=== PATIENT | female | born 1980 | race Caucasian/White ===

== ENCOUNTER 2020-08-24 07:48 | Outpatient (REF) | payer BC, SELFPAY | END 2020-08-24 07:49 | disposition home or self-care (01) | LOC: HO.MDS 07:48 | PROVIDERS: PCP Nurse Practitioner Family; Visit Provider Hospitalist | DX: J45.909 Unspecified asthma, uncomplicated (principal) | CPT/HCPCS: 96372; J2357 ==

== ENCOUNTER 2020-08-26 08:15 | Outpatient (REF) | payer BC, SELFPAY ==
--- NOTE | 2020-08-26 08:35 | XR_ITS ---
EXAMINATION: XR ANKLE, LEFT CLINICAL INFORMATION: Pain left ankle and joints. COMPARISON: None TECHNIQUE: AP, lateral, and mortise views of the left ankle. FINDINGS: The bones and soft tissues are normal. No fracture. Alignment is anatomic. Joint spaces are maintained. No joint effusion. XR/XR ankle LT min 3V IMPRESSION: Unremarkable left ankle exam.
[2020-08-26 11:49] LABS: Anion Gap 15 (12-20); Blood Urea Nitrogen 18 mg/dL (9-16); Calcium 8.7 mg/dL (8.4-10.2); Carbon Dioxide 23 mmol/L (22-29); Chloride 106 mmol/L (96-108); Cholesterol 211 mg/dL; Estimated Glomerular Filt Rate > 60; Glucose Fasting 81 mg/dL (60-99); HDL Cholesterol 53 mg/dL; LDL Cholesterol Calculated 140 mg/dl; Potassium 4.5 mmol/l (3.3-5.1); Sodium 139 mmol/L (135-145); Triglycerides 93 mg/dL
[2020-08-26 11:59] LABS: TSH reflex Free T4 1.58 mIU/mL (0.32-4.0); Vitamin D 25-OH Total 32.7 ng/mL (>30)
== END 2020-08-26 08:16 | disposition home or self-care (01) ==
LOC: HO.HMGCLDS 08:15
PROVIDERS: PCP Nurse Practitioner Family; Visit Provider Nurse Practitioner Family
DX: Z00.00 Encounter for general adult medical examination without abnormal findings (principal); M25.572 Pain in left ankle and joints of left foot; E55.9 Vitamin D deficiency, unspecified; Z80.3 Family history of malignant neoplasm of breast
CPT/HCPCS: 73610; 80048; 80061; 82306; 84443

== ENCOUNTER 2020-09-21 08:10 | Outpatient (REF) | payer BC, SELFPAY | END 2020-09-21 08:11 | disposition home or self-care (01) | LOC: HO.MDS 08:10 | PROVIDERS: PCP Nurse Practitioner Family; Visit Provider Hospitalist | DX: J45.50 Severe persistent asthma, uncomplicated (principal) | CPT/HCPCS: 90732; 96372; J2357 ==

== ENCOUNTER 2020-10-19 09:23 | Outpatient (REF) | payer BC, SELFPAY | END 2020-10-19 09:24 | disposition home or self-care (01) | LOC: HO.MDS 09:23 | PROVIDERS: PCP Nurse Practitioner Family; Visit Provider Hospitalist | DX: J45.50 Severe persistent asthma, uncomplicated (principal) | CPT/HCPCS: 96372; J2357 ==

== ENCOUNTER 2020-11-16 07:59 | Outpatient (REF) | payer BC, SELFPAY | END 2020-11-16 08:00 | disposition home or self-care (01) | LOC: HO.MDS 07:59 | PROVIDERS: PCP Nurse Practitioner Family; Visit Provider Hospitalist | DX: J45.50 Severe persistent asthma, uncomplicated (principal) | CPT/HCPCS: 96372; J2357 ==

== ENCOUNTER 2020-12-07 10:21 | Outpatient (REF) | payer BC, SELFPAY ==
--- NOTE | ~2020-12-07 | XR_ITS ---
EXAMINATION: XR LUMBOSACRAL SPINE CLINICAL INFORMATION: Chronic low back pain COMPARISON: Previous lumbar spine x-ray and MRI most recent June 2018 TECHNIQUE: Three views of the lumbosacral spine. FINDINGS: There may be a transitional vertebral body segment or 6 lumbar-type vertebral bodies. Bone alignment is normal. No fracture or dislocation is seen. Disc spaces are normal. Paraspinal soft tissues are normal. XR/XR lumbar spine 2-3V IMPRESSION: Probable transitional vertebral body segment or 6 lumbar-type vertebral bodies. Otherwise unremarkable exam.
[2020-12-07 12:07] LABS: Anion Gap 11 (12-20); Blood Urea Nitrogen 16 mg/dL (9-16); Calcium 8.5 mg/dL (8.4-10.2); Carbon Dioxide 26 mmol/L (22-29); Chloride 107 mmol/L (96-108); Estimated Glomerular Filt Rate > 60; Glucose Random 84 mg/dL (60-115); Potassium 4.2 mmol/L (3.3-5.1); Sodium 140 mmol/L (135-145)
[2020-12-07 12:18] LABS: Erythrocyte Sedimentation Rate 3 MM/HR (0-20)
[2020-12-11 11:32] LABS: HLA B27 Negative (Negative)
== END 2020-12-07 10:22 | disposition home or self-care (01) ==
LOC: HO.HMGCX 10:21
PROVIDERS: PCP Nurse Practitioner Family; Visit Provider Physical Medicine & Rehabilitation
DX: M46.1 Sacroiliitis, not elsewhere classified (principal); M54.5 Low back pain; G89.29 Other chronic pain
CPT/HCPCS: 36415; 72100; 80048; 85652; 86812

== ENCOUNTER 2020-12-14 07:52 | Outpatient (REF) | payer BC, SELFPAY | END 2020-12-14 07:53 | disposition home or self-care (01) | LOC: HO.MDS 07:52 | PROVIDERS: PCP Nurse Practitioner Family; Visit Provider Hospitalist | DX: J45.50 Severe persistent asthma, uncomplicated (principal) | CPT/HCPCS: 96372; J2357 ==

== ENCOUNTER 2021-01-11 08:03 | Outpatient (REF) | payer BC, SELFPAY | END 2021-01-11 08:04 | disposition home or self-care (01) | LOC: HO.MDS 08:03 | PROVIDERS: PCP Nurse Practitioner Family; Visit Provider Hospitalist | DX: J45.50 Severe persistent asthma, uncomplicated (principal) | CPT/HCPCS: 96372; J2357 ==

== ENCOUNTER 2021-02-11 07:51 | Outpatient (REF) | payer BC, SELFPAY | END 2021-02-11 07:52 | disposition home or self-care (01) | LOC: HO.MDS 07:51 | PROVIDERS: PCP Nurse Practitioner Family; Visit Provider Hospitalist | DX: J45.50 Severe persistent asthma, uncomplicated (principal) | CPT/HCPCS: 96372; J2357 ==

== ENCOUNTER 2021-03-15 07:50 | Outpatient (REF) | payer BC, SELFPAY | END 2021-03-15 07:51 | disposition home or self-care (01) | LOC: HO.MDS 07:50 | PROVIDERS: PCP Nurse Practitioner Family; Visit Provider Hospitalist | DX: J45.50 Severe persistent asthma, uncomplicated (principal) | CPT/HCPCS: 96372; J2357 ==

== ENCOUNTER 2021-04-12 07:42 | Outpatient (REF) | payer BC, SELFPAY | END 2021-04-12 07:43 | disposition home or self-care (01) | LOC: HO.MDS 07:42 | PROVIDERS: PCP Nurse Practitioner Family; Visit Provider Hospitalist | DX: J45.50 Severe persistent asthma, uncomplicated (principal) | CPT/HCPCS: 96372; J2357 ==

== ENCOUNTER 2021-05-11 08:02 | Outpatient (REF) | payer BC, SELFPAY | END 2021-05-11 08:03 | disposition home or self-care (01) | LOC: HO.MDS 08:02 | PROVIDERS: PCP Nurse Practitioner Family; Visit Provider Hospitalist | DX: J45.50 Severe persistent asthma, uncomplicated (principal) | CPT/HCPCS: 96372; J2357 ==

== ENCOUNTER → 2021-06-14 13:12 | Outpatient (BNVA) | payer BC, SELFPAY | PROVIDERS: PCP Nurse Practitioner Family; Visit Provider Hospitalist ==

== ENCOUNTER 2021-06-15 07:59 | Outpatient (REF) | payer BC, SELFPAY | END 2021-06-15 08:00 | disposition home or self-care (01) | LOC: HO.MDS 07:59 | PROVIDERS: PCP Nurse Practitioner Family; Visit Provider Hospitalist | DX: J45.50 Severe persistent asthma, uncomplicated (principal) | CPT/HCPCS: 96372; J2357 ==

== ENCOUNTER 2021-10-17 09:42 | Emergency (ER) | payer BC, SELFPAY ==
--- NOTE | ~2021-10-17 | XR_ITS ---
EXAMINATION: XR CHEST CLINICAL INFORMATION: SOB x2 days COMPARISON: Chest 01/01/2020 TECHNIQUE: 2 views of the chest were obtained. FINDINGS: No significant abnormality is noted involving the heart, lungs, mediastinum, bony thorax or soft tissues. XR/XR chest 2V IMPRESSION: Unremarkable chest exam.
[2021-10-17 10:14] VITALS: BP 157/81; PULSE 91; RESP 20; TEMP 36.8; O2SAT 95; BMI 29.9
--- NOTE | 2021-10-17 10:18 | ED_ITS ---
HPI - Asthma General Chief Complaint: Upper Respiratory Symptoms Stated Complaint: SOB Time Seen by Provider: 10/17/21 10:16 Related Data Home Medications Medication Instructions Recorded Confirmed budesonide 0.5 mg/2 mL suspension mg INHALATION DAILY 08/26/20 01/11/21 for nebulization albuterol sulfate 90 mcg/actuation 2 puff INHALATION Q6H PRN 09/21/20 01/11/21 aerosol inhaler (ProAir HFA) tiotropium bromide 2.5 2 puff PO DAILY 09/21/20 01/11/21 mcg/actuation mist for inhalation tiotropium bromide 1.25 2 puff INHALATION BEDTIME 09/20/21 mcg/actuation mist for inhalation (Spiriva Respimat) Previous Rx's Medication Instructions Recorded valacyclovir 500 mg tablet 500 mg PO DAILY 90 Days #90 tab 11/15/20 ropinirole 0.25 mg tablet 0.25 mg PO BEDTIME #90 tab 02/17/21 epinephrine 0.3 mg/0.3 mL 0.3 ml IM DIRECTED PRN #2 ea 05/04/21 injection, auto-injector epinephrine 0.3 mg/0.3 mL 0.3 mg (0.3 mL) IM Q10M PRN 30 06/14/21 injection, auto-injector (EpiPen Days #2 ea 2-Rojelio) omalizumab 150 mg/mL subcutaneous 300 mg (2 mL) SUBCUT Q4W #2 syringe 06/20/21 syringe (Xolair) famotidine 40 mg tablet 40 mg PO BEDTIME #90 tab 07/05/21 Symbicort 160 mcg-4.5 2 puff PO BID 90 Days #3 ea NS 07/07/21 mcg/actuation HFA aerosol inhaler (budesonide-formoterol) Symbicort 160 mcg-4.5 2 puff INHALATION BID 90 Days #3 07/22/21 mcg/actuation HFA aerosol inhaler ea NS (budesonide-formoterol) cephalexin 250 mg capsule 250 mg PO BID #14 cap 09/26/21 omeprazole 40 mg capsule,delayed 40 mg PO DAILY #90 cap 09/29/21 release estazolam 2 mg tablet 2 mg PO BEDTIME 30 Days #30 tab 10/05/21 Magic Mouthwash 10 ml PO TID PRN 10 Days #240 ml 10/12/21 Diphen/Lido/Antacid 1:1:1 240 mL suspension penicillin V potassium 500 mg 500 mg PO TID 10 Days #30 tab 10/12/21 tablet budesonide 1 mg/2 mL suspension 1 mg (2 mL) INHALATION DAILY #60 ml 10/17/21 for nebulization prednisone 20 mg tablet 40 mg PO DAILY #10 tab 10/17/21 Allergies Allergy/AdvReac Type Severity Reaction Status Date / Time Environmental Allergy Intermediate Hives and Uncoded 06/14/21 13:21 Rash PMFSH Past Medical History Medical History Asthma Chronic allergic rhinitis Dyslipidemia Family hx-breast malignancy GERD (gastroesophageal reflux disease) Hiatal hernia Lumbar disc herniation RLS (restless legs syndrome) Ureterolithiasis Vitamin D deficiency Surgical History H/O prior ablation treatment History of colposcopy History of release of tendon Hx of cholecystectomy Family History Family History Father No problems noted. Mother No problems noted. Maternal Grandfather No problems noted. Maternal Grandmother No problems noted. Paternal Grandfather No problems noted. Paternal Grandmother No problems noted. Maternal Uncle Bladder cancer Paternal Grandmother Colon cancer Stroke Sister No problems noted. Social History Social History Patient Tobacco Use Status: Never used Tobacco Advance Directives: No Advance Directives Information Provided: Yes Patient : No Physical Exam Vital Signs: Vital Signs: Last Vital Signs Temp 98.3 F 10/17/21 10:14 Pulse 91 10/17/21 10:14 Resp 20 10/17/21 10:14 BP 157/81 H 10/17/21 10:14 Pulse Ox 95 10/17/21 10:14 BMI result Body Mass Index 29.9 Course Course Course Narrative: 10:20am - Quick assessment. Patient alert oriented x3. Not in any acute distress. Vital signs are stable within normal limits. 41-year-old female with a past medical history of asthma presenting to the ED with complaints of 2 days of worsening cough with yellow-colored sputum production with shortness of breath and wheezing. Also reports hoarseness and a sore throat. Reports that she was prescribed penicillins on Sunday for pharyngitis and is taking as prescribed. She reports she is vaccinated to COVID. Although was not tested for COVID. Reports she is taking her nebulizers and Budesonide as prescribed and she does not feel any symptomatic relief. 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 Denies recent travel. Denies any fevers. At this time labs, chest x-ray, COVID/RSV/flu and EKG ordered. Patient will be sent back to the waiting room for further evaluation treatment so she can be called back into the ER. Patient and mother at bedside understand agree this plan. MDM - Asthma Lab Data Result diagrams: 10/17/21 10:40 10/17/21 10:40 Labs: Lab Results 10/17/21 10/17/21 10/17/21 Range/Units 10:22 10:40 10:40 WBC 10.3 (4.8-10.8) X10*3/uL RBC 4.50 (4.20-5.50) X10*6/uL Hgb 14.8 (12.0-16.0) g/dl Hct 42.7 (37.0-47.0) % MCV 94.9 (80.0-98.0) fL MCH 32.9 (27.0-33.0) pg MCHC 34.7 (31.0-35.0) g/dl RDW 12.0 (11.0-16.0) % Plt Count 296 (160-400) X10*3/uL MPV 10.4 (9.4-12.3) fL Immature Gran % (Auto) 0.3 (0.0-0.4) % Neut % (Auto) 77.3 H (45-73) % Lymph % (Auto) 14.0 L (20-40) % [place] % (Auto) 6.7 (2-11) % Eos % (Auto) 1.3 (0-4) % Baso % (Auto) 0.4 (0-2) % Lymph # (Auto) 1.4 (1.2-4.9) X10*3/uL [place] # (Auto) 0.7 (0.1-1.2) X10*3/uL Eos # (Auto) 0.1 (0.0-0.4) X10*3/uL Baso # (Auto) 0.0 (0.0-0.2) X10*3/uL Abs Immat Gran (auto) 0.03 (0.00-0.03) X10*3/uL Absolute Neuts (auto) 8.0 (2.0-8.3) x10*3/uL Absolute Nucleated RBC 0.000 (0.0-0.012) X10*3/uL Nucleated RBC % (auto) 0.0 (0.0-0.2) /100WBC Hold Purple Top SEE NOTE Sodium (135-145) mmol/L Potassium (3.3-5.1) mmol/L Chloride (96-108) mmol/L Carbon Dioxide (22-29) mmol/L Anion Gap (12-20) BUN (9-16) mg/dL Creatinine (0.5-1.4) mg/dL Estim Creat Clear Calc Estimated GFR Random Glucose (60-115) mg/dL Calcium (8.4-10.2) mg/dL Magnesium (1.6-2.6) mg/dL Total Bilirubin (0.0-1.0) mg/dL AST (5-31) U/L ALT (0-31) U/L Alkaline Phosphatase (39-117) U/L Total Protein (6.5-8.0) g/dL Albumin (3.5-5.0) g/dL Influenza Type A (PCR) NEGATIVE (Negative) Influenza Type B (PCR) NEGATIVE (Negative) RSV RNA Qual (PCR) NEGATIVE (Negative) SARS-CoV-2 RNA (RT-PCR) NEGATIVE (Negative) 10/17/21 Range/Units 10:40 WBC (4.8-10.8) X10*3/uL RBC (4.20-5.50) X10*6/uL Hgb (12.0-16.0) g/dl Hct (37.0-47.0) % MCV (80.0-98.0) fL MCH (27.0-33.0) pg MCHC (31.0-35.0) g/dl RDW (11.0-16.0) % Plt Count (160-400) X10*3/uL MPV (9.4-12.3) fL Immature Gran % (Auto) (0.0-0.4) % Neut % (Auto) (45-73) % Lymph % (Auto) (20-40) % [place] % (Auto) (2-11) % Eos % (Auto) (0-4) % Baso % (Auto) (0-2) % Lymph # (Auto) (1.2-4.9) X10*3/uL [place] # (Auto) (0.1-1.2) X10*3/uL Eos # (Auto) (0.0-0.4) X10*3/uL Baso # (Auto) (0.0-0.2) X10*3/uL Abs Immat Gran (auto) (0.00-0.03) X10*3/uL Absolute Neuts (auto) (2.0-8.3) x10*3/uL Absolute Nucleated RBC (0.0-0.012) X10*3/uL Nucleated RBC % (auto) (0.0-0.2) /100WBC Hold Purple Top Sodium 141 (135-145) mmol/L Potassium 4.3 (3.3-5.1) mmol/L Chloride 108 (96-108) mmol/L Carbon Dioxide 28 (22-29) mmol/L Anion Gap 9 L (12-20) BUN 12 (9-16) mg/dL Creatinine 0.83 (0.5-1.4) mg/dL Estim Creat Clear Calc 96.0 Estimated GFR > 60 Random Glucose 100 (60-115) mg/dL Calcium 9.4 D (8.4-10.2) mg/dL Magnesium 2.0 (1.6-2.6) mg/dL Total Bilirubin 0.4 (0.0-1.0) mg/dL AST 21 (5-31) U/L ALT 29 (0-31) U/L Alkaline Phosphatase 92 (39-117) U/L Total Protein 7.2 (6.5-8.0) g/dL Albumin 4.1 (3.5-5.0) g/dL Influenza Type A (PCR) (Negative) Influenza Type B (PCR) (Negative) RSV RNA Qual (PCR) (Negative) SARS-CoV-2 RNA (RT-PCR) (Negative) Discharge Plan Discharge Clinical Impression: Upper respiratory infection, Viral infection Patient Disposition: Home, Self-Care Instructions: Upper Respiratory Infection (ED), Viral Syndrome (ED) Prescriptions: New budesonide 1 mg/2 mL suspension for nebulization 1 mg inhalation DAILY Qty: 60 RF: 0 prednisone 20 mg tablet 40 mg PO DAILY Qty: 10 RF: 0 No Action valacyclovir 500 mg tablet 500 mg PO DAILY 90 Days Qty: 90 RF: 3 ropinirole 0.25 mg tablet 0.25 mg PO BEDTIME Qty: 90 RF: 3 epinephrine 0.3 mg/0.3 mL auto-injector 0.3 ml IM DIRECTED PRN (Reason: anaphylaxis) Qty: 2 RF: 0 Xolair 150 mg/mL syringe 300 mg subcut Q4W Qty: 2 RF: 12 famotidine 40 mg tablet 40 mg PO BEDTIME Qty: 90 RF: 3 budesonide-formoterol [Symbicort] 160-4.5 mcg/actuation HFA aerosol inhaler 2 puff PO BID 90 Days Qty: 3 RF: 1 budesonide-formoterol [Symbicort] 160-4.5 mcg/actuation HFA aerosol inhaler 2 puff inhalation BID 90 Days Qty: 3 RF: 0 cephalexin 250 mg capsule 250 mg PO BID Qty: 14 RF: 0 omeprazole 40 mg capsule,delayed release(DR/EC) 40 mg PO DAILY Qty: 90 RF: 0 estazolam 2 mg tablet 2 mg PO BEDTIME 30 Days Qty: 30 RF: 0 budesonide 0.5 mg/2 mL suspension for nebulization inhalation DAILY RF: 0 tiotropium bromide 2.5 mcg/actuation mist 2 puff PO DAILY RF: 0 Spiriva Respimat 1.25 mcg/actuation mist 2 puff inhalation BEDTIME RF: 0 penicillin V potassium 500 mg tablet 500 mg PO TID 10 Days Qty: 30 RF: 0 Magic Mouthwash Diphen/Lido/Antacid 1:1:1 240 mL suspension 10 ml PO TID PRN (Reason: throat pain) 10 Days Qty: 240 RF: 0 epinephrine [EpiPen 2-Rojelio] 0.3 mg/0.3 mL auto-injector 0.3 mg IM Q10M PRN (Reason: anaphylaxis) 30 Days Qty: 2 RF: 6 albuterol sulfate [ProAir HFA] 90 mcg/actuation HFA aerosol inhaler 2 puff inhalation Q6H PRNRF: 0 Interventions: ED Discharge Assessment Last Done: 10/17/21 11:50 Discharge Date/Time: 10/17/21 11:52
--- NOTE | 2021-10-17 10:19 | ECG_ITS ---
Test Reason : upper respiratory Blood Pressure : / mmHG Vent. Rate : 085 BPM Atrial Rate : 085 BPM P-R Int : 118 ms QRS Dur : 080 ms QT Int : 374 ms P-R-T Axes : 011 044 023 degrees QTc Int : 445 ms Normal sinus rhythm Normal EKG No previous ECGs available Referred By: Riddhi Whiteside Electronically Signed By:DUANE CARRANZA
[2021-10-17 10:46] LABS: MANUAL DIFF FLAG NO
[2021-10-17 10:47] LABS: Basophils Percent Auto 0.4 % (0-2); Eosinophils Absolute Auto 0.1 X10*3/uL (0.0-0.4); Eosinophils Percent Auto 1.3 % (0-4); Hematocrit 42.7 % (37.0-47.0); Hemoglobin 14.8 g/dl (12.0-16.0); Imm Gran Abs Auto 0.03 X10*3/uL (0.00-0.03); Imm Gran Pct Auto 0.3 % (0.0-0.4); Lymphocytes Absolute Auto 1.4 X10*3/uL (1.2-4.9); Mean Corpuscular HGB Conc 34.7 g/dl (31.0-35.0); Mean Corpuscular Hemoglobin 32.9 pg (27.0-33.0); Mean Corpuscular Volume 94.9 fL (80.0-98.0); Mean Platelet Volume 10.4 fL (9.4-12.3); Monocytes Absolute Auto 0.7 X10*3/uL (0.1-1.2); Monocytes Percent Auto 6.7 % (2-11); Neutrophils Percent Auto 77.3 % (45-73); Platelet Count 296 X10*3/uL (160-400); White Blood Count 10.3 X10*3/uL (4.8-10.8)
[2021-10-17 11:06] LABS: Alanine Aminotransferase 29 U/L (0-31); Albumin Level 4.1 g/dL (3.5-5.0); Alkaline Phosphatase 92 U/L (39-117); Anion Gap 9 (12-20); Aspartate Amino Transferase 21 U/L (5-31); Bilirubin Total 0.4 mg/dL (0.0-1.0); Blood Urea Nitrogen 12 mg/dL (9-16); Calcium 9.4 mg/dL (8.4-10.2); Carbon Dioxide 28 mmol/L (22-29); Chloride 108 mmol/L (96-108); Estimated Glomerular Filt Rate > 60; Glucose Random 100 mg/dL (60-115); Potassium 4.3 mmol/L (3.3-5.1); Sodium 141 mmol/L (135-145); Total Protein 7.2 g/dL (6.5-8.0)
[2021-10-17 11:16] LABS: Influenza A PCR NEGATIVE (Negative); Influenza B PCR NEGATIVE (Negative); Resp Syncy Virus RNA Qual PCR NEGATIVE (Negative); SARS COV2 PCR INHOUSE NEGATIVE (Negative)
--- NOTE | 2021-10-17 11:42 | ED.URI ---
HPI - URI/Sore Throat General Chief Complaint: Upper Respiratory Symptoms Stated Complaint: SOB Time Seen by Provider: 10/17/21 10:16 Source: patient History of Present Illness HPI Narrative: Patient states for the past 5 days she has had a sore throat as well as cough and wheezing. No fevers or chills. She has a history of asthma and has been using her nebulizer more than normal. She saw her physician last Sunday when it started and was prescribed penicillin which she has been taking. Her sore throat is about the same. Not significantly worse. Not unilateral. Similar history in the past with upper respiratory infections as well as pneumonia in the past. She is a nonsmoker. 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 as well as other upper respiratory viral illnesses Related Data Home Medications Medication Instructions Recorded Confirmed budesonide 0.5 mg/2 mL suspension mg INHALATION DAILY 08/26/20 01/11/21 for nebulization albuterol sulfate 90 mcg/actuation 2 puff INHALATION Q6H PRN 09/21/20 01/11/21 aerosol inhaler (ProAir HFA) tiotropium bromide 2.5 2 puff PO DAILY 09/21/20 01/11/21 mcg/actuation mist for inhalation tiotropium bromide 1.25 2 puff INHALATION BEDTIME 09/20/21 mcg/actuation mist for inhalation (Spiriva Respimat) Previous Rx's Medication Instructions Recorded valacyclovir 500 mg tablet 500 mg PO DAILY 90 Days #90 tab 11/15/20 ropinirole 0.25 mg tablet 0.25 mg PO BEDTIME #90 tab 02/17/21 epinephrine 0.3 mg/0.3 mL 0.3 ml IM DIRECTED PRN #2 ea 05/04/21 injection, auto-injector epinephrine 0.3 mg/0.3 mL 0.3 mg (0.3 mL) IM Q10M PRN 30 06/14/21 injection, auto-injector (EpiPen Days #2 ea 2-Rojelio) omalizumab 150 mg/mL subcutaneous 300 mg (2 mL) SUBCUT Q4W #2 syringe 06/20/21 syringe (Xolair) famotidine 40 mg tablet 40 mg PO BEDTIME #90 tab 07/05/21 Symbicort 160 mcg-4.5 2 puff PO BID 90 Days #3 ea NS 07/07/21 mcg/actuation HFA aerosol inhaler (budesonide-formoterol) Symbicort 160 mcg-4.5 2 puff INHALATION BID 90 Days #3 07/22/21 mcg/actuation HFA aerosol inhaler ea NS (budesonide-formoterol) cephalexin 250 mg capsule 250 mg PO BID #14 cap 09/26/21 omeprazole 40 mg capsule,delayed 40 mg PO DAILY #90 cap 09/29/21 release estazolam 2 mg tablet 2 mg PO BEDTIME 30 Days #30 tab 10/05/21 Magic Mouthwash 10 ml PO TID PRN 10 Days #240 ml 10/12/21 Diphen/Lido/Antacid 1:1:1 240 mL suspension penicillin V potassium 500 mg 500 mg PO TID 10 Days #30 tab 10/12/21 tablet budesonide 1 mg/2 mL suspension 1 mg (2 mL) INHALATION DAILY #60 ml 10/17/21 for nebulization prednisone 20 mg tablet 40 mg PO DAILY #10 tab 10/17/21 Allergies Allergy/AdvReac Type Severity Reaction Status Date / Time Environmental Allergy Intermediate Hives and Uncoded 06/14/21 13:21 Rash Review of Systems Constitutional: Constitutional: Denies fever(s) ENT: Comments: Sore throat Cardiovascular: Comments: No chest pain Respiratory: Comments: Cough with sputum. Positive wheezing. Gastrointestinal: Comments: No nausea vomiting diarrhea Integumentary/Breasts: Comments: No rash PMFSH Past Medical History Medical History Asthma Chronic allergic rhinitis Dyslipidemia Family hx-breast malignancy GERD (gastroesophageal reflux disease) Hiatal hernia Lumbar disc herniation RLS (restless legs syndrome) Ureterolithiasis Vitamin D deficiency Surgical History H/O prior ablation treatment History of colposcopy History of release of tendon Hx of cholecystectomy Family History Family History Father No problems noted. Mother No problems noted. Maternal Grandfather No problems noted. Maternal Grandmother No problems noted. Paternal Grandfather No problems noted. Paternal Grandmother No problems noted. Maternal Uncle Bladder cancer Paternal Grandmother Colon cancer Stroke Sister No problems noted. Social History Social History Patient Tobacco Use Status: Never used Tobacco Advance Directives: No Advance Directives Information Provided: Yes Patient : No Physical Exam Vital Signs: Vital Signs: Last Vital Signs Temp 98.3 F 10/17/21 10:14 Pulse 91 10/17/21 10:14 Resp 20 10/17/21 10:14 BP 157/81 H 10/17/21 10:14 Pulse Ox 95 10/17/21 10:14 BMI result Body Mass Index 29.9 Const: Other: Awake alert no acute distress HENMT: Other: Throat with mild erythema, no swelling, no exudate. Positive mild bilateral equal submandibular lymphadenopathy Neck: Other: No meningismus Resp: Other: Clear bilaterally but mildly diminished. No wheezes rales or rhonchi Cardio: Other: Regular rate and rhythm without murmurs rubs or gallops Skin: Other: No visible rash Neuro: Other: Alert and oriented x4 Course Course Course Narrative: URI Pneumonia COVID-19 infection Workup in emergency department shows normal labs including CBC and chemistries. Viral workup shows no evidence of influenza, COVID-19, or RSV. Chest x-ray is clear without infiltrate Will start on prednisone and refilled her prescription for budesonide. MDM - URI/Sore Throat Lab Data Result diagrams: 10/17/21 10:40 10/17/21 10:40 Labs: Lab Results 10/17/21 10/17/21 10/17/21 Range/Units 10:22 10:40 10:40 WBC 10.3 (4.8-10.8) X10*3/uL RBC 4.50 (4.20-5.50) X10*6/uL Hgb 14.8 (12.0-16.0) g/dl Hct 42.7 (37.0-47.0) % MCV 94.9 (80.0-98.0) fL MCH 32.9 (27.0-33.0) pg MCHC 34.7 (31.0-35.0) g/dl RDW 12.0 (11.0-16.0) % Plt Count 296 (160-400) X10*3/uL MPV 10.4 (9.4-12.3) fL Immature Gran % (Auto) 0.3 (0.0-0.4) % Neut % (Auto) 77.3 H (45-73) % Lymph % (Auto) 14.0 L (20-40) % [place] % (Auto) 6.7 (2-11) % Eos % (Auto) 1.3 (0-4) % Baso % (Auto) 0.4 (0-2) % Lymph # (Auto) 1.4 (1.2-4.9) X10*3/uL [place] # (Auto) 0.7 (0.1-1.2) X10*3/uL Eos # (Auto) 0.1 (0.0-0.4) X10*3/uL Baso # (Auto) 0.0 (0.0-0.2) X10*3/uL Abs Immat Gran (auto) 0.03 (0.00-0.03) X10*3/uL Absolute Neuts (auto) 8.0 (2.0-8.3) x10*3/uL Absolute Nucleated RBC 0.000 (0.0-0.012) X10*3/uL Nucleated RBC % (auto) 0.0 (0.0-0.2) /100WBC Hold Purple Top SEE NOTE Sodium (135-145) mmol/L Potassium (3.3-5.1) mmol/L Chloride (96-108) mmol/L Carbon Dioxide (22-29) mmol/L Anion Gap (12-20) BUN (9-16) mg/dL Creatinine (0.5-1.4) mg/dL Estim Creat Clear Calc Estimated GFR Random Glucose (60-115) mg/dL Calcium (8.4-10.2) mg/dL Magnesium (1.6-2.6) mg/dL Total Bilirubin (0.0-1.0) mg/dL AST (5-31) U/L ALT (0-31) U/L Alkaline Phosphatase (39-117) U/L Total Protein (6.5-8.0) g/dL Albumin (3.5-5.0) g/dL Influenza Type A (PCR) NEGATIVE (Negative) Influenza Type B (PCR) NEGATIVE (Negative) RSV RNA Qual (PCR) NEGATIVE (Negative) SARS-CoV-2 RNA (RT-PCR) NEGATIVE (Negative) 10/17/21 Range/Units 10:40 WBC (4.8-10.8) X10*3/uL RBC (4.20-5.50) X10*6/uL Hgb (12.0-16.0) g/dl Hct (37.0-47.0) % MCV (80.0-98.0) fL MCH (27.0-33.0) pg MCHC (31.0-35.0) g/dl RDW (11.0-16.0) % Plt Count (160-400) X10*3/uL MPV (9.4-12.3) fL Immature Gran % (Auto) (0.0-0.4) % Neut % (Auto) (45-73) % Lymph % (Auto) (20-40) % [place] % (Auto) (2-11) % Eos % (Auto) (0-4) % Baso % (Auto) (0-2) % Lymph # (Auto) (1.2-4.9) X10*3/uL [place] # (Auto) (0.1-1.2) X10*3/uL Eos # (Auto) (0.0-0.4) X10*3/uL Baso # (Auto) (0.0-0.2) X10*3/uL Abs Immat Gran (auto) (0.00-0.03) X10*3/uL Absolute Neuts (auto) (2.0-8.3) x10*3/uL Absolute Nucleated RBC (0.0-0.012) X10*3/uL Nucleated RBC % (auto) (0.0-0.2) /100WBC Hold Purple Top Sodium 141 (135-145) mmol/L Potassium 4.3 (3.3-5.1) mmol/L Chloride 108 (96-108) mmol/L Carbon Dioxide 28 (22-29) mmol/L Anion Gap 9 L (12-20) BUN 12 (9-16) mg/dL Creatinine 0.83 (0.5-1.4) mg/dL Estim Creat Clear Calc 96.0 Estimated GFR > 60 Random Glucose 100 (60-115) mg/dL Calcium 9.4 D (8.4-10.2) mg/dL Magnesium 2.0 (1.6-2.6) mg/dL Total Bilirubin 0.4 (0.0-1.0) mg/dL AST 21 (5-31) U/L ALT 29 (0-31) U/L Alkaline Phosphatase 92 (39-117) U/L Total Protein 7.2 (6.5-8.0) g/dL Albumin 4.1 (3.5-5.0) g/dL Influenza Type A (PCR) (Negative) Influenza Type B (PCR) (Negative) RSV RNA Qual (PCR) (Negative) SARS-CoV-2 RNA (RT-PCR) (Negative) Discharge Plan Discharge Clinical Impression: Upper respiratory infection, Viral infection Patient Disposition: Home, Self-Care Instructions: Upper Respiratory Infection (ED), Viral Syndrome (ED) Prescriptions: New budesonide 1 mg/2 mL suspension for nebulization 1 mg inhalation DAILY Qty: 60 RF: 0 prednisone 20 mg tablet 40 mg PO DAILY Qty: 10 RF: 0 No Action valacyclovir 500 mg tablet 500 mg PO DAILY 90 Days Qty: 90 RF: 3 ropinirole 0.25 mg tablet 0.25 mg PO BEDTIME Qty: 90 RF: 3 epinephrine 0.3 mg/0.3 mL auto-injector 0.3 ml IM DIRECTED PRN (Reason: anaphylaxis) Qty: 2 RF: 0 Xolair 150 mg/mL syringe 300 mg subcut Q4W Qty: 2 RF: 12 famotidine 40 mg tablet 40 mg PO BEDTIME Qty: 90 RF: 3 budesonide-formoterol [Symbicort] 160-4.5 mcg/actuation HFA aerosol inhaler 2 puff PO BID 90 Days Qty: 3 RF: 1 budesonide-formoterol [Symbicort] 160-4.5 mcg/actuation HFA aerosol inhaler 2 puff inhalation BID 90 Days Qty: 3 RF: 0 cephalexin 250 mg capsule 250 mg PO BID Qty: 14 RF: 0 omeprazole 40 mg capsule,delayed release(DR/EC) 40 mg PO DAILY Qty: 90 RF: 0 estazolam 2 mg tablet 2 mg PO BEDTIME 30 Days Qty: 30 RF: 0 budesonide 0.5 mg/2 mL suspension for nebulization inhalation DAILY RF: 0 tiotropium bromide 2.5 mcg/actuation mist 2 puff PO DAILY RF: 0 Spiriva Respimat 1.25 mcg/actuation mist 2 puff inhalation BEDTIME RF: 0 penicillin V potassium 500 mg tablet 500 mg PO TID 10 Days Qty: 30 RF: 0 Magic Mouthwash Diphen/Lido/Antacid 1:1:1 240 mL suspension 10 ml PO TID PRN (Reason: throat pain) 10 Days Qty: 240 RF: 0 epinephrine [EpiPen 2-Rojelio] 0.3 mg/0.3 mL auto-injector 0.3 mg IM Q10M PRN (Reason: anaphylaxis) 30 Days Qty: 2 RF: 6 albuterol sulfate [ProAir HFA] 90 mcg/actuation HFA aerosol inhaler 2 puff inhalation Q6H PRNRF: 0
== END 2021-10-17 11:52 | disposition home or self-care (01) ==
PROVIDERS: Physician Assistant Medical; Emergency Provider Emergency Medicine; PCP Nurse Practitioner Family
DX: J06.9 Acute upper respiratory infection, unspecified (principal); B34.9 Viral infection, unspecified; Z20.822 Contact with and (suspected) exposure to COVID-19; R06.02 Shortness of breath
CPT/HCPCS: 0241U; 36415; 71046; 80053; 83735; 85025; 93005; 99283; 99284

== ENCOUNTER → 2021-11-01 09:39 | Outpatient (BNVA) | payer OTHER, SELFPAY | PROVIDERS: PCP Nurse Practitioner Family; Visit Provider Hospitalist ==

== ENCOUNTER 2021-11-05 17:37 | Emergency (ER) | payer OTHER, SELFPAY ==
--- NOTE | ~2021-11-05 | XR_ITS ---
EXAMINATION: XR CHEST CLINICAL INFORMATION: Cough and positive Covid COMPARISON: Chest x-ray 10/17/2021. TECHNIQUE: Frontal view of the chest was obtained. FINDINGS: The lungs are expanded with platelike atelectasis right middle and right lower lobe. Rest of lungs are clear. The heart size and vascularity is normal. No gross bony abnormality seen. XR/XR chest 1V IMPRESSION: Right middle and lower lobe platelike atelectasis, new since 10/17/2021
[2021-11-05 17:40] VITALS: BP 140/88; PULSE 116; RESP 18; TEMP 36.8; O2SAT 92; BMI 29.1
--- NOTE | 2021-11-05 17:59 | ED_ITS ---
HPI - General Adult General Chief complaint: General Medical Stated complaint: +covid increasing sob Time Seen by Provider: 11/05/21 19:08 Source: patient Mode of arrival: ambulatory Limitations: no limitations History of Present Illness HPI narrative: 41-year-old female past medical history of asthma presents to the ED for shortness of breath. Patient tested positive for COVID on the 03 of November. Patient states today at home her O2 sat dropped to 88% on portable finger oxygen saturation monitor. Patient states coughing. Patient denies any coughing up blood, leg swelling, or calf pain. Patient received COVID-19 Moderna vaccine 2 doses but has not yet received the booster. Related Data Home Medications Medication Instructions Recorded Confirmed albuterol sulfate 90 mcg/actuation 2 puff INHALATION Q6H PRN 09/21/20 01/11/21 aerosol inhaler (ProAir HFA) tiotropium bromide 1.25 2 puff INHALATION BEDTIME 09/20/21 mcg/actuation mist for inhalation (Spiriva Respimat) Previous Rx's Medication Instructions Recorded valacyclovir 500 mg tablet 500 mg PO DAILY 90 Days #90 tab 11/15/20 ropinirole 0.25 mg tablet 0.25 mg PO BEDTIME #90 tab 02/17/21 epinephrine 0.3 mg/0.3 mL 0.3 mg (0.3 mL) IM Q10M PRN 30 06/14/21 injection, auto-injector (EpiPen Days #2 ea 2-Rojelio) omalizumab 150 mg/mL subcutaneous 300 mg (2 mL) SUBCUT Q4W #2 syringe 06/20/21 syringe (Xolair) famotidine 40 mg tablet 40 mg PO BEDTIME #90 tab 07/05/21 Symbicort 160 mcg-4.5 2 puff INHALATION BID 90 Days #3 07/22/21 mcg/actuation HFA aerosol inhaler ea NS (budesonide-formoterol) omeprazole 40 mg capsule,delayed 40 mg PO DAILY #90 cap 09/29/21 release Magic Mouthwash 10 ml PO TID PRN 10 Days #240 ml 10/12/21 Diphen/Lido/Antacid 1:1:1 240 mL suspension budesonide 1 mg/2 mL suspension 1 mg (2 mL) INHALATION DAILY #60 ml 10/17/21 for nebulization doxycycline hyclate 100 mg capsule 100 mg PO BID 10 Days #20 cap 10/31/21 prednisone 10 mg tablet See Rx Instructions PO DAILY 18 10/31/21 Days #63 tab budesonide 0.5 mg/2 mL suspension 0.5 mg (2 mL) INHALATION BID 30 11/01/21 for nebulization Days #120 ml ipratropium 0.5 mg-albuterol 3 mg 3 ml INHALATION QID PRN 30 Days 11/01/21 (2.5 mg base)/3 mL nebulization #360 ml soln hydrocodone-homatropine 5 mg-1.5 5 ml PO Q6H PRN 10 Days #473 ml 11/04/21 mg/5 mL oral syrup (Hydromet) azithromycin 250 mg tablet See Rx Instructions .ROUTE 11/05/21 .COMPLEX #6 tab dexamethasone 6 mg tablet 6 mg PO DAILY 10 Days #10 tab 11/05/21 (Decadron) estazolam 2 mg tablet 2 mg PO BEDTIME 30 Days #30 tab 11/05/21 Allergies Allergy/AdvReac Type Severity Reaction Status Date / Time Environmental Allergy Intermediate Hives and Uncoded 11/01/21 09:48 Rash Review of Systems Review of Systems: Yes all other systems are reviewed and are negative Constitutional: Constitutional: Reports as per HPI and Reports no additional constitutional complaints Eyes: Eyes: Reports as per HPI and Reports no additional eye complaints ENT: Reports system reviewed and no additional complaints, except as documented and Reports as per HPI Cardiovascular: Cardiovascular: Reports as per HPI, Reports no additional cardiovascular complaints and Reports dyspnea Respiratory: Respiratory: Reports as per HPI, Reports no additional respiratory complaints, Reports cough and Reports dyspnea Gastrointestinal: Gastrointestinal: Reports as per HPI and Reports no additional gastrointestinal complaints Genitourinary: Genitourinary: Reports no additional female genitourinary complaints and Reports as per HPI Musculoskeletal: Musculoskeletal: Reports no additional musculoskeletal complaints and Reports as per HPI Neurologic: Reports system reviewed and no additional complaints, except as documented and Reports as per HPI Psychiatric: Psychiatric: Reports no additional psychiatric complaints and Reports as per HPI PMFSH Past Medical History Medical History Asthma Chronic allergic rhinitis Dyslipidemia Family hx-breast malignancy GERD (gastroesophageal reflux disease) Hiatal hernia Lumbar disc herniation RLS (restless legs syndrome) Ureterolithiasis Vitamin D deficiency Surgical History H/O prior ablation treatment History of colposcopy History of release of tendon Hx of cholecystectomy Family History Family History Father No problems noted. Mother No problems noted. Maternal Grandfather No problems noted. Maternal Grandmother No problems noted. Paternal Grandfather No problems noted. Paternal Grandmother No problems noted. Maternal Uncle Bladder cancer Paternal Grandmother Colon cancer Stroke Sister No problems noted. Social History Social History Patient Tobacco Use Status: Never used Tobacco Advance Directives: No Advance Directives Information Provided: Yes Patient : No Physical Exam Vital Signs: Vital Signs: Last Vital Signs Temp 97.5 F 11/06/21 00:00 Pulse 89 11/06/21 00:33 Resp 18 11/06/21 00:33 BP 112/66 11/06/21 00:00 Pulse Ox 94 11/06/21 00:00 BMI result Body Mass Index 29.1 Const: General: cooperative, healthy appearing, comfortable, no acute distress, well developed, alert, awake and Physically active Orientation/consciousness: patient oriented x3 HENMT: Head: Yes normal to inspection, Yes No palpable skull fracture present, Yes normocephalic, Yes atraumatic and No abrasion Eyes: General: appearance normal, both eyes and all related structures Neck: Neck: Yes normal visual inspection, Yes full ROM, Yes no lymphadenopathy, Yes no meningeal signs, Yes trachea midline, Yes supple, No anterior neck swelling and No tender Chest: Chest palpation & inspection: normal inspection of the chest and normal palpation of entire chest wall Resp: Effort & Inspection: normal respiratory effort and able to speak in complete sentences Auscultation: wheezes (Lung tight) expiratory wheezes Cardio: Jugular venous distension: no JVD Heart sounds: S1 normal heart sound present and S2 normal heart sound present GI: Inspection: Yes normal to inspection and No abdominal wall ecchymosis Palpation (GI): Soft to palpation, not firm, nontender, no guarding and not rigid : General: No CVA tenderness and Yes no CVA tenderness Back/Spine/Pelvis: Back: no CVA tenderness, No CVA tenderness and No back tenderness Skin: General skin exam: no rashes or lesions noted and elasticity normal Neuro: General: patient oriented x3, gait normal, no meningeal signs and CN's II-XI intact bilaterally Cranial nerves: Yes CN's II-XII intact bilaterally Extrem: General: Yes normal to inspection and Yes full ROM Psych: Appearance: grossly normal, well kempt and not disheveled Course Course Course Narrative: Patient tachycardic but seems comfortable. O2 sat remained 92%. Due to patient stating 88% saturation on room air at home will do labs including D-dimer. Albuterol, Decadron and magnesium motor Reevaluation(s) Reevaluation #1: EKG negative STEMI. Troponin and BNP negative. D-dimer negative. Chest x-ray shows right lower lobe atelectasis. Time: 19:30 Reevaluation #2: On ambulation O2 saturation 95% on room air and feels better Time: 20:15 Reevaluation #3: Case was discussed with hospitalist Dr. Webster. He was informed of patient's history, physical exam, and diagnostics. He states patient presently does not meet admission criteria. Patient is not hypoxic after ambulation. He recommends azithromycin and Decadron. Patient was educated on signs of respiratory distress and told to return to the ED immediately she has them. Patient informed to observe her ambulatory O2 saturation. presently patient could be discharged and does not need inpatient admission. Presently not suspecting TX, CHF, or COVID induced PE. D-dimer negative with COVID. On the monitor, 02 saturation on room air is 95% before discharge Time: 20:32 Additional Reevaluation(s): Discharge presently cancelled. Repeat lactic was drawn due to initial lactic 2.1. Repeat lactic 2.7. Case was discussed with Dr. Webster who states most likely this is due to a alubterol and patient is not hypoxic with normal labs and D-dimer negative. He recommends repeating lactic acid and if it increases then there is indication for admission. He states presently do not give any more albuterol inhaler which could lead to more increase in lactic acid. Patient will give another L of fluid and then have repeat lactic acid. 23:46 11/05/2021. Repeat lactic acid normal 1.9 and patient O2 saturation 95%. Patient to be discharged. Hospitalist Darin agree with plan. Patient already on doxycycline. Dr. Moralez recommends discharge with azithromycin 11/06/2021 00:26 Medical Decision Making MDM Narrative Medical decision making narrative: COVID Lab Data Result diagrams: 11/05/21 18:24 11/05/21 18:24 Labs: Lab Results 11/05/21 11/05/21 11/05/21 Range/Units 18:24 18:24 18:24 WBC 5.9 (4.8-10.8) X10*3/uL RBC 4.45 (4.20-5.50) X10*6/uL Hgb 14.5 (12.0-16.0) g/dl Hct 42.2 (37.0-47.0) % MCV 94.8 (80.0-98.0) fL MCH 32.6 (27.0-33.0) pg MCHC 34.4 (31.0-35.0) g/dl RDW 12.5 (11.0-16.0) % Plt Count 243 (160-400) X10*3/uL MPV 9.9 (9.4-12.3) fL Immature Gran % (Auto) 0.3 (0.0-0.4) % Neut % (Auto) 87.6 H (45-73) % Lymph % (Auto) 5.3 L (20-40) % [place] % (Auto) 6.6 (2-11) % Eos % (Auto) 0.0 (0-4) % Baso % (Auto) 0.2 (0-2) % Lymph # (Auto) 0.3 L (1.2-4.9) X10*3/uL [place] # (Auto) 0.4 (0.1-1.2) X10*3/uL Eos # (Auto) 0.0 (0.0-0.4) X10*3/uL Baso # (Auto) 0.0 (0.0-0.2) X10*3/uL Abs Immat Gran (auto) 0.02 (0.00-0.03) X10*3/uL Absolute Neuts (auto) 5.2 (2.0-8.3) x10*3/uL Absolute Nucleated RBC 0.000 (0.0-0.012) X10*3/uL Nucleated RBC % (auto) 0.0 (0.0-0.2) /100WBC PT 12.2 (9.9-13.0) SEC INR 1.1 (0.9-1.1) APTT 31.3 (24.1-38.0) SEC D-Dimer High Sensitivty < 150 NG/ML Sodium 139 (135-145) mmol/L Potassium 4.0 (3.3-5.1) mmol/L Chloride 106 (96-108) mmol/L Carbon Dioxide 24 (22-29) mmol/L Anion Gap 13 (12-20) BUN 12 (9-16) mg/dL Creatinine 1.04 (0.5-1.4) mg/dL Estim Creat Clear Calc 75.6 Estimated GFR 59 Random Glucose 162 H (60-115) mg/dL Lactic Acid (0.5-2.0) mmol/L Lactic Acid F/U @ 2Hr (0.5-2.0) mmol/L Lactic Acid F/U @ 4Hr (0.5-2.0) mmol/L Calcium 9.2 (8.4-10.2) mg/dL Ferritin 89 (10-122) ng/mL Total Bilirubin 0.2 (0.0-1.0) mg/dL AST 20 (5-31) U/L ALT 41 H (0-31) U/L Alkaline Phosphatase 74 (39-117) U/L Lactate Dehydrogenase 204 (122-220) U/L Troponin I High Sens (<3.5-17.0) ng/L B-Natriuretic Peptide (<100) pg/mL Total Protein 7.0 (6.5-8.0) g/dL Albumin 4.2 (3.5-5.0) g/dL Procalcitonin ng/mL Beta HCG, Quant mIU/mL COVID-19 (ANGELINA) (Negative) COVID-19 Clin Com 11/05/21 11/05/21 11/05/21 Range/Units 18:24 18:24 18:24 WBC (4.8-10.8) X10*3/uL RBC (4.20-5.50) X10*6/uL Hgb (12.0-16.0) g/dl Hct (37.0-47.0) % MCV (80.0-98.0) fL MCH (27.0-33.0) pg MCHC (31.0-35.0) g/dl RDW (11.0-16.0) % Plt Count (160-400) X10*3/uL MPV (9.4-12.3) fL Immature Gran % (Auto) (0.0-0.4) % Neut % (Auto) (45-73) % Lymph % (Auto) (20-40) % [place] % (Auto) (2-11) % Eos % (Auto) (0-4) % Baso % (Auto) (0-2) % Lymph # (Auto) (1.2-4.9) X10*3/uL [place] # (Auto) (0.1-1.2) X10*3/uL Eos # (Auto) (0.0-0.4) X10*3/uL Baso # (Auto) (0.0-0.2) X10*3/uL Abs Immat Gran (auto) (0.00-0.03) X10*3/uL Absolute Neuts (auto) (2.0-8.3) x10*3/uL Absolute Nucleated RBC (0.0-0.012) X10*3/uL Nucleated RBC % (auto) (0.0-0.2) /100WBC PT (9.9-13.0) SEC INR (0.9-1.1) APTT (24.1-38.0) SEC D-Dimer High Sensitivty NG/ML Sodium (135-145) mmol/L Potassium (3.3-5.1) mmol/L Chloride (96-108) mmol/L Carbon Dioxide (22-29) mmol/L Anion Gap (12-20) BUN (9-16) mg/dL Creatinine (0.5-1.4) mg/dL Estim Creat Clear Calc Estimated GFR Random Glucose (60-115) mg/dL Lactic Acid (0.5-2.0) mmol/L Lactic Acid F/U @ 2Hr (0.5-2.0) mmol/L Lactic Acid F/U @ 4Hr (0.5-2.0) mmol/L Calcium (8.4-10.2) mg/dL Ferritin (10-122) ng/mL Total Bilirubin (0.0-1.0) mg/dL AST (5-31) U/L ALT (0-31) U/L Alkaline Phosphatase (39-117) U/L Lactate Dehydrogenase (122-220) U/L Troponin I High Sens < 3.5 (<3.5-17.0) ng/L B-Natriuretic Peptide < 10 (<100) pg/mL Total Protein (6.5-8.0) g/dL Albumin (3.5-5.0) g/dL Procalcitonin 0.15 ng/mL Beta HCG, Quant < 2 mIU/mL COVID-19 (ANGELINA) (Negative) COVID-19 Clin Com 11/05/21 11/05/21 11/05/21 Range/Units 19:14 21:39 23:50 WBC (4.8-10.8) X10*3/uL RBC (4.20-5.50) X10*6/uL Hgb (12.0-16.0) g/dl Hct (37.0-47.0) % MCV (80.0-98.0) fL MCH (27.0-33.0) pg MCHC (31.0-35.0) g/dl RDW (11.0-16.0) % Plt Count (160-400) X10*3/uL MPV (9.4-12.3) fL Immature Gran % (Auto) (0.0-0.4) % Neut % (Auto) (45-73) % Lymph % (Auto) (20-40) % [place] % (Auto) (2-11) % Eos % (Auto) (0-4) % Baso % (Auto) (0-2) % Lymph # (Auto) (1.2-4.9) X10*3/uL [place] # (Auto) (0.1-1.2) X10*3/uL Eos # (Auto) (0.0-0.4) X10*3/uL Baso # (Auto) (0.0-0.2) X10*3/uL Abs Immat Gran (auto) (0.00-0.03) X10*3/uL Absolute Neuts (auto) (2.0-8.3) x10*3/uL Absolute Nucleated RBC (0.0-0.012) X10*3/uL Nucleated RBC % (auto) (0.0-0.2) /100WBC PT (9.9-13.0) SEC INR (0.9-1.1) APTT (24.1-38.0) SEC D-Dimer High Sensitivty NG/ML Sodium (135-145) mmol/L Potassium (3.3-5.1) mmol/L Chloride (96-108) mmol/L Carbon Dioxide (22-29) mmol/L Anion Gap (12-20) BUN (9-16) mg/dL Creatinine (0.5-1.4) mg/dL Estim Creat Clear Calc Estimated GFR Random Glucose (60-115) mg/dL Lactic Acid 2.1 H* (0.5-2.0) mmol/L Lactic Acid F/U @ 2Hr 2.7 H* (0.5-2.0) mmol/L Lactic Acid F/U @ 4Hr (0.5-2.0) mmol/L Calcium (8.4-10.2) mg/dL Ferritin (10-122) ng/mL Total Bilirubin (0.0-1.0) mg/dL AST (5-31) U/L ALT (0-31) U/L Alkaline Phosphatase (39-117) U/L Lactate Dehydrogenase (122-220) U/L Troponin I High Sens (<3.5-17.0) ng/L B-Natriuretic Peptide (<100) pg/mL Total Protein (6.5-8.0) g/dL Albumin (3.5-5.0) g/dL Procalcitonin ng/mL Beta HCG, Quant mIU/mL COVID-19 (ANGELINA) Positive A (Negative) COVID-19 Clin Com See Note 11/05/21 Range/Units 23:50 WBC (4.8-10.8) X10*3/uL RBC (4.20-5.50) X10*6/uL Hgb (12.0-16.0) g/dl Hct (37.0-47.0) % MCV (80.0-98.0) fL MCH (27.0-33.0) pg MCHC (31.0-35.0) g/dl RDW (11.0-16.0) % Plt Count (160-400) X10*3/uL MPV (9.4-12.3) fL Immature Gran % (Auto) (0.0-0.4) % Neut % (Auto) (45-73) % Lymph % (Auto) (20-40) % [place] % (Auto) (2-11) % Eos % (Auto) (0-4) % Baso % (Auto) (0-2) % Lymph # (Auto) (1.2-4.9) X10*3/uL [place] # (Auto) (0.1-1.2) X10*3/uL Eos # (Auto) (0.0-0.4) X10*3/uL Baso # (Auto) (0.0-0.2) X10*3/uL Abs Immat Gran (auto) (0.00-0.03) X10*3/uL Absolute Neuts (auto) (2.0-8.3) x10*3/uL Absolute Nucleated RBC (0.0-0.012) X10*3/uL Nucleated RBC % (auto) (0.0-0.2) /100WBC PT (9.9-13.0) SEC INR (0.9-1.1) APTT (24.1-38.0) SEC D-Dimer High Sensitivty NG/ML Sodium (135-145) mmol/L Potassium (3.3-5.1) mmol/L Chloride (96-108) mmol/L Carbon Dioxide (22-29) mmol/L Anion Gap (12-20) BUN (9-16) mg/dL Creatinine (0.5-1.4) mg/dL Estim Creat Clear Calc Estimated GFR Random Glucose (60-115) mg/dL Lactic Acid (0.5-2.0) mmol/L Lactic Acid F/U @ 2Hr (0.5-2.0) mmol/L Lactic Acid F/U @ 4Hr 1.9 (0.5-2.0) mmol/L Calcium (8.4-10.2) mg/dL Ferritin (10-122) ng/mL Total Bilirubin (0.0-1.0) mg/dL AST (5-31) U/L ALT (0-31) U/L Alkaline Phosphatase (39-117) U/L Lactate Dehydrogenase (122-220) U/L Troponin I High Sens (<3.5-17.0) ng/L B-Natriuretic Peptide (<100) pg/mL Total Protein (6.5-8.0) g/dL Albumin (3.5-5.0) g/dL Procalcitonin ng/mL Beta HCG, Quant mIU/mL COVID-19 (ANGELINA) (Negative) COVID-19 Clin Com ECG Data Interpretation: Sinus tachycardia. Ventricular rate 107. Parents of 118. QRS 80. QTC 445. Negative Stemi Discharge Plan Discharge Clinical Impression: COVID-19 Patient Disposition: Home, Self-Care Instructions: COVID-19 (Coronavirus Disease 2019) (ED) Additional Instructions: Your O2 saturation improved to 95% after being given magnesium, Decadron, and albuterol nebulizer treatment. Will be discharged with Decadron and azithromycin. Continue using albuterol inhaler as needed. Return to the ED for any worsening shortness of breath, O2 saturation below 93%, weakness, dizziness, chest pain, or any other concerning symptoms. Prescriptions: New dexamethasone [Decadron] 6 mg tablet 6 mg PO DAILY 10 Days Qty: 10 RF: 0 azithromycin 250 mg tablet See Rx Instructions .ROUTE .COMPLEX Qty: 6 RF: 0 No Action valacyclovir 500 mg tablet 500 mg PO DAILY 90 Days Qty: 90 RF: 3 ropinirole 0.25 mg tablet 0.25 mg PO BEDTIME Qty: 90 RF: 3 Xolair 150 mg/mL syringe 300 mg subcut Q4W Qty: 2 RF: 12 famotidine 40 mg tablet 40 mg PO BEDTIME Qty: 90 RF: 3 budesonide-formoterol [Symbicort] 160-4.5 mcg/actuation HFA aerosol inhaler 2 puff inhalation BID 90 Days Qty: 3 RF: 0 omeprazole 40 mg capsule,delayed release(DR/EC) 40 mg PO DAILY Qty: 90 RF: 0 prednisone 10 mg tablet See Rx Instructions PO DAILY 18 Days Qty: 63 RF: 0 doxycycline hyclate 100 mg capsule 100 mg PO BID 10 Days Qty: 20 RF: 0 hydrocodone-homatropine [Hydromet] 5-1.5 mg/5 mL syrup 5 ml PO Q6H PRN (Reason: cough) 10 Days Qty: 473 RF: 0 estazolam 2 mg tablet 2 mg PO BEDTIME 30 Days Qty: 30 RF: 0 budesonide 1 mg/2 mL suspension for nebulization 1 mg inhalation DAILY Qty: 60 RF: 0 Spiriva Respimat 1.25 mcg/actuation mist 2 puff inhalation BEDTIME RF: 0 Magic Mouthwash Diphen/Lido/Antacid 1:1:1 240 mL suspension 10 ml PO TID PRN (Reason: throat pain) 10 Days Qty: 240 RF: 0 epinephrine [EpiPen 2-Rojelio] 0.3 mg/0.3 mL auto-injector 0.3 mg IM Q10M PRN (Reason: anaphylaxis) 30 Days Qty: 2 RF: 6 albuterol sulfate [ProAir HFA] 90 mcg/actuation HFA aerosol inhaler 2 puff inhalation Q6H PRNRF: 0 ipratropium-albuterol 0.5 mg-3 mg(2.5 mg base)/3 mL solution for nebulization 3 ml inhalation ONCE Qty: 2 RF: 0 ipratropium-albuterol 0.5 mg-3 mg(2.5 mg base)/3 mL solution for nebulization 3 ml inhalation QID PRN (Reason: shortness of breath or wheezing) 30 Days Qty: 360 RF: 0 budesonide 0.5 mg/2 mL suspension for nebulization 0.5 mg inhalation BID 30 Days Qty: 120 RF: 11 Stand Alone Forms: Work/School Release Interventions: ED Discharge Assessment Last Done: 11/06/21 01:06 Discharge Date/Time: 11/06/21 01:09 Print Language: Thai
--- NOTE | 2021-11-05 18:07 | ECG_ITS ---
Test Reason : dyspnea Blood Pressure : / mmHG Vent. Rate : 107 BPM Atrial Rate : 107 BPM P-R Int : 118 ms QRS Dur : 080 ms QT Int : 334 ms P-R-T Axes : 036 028 015 degrees QTc Int : 445 ms Sinus tachycardia Cannot rule out Anterior infarct (cited on or before 05-NOV-2021) Abnormal ECG When compared with ECG of 17-OCT-2021 10:31, No significant change was found Referred By: Presley Panda Electronically Signed By:CORTEZ AGUILAR MD
[2021-11-05 18:25] VITALS: PULSE 100; RESP 16; O2SAT 96
[2021-11-05] MEDS: Albuterol/Iprat 2.5/0.5MG 3 ML AMPUL.NEB INHALE (18:25)
[2021-11-05 18:30] LABS: Basophils Percent Auto 0.2 % (0-2); Hematocrit 42.2 % (37.0-47.0); Hemoglobin 14.5 g/dl (12.0-16.0); Imm Gran Abs Auto 0.02 X10*3/uL (0.00-0.03); Imm Gran Pct Auto 0.3 % (0.0-0.4); Lymphocytes Absolute Auto 0.3 X10*3/uL (1.2-4.9); Lymphocytes Percent Auto 5.3 % (20-40); MANUAL DIFF FLAG NO; Mean Corpuscular HGB Conc 34.4 g/dl (31.0-35.0); Mean Corpuscular Hemoglobin 32.6 pg (27.0-33.0); Mean Corpuscular Volume 94.8 fL (80.0-98.0); Mean Platelet Volume 9.9 fL (9.4-12.3); Monocytes Absolute Auto 0.4 X10*3/uL (0.1-1.2); Monocytes Percent Auto 6.6 % (2-11); Neutrophils Absolute Auto 5.2 x10*3/uL (2.0-8.3); Neutrophils Percent Auto 87.6 % (45-73); Platelet Count 243 X10*3/uL (160-400); Red Blood Count 4.45 X10*6/uL (4.20-5.50); Red Cell Distribution Width 12.5 % (11.0-16.0); White Blood Count 5.9 X10*3/uL (4.8-10.8)
[2021-11-05] MEDS: dexAMETHasone sod phosphate 10 MG/ML VIAL IVPUSH (18:30)
[2021-11-05] MEDS: Magnesium Sulfate/H2O 2 GM/50 ML PIGGYBACK IV (18:30)
[2021-11-05 18:39] LABS: INTERNATIONAL NORM RATIO 1.1 (0.9-1.1); Prothrombin Time 12.2 SEC (9.9-13.0)
[2021-11-05 18:42] LABS: Partial Thromboplastin Time 31.3 SEC (24.1-38.0)
[2021-11-05 18:50] LABS: D Dimer High Sensitivity < 150 NG/ML
[2021-11-05 18:52] LABS: B Type Natriuretic Peptide < 10 pg/mL (<100); Troponin-I High Sensitivity < 3.5 ng/L (<3.5-17.0)
[2021-11-05 18:53] LABS: Alanine Aminotransferase 41 U/L (0-31); Albumin Level 4.2 g/dL (3.5-5.0); Alkaline Phosphatase 74 U/L (39-117); Anion Gap 13 (12-20); Aspartate Amino Transferase 20 U/L (5-31); Bilirubin Total 0.2 mg/dL (0.0-1.0); Blood Urea Nitrogen 12 mg/dL (9-16); Calcium 9.2 mg/dL (8.4-10.2); Carbon Dioxide 24 mmol/L (22-29); Chloride 106 mmol/L (96-108); Creatinine Clr Calc Pharmacy 75.6; Estimated Glomerular Filt Rate 59; Glucose Random 162 mg/dL (60-115); HCG Quantitative < 2 mIU/mL; Sodium 139 mmol/L (135-145)
[2021-11-05 19:03] LABS: Lactate Dehydrogenase 204 U/L (122-220)
[2021-11-05 19:06] LABS: Procalcitonin 0.15 ng/mL
[2021-11-05 19:07] LABS: Ferritin 89 ng/mL (10-122)
[2021-11-05 19:35] LABS: Lactic Acid 2.1 mmol/L (0.5-2.0)
[2021-11-05 20:53] VITALS: BP 121/79; PULSE 92; RESP 14; O2SAT 95
[2021-11-05] MEDS: 0.9 % Sodium Chloride 1,000 ML 999 ML IV ×2 (20:55→23:48)
[2021-11-05 21:19] LABS: Reflex Lactate? Lactic Acid Added
[2021-11-05 22:05] LABS: ~Lactic Acid-LAB USE ONLY 2.7 mmol/L (0.5-2.0)
[2021-11-05] MEDS: guaiFEN/Codeine SF 200/20/10ML 10 ML LIQUID PO (22:45)
[2021-11-05 22:47] VITALS: BP 129/70; PULSE 92; RESP 12; O2SAT 95
[2021-11-05 23:43] LABS: Reflex Lactate? 2 Y
[2021-11-06] VITALS: BP 112/66; PULSE 87; RESP 16; TEMP 36.4; O2SAT 94
[2021-11-06 00:08] LABS: COVID-19 Test Positive (Negative)
[2021-11-06 00:11] LABS: ~Lactic Acid-LAB USE ONLY 1.9 mmol/L (0.5-2.0)
[2021-11-06] MEDS: Albuterol/Iprat 2.5/0.5MG 3 ML AMPUL.NEB INHALE (00:30)
[2021-11-06 00:33] VITALS: PULSE 89; RESP 18; O2SAT 95
== END 2021-11-06 01:09 | disposition home or self-care (01) ==
PROVIDERS: Physician Assistant; Emergency Provider Emergency Medicine; PCP Nurse Practitioner Family
DX: U07.1 COVID-19 (principal); R06.02 Shortness of breath; R00.0 Tachycardia, unspecified
CPT/HCPCS: 36415; 71045; 80053; 82728; 83605; 83615; 83880; 84145; 84484; 84702; 85025; 85379; 85610; 85730; 87040; 87635; 93005; 94640; 96361; 96365; 96366; 96375; 99284; J1100; J3475

== ENCOUNTER 2021-11-07 09:01 | Inpatient (IN) | payer OTHER, SELFPAY ==
--- NOTE | ~2021-11-07 | XR_ITS ---
EXAMINATION: XR CHEST CLINICAL INFORMATION: Hypoxia COMPARISON: CTA chest 11/07/2021 TECHNIQUE: Frontal view of the chest was obtained. FINDINGS: Low lung volumes. Suspect bilateral layering effusions with adjacent airspace opacities. There is no pneumothorax. Cardiomediastinal silhouette is stable. XR/XR chest 1V IMPRESSION: Low lung volumes with suspected layering effusions and bibasilar airspace consolidation.
--- NOTE | ~2021-11-07 | CT_ITS ---
EXAMINATION: CT ANGIOGRAM OF THE CHEST WITH AND WITHOUT CONTRAST (CT PULMONARY ANGIOGRAM FOR PE) CLINICAL INFORMATION: Reason for Exam pt c +Covid c worsening sob ? pe COMPARISON: Chest x-ray 11/07/2021 TECHNIQUE: Prior to contrast administration, noncontrast localization images were obtained. Subsequently, multidetector volumetric imaging was performed from the thoracic inlet to below the diaphragms following the administration of 65 mL Omnipaque 350 intravenous contrast. No contrast reaction reported Sagittal, coronal, and MIP oblique sagittal reformatted images were obtained on the CT workstation, uploaded to PACS, and reviewed. This CT examination was performed using dose optimization techniques as appropriate, variously including the following: *Automated exposure control *Adjustment of mA and/or kV according to patient size (this includes techniques or standardized protocols for targeted exams where dose is matched to indication/reason for exam; i.e. extremities or head) *Use of iterative reconstruction technique Total exam dose-length product 281 mGy-cm FINDINGS: QUALITY OF STUDY/CONTRAST BOLUS: Satisfactory. PULMONARY ARTERIES: No central or segmental pulmonary emboli. THORACIC AORTA: No aneurysm or dissection. LUNG: Bibasilar consolidation with air bronchograms. There are smaller patchy airspace opacities scattered in the mid and upper lungs bilaterally. Imaging features can be seen with COVID-19 pneumonia. Although these features are nonspecific and can be occur with a variety of infectious and noninfectious processes. Overall lung volume is low. PLEURA: No pleural effusion or pneumothorax. MEDIASTINUM: Normal heart size. No pericardial effusion. No hilar or mediastinal lymphadenopathy. No evidence of septal bowing or right heart strain. CHEST WALL/AXILLA: No axillary or internal mammary lymphadenopathy. OSSEOUS STRUCTURES: No acute or suspicious osseous abnormality. UPPER ABDOMEN: Diffuse low attenuation of liver parenchyma due to fatty change. No liver lesion in the visualized portions of liver. No abnormality visualized portions of the spleen, pancreas, kidneys or the adrenal gland. No reflux of contrast into the hepatic veins to suggest elevated right heart pressures. Status post cholecystectomy CT/CT angio chest PE protocol IMPRESSION: 1. No evidence of pulmonary embolism. 2. Bibasilar consolidation with air bronchograms. Scattered patchy bilateral airspace opacities. Imaging features can be seen with COVID-19 pneumonia. Although these features are nonspecific and can be occur with a variety of infectious and noninfectious processes. VTE: negative
--- NOTE | ~2021-11-07 | CT_ITS ---
EXAMINATION: CT ANGIOGRAM OF THE CHEST WITH AND WITHOUT CONTRAST (CT PULMONARY ANGIOGRAM FOR PE) CLINICAL INFORMATION: Hypoxia. COMPARISON: CT angiogram chest 11/07/2021. Chest x-ray 11/11/2019 TECHNIQUE: Prior to contrast administration, noncontrast localization images were obtained. Subsequently, multidetector volumetric imaging was performed from the thoracic inlet to below the diaphragms following the administration of 65 mL Omnipaque 350 intravenous contrast. No contrast reaction reported Sagittal, coronal, and MIP oblique sagittal reformatted images were obtained on the CT workstation, uploaded to PACS, and reviewed. This CT examination was performed using dose optimization techniques as appropriate, variously including the following: *Automated exposure control *Adjustment of mA and/or kV according to patient size (this includes techniques or standardized protocols for targeted exams where dose is matched to indication/reason for exam; i.e. extremities or head) *Use of iterative reconstruction technique Total exam dose-length product 280 mGy-cm FINDINGS: QUALITY OF STUDY/CONTRAST BOLUS: Satisfactory. PULMONARY ARTERIES: No central or segmental pulmonary emboli. THORACIC AORTA: No aneurysm or dissection. LUNG: Low lung volume. Bibasilar consolidation with air bronchograms scattered multifocal hazy airspace opacities in the middle lobe, lingula and upper lobes bilaterally. Airspace disease slightly worse than prior study 11/07/2021. Imaging features can be seen with COVID-19 pneumonia. Although these features are nonspecific and can be occur with a variety of infectious and noninfectious processes. PLEURA: Trace dependent left pleural effusion. MEDIASTINUM: Normal heart size. No pericardial effusion. No hilar or mediastinal lymphadenopathy. No evidence of septal bowing or right heart strain. CHEST WALL/AXILLA: No axillary or internal mammary lymphadenopathy. OSSEOUS STRUCTURES: No acute or suspicious osseous abnormality. UPPER ABDOMEN: Status post prostatectomy. No abnormality visualized solid organs in the upper abdomen. No reflux of contrast into the hepatic veins to suggest elevated right heart pressures. CT/CT angio chest PE protocol IMPRESSION: 1. No evidence of pulmonary embolism. 2. Multifocal bilateral airspace disease with bibasilar consolidation. Airspace opacities slightly worse than prior study 11/07/2021. Imaging features can be seen with COVID-19 pneumonia. Although these features are nonspecific and can be occur with a variety of infectious and noninfectious processes. VTE: negative
--- NOTE | ~2021-11-07 | XR_ITS ---
EXAMINATION: XR CHEST CLINICAL INFORMATION: Cough COMPARISON: Previous chest x-rays most recent from yesterday and chest CTA 11/07/2021 TECHNIQUE: Frontal view of the chest was obtained. FINDINGS: The cardiac and mediastinal contours are stable. The lung volumes are low. There is bibasilar atelectasis or infiltrates. This is not appear appreciably changed from previous exams. There is no pleural effusion or pneumothorax. Bony structures are unremarkable. XR/XR chest 1V IMPRESSION: Low lung volumes. Bibasilar atelectasis or infiltrates not appreciably changed from recent exams.
--- NOTE | ~2021-11-07 | XR_ITS ---
EXAMINATION: XR CHEST CLINICAL INFORMATION: Shortness of breath, hypoxia, Covid. COMPARISON: Chest radiograph dated from 11/05/2021. TECHNIQUE: PA view of the chest was obtained. FINDINGS: Increased bibasilar airspace opacities with also suspected small bilateral pleural effusions. No pneumothorax. Normal appearance of the cardiomediastinal silhouette. No acute osseous abnormalities. The visualized upper abdomen is within normal limits. XR/XR chest 1V IMPRESSION: Low lung volumes with increased bibasilar airspace opacities and small bilateral pleural effusions. These findings are indeterminate and could be related with an infectious process, aspiration or worsening atelectasis.
[2021-11-07 09:04] VITALS: BP 142/83; PULSE 126; RESP 22; TEMP 36.6; O2SAT 92; BMI 29.1
--- NOTE | 2021-11-07 11:21 | ECG_ITS ---
Test Reason : TACHYCARDIA Blood Pressure : / mmHG Vent. Rate : 122 BPM Atrial Rate : 122 BPM P-R Int : 118 ms QRS Dur : 078 ms QT Int : 330 ms P-R-T Axes : 020 033 010 degrees QTc Int : 470 ms Artifact in tracing Sinus tachycardia Otherwise normal ECG When compared with ECG of 05-NOV-2021 18:35, No significant change was found Referred By: Riddhi Whiteside Electronically Signed By:DUANE CARRANZA
--- NOTE | 2021-11-07 11:53 | ED.SOB ---
HPI - SOB/Dyspnea General Chief Complaint: Upper Respiratory Symptoms Stated Complaint: +covid SOB low 02 stats Time Seen by Provider: 11/07/21 09:42 Source: patient Mode of arrival: ambulatory Limitations: no limitations History of Present Illness HPI Narrative: 41-year-old female with a past medical history of asthma currently using albuterol inhalers and nebulizers last use prior to arrival at 07:00, chronic allergic rhinitis, GERD, hiatal hernia, dyslipidemia, restless leg syndrome, chronic back pain due to disc herniation who recently tested positive for COVID-19 on 11/03/2021 who reports that she is vaccinated with 2 of the Moderna vaccine presenting to the ED with complaints of worsening general weakness, fevers up to 103.0, chills, cough with shortness of breath/wheezing with associated dyspnea on exertion, orthopnea. Reports that she has been taking her O2 sats at home and they have been dropping anywhere from 89-91% on room air despite using her albuterol inhaler and nebulizers. She was seen here on 11/05/2021 and discharged with a course of dexamethasone for 10 days 6 mg daily and a Z-Rojelio. She reports that she was taking as prescribed. She denies any dizziness, headaches, neck pain/stiffness, trouble swallowing, nausea/vomiting/diarrhea, abdominal pain, lower extremity edema or calf tenderness or any focal weakness or any other symptoms complaints or concerns at this time. MD elicited complaint: shortness of breath, cough, pain with inspiration and asthma attack Pertinent past history: asthma and other (Positive for on 11/03/2021) Onset (ago): day(s) (4) Context: recent illness (See above) Timing: constant and progressively worsening Severity: severe Exacerbating factors: lying flat, exertion, movement, coughing, inspiration, talking and deep breaths Relieving factors: nothing Known history of: asthma and other (Positive for COVID since 11/03/2021) Associated symptoms: pain with inspiration, fever, cough, wheezing and orthopnea Treatment prior to arrival: other (Albuterol inhaler and nebulizers at home prior to arrival at 07:00 and no symptomatic relief) Related Data Home oxygen amount: none Home Medications Medication Instructions Recorded Confirmed albuterol sulfate 90 mcg/actuation 2 puff INHALATION Q6H PRN 09/21/20 11/07/21 aerosol inhaler (ProAir HFA) tiotropium bromide 1.25 2 puff INHALATION BEDTIME 09/20/21 11/07/21 mcg/actuation mist for inhalation (Spiriva Respimat) aspirin 81 mg tablet,delayed 81 mg PO DAILY 11/07/21 11/07/21 release azithromycin 250 mg tablet 1 tab PO DAILY 11/07/21 11/07/21 budesonide 0.5 mg/2 mL suspension 0.5 mg INHALATION Q4H PRN 11/07/21 11/07/21 for nebulization escitalopram oxalate 5 mg tablet 1 tab PO DAILY 11/07/21 11/07/21 omalizumab 150 mg/mL subcutaneous 150 mg SUBCUT Q2W 11/07/21 11/07/21 syringe (Xolair) Previous Rx's Medication Instructions Recorded valacyclovir 500 mg tablet 500 mg PO DAILY 90 Days #90 tab 11/15/20 ropinirole 0.25 mg tablet 0.25 mg PO BEDTIME #90 tab 02/17/21 epinephrine 0.3 mg/0.3 mL 0.3 mg (0.3 mL) IM Q10M PRN 30 06/14/21 injection, auto-injector (EpiPen Days #2 ea 2-Rojelio) famotidine 40 mg tablet 40 mg PO BEDTIME #90 tab 07/05/21 Symbicort 160 mcg-4.5 2 puff INHALATION BID 90 Days #3 07/22/21 mcg/actuation HFA aerosol inhaler ea NS (budesonide-formoterol) omeprazole 40 mg capsule,delayed 40 mg PO DAILY #90 cap 09/29/21 release doxycycline hyclate 100 mg capsule 100 mg PO BID 10 Days #20 cap 10/31/21 prednisone 10 mg tablet See Rx Instructions PO DAILY 18 10/31/21 Days #63 tab dexamethasone 6 mg tablet 6 mg PO DAILY 10 Days #10 tab 11/05/21 (Decadron) estazolam 2 mg tablet 2 mg PO BEDTIME 30 Days #30 tab 11/05/21 Allergies Allergy/AdvReac Type Severity Reaction Status Date / Time Environmental Allergy Intermediate Hives and Uncoded 11/01/21 09:48 Rash Review of Systems Review of Systems: Constitutional : Positive fever/chills/fatigue/malaise, No Weight loss, No Night Sweats ENT/Mouth : No Hearing loss, No Ear Pain, No Nasal Congestion, No Sinus Pain, No Hoarseness, No sore throat, No Rhinorrhea, No Swallowing Difficulty Eyes: No Eye Pain, No Swelling, No Redness, No Foreign Body, No Discharge, No Vision Changes Cardiovascular : Positive shortness of breath/dyspnea as our torres/orthopnea/chest tightness, No Chest Pain, No Edema, No Palpitations Respiratory : Positive cough with dyspnea and wheezing, No Sputum, No Smoke Exposure Gastrointestinal : No Nausea, No Vomiting, No Diarrhea, No Constipation, No abdominal Pain, No Hematochezia, No Melena Genitourinary : no irregular bleeding, No Dysuria, No Urinary Frequency, No Hematuria, No Urinary Incontinence, No Urgency, No Flank Pain, No Urinary Flow Changes, No Hesitancy Musculoskeletal : Positive myalgias, No joint pain, No Joint Swelling Skin : No Skin Lesions, No rash Neuro : Positive general Weakness, No Numbness, No Paresthesias, No Loss of Consciousness, No Dizziness, No Headache, no focal weakness Psych : No Anxiety/Panic, No Depression, No SI/HI/AH/VH, No Social Issues, Heme/Lymph: No Bruising, No Bleeding,No Lymphadenopathy Endocrine : No Polyuria, No Polydipsia, No Temperature Intolerance Yes all other systems are reviewed and are negative [facility] Past Medical History Attestation statement: The following information was validated with the patient. Medical History Asthma Chronic allergic rhinitis Dyslipidemia Family hx-breast malignancy GERD (gastroesophageal reflux disease) Hiatal hernia Lumbar disc herniation RLS (restless legs syndrome) Ureterolithiasis Vitamin D deficiency Surgical History H/O prior ablation treatment History of colposcopy History of release of tendon Hx of cholecystectomy Family History Family History Father No problems noted. Mother No problems noted. Maternal Grandfather No problems noted. Maternal Grandmother No problems noted. Paternal Grandfather No problems noted. Paternal Grandmother No problems noted. Maternal Uncle Bladder cancer Paternal Grandmother Colon cancer Stroke Sister No problems noted. Social History Social History Patient Tobacco Use Status: Never used Tobacco Advance Directives: No Advance Directives Information Provided: No Patient : No Physical Exam Vital Signs: Vital Signs: Last Vital Signs Temp 98 F 11/07/21 09:04 Pulse 112 H 11/07/21 16:00 Resp 18 11/07/21 16:00 BP 110/63 11/07/21 16:00 Pulse Ox 89 L 11/07/21 16:00 BMI result Body Mass Index 29.1 vital signs have been reviewed as normal and appeared to be correct. Blood pressure hypertensive at 142/83. Heart rate tachycardic at 126. Respirations tachypneic at 22. Oxygen saturation low at 92% on room air. Patient afebrile at 98.0 Appearance: Alert. Oriented X3. In acute respiratory distress. Head: Normal external exam. Normocephalic. Atraumatic. Eyes: PERRLA. EOMI. Conjunctiva and sclera normal. Eyelids normal. ENT: EAC normal. TM's Normal. Pharynx normal. Uvula midline. Moist mucous membranes. No trismus noted. No drooling noted. No muffled voice noted. Patient tolerating secretions well. Neck: Normal inspection. Neck supple. FROM. No adenopathy. Thyroid Normal. No meningeal signs. No neck mass noted. CVS: Normal heart rate and rhythm. Heart sound normal. Pulses normal throughout. No murmurs/rales/gallops. Respiratory: Patient in acute respiratory distress with decreased breath sounds and inspiratory and expiratory wheezing throughout with rhonchi noted in the lower bases. No rales noted. Chest is nontender. Although patient reports pain with inspiration. Patient noted to have accessory muscle use is noted. Abdomen: Soft and nontender. Bowel sounds normal in all 4 quadrants. No distention noted. No organomegaly noted. No visible injury noted. Back: Full range of motion noted. No rashes/lesion/induration/fluctuance or signs of infection noted. Skin: Skin warm and dry. Normal skin color. Normal skin turgor. No rashes/lesions/lacerations noted. Extremities: No lower extremity edema. No calf tenderness is noted. Extremities exhibit normal range of motion. Extremities nontender. Neuro: Oriented X 3. No motor deficit. No sensory deficit. Reflexes normal. Normal steady gait. No focal neuro deficits noted. Vascular: + radial pulses/+ 2 distal pedal pulses/+2 dorsalis pedis b/l. Normal cap refill. No cyanosis noted to upper extremity nails and lower extremity toes nails. 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 Reports that she has been taking her O2 sats at home and they have been dropping anywhere from 89-91% on room air despite using her albuterol inhaler and nebulizers. She was seen here on 11/05/2021 and discharged with a course of dexamethasone for 10 days 6 mg daily and a Z-Rojelio. She reports that she was taking as prescribed. Plan: Labs, EKG, chest x-ray, blood cultures, lactic acid. Provide a L of IV fluids, 1 hour long breathing treatment, 1 g of Rocephin, 6 mg of IV dexamethasone, 2 g of magnesium and 10 mg of Robitussin with codeine and re-evaluate. Reevaluation(s) Reevaluation #1: - labs return at this time patient's D-dimer 201. Anion gap 11. AST 58. ALT 53. Total protein 6.1. Otherwise all other labs are within normal limits. Chest x-ray which was obtained earlier today revealed increased bibasilar airspace opacities and small bilateral pleural effusions which were indeterminate and could be related with infectious versus aspiration versus worsening atelectasis. Therefore CT of chest for PE ordered and pending at this time. - will re-evaluate. Time: 15:22 Reevaluation #2: - pending CTA. Although Dr. Coyne to admit at this time. Time: 17:15 MDM - SOB/Dyspnea Medical Records Attestation: I reviewed the patient's medical records. Lab Data Attestation: I reviewed the patient's lab results. Result diagrams: 11/07/21 14:57 11/07/21 14:57 Labs: Lab Results 11/07/21 11/07/21 11/07/21 Range/Units 14:57 14:57 14:57 WBC 7.9 (4.8-10.8) X10*3/uL RBC 4.13 L (4.20-5.50) X10*6/uL Hgb 13.5 (12.0-16.0) g/dl Hct 40.1 (37.0-47.0) % MCV 97.1 (80.0-98.0) fL MCH 32.7 (27.0-33.0) pg MCHC 33.7 (31.0-35.0) g/dl RDW 13.2 (11.0-16.0) % Plt Count 209 (160-400) X10*3/uL MPV 9.8 (9.4-12.3) fL Immature Gran % (Auto) 0.5 H (0.0-0.4) % Neut % (Auto) 67.3 (45-73) % Lymph % (Auto) 23.0 (20-40) % [place] % (Auto) 8.8 (2-11) % Eos % (Auto) 0.3 (0-4) % Baso % (Auto) 0.1 (0-2) % Lymph # (Auto) 1.8 (1.2-4.9) X10*3/uL [place] # (Auto) 0.7 (0.1-1.2) X10*3/uL Eos # (Auto) 0.0 (0.0-0.4) X10*3/uL Baso # (Auto) 0.0 (0.0-0.2) X10*3/uL Abs Immat Gran (auto) 0.04 H (0.00-0.03) X10*3/uL Absolute Neuts (auto) 5.3 (2.0-8.3) x10*3/uL Absolute Nucleated RBC 0.000 (0.0-0.012) X10*3/uL Nucleated RBC % (auto) 0.0 (0.0-0.2) /100WBC PT 14.3 H (9.9-13.0) SEC INR 1.3 H (0.9-1.1) D-Dimer High Sensitivty NG/ML Sodium 138 (135-145) mmol/L Potassium 4.0 (3.3-5.1) mmol/L Chloride 105 (96-108) mmol/L Carbon Dioxide 26 (22-29) mmol/L Anion Gap 11 L (12-20) BUN 16 (9-16) mg/dL Creatinine 1.06 (0.5-1.4) mg/dL Estim Creat Clear Calc 74.1 Estimated GFR 58 Random Glucose 108 (60-115) mg/dL Lactic Acid (0.5-2.0) mmol/L Calcium 8.2 L D (8.4-10.2) mg/dL Magnesium 2.6 (1.6-2.6) mg/dL Ferritin (10-122) ng/mL Total Bilirubin 0.5 (0.0-1.0) mg/dL AST 58 H (5-31) U/L ALT 53 H (0-31) U/L Alkaline Phosphatase 70 (39-117) U/L Lactate Dehydrogenase (122-220) U/L Troponin I High Sens (<3.5-17.0) ng/L C-Reactive Protein (< or = 0.50) mg/dL B-Natriuretic Peptide (<100) pg/mL Total Protein 6.1 L (6.5-8.0) g/dL Albumin 3.5 (3.5-5.0) g/dL Procalcitonin ng/mL 11/07/21 11/07/21 11/07/21 Range/Units 14:57 14:57 14:57 WBC (4.8-10.8) X10*3/uL RBC (4.20-5.50) X10*6/uL Hgb (12.0-16.0) g/dl Hct (37.0-47.0) % MCV (80.0-98.0) fL MCH (27.0-33.0) pg MCHC (31.0-35.0) g/dl RDW (11.0-16.0) % Plt Count (160-400) X10*3/uL MPV (9.4-12.3) fL Immature Gran % (Auto) (0.0-0.4) % Neut % (Auto) (45-73) % Lymph % (Auto) (20-40) % [place] % (Auto) (2-11) % Eos % (Auto) (0-4) % Baso % (Auto) (0-2) % Lymph # (Auto) (1.2-4.9) X10*3/uL [place] # (Auto) (0.1-1.2) X10*3/uL Eos # (Auto) (0.0-0.4) X10*3/uL Baso # (Auto) (0.0-0.2) X10*3/uL Abs Immat Gran (auto) (0.00-0.03) X10*3/uL Absolute Neuts (auto) (2.0-8.3) x10*3/uL Absolute Nucleated RBC (0.0-0.012) X10*3/uL Nucleated RBC % (auto) (0.0-0.2) /100WBC PT (9.9-13.0) SEC INR (0.9-1.1) D-Dimer High Sensitivty NG/ML Sodium (135-145) mmol/L Potassium (3.3-5.1) mmol/L Chloride (96-108) mmol/L Carbon Dioxide (22-29) mmol/L Anion Gap (12-20) BUN (9-16) mg/dL Creatinine (0.5-1.4) mg/dL Estim Creat Clear Calc Estimated GFR Random Glucose (60-115) mg/dL Lactic Acid 1.5 (0.5-2.0) mmol/L Calcium 8.3 L (8.4-10.2) mg/dL Magnesium (1.6-2.6) mg/dL Ferritin (10-122) ng/mL Total Bilirubin (0.0-1.0) mg/dL AST (5-31) U/L ALT (0-31) U/L Alkaline Phosphatase (39-117) U/L Lactate Dehydrogenase (122-220) U/L Troponin I High Sens < 3.5 (<3.5-17.0) ng/L C-Reactive Protein (< or = 0.50) mg/dL B-Natriuretic Peptide < 10 (<100) pg/mL Total Protein (6.5-8.0) g/dL Albumin (3.5-5.0) g/dL Procalcitonin ng/mL 11/07/21 11/07/21 11/07/21 Range/Units 14:57 14:57 14:57 WBC (4.8-10.8) X10*3/uL RBC (4.20-5.50) X10*6/uL Hgb (12.0-16.0) g/dl Hct (37.0-47.0) % MCV (80.0-98.0) fL MCH (27.0-33.0) pg MCHC (31.0-35.0) g/dl RDW (11.0-16.0) % Plt Count (160-400) X10*3/uL MPV (9.4-12.3) fL Immature Gran % (Auto) (0.0-0.4) % Neut % (Auto) (45-73) % Lymph % (Auto) (20-40) % [place] % (Auto) (2-11) % Eos % (Auto) (0-4) % Baso % (Auto) (0-2) % Lymph # (Auto) (1.2-4.9) X10*3/uL [place] # (Auto) (0.1-1.2) X10*3/uL Eos # (Auto) (0.0-0.4) X10*3/uL Baso # (Auto) (0.0-0.2) X10*3/uL Abs Immat Gran (auto) (0.00-0.03) X10*3/uL Absolute Neuts (auto) (2.0-8.3) x10*3/uL Absolute Nucleated RBC (0.0-0.012) X10*3/uL Nucleated RBC % (auto) (0.0-0.2) /100WBC PT (9.9-13.0) SEC INR (0.9-1.1) D-Dimer High Sensitivty 201 NG/ML Sodium (135-145) mmol/L Potassium (3.3-5.1) mmol/L Chloride (96-108) mmol/L Carbon Dioxide (22-29) mmol/L Anion Gap (12-20) BUN (9-16) mg/dL Creatinine (0.5-1.4) mg/dL Estim Creat Clear Calc Estimated GFR Random Glucose (60-115) mg/dL Lactic Acid (0.5-2.0) mmol/L Calcium 8.2 L (8.4-10.2) mg/dL Magnesium (1.6-2.6) mg/dL Ferritin 205 H (10-122) ng/mL Total Bilirubin (0.0-1.0) mg/dL AST (5-31) U/L ALT (0-31) U/L Alkaline Phosphatase (39-117) U/L Lactate Dehydrogenase 268 H (122-220) U/L Troponin I High Sens (<3.5-17.0) ng/L C-Reactive Protein 6.92 H (< or = 0.50) mg/dL B-Natriuretic Peptide (<100) pg/mL Total Protein (6.5-8.0) g/dL Albumin (3.5-5.0) g/dL Procalcitonin 0.28 ng/mL Imaging Data Chest x-ray: Attestation: I personally reviewed and interpreted this imaging study as follows: Radiologist's impression: FINDINGS: Increased bibasilar airspace opacities with also suspected small bilateral pleural effusions. No pneumothorax. Normal appearance of the cardiomediastinal silhouette. No acute osseous abnormalities. The visualized upper abdomen is within normal limits. XR/XR chest 1V IMPRESSION: Low lung volumes with increased bibasilar airspace opacities and small bilateral pleural effusions. These findings are indeterminate and could be related with an infectious process, aspiration or worsening atelectasis. ECG Data Attestation: I personally reviewed and interpreted this ECG as follows: ECG interpretation date: 11/07/21 ECG interpretation time: 03:05 Interpretation: Sinus tachycardia with ventricular rate of 122 with a normal FL interval normal QRS duration a QT/QTC interval. No acute ischemic changes are noted. Similar compared to prior EKG 11/05/2021. Critical Care Time Critical Care Time Critical Care Time: Yes Total Critical Care Time: 60 Attestation: I personally attest to this time spent taking care of the patient Discharge Plan Discharge Clinical Impression: COVID-19, Pleural effusion, Pneumonia due to COVID-19 virus Patient Disposition: Admitted As Inpatient
[2021-11-07] MEDS: 0.9 % Sodium Chloride 1,000 ML 999 ML IVCONT (12:38)
[2021-11-07] MEDS: cefTRIAXone sodium 1 GM in 0.9 % Sodium Chloride 50 ML IV (12:55)
[2021-11-07] MEDS: guaiFEN/Codeine SF 200/20/10ML 10 ML LIQUID PO ×2 (13:00→16:30)
[2021-11-07] MEDS: Magnesium Sulfate/H2O 2 GM/50 ML PIGGYBACK IV (14:03)
[2021-11-07] MEDS: dexAMETHasone sod phosphate 4 MG/ML VIAL 6 MG IVPUSH (14:14)
[2021-11-07] MEDS: Albuterol Sulfate (0.083%) 2.5 MG/3 ML VIAL.NEB 10 MG INHALE (14:22)
[2021-11-07 14:24] VITALS: PULSE 98; RESP 20; O2SAT 95
[2021-11-07 15:03] LABS: MANUAL DIFF FLAG NO
[2021-11-07 15:05] LABS: Basophils Percent Auto 0.1 % (0-2); Eosinophils Percent Auto 0.3 % (0-4); Hematocrit 40.1 % (37.0-47.0); Hemoglobin 13.5 g/dl (12.0-16.0); Imm Gran Abs Auto 0.04 X10*3/uL (0.00-0.03); Imm Gran Pct Auto 0.5 % (0.0-0.4); Lymphocytes Absolute Auto 1.8 X10*3/uL (1.2-4.9); Mean Corpuscular HGB Conc 33.7 g/dl (31.0-35.0); Mean Corpuscular Hemoglobin 32.7 pg (27.0-33.0); Mean Corpuscular Volume 97.1 fL (80.0-98.0); Mean Platelet Volume 9.8 fL (9.4-12.3); Monocytes Absolute Auto 0.7 X10*3/uL (0.1-1.2); Monocytes Percent Auto 8.8 % (2-11); Neutrophils Absolute Auto 5.3 x10*3/uL (2.0-8.3); Neutrophils Percent Auto 67.3 % (45-73); Platelet Count 209 X10*3/uL (160-400); Red Blood Count 4.13 X10*6/uL (4.20-5.50); Red Cell Distribution Width 13.2 % (11.0-16.0); White Blood Count 7.9 X10*3/uL (4.8-10.8)
[2021-11-07 15:13] LABS: Calcium 8.3 mg/dL (8.4-10.2); INTERNATIONAL NORM RATIO 1.3 (0.9-1.1); Prothrombin Time 14.3 SEC (9.9-13.0)
[2021-11-07 15:15] LABS: D Dimer High Sensitivity 201 NG/ML
[2021-11-07 15:16] LABS: Lactic Acid 1.5 mmol/L (0.5-2.0)
[2021-11-07 15:20] LABS: Alanine Aminotransferase 53 U/L (0-31); Albumin Level 3.5 g/dL (3.5-5.0); Alkaline Phosphatase 70 U/L (39-117); Anion Gap 11 (12-20); Aspartate Amino Transferase 58 U/L (5-31); Bilirubin Total 0.5 mg/dL (0.0-1.0); Blood Urea Nitrogen 16 mg/dL (9-16); Calcium 8.2 mg/dL (8.4-10.2); Carbon Dioxide 26 mmol/L (22-29); Chloride 105 mmol/L (96-108); Creatinine Clr Calc Pharmacy 74.1; Estimated Glomerular Filt Rate 58; Glucose Random 108 mg/dL (60-115); Magnesium 2.6 mg/dL (1.6-2.6); Sodium 138 mmol/L (135-145); Total Protein 6.1 g/dL (6.5-8.0)
[2021-11-07 15:23] LABS: Lactate Dehydrogenase 268 U/L (122-220)
[2021-11-07 15:25] LABS: B Type Natriuretic Peptide < 10 pg/mL (<100)
[2021-11-07 15:26] LABS: C Reactive Protein 6.92 mg/dL (< or = 0.50); Calcium 8.2 mg/dL (8.4-10.2)
[2021-11-07 15:39] LABS: Procalcitonin 0.28 ng/mL
[2021-11-07 15:40] LABS: Ferritin 205 ng/mL (10-122)
[2021-11-07 16:00] VITALS: BP 110/63; PULSE 112; RESP 18; O2SAT 89
[2021-11-07 16:14] LABS: Troponin-I High Sensitivity < 3.5 ng/L (<3.5-17.0)
[2021-11-07] MEDS: oxyCODONE HCl Immed Release 5 MG TABLET PO (16:30)
--- NOTE | 2021-11-07 16:37 | PHA.MEDREC ---
Pharmacy Consult ? Medication Reconciliation Pharmacy has completed the medication reconciliation. Pt states that she is currently taking dexamethasone as well as prednisone, and that she is currently on the 40mg dose of her prednisone taper. Shanae Mccarthy [facility]
[2021-11-07] MEDS: iohexoL 350 MG/ML 100 ML INFUS..BTL IV (17:06)
--- NOTE | 2021-11-07 17:11 | P.HPHOSP_ITS ---
History of Present Illness Date of Service: 11/07/21 Chief Complaint: sob 41-year-old female with past medical history significant for severe persistent asthma presented with shortness of breath. Patient's symptoms have been going on for 3 weeks, however, they have been getting significantly worse over the past 3-5 days. Shortness of breath associated with fevers as high as 103, generalized weakness, wheezing, patient does have a pulse ox at home and measured 89% on room air. She presented to the ED on 11/05/2021 and tested positive for COVID,, was not hypoxic at that time, was sent home with dexamethasone, Zithromax, doxy. Symptoms continue to worsen so she came in today. Patient noted to be hypoxic on room air to high 80s. Review of Systems Review of Systems: Constitutional: Noted fevers and chills Eyes: denies blurry vision ENT: denies sore throat CVS: denies chest pain Respiratory: dyspnea GI: no abdominal pain : denies dysuria MSK: denies neck pain Skin: denies rash Neuro: denies specific motor weakness Psych: denies suicidal ideation Endocrine: denies heat/cold intolerance Hematologic: denies easy bleeding Allergy: denies hives [facility] Medical History Asthma Chronic allergic rhinitis Dyslipidemia Family hx-breast malignancy GERD (gastroesophageal reflux disease) Hiatal hernia Lumbar disc herniation RLS (restless legs syndrome) Ureterolithiasis Vitamin D deficiency Family History Father No problems noted. Mother No problems noted. Maternal Grandfather No problems noted. Maternal Grandmother No problems noted. Paternal Grandfather No problems noted. Paternal Grandmother No problems noted. Maternal Uncle Bladder cancer Paternal Grandmother Colon cancer Stroke Sister No problems noted. Surgical History H/O prior ablation treatment History of colposcopy History of release of tendon Hx of cholecystectomy Social History Patient Tobacco Use Status: Never used Tobacco Advance Directives: No Advance Directives Information Provided: No Patient : No Meds Allergies Allergy/AdvReac Type Severity Reaction Status Date / Time Environmental Allergy Intermediate Hives and Uncoded 11/01/21 09:48 Rash Active Medications: Current Medications Albuterol Sulfate (Albuterol Sulfate 90 Mcg 8 Gm Inhaler) 2 puff INHALE Q6H PRN PRN Reason: Shortness Of Breath Or Wheezing Aspirin (Aspirin Enteric Coated 81 Mg Tablet.) 81 mg PO DAILY [facility] Escitalopram Oxalate (Escitalopram Oxalate 5 Mg Tablet) 5 mg PO DAILY [facility] Famotidine (Famotidine 20 Mg Tablet) 40 mg PO BEDTIME [facility] Remdesivir 200 mg/ Sodium (Chloride) 210 mls @ 105 mls/hr IV ONCE ONE Stop: 11/07/21 19:59 Remdesivir 100 mg/ Sodium (Chloride) 230 mls @ 115 mls/hr IV Q24H [facility] Stop: 11/11/21 19:59 Non-Formulary Medication (Budesonide) 0.5 mg INHALE Q4H PRN PRN Reason: Shortness Of Breath Or Wheezing Non-Formulary Medication (Budesonide-Formoterol [Symbicort]) 2 puff INHALE BID [facility] Non-Formulary Medication (Estazolam) 2 mg PO BEDTIME [facility] Non-Formulary Medication (Tiotropium [place] [Spiriva Respimat]) 2 puff INHALE BEDTIME [facility] Omeprazole (Omeprazole 40 Mg Capsule.) 40 mg PO DAILY [facility] Pharmacy Consult (Consult Rx Perform Med Rec) 1 each MISCELLANE ONCE PRN PRN Reason: Consult order Ropinirole HCl (Ropinirole Hcl 0.25 Mg Tablet) 0.25 mg PO BEDTIME [facility] Valacyclovir HCl (Valacycyclovir Hcl 500 Mg Tablet) 500 mg PO DAILY [facility] Home Medications Medication Instructions Recorded Confirmed Last Taken Type albuterol sulfate 90 mcg/actuation 2 puff INHALATION Q6H PRN 09/21/20 11/07/21 11/06/21 History aerosol inhaler (ProAir HFA) tiotropium bromide 1.25 2 puff INHALATION BEDTIME 09/20/21 11/07/21 11/06/21 History mcg/actuation mist for inhalation (Spiriva Respimat) aspirin 81 mg tablet,delayed 81 mg PO DAILY 11/07/21 11/07/21 11/06/21 History release azithromycin 250 mg tablet 1 tab PO DAILY 11/07/21 11/07/21 11/06/21 History budesonide 0.5 mg/2 mL suspension 0.5 mg INHALATION Q4H PRN 11/07/21 11/07/21 11/06/21 History for nebulization escitalopram oxalate 5 mg tablet 1 tab PO DAILY 11/07/21 11/07/21 11/06/21 History omalizumab 150 mg/mL subcutaneous 150 mg SUBCUT Q2W 11/07/21 11/07/21 10/12/21 History syringe (Xolair) Physical Exam Vital Signs and Narrative: Vital Signs: Last Vital Signs Temp 98 F 11/07/21 09:04 Pulse 112 H 11/07/21 16:00 Resp 18 11/07/21 16:00 BP 110/63 11/07/21 16:00 Pulse Ox 89 L 11/07/21 16:00 BMI result Body Mass Index 29.1 General: dyspneic HEENT: atraumatic Neck: normal to visual inspection CVS: S1, S2, RRR Resp: bilateral wheezes, mild accessory muscle use Chest: non tender GI: soft, non tender, non distended : no CVA tenderness Skin: no rashes Extremities: no edema Neuro: Oriented X3, grossly intact Psych: cooperative Results Labs CBC and Chem 7: 11/07/21 14:57 11/07/21 14:57 Labs: Laboratory Results - last 24 hr 11/07/21 11/07/21 11/07/21 14:57 14:57 14:57 MCV 97.1 MCH 32.7 MCHC 33.7 RDW 13.2 Plt Count 209 MPV 9.8 Immature Gran % (Auto) 0.5 H Neut % (Auto) 67.3 Lymph % (Auto) 23.0 [place] % (Auto) 8.8 Eos % (Auto) 0.3 Baso % (Auto) 0.1 Lymph # (Auto) 1.8 [place] # (Auto) 0.7 Eos # (Auto) 0.0 Baso # (Auto) 0.0 Abs Immat Gran (auto) 0.04 H Absolute Neuts (auto) 5.3 Absolute Nucleated RBC 0.000 Nucleated RBC % (auto) 0.0 PT 14.3 H INR 1.3 H D-Dimer High Sensitivty Anion Gap 11 L Estim Creat Clear Calc 74.1 Estimated GFR 58 Random Glucose 108 Lactic Acid Calcium 8.2 L D Magnesium 2.6 Ferritin Total Bilirubin 0.5 AST 58 H ALT 53 H Alkaline Phosphatase 70 Lactate Dehydrogenase Troponin I High Sens C-Reactive Protein B-Natriuretic Peptide Total Protein 6.1 L Albumin 3.5 Procalcitonin 11/07/21 11/07/21 11/07/21 14:57 14:57 14:57 MCV MCH MCHC RDW Plt Count MPV Immature Gran % (Auto) Neut % (Auto) Lymph % (Auto) [place] % (Auto) Eos % (Auto) Baso % (Auto) Lymph # (Auto) [place] # (Auto) Eos # (Auto) Baso # (Auto) Abs Immat Gran (auto) Absolute Neuts (auto) Absolute Nucleated RBC Nucleated RBC % (auto) PT INR D-Dimer High Sensitivty Anion Gap Estim Creat Clear Calc Estimated GFR Random Glucose Lactic Acid 1.5 Calcium 8.3 L Magnesium Ferritin Total Bilirubin AST ALT Alkaline Phosphatase Lactate Dehydrogenase Troponin I High Sens < 3.5 C-Reactive Protein B-Natriuretic Peptide < 10 Total Protein Albumin Procalcitonin 11/07/21 11/07/21 11/07/21 14:57 14:57 14:57 MCV MCH MCHC RDW Plt Count MPV Immature Gran % (Auto) Neut % (Auto) Lymph % (Auto) [place] % (Auto) Eos % (Auto) Baso % (Auto) Lymph # (Auto) [place] # (Auto) Eos # (Auto) Baso # (Auto) Abs Immat Gran (auto) Absolute Neuts (auto) Absolute Nucleated RBC Nucleated RBC % (auto) PT INR D-Dimer High Sensitivty 201 Anion Gap Estim Creat Clear Calc Estimated GFR Random Glucose Lactic Acid Calcium 8.2 L Magnesium Ferritin 205 H Total Bilirubin AST ALT Alkaline Phosphatase Lactate Dehydrogenase 268 H Troponin I High Sens C-Reactive Protein 6.92 H B-Natriuretic Peptide Total Protein Albumin Procalcitonin 0.28 Imaging Radiologist's Impressions: Impressions Chest X-Ray 11/07/21 09:50 IMPRESSION: Low lung volumes with increased bibasilar airspace opacities and small bilateral pleural effusions. These findings are indeterminate and could be related with an infectious process, aspiration or worsening atelectasis. Assessment and Plan (1) COVID-19: Status: Acute 41-year-old female presented with shortness of breath acute hypoxic respiratory failure secondary to COVID pneumonia complicated by acute exacerbation of severe persistent asthma dexamethasone remdesivir wean O2 as tolerated continue bronchodilators as needed inhaled steroid/[place] follow-up CTA mood disorder Lexapro DVT prophylaxis with Lovenox Quality Stroke Does the patient have a stroke diagnosis?: No VTE Prior VTE?: No VTE Risk Level:: Medical - moderate - high VTE Device Contraindication: Treatment Not Indicated VTE Drug Contraindication: N/A - Med Ordered
[2021-11-07 19:21] VITALS: BP 121/68; PULSE 86; RESP 16; O2SAT 95
[2021-11-07] MEDS: Remdesivir 200 MG in 0.9 % Sodium Chloride 210 ML 105 MG IV (19:29)
[2021-11-07] MEDS: Enoxaparin Sodium 40 MG/0.4 ML SYRINGE SUBCUT (19:33)
[2021-11-07] MEDS: rOPINIRole HCL 0.25 MG TABLET PO (22:11)
[2021-11-07] MEDS: Famotidine 20 MG TABLET 40 MG PO (22:11)
[2021-11-07] MEDS: Escitalopram Oxalate 5 MG TABLET PO (22:23)
[2021-11-07 22:25] VITALS: BP 110/74; PULSE 89; RESP 16; O2SAT 96
[2021-11-08] VITALS (12 sets, daily range): BP systolic 93–118; BP diastolic 47–82; PULSE 70–112; RESP 15–24; TEMP 36.1–38.6; O2SAT 91–99; BMI 29.0
[2021-11-08] MEDS: Albuterol/Iprat 2.5/0.5MG 3 ML AMPUL.NEB INHALE ×4 (02:19→21:02)
[2021-11-08 06:38] LABS: Hematocrit 41.6 % (37.0-47.0); Hemoglobin 13.8 g/dl (12.0-16.0); Mean Corpuscular HGB Conc 33.2 g/dl (31.0-35.0); Mean Corpuscular Hemoglobin 32.5 pg (27.0-33.0); Mean Corpuscular Volume 97.9 fL (80.0-98.0); Mean Platelet Volume 9.5 fL (9.4-12.3); Platelet Count 191 X10*3/uL (160-400); Red Blood Count 4.25 X10*6/uL (4.20-5.50); Red Cell Distribution Width 13.2 % (11.0-16.0); White Blood Count 6.9 X10*3/uL (4.8-10.8)
[2021-11-08 06:54] LABS: Anion Gap 11 (12-20); Blood Urea Nitrogen 15 mg/dL (9-16); Calcium 8.2 mg/dL (8.4-10.2); Carbon Dioxide 28 mmol/L (22-29); Chloride 105 mmol/L (96-108); Creatinine Clr Calc Pharmacy 102.1; Estimated Glomerular Filt Rate > 60; Glucose Fasting 78 mg/dL (60-99); Potassium 4.4 mmol/L (3.3-5.1); Sodium 140 mmol/L (135-145)
--- NOTE | 2021-11-08 07:27 | PC.NURSE ---
pt request breathing tx for sob. Respiratory Therapist at bedside. Pre vitals - HR 90, resp 17 O2sat 91% on 2L n/c
[2021-11-08] MEDS: Fluticasone/Vilanterol 200/25 BLST.W.DEV 1 PUFF INHALE (07:41)
--- NOTE | 2021-11-08 09:38 | MHC.CM.PN ---
Patient is Covid (+) and not reachable by phone at [phone] nor room [id number] so CM spoke with Contact/Mother/Lakisha at [phone].Patient lives in a house with her Fiance and is functionally independent and working up to recently. Home is the goal for dc and CM has initiated and will follow for dc planning. PCP is Dr. Neal Cassidy.
[2021-11-08] MEDS: Aspirin Enteric Coated 81 MG TABLET.DR PO (10:09)
[2021-11-08] MEDS: dexAMETHasone sod phosphate 4 MG/ML VIAL 6 MG IVPUSH (10:09)
[2021-11-08] MEDS: Omeprazole 40 MG CAPSULE.DR PO (10:10)
[2021-11-08] MEDS: Acetaminophen 325 MG TABLET 650 MG PO (10:10)
--- NOTE | 2021-11-08 11:30 | P.PNIM_ITS ---
Subjective Subjective Date of Service: 11/08/21 Interval History: f/u acute hypoxic respiratory failure d/t ovid 19, has a temp of 101 this morning. Review of Systems +fever +cough +sob Physical Exam Vital Signs: Vital Signs: Last Vital Signs Temp 101.4 F H 11/08/21 09:59 Pulse 112 H 11/08/21 09:59 Resp 24 H 11/08/21 09:59 BP 118/82 11/08/21 09:59 Pulse Ox 95 11/08/21 09:59 BMI result Body Mass Index 29.0 Const: Other: General: AO X 3, no acute distress Resp: CTA bilateral CVS: S1,S2,RRR GI: +BS, NT, no distention Skin: No rash Neuro: motor grossly intact Psych: appropriate affect Objective Data Active Medications Acetaminophen (Acetaminophen 325 Mg Tablet) 650 mg PO Q6H PRN PRN Reason: Pain, Mild (Pain Scale 1-3) Last Admin: 11/08/21 10:10 Dose: 650 mg Documented by: JESSENIA Albuterol Sulfate (Albuterol Sulfate 90 Mcg 8 Gm Inhaler) 2 puff INHALE Q6H PRN PRN Reason: Shortness Of Breath Or Wheezing Albuterol/Ipratropium (Albuterol/Iprat 2.5/0.5mg 3 Ml Ampul.Neb) 3 ml INHALE RQ4H PRN PRN Reason: Shortness of Breath/Wheezing Last Admin: 11/08/21 07:25 Dose: 3 ml Documented by: INOCENTE Aspirin (Aspirin Enteric Coated 81 Mg Tablet.) 81 mg PO DAILY [facility] Last Admin: 11/08/21 10:09 Dose: 81 mg Documented by: JESSENIA Benzonatate (Benzonatate 100 Mg Capsule) 100 mg PO TID PRN PRN Reason: Cough Dexamethasone Sodium Phosphate (Dexamethasone Sod Phosphate 4 Mg/Ml Vial) 6 mg IVPUSH DAILY [facility] Last Admin: 11/08/21 10:09 Dose: 6 mg Documented by: JESSENIA Enoxaparin Sodium (Enoxaparin Sodium 40 Mg/0.4 Ml Syringe) 40 mg SUBCUT Q24H [facility] Last Admin: 11/07/21 19:33 Dose: 40 mg Documented by: KRISTIAN Escitalopram Oxalate (Escitalopram Oxalate 5 Mg Tablet) 5 mg PO BEDTIME [facility] Last Admin: 11/07/21 22:23 Dose: 5 mg Documented by: KRISTIAN Famotidine (Famotidine 20 Mg Tablet) 40 mg PO BEDTIME [facility] Last Admin: 11/07/21 22:11 Dose: 40 mg Documented by: KRISTIAN Fluticasone/Vilanterol (Fluticasone/Vilanterol 200/25 Blst.W.Dev) 1 puff INHALE DAILY [facility] Last Admin: 11/08/21 07:41 Dose: 1 puff Documented by: INOCENTE Guaifenesin/Codeine Phosphate (Guaifen/Codeine Sf 200/20/10ml 10 Ml Liquid) 5 ml PO Q6H PRN PRN Reason: Cough Remdesivir 100 mg/ Sodium (Chloride) 230 mls @ 115 mls/hr IV Q24H [facility] Stop: 11/11/21 19:59 Vancomycin HCl 1,000 mg/ (Sodium Chloride) 270 mls @ 270 mls/hr IV Q12H [facility] Vancomycin HCl 1,250 mg/ (Sodium Chloride) 250 mls @ 166.667 mls/hr IV ONCE ONE Stop: 11/08/21 12:29 Patient Own Med ( Estazolam 2 Mg Tablet) 1 each PO BEDTIME [facility] Last Admin: 11/07/21 22:11 Dose: 1 each Documented by: KRISTIAN Omeprazole (Omeprazole 40 Mg Capsule.Dr) 40 mg PO DAILY [facility] Last Admin: 11/08/21 10:10 Dose: 40 mg Documented by: JESSENIA Pharmacy Consult (Consult Rx Perform Med Rec) 1 each MISCELLANE ONCE PRN PRN Reason: Consult order Pharmacy Consult (Consult Rx Vancomycin Dosing) 1 each MISCELLANE DAILY PRN PRN Reason: Consult order Ropinirole HCl (Ropinirole Hcl 0.25 Mg Tablet) 0.25 mg PO BEDTIME [facility] Last Admin: 11/07/21 22:11 Dose: 0.25 mg Documented by: KRISTIAN Sodium Chloride (0.9 % Sodium Chloride Flush 3 Ml Syringe) 3 ml IVFLUSH QSHIFT [facility] Last Admin: 11/08/21 09:28 Dose: Not Given Documented by: JESSENIA Non-Admin Reason: in ED Tiotropium Iron (Tiotropium Iron 18 Mcg Cap.W.Dev) 2 puff INHALE BEDTIME [facility] Last Admin: 11/08/21 07:41 Dose: 2 puff Documented by: INOCENTE Valacyclovir HCl (Valacycyclovir Hcl 500 Mg Tablet) 500 mg PO BEDTIME [facility] Last Admin: 11/07/21 22:23 Dose: 500 mg Documented by: KRISTIAN Labs CBC & Chem 7: 11/08/21 06:29 11/08/21 06:29 Labs: Laboratory Results - last 24 hr 11/07/21 11/07/21 11/07/21 14:57 14:57 14:57 MCV 97.1 MCH 32.7 MCHC 33.7 RDW 13.2 Plt Count 209 MPV 9.8 Immature Gran % (Auto) 0.5 H Neut % (Auto) 67.3 Lymph % (Auto) 23.0 [place] % (Auto) 8.8 Eos % (Auto) 0.3 Baso % (Auto) 0.1 Lymph # (Auto) 1.8 [place] # (Auto) 0.7 Eos # (Auto) 0.0 Baso # (Auto) 0.0 Abs Immat Gran (auto) 0.04 H Absolute Neuts (auto) 5.3 Absolute Nucleated RBC 0.000 Nucleated RBC % (auto) 0.0 PT 14.3 H INR 1.3 H D-Dimer High Sensitivty Anion Gap 11 L Estim Creat Clear Calc 74.1 Estimated GFR 58 Random Glucose 108 Fasting Glucose Lactic Acid Calcium 8.2 L D Magnesium 2.6 Ferritin Total Bilirubin 0.5 AST 58 H ALT 53 H Alkaline Phosphatase 70 Lactate Dehydrogenase Troponin I High Sens C-Reactive Protein B-Natriuretic Peptide Total Protein 6.1 L Albumin 3.5 Procalcitonin 11/07/21 11/07/21 11/07/21 14:57 14:57 14:57 MCV MCH MCHC RDW Plt Count MPV Immature Gran % (Auto) Neut % (Auto) Lymph % (Auto) [place] % (Auto) Eos % (Auto) Baso % (Auto) Lymph # (Auto) [place] # (Auto) Eos # (Auto) Baso # (Auto) Abs Immat Gran (auto) Absolute Neuts (auto) Absolute Nucleated RBC Nucleated RBC % (auto) PT INR D-Dimer High Sensitivty Anion Gap Estim Creat Clear Calc Estimated GFR Random Glucose Fasting Glucose Lactic Acid 1.5 Calcium 8.3 L Magnesium Ferritin Total Bilirubin AST ALT Alkaline Phosphatase Lactate Dehydrogenase Troponin I High Sens < 3.5 C-Reactive Protein B-Natriuretic Peptide < 10 Total Protein Albumin Procalcitonin 11/07/21 11/07/21 11/07/21 14:57 14:57 14:57 MCV MCH MCHC RDW Plt Count MPV Immature Gran % (Auto) Neut % (Auto) Lymph % (Auto) [place] % (Auto) Eos % (Auto) Baso % (Auto) Lymph # (Auto) [place] # (Auto) Eos # (Auto) Baso # (Auto) Abs Immat Gran (auto) Absolute Neuts (auto) Absolute Nucleated RBC Nucleated RBC % (auto) PT INR D-Dimer High Sensitivty 201 Anion Gap Estim Creat Clear Calc Estimated GFR Random Glucose Fasting Glucose Lactic Acid Calcium 8.2 L Magnesium Ferritin 205 H Total Bilirubin AST ALT Alkaline Phosphatase Lactate Dehydrogenase 268 H Troponin I High Sens C-Reactive Protein 6.92 H B-Natriuretic Peptide Total Protein Albumin Procalcitonin 0.28 11/08/21 11/08/21 06:29 06:29 MCV 97.9 MCH 32.5 MCHC 33.2 RDW 13.2 Plt Count 191 MPV 9.5 Immature Gran % (Auto) Neut % (Auto) Lymph % (Auto) [place] % (Auto) Eos % (Auto) Baso % (Auto) Lymph # (Auto) [place] # (Auto) Eos # (Auto) Baso # (Auto) Abs Immat Gran (auto) Absolute Neuts (auto) Absolute Nucleated RBC 0.000 Nucleated RBC % (auto) 0.0 PT INR D-Dimer High Sensitivty Anion Gap 11 L Estim Creat Clear Calc 102.1 Estimated GFR > 60 Random Glucose Fasting Glucose 78 Lactic Acid Calcium 8.2 L Magnesium Ferritin Total Bilirubin AST ALT Alkaline Phosphatase Lactate Dehydrogenase Troponin I High Sens C-Reactive Protein B-Natriuretic Peptide Total Protein Albumin Procalcitonin Assessment and Plan (1) COVID-19: Status: Acute (2) Pneumonia due to COVID-19 virus: Status: Acute Assessment and Plan: 41-year-old female with severe persitent asthma here with hypoxia d/t covid causing exacerbation 1?Covid-19 2 Acute hypoxic respriatory failure 3 Asthma exacerbtion -Remdesevir -Decadrone -Bronchodilators -Pulmonology eval -Oxygen -Vitamins (Zinc, vit C), -Pepcid to prevent gastiritis from steroid 3?mood disorder ?Lexapro ?DVT prophylaxis with Lovenox Quality Stroke Does the patient have a stroke diagnosis?: No VTE Prior VTE?: No VTE Risk Level:: Medical - moderate - high VTE Device Contraindication: Treatment Not Indicated VTE Drug Contraindication: N/A - Med Ordered
[2021-11-08] MEDS: Benzonatate 100 MG CAPSULE PO (12:11)
[2021-11-08] MEDS: guaiFEN/Codeine SF 200/20/10ML 10 ML LIQUID 5 ML PO (12:11)
[2021-11-08] MEDS: vancomycin HCL 1,250 MG in 0.9 % Sodium Chloride 250 ML 166.67 MG IV (12:15)
--- NOTE | 2021-11-08 13:10 | PM.CNPUL ---
History of Present Illness History of Present Illness Consult date: 11/08/21 Chief complaint: Covid Narrative: This is an inpatient pulmonary consultation. The patient is a 41-year-old female with past medical history significant for severe persistent asthma presented with shortness of breath.? Patient's symptoms have been going on for 3 weeks, however, they have been getting significantly worse over the past 3-5 days.? Shortness of breath associated with fevers as high as 103, generalized weakness, wheezing, patient does have a pulse ox at home and measured 89% on room air.? She presented to the ED on 11/05/2021 and tested positive for COVID,, was not hypoxic at that time, was sent home with dexamethasone, Zithromax, doxy.? Symptoms continue to worsen so she came in today.? Patient noted to be hypoxic on room air to high 80s. CT scan of the chest demonstrating bibasilar consolidations in addition to areas of ground-glass opacities. The CT scan findings are concerning for a superimposed bacterial infection. The patient is currently on 6 L of oxygen. She is feeling better on the antibiotics. She still has a cough and she still requiring oxygen. Review of Systems Review of Systems: Constitutional: Noted fevers and chills Eyes: denies blurry vision ENT: denies sore throat CVS: denies chest pain Respiratory: dyspnea GI: no abdominal pain : denies dysuria MSK: denies neck pain Skin: denies rash Neuro: denies specific motor weakness Psych: denies suicidal ideation Endocrine: denies heat/cold intolerance Hematologic: denies easy bleeding Allergy: denies hives PMFSH Past Medical History Medical History (Updated 11/08/21 @ 13:13 by Jack Ruffin MD) Acute respiratory failure Asthma Chronic allergic rhinitis Dyslipidemia Family hx-breast malignancy GERD (gastroesophageal reflux disease) Hiatal hernia Lumbar disc herniation Pneumonia RLS (restless legs syndrome) Ureterolithiasis Vitamin D deficiency Family History Family History Father No problems noted. Mother No problems noted. Maternal Grandfather No problems noted. Maternal Grandmother No problems noted. Paternal Grandfather No problems noted. Paternal Grandmother No problems noted. Maternal Uncle Bladder cancer Paternal Grandmother Colon cancer Stroke Sister No problems noted. Surgical History Surgical History H/O prior ablation treatment History of colposcopy History of release of tendon Hx of cholecystectomy Social History Social History Household Members: Significant Other Housing: House Do you presently have visiting nurse or other home services: No Patient Tobacco Use Status: Never used Tobacco Use of substances other than those prescribed or required for medical reasons: No Have you been hit, kicked, punched, or otherwise hurt by someone within the past year? If so, by whom?: No Do you feel safe in your current relationship?: Yes Is there a partner from a previous relationship who is making you feel unsafe now?: No Are you made to feel afraid or neglected: No Advance Directives: No Advance Directives Information Provided: No Do you have thoughts of harming others: None Do you have a plan to hurt others: No Plan Recently lost weight without trying: Yes How much weight loss: 2-13 pounds Eating poorly because of decreased appetite: Yes Nutrition screen score: 4 Nutrition Risks: No Nutritional Risk Patient : No service: No Current occupational status: employed Meds Allergies Allergy/AdvReac Type Severity Reaction Status Date / Time Environmental Allergy Intermediate Hives and Uncoded 11/01/21 09:48 Rash Active Medications: Current Medications Acetaminophen (Acetaminophen 325 Mg Tablet) 650 mg PO Q6H PRN PRN Reason: Pain, Mild (Pain Scale 1-3) Last Admin: 11/08/21 10:10 Dose: 650 mg Documented by: Albuterol Sulfate (Albuterol Sulfate 90 Mcg 8 Gm Inhaler) 2 puff INHALE Q6H PRN PRN Reason: Shortness Of Breath Or Wheezing Albuterol/Ipratropium (Albuterol/Iprat 2.5/0.5mg 3 Ml Ampul.Neb) 3 ml INHALE RQ4H PRN PRN Reason: Shortness of Breath/Wheezing Last Admin: 11/08/21 07:25 Dose: 3 ml Documented by: Albuterol/Ipratropium (Albuterol/Iprat 2.5/0.5mg 3 Ml Ampul.Neb) 3 ml INHALE RQ4H WHILE AWAKE [facility] Aspirin (Aspirin Enteric Coated 81 Mg Tablet.) 81 mg PO DAILY [facility] Last Admin: 11/08/21 10:09 Dose: 81 mg Documented by: Benzonatate (Benzonatate 100 Mg Capsule) 100 mg PO TID PRN PRN Reason: Cough Last Admin: 11/08/21 12:11 Dose: 100 mg Documented by: Dexamethasone Sodium Phosphate (Dexamethasone Sod Phosphate 4 Mg/Ml Vial) 6 mg IVPUSH DAILY [facility] Last Admin: 11/08/21 10:09 Dose: 6 mg Documented by: Enoxaparin Sodium (Enoxaparin Sodium 40 Mg/0.4 Ml Syringe) 40 mg SUBCUT Q24H [facility] Last Admin: 11/07/21 19:33 Dose: 40 mg Documented by: Escitalopram Oxalate (Escitalopram Oxalate 5 Mg Tablet) 5 mg PO BEDTIME [facility] Last Admin: 11/07/21 22:23 Dose: 5 mg Documented by: Famotidine (Famotidine 20 Mg Tablet) 40 mg PO BEDTIME [facility] Last Admin: 11/07/21 22:11 Dose: 40 mg Documented by: Fluticasone/Vilanterol (Fluticasone/Vilanterol 200/25 Blst.W.Dev) 1 puff INHALE DAILY [facility] Last Admin: 11/08/21 07:41 Dose: 1 puff Documented by: Guaifenesin/Codeine Phosphate (Guaifen/Codeine Sf 200/20/10ml 10 Ml Liquid) 5 ml PO Q6H PRN PRN Reason: Cough Last Admin: 11/08/21 12:11 Dose: 5 ml Documented by: Remdesivir 100 mg/ Sodium (Chloride) 230 mls @ 115 mls/hr IV Q24H [facility] Stop: 11/11/21 19:59 Vancomycin HCl 1,000 mg/ (Sodium Chloride) 270 mls @ 270 mls/hr IV Q12H [facility] Patient Own Med ( Estazolam 2 Mg Tablet) 1 each PO BEDTIME [facility] Last Admin: 11/07/21 22:11 Dose: 1 each Documented by: Omeprazole (Omeprazole 40 Mg Capsule.) 40 mg PO DAILY [facility] Last Admin: 11/08/21 10:10 Dose: 40 mg Documented by: Pharmacy Consult (Consult Rx Perform Med Rec) 1 each MISCELLANE ONCE PRN PRN Reason: Consult order Pharmacy Consult (Consult Rx Vancomycin Dosing) 1 each MISCELLANE DAILY PRN PRN Reason: Consult order Ropinirole HCl (Ropinirole Hcl 0.25 Mg Tablet) 0.25 mg PO BEDTIME [facility] Last Admin: 11/07/21 22:11 Dose: 0.25 mg Documented by: Sodium Chloride (0.9 % Sodium Chloride Flush 3 Ml Syringe) 3 ml IVFLUSH QSHIFT [facility] Last Admin: 11/08/21 09:28 Dose: Not Given Documented by: Tiotropium [place] (Tiotropium [place] 18 Mcg Cap.W.Dev) 2 puff INHALE BEDTIME [facility] Last Admin: 11/08/21 07:41 Dose: 2 puff Documented by: Valacyclovir HCl (Valacycyclovir Hcl 500 Mg Tablet) 500 mg PO BEDTIME [facility] Last Admin: 11/07/21 22:23 Dose: 500 mg Documented by: Home Medications Medication Instructions Recorded Confirmed Last Taken Type albuterol sulfate 90 mcg/actuation 2 puff INHALATION Q6H PRN 09/21/20 11/07/21 11/06/21 History aerosol inhaler (ProAir HFA) tiotropium bromide 1.25 2 puff INHALATION BEDTIME 09/20/21 11/07/21 11/06/21 History mcg/actuation mist for inhalation (Spiriva Respimat) aspirin 81 mg tablet,delayed 81 mg PO DAILY 11/07/21 11/07/21 11/06/21 History release azithromycin 250 mg tablet 1 tab PO DAILY 11/07/21 11/07/21 11/06/21 History budesonide 0.5 mg/2 mL suspension 0.5 mg INHALATION Q4H PRN 11/07/21 11/07/21 11/06/21 History for nebulization escitalopram oxalate 5 mg tablet 1 tab PO DAILY 11/07/21 11/07/21 11/06/21 History omalizumab 150 mg/mL subcutaneous 150 mg SUBCUT Q2W 11/07/21 11/07/21 10/12/21 History syringe (Xolair) Physical Exam Vital Signs: Vital Signs: Last Vital Signs Temp 97 F 11/08/21 12:33 Pulse 98 11/08/21 11:48 Resp 16 11/08/21 11:48 BP 114/64 11/08/21 11:48 Pulse Ox 99 11/08/21 11:48 BMI result Body Mass Index 29.0 Const: General: alert Neck: Neck: Yes normal visual inspection, Yes full ROM and Yes no lymphadenopathy Chest: Chest palpation & inspection: normal inspection of the chest Resp: Auscultation: diminished lung sounds Cardio: Rate: regular rate Rhythm: regular rhythm Heart sounds: S1 normal heart sound present and S2 normal heart sound present GI: Palpation (GI): Soft to palpation and nontender Auscultation: normal bowel sounds Skin: General skin exam: rashes and/or lesions noted Results Laboratory Findings CBC and BMP: 11/08/21 06:29 11/08/21 06:29 ABG, PT/INR, D-dimer: PT/INR, D-dimer PT 14.3 SEC (9.9-13.0) H 11/07/21 14:57 INR 1.3 (0.9-1.1) H 11/07/21 14:57 Abnormal lab findings: Abnormal Labs 11/07/21 11/07/21 11/07/21 14:57 14:57 14:57 RBC 4.13 L Immature Gran % (Auto) 0.5 H Abs Immat Gran (auto) 0.04 H PT 14.3 H INR 1.3 H Anion Gap 11 L Calcium 8.2 L D Ferritin AST 58 H ALT 53 H Lactate Dehydrogenase C-Reactive Protein Total Protein 6.1 L 11/07/21 11/07/21 11/08/21 14:57 14:57 06:29 RBC Immature Gran % (Auto) Abs Immat Gran (auto) PT INR Anion Gap 11 L Calcium 8.3 L 8.2 L 8.2 L Ferritin 205 H AST ALT Lactate Dehydrogenase 268 H C-Reactive Protein 6.92 H Total Protein Assessment and Plan (1) COVID-19: Status: Acute (2) Pneumonia: Status: Acute (3) Acute respiratory failure: Status: Acute COntinue Ceftriaxone Add Vancomycin Decadron Awake proning oxygen to keep pox >90% Consider IL 6 inhibitor if worsens Procedures Date of Service Date of Service: 11/08/21
[2021-11-08] MEDS: 0.9 % Sodium Chloride Flush 3 ML SYRINGE IVFLUSH (13:58)
--- NOTE | 2021-11-08 15:46 | PC.NURSE ---
1514: Patient resting on right side in bed while vitals being taken 93 sys, HR 93 NSR. No complaints at this time asymptomatic with low BP.
[2021-11-08] MEDS: Remdesivir 100 MG in 0.9 % Sodium Chloride 230 ML 115 MG IV (17:46)
[2021-11-08] MEDS: Enoxaparin Sodium 40 MG/0.4 ML SYRINGE SUBCUT (17:58)
[2021-11-08] MEDS: Escitalopram Oxalate 5 MG TABLET PO (20:53)
[2021-11-08] MEDS: Famotidine 20 MG TABLET 40 MG PO (20:53)
[2021-11-08] MEDS: rOPINIRole HCL 0.25 MG TABLET PO (20:54)
[2021-11-09] VITALS (11 sets, daily range): BP systolic 93–125; BP diastolic 55–79; PULSE 60–95; RESP 16–20; TEMP 36.2–36.7; O2SAT 92–98
[2021-11-09] MEDS: 0.9 % Sodium Chloride Flush 3 ML SYRINGE IVFLUSH ×4 (00:32→20:21)
[2021-11-09] MEDS: vancomycin HCL 1,000 MG in 0.9 % Sodium Chloride 250 ML 270 MG IV ×2 (00:33→09:29)
[2021-11-09] MEDS: Albuterol/Iprat 2.5/0.5MG 3 ML AMPUL.NEB INHALE ×3 (05:57→20:26)
[2021-11-09] MEDS: Aspirin Enteric Coated 81 MG TABLET.DR PO (09:29)
[2021-11-09] MEDS: guaiFEN/Codeine SF 200/20/10ML 10 ML LIQUID 5 ML PO (09:29)
[2021-11-09] MEDS: Omeprazole 40 MG CAPSULE.DR PO (09:29)
[2021-11-09] MEDS: dexAMETHasone sod phosphate 4 MG/ML VIAL 6 MG IVPUSH (09:29)
[2021-11-09] MEDS: Benzonatate 100 MG CAPSULE PO ×2 (09:29→20:21)
[2021-11-09 09:39] LABS: MRSA Nasal PCR NEGATIVE (Negative); SA Nasal PCR NEGATIVE (Negative)
--- NOTE | 2021-11-09 09:46 | PM.PNPUL ---
Subjective Subjective Date of Service: 11/09/21 Interval history: The patient was seen on exam. Her oxygen requirements have decreased. She still coughing and does not feel good. She was not able to prone because of increased shortness of breath. She only lasted 20 minutes. She is requiring her nebulizer treatments regularly. Him I provided her with a flutter valve for chest PT and also incentive spirometer so she can work on deep breathing. Her lung bases still very diminished. Plan to repeat chest x-ray tomorrow. Objective Data Labs CBC & Chem 7: 11/08/21 06:29 11/08/21 06:29 Labs: Laboratory Results - last 24 hr 11/08/21 15:24 Nasal Screen MRSA (PCR) NEGATIVE Nasal S. aureus Screen NEGATIVE Nasal MRSA/S.aureus Interp SEE NOTE Microbiology Microbiology Results: Microbiology 11/07/21 18:34 Blood - Venous Blood Culture - Preliminary No growth after 24 hours. 11/07/21 14:57 Blood - Venous Blood Culture - Preliminary No growth after 24 hours. Review of Systems Review of Systems Constitutional: Noted fevers and chills Eyes: denies blurry vision ENT: denies sore throat CVS: denies chest pain Respiratory: dyspnea GI: no abdominal pain : denies dysuria MSK: denies neck pain Skin: denies rash Neuro: denies specific motor weakness Psych: denies suicidal ideation Endocrine: denies heat/cold intolerance Hematologic: denies easy bleeding Allergy: denies hives Respiratory: Reports chest congestion and Reports cough Physical Exam Vital Signs: Vital Signs: Last Vital Signs Temp 97.7 F 11/09/21 07:47 Pulse 91 11/09/21 07:47 Resp 19 11/09/21 07:47 BP 99/61 11/09/21 07:47 Pulse Ox 97 11/09/21 07:47 BMI result Body Mass Index 29.0 Const: General: alert Neck: Neck: Yes normal visual inspection, Yes full ROM and Yes no lymphadenopathy Chest: Chest palpation & inspection: normal inspection of the chest Resp: Auscultation: diminished lung sounds Cardio: Rate: regular rate Rhythm: regular rhythm Heart sounds: S1 normal heart sound present and S2 normal heart sound present GI: Palpation (GI): Soft to palpation and nontender Auscultation: normal bowel sounds Skin: General skin exam: rashes and/or lesions noted Procedures Date of Service Date of Service: 11/09/21 Assessment and Plan Assessment and plan (1) Acute respiratory failure: Status: Acute (2) Pneumonia: Status: Acute (3) COVID-19: Status: Acute (4) Pleural effusion: Status: Acute (5) Asthma: Status: Acute Assessment and Plan: Continue broad-spectrum antibiotics Repeat chest x-ray tomorrow Continue COVID-19 related therapies CPT with flutter valve Incentive spirometer Continue attempting awake groaning Time Spent With Patient Time: Total time spent is greater than 50% in coordination of care (as documented) at patient's floor/unit and/or counseling patient: Time with patient: 15 - 24 minutes Progress Note: Quality Stroke Does the patient have a stroke diagnosis?: No
[2021-11-09 09:50] LABS: Anion Gap 13 (12-20); Blood Urea Nitrogen 15 mg/dL (9-16); Calcium 8.6 mg/dL (8.4-10.2); Carbon Dioxide 24 mmol/L (22-29); Chloride 107 mmol/L (96-108); Creatinine Clr Calc Pharmacy 110.5; Estimated Glomerular Filt Rate > 60; Glucose Random 123 mg/dL (60-115); Potassium 4.1 mmol/L (3.3-5.1); Sodium 140 mmol/L (135-145)
[2021-11-09] MEDS: Fluticasone/Vilanterol 200/25 BLST.W.DEV 1 PUFF INHALE (10:02)
[2021-11-09] MEDS: Acetaminophen 325 MG TABLET 650 MG PO (11:23)
--- NOTE | 2021-11-09 14:49 | HO.PM.IMPN ---
Subjective Subjective Date of Service: 11/09/21 Interval History: breathing slowly improving; able to titrate O2 Review of Systems denies chest pain Admits to exertional shortness of breath Denies nausea vomiting diarrhea Physical Exam Vital Signs: Vital Signs: Last Vital Signs Temp 97.9 F 11/09/21 11:12 Pulse 95 11/09/21 12:26 Resp 16 11/09/21 12:26 BP 110/58 L 11/09/21 11:12 Pulse Ox 96 11/09/21 11:12 BMI result Body Mass Index 29.0 Const: Other: no acute distress. Able to speak in short sentences lying semi-Cisneros's Resp: Other: diminished throughout with expiratory crackles bilatera Cardio: Other: no S4; positive S1-S2; no S3 murmur some scalp GI: Other: soft nontender nondistended with normoactive bowel sounds Extrem: Other: no edema bilaterally Objective Data Active Medications Acetaminophen (Acetaminophen 325 Mg Tablet) 650 mg PO Q6H PRN PRN Reason: Pain, Mild (Pain Scale 1-3) Last Admin: 11/09/21 11:23 Dose: 650 mg Documented by: MANUEL Albuterol Sulfate (Albuterol Sulfate 90 Mcg 8 Gm Inhaler) 2 puff INHALE Q6H PRN PRN Reason: Shortness Of Breath Or Wheezing Albuterol/Ipratropium (Albuterol/Iprat 2.5/0.5mg 3 Ml Ampul.Neb) 3 ml INHALE RQ4H PRN PRN Reason: Shortness of Breath/Wheezing Last Admin: 11/09/21 05:57 Dose: 3 ml Documented by: LOUIS Albuterol/Ipratropium (Albuterol/Iprat 2.5/0.5mg 3 Ml Ampul.Neb) 3 ml INHALE RQ4H WHILE AWAKE [facility] Last Admin: 11/09/21 12:26 Dose: 3 ml Documented by: ISAEL Aspirin (Aspirin Enteric Coated 81 Mg Tablet.) 81 mg PO DAILY [facility] Last Admin: 11/09/21 09:29 Dose: 81 mg Documented by: MANUEL Benzonatate (Benzonatate 100 Mg Capsule) 100 mg PO TID PRN PRN Reason: Cough Last Admin: 11/09/21 09:29 Dose: 100 mg Documented by: MANUEL Dexamethasone Sodium Phosphate (Dexamethasone Sod Phosphate 4 Mg/Ml Vial) 6 mg IVPUSH DAILY [facility] Last Admin: 11/09/21 09:29 Dose: 6 mg Documented by: MANUEL Enoxaparin Sodium (Enoxaparin Sodium 40 Mg/0.4 Ml Syringe) 40 mg SUBCUT Q24H [facility] Last Admin: 11/08/21 17:58 Dose: 40 mg Documented by: JESSENIA Escitalopram Oxalate (Escitalopram Oxalate 5 Mg Tablet) 5 mg PO BEDTIME [facility] Last Admin: 11/08/21 20:53 Dose: 5 mg Documented by: TRACY Famotidine (Famotidine 20 Mg Tablet) 40 mg PO BEDTIME [facility] Last Admin: 11/08/21 20:53 Dose: 40 mg Documented by: TRACY Fluticasone/Vilanterol (Fluticasone/Vilanterol 200/25 Blst.W.Dev) 1 puff INHALE RDAILY [facility] Last Admin: 11/09/21 10:02 Dose: 1 puff Documented by: MANUEL Comments: in covid room Guaifenesin/Codeine Phosphate (Guaifen/Codeine Sf 200/20/10ml 10 Ml Liquid) 5 ml PO Q6H PRN PRN Reason: Cough Last Admin: 11/09/21 09:29 Dose: 5 ml Documented by: MANUEL Remdesivir 100 mg/ Sodium (Chloride) 230 mls @ 115 mls/hr IV Q24H [facility] Stop: 11/11/21 19:59 Last Infusion: 11/08/21 21:01 Dose: 0 mls/hr Documented by: TRACY Vancomycin HCl 1,000 mg/ (Sodium Chloride) 270 mls @ 270 mls/hr IV Q12H [facility] Last Infusion: 11/09/21 11:04 Dose: 0 mls/hr Documented by: MANUEL Patient Own Med ( Estazolam 2 Mg Tablet) 1 each PO BEDTIME [facility] Last Admin: 11/08/21 22:50 Dose: 1 each Documented by: TRACY Omeprazole (Omeprazole 40 Mg Capsule.) 40 mg PO DAILY [facility] Last Admin: 11/09/21 09:29 Dose: 40 mg Documented by: MANUEL Pharmacy Consult (Consult Rx Perform Med Rec) 1 each MISCELLANE ONCE PRN PRN Reason: Consult order Pharmacy Consult (Consult Rx Vancomycin Dosing) 1 each MISCELLANE DAILY PRN PRN Reason: Consult order Ropinirole HCl (Ropinirole Hcl 0.25 Mg Tablet) 0.25 mg PO BEDTIME [facility] Last Admin: 11/08/21 20:54 Dose: 0.25 mg Documented by: TRACY Sodium Chloride (0.9 % Sodium Chloride Flush 3 Ml Syringe) 3 ml IVFLUSH QSHIFT [facility] Last Admin: 11/09/21 09:30 Dose: 3 ml Documented by: MANUEL Tiotropium [place] (Tiotropium [place] 18 Mcg Cap.W.Dev) 1 puff INHALE RDAILY [facility] Last Admin: 11/09/21 10:02 Dose: 1 puff Documented by: MANUEL Comments: in covid room Valacyclovir HCl (Valacycyclovir Hcl 500 Mg Tablet) 500 mg PO BEDTIME [facility] Last Admin: 11/08/21 20:53 Dose: 500 mg Documented by: TRACY Labs CBC & Chem 7: 11/08/21 06:29 11/09/21 08:56 Labs: Laboratory Results - last 24 hr 11/08/21 11/09/21 15:24 08:56 Anion Gap 13 Estim Creat Clear Calc 110.5 Estimated GFR > 60 Random Glucose 123 H Calcium 8.6 Nasal Screen MRSA (PCR) NEGATIVE Nasal S. aureus Screen NEGATIVE Nasal MRSA/S.aureus Interp SEE NOTE Microbiology Microbiology Results: Microbiology 11/07/21 18:34 Blood Culture - Preliminary Blood - Venous No growth after 24 hours. 11/07/21 14:57 Blood Culture - Preliminary Blood - Venous No growth after 24 hours. Assessment and Plan (1) Acute respiratory failure: Status: Acute (2) Pneumonia: Status: Acute (3) COVID-19: Status: Acute Assessment and Plan: 41-year-old female with severe persitent asthma here with hypoxia d/t covid causing exacerbation 1.?Covid-19/Acute hypoxic respriatory failure in the backdrop of severe persistent asthma Continue nebs / supplemental O2/Decadron / Redesmivir 2.Pneumonia Continue Vancomycin as per pulmonary ?Lexapro ?DVT prophylaxis with Lovenox Quality Stroke Does the patient have a stroke diagnosis?: No VTE Prior VTE?: No VTE Risk Level:: Medical - moderate - high VTE Device Contraindication: Treatment Not Indicated VTE Drug Contraindication: N/A - Med Ordered
[2021-11-09] MEDS: Remdesivir 100 MG in 0.9 % Sodium Chloride 230 ML 115 MG IV (18:02)
[2021-11-09] MEDS: Enoxaparin Sodium 40 MG/0.4 ML SYRINGE SUBCUT (18:06)
[2021-11-09] MEDS: Escitalopram Oxalate 5 MG TABLET PO (20:20)
[2021-11-09] MEDS: rOPINIRole HCL 0.25 MG TABLET PO (20:20)
[2021-11-09] MEDS: Famotidine 20 MG TABLET 40 MG PO (20:20)
[2021-11-09 21:29] LABS: Vancomycin Trough 6.6 mcg/mL (10.0-20.0)
[2021-11-09] MEDS: vancomycin HCL 1,500 MG in 0.9 % Sodium Chloride 500 ML 333.33 MG IV (23:34)
[2021-11-10] VITALS (10 sets, daily range): BP systolic 110–128; BP diastolic 58–74; PULSE 72–95; RESP 17–22; TEMP 36.3–36.9; O2SAT 92–99
[2021-11-10 07:20] LABS: MANUAL DIFF FLAG NO
[2021-11-10 07:29] LABS: Basophils Percent Auto 0.1 % (0-2); Eosinophils Percent Auto 0.1 % (0-4); Hematocrit 36.4 % (37.0-47.0); Hemoglobin 12.2 g/dl (12.0-16.0); Imm Gran Abs Auto 0.05 X10*3/uL (0.00-0.03); Imm Gran Pct Auto 0.6 % (0.0-0.4); Lymphocytes Absolute Auto 0.9 X10*3/uL (1.2-4.9); Lymphocytes Percent Auto 11.5 % (20-40); Mean Corpuscular HGB Conc 33.5 g/dl (31.0-35.0); Mean Corpuscular Hemoglobin 32.2 pg (27.0-33.0); Mean Platelet Volume 9.8 fL (9.4-12.3); Monocytes Absolute Auto 0.4 X10*3/uL (0.1-1.2); Monocytes Percent Auto 5.1 % (2-11); Neutrophils Absolute Auto 6.4 x10*3/uL (2.0-8.3); Neutrophils Percent Auto 82.6 % (45-73); Platelet Count 214 X10*3/uL (160-400); Red Blood Count 3.79 X10*6/uL (4.20-5.50); White Blood Count 7.8 X10*3/uL (4.8-10.8)
[2021-11-10 07:37] LABS: Alanine Aminotransferase 411 U/L (0-31); Alkaline Phosphatase 115 U/L (39-117); Anion Gap 10 (12-20); Aspartate Amino Transferase 49 U/L (5-31); Bilirubin Total 0.3 mg/dL (0.0-1.0); Blood Urea Nitrogen 14 mg/dL (9-16); Calcium 8.4 mg/dL (8.4-10.2); Carbon Dioxide 26 mmol/L (22-29); Chloride 109 mmol/L (96-108); Creatinine Clr Calc Pharmacy 115.3; Estimated Glomerular Filt Rate > 60; Glucose Fasting 99 mg/dL (60-99); Potassium 4.2 mmol/L (3.3-5.1); Sodium 141 mmol/L (135-145); Total Protein 5.4 g/dL (6.5-8.0)
[2021-11-10] MEDS: Albuterol/Iprat 2.5/0.5MG 3 ML AMPUL.NEB INHALE ×4 (07:46→20:03)
[2021-11-10] MEDS: Fluticasone/Vilanterol 200/25 BLST.W.DEV 1 PUFF INHALE (07:47)
--- NOTE | 2021-11-10 09:38 | P.PNPL_ITS ---
Subjective Subjective Date of Service: 11/10/21 Interval history: The patient was seen on exam. Still having hard time with her coughing wheezing. Her x-ray demonstrated atelectasis and consolidations along with likely effusions. She continues to be on oxygen. She does have the incentive spirometer and also has the Acapella valve. The patient has had a hard time performing the of groaning. She is still on the broad-spectrum antibiotics. At this point will increase her steroids and increase her frequency of nebulizer therapy. Objective Data Labs CBC & Chem 7: 11/10/21 06:35 11/10/21 06:35 Labs: Laboratory Results - last 24 hr 11/08/21 11/09/21 11/09/21 15:24 08:56 21:01 WBC RBC Hgb Hct MCV MCH MCHC RDW Plt Count MPV Immature Gran % (Auto) Neut % (Auto) Lymph % (Auto) [place] % (Auto) Eos % (Auto) Baso % (Auto) Lymph # (Auto) [place] # (Auto) Eos # (Auto) Baso # (Auto) Abs Immat Gran (auto) Absolute Neuts (auto) Absolute Nucleated RBC Nucleated RBC % (auto) Sodium 140 Potassium 4.1 Chloride 107 Carbon Dioxide 24 Anion Gap 13 BUN 15 Creatinine 0.71 Estim Creat Clear Calc 110.5 Estimated GFR > 60 Random Glucose 123 H Fasting Glucose Calcium 8.6 Total Bilirubin AST ALT Alkaline Phosphatase Total Protein Albumin Nasal Screen MRSA (PCR) NEGATIVE Nasal S. aureus Screen NEGATIVE Nasal MRSA/S.aureus Interp SEE NOTE Vancomycin Trough 6.6 L 11/10/21 11/10/21 06:35 06:35 WBC 7.8 RBC 3.79 L Hgb 12.2 Hct 36.4 L MCV 96.0 MCH 32.2 MCHC 33.5 RDW 13.0 Plt Count 214 MPV 9.8 Immature Gran % (Auto) 0.6 H Neut % (Auto) 82.6 H Lymph % (Auto) 11.5 L [place] % (Auto) 5.1 Eos % (Auto) 0.1 Baso % (Auto) 0.1 Lymph # (Auto) 0.9 L [place] # (Auto) 0.4 Eos # (Auto) 0.0 Baso # (Auto) 0.0 Abs Immat Gran (auto) 0.05 H Absolute Neuts (auto) 6.4 Absolute Nucleated RBC 0.000 Nucleated RBC % (auto) 0.0 Sodium 141 Potassium 4.2 Chloride 109 H Carbon Dioxide 26 Anion Gap 10 L BUN 14 Creatinine 0.68 Estim Creat Clear Calc 115.3 Estimated GFR > 60 Random Glucose Fasting Glucose 99 Calcium 8.4 Total Bilirubin 0.3 AST 49 H ALT 411 H Alkaline Phosphatase 115 D Total Protein 5.4 L Albumin 3.0 L Nasal Screen MRSA (PCR) Nasal S. aureus Screen Nasal MRSA/S.aureus Interp Vancomycin Trough Microbiology Microbiology Results: Microbiology 11/07/21 18:34 Blood - Venous Blood Culture - Preliminary No growth after 48 hours. 11/07/21 14:57 Blood - Venous Blood Culture - Preliminary No growth after 48 hours. Review of Systems Review of Systems Constitutional: Noted fevers and chills Eyes: denies blurry vision ENT: denies sore throat CVS: denies chest pain Respiratory: dyspnea GI: no abdominal pain : denies dysuria MSK: denies neck pain Skin: denies rash Neuro: denies specific motor weakness Psych: denies suicidal ideation Endocrine: denies heat/cold intolerance Hematologic: denies easy bleeding Allergy: denies hives Respiratory: Reports chest congestion and Reports cough Physical Exam Vital Signs: Vital Signs: Last Vital Signs Temp 98.4 F 11/10/21 07:23 Pulse 86 11/10/21 07:48 Resp 20 11/10/21 07:48 BP 117/74 11/10/21 07:23 Pulse Ox 95 11/10/21 07:23 BMI result Body Mass Index 29.0 Const: General: alert Neck: Neck: Yes normal visual inspection, Yes full ROM and Yes no lymphadenopathy Chest: Chest palpation & inspection: normal inspection of the chest Resp: Auscultation: wheezes and diminished lung sounds Cardio: Rate: regular rate Rhythm: regular rhythm Heart sounds: S1 normal heart sound present and S2 normal heart sound present GI: Palpation (GI): Soft to palpation and nontender Auscultation: normal bowel sounds Skin: General skin exam: rashes and/or lesions noted Procedures Date of Service Date of Service: 11/10/21 Assessment and Plan Assessment and plan (1) Acute respiratory failure: Status: Acute (2) Pneumonia: Status: Acute (3) COVID-19: Status: Acute (4) Pleural effusion: Status: Acute (5) Asthma: Status: Acute Assessment and Plan: Continue broad-spectrum antibiotics Sputum culture Stop Decadron Start IV Solu-Medrol Continue remdesivir DuoNebs q.4 hours and as needed Continue CPT with incentive spirometer and flutter valve Out of bed as tolerated with her oxygen Time Spent With Patient Time: Total time spent is greater than 50% in coordination of care (as documented) at patient's floor/unit and/or counseling patient: Time with patient: 15 - 24 minutes Progress Note: Quality Stroke Does the patient have a stroke diagnosis?: No
[2021-11-10] MEDS: vancomycin HCL 1,500 MG in 0.9 % Sodium Chloride 500 ML 333.33 MG IV ×2 (10:27→22:31)
[2021-11-10] MEDS: guaiFEN/Codeine SF 200/20/10ML 10 ML LIQUID 5 ML PO (10:28)
[2021-11-10] MEDS: methylPREDNISolone Sod Succ 125 MG/2 ML VIAL 80 MG IVPUSH ×3 (10:28→22:30)
[2021-11-10] MEDS: Omeprazole 40 MG CAPSULE.DR PO (10:29)
[2021-11-10] MEDS: 0.9 % Sodium Chloride Flush 3 ML SYRINGE IVFLUSH ×3 (10:29→20:43)
[2021-11-10] MEDS: Aspirin Enteric Coated 81 MG TABLET.DR PO (10:29)
--- NOTE | 2021-11-10 13:31 | P.PNIM_ITS ---
Subjective Subjective Date of Service: 11/10/21 Interval History: still markedly short of breath with minimal exertion. Review of Systems Denies chest pain Admits to exertional shortness of breath [place] Physical Exam Vital Signs: Vital Signs: Last Vital Signs Temp 97.6 F 11/10/21 11:16 Pulse 80 11/10/21 11:43 Resp 18 11/10/21 11:43 BP 114/71 11/10/21 11:16 Pulse Ox 93 11/10/21 11:16 BMI result Body Mass Index 29.0 Const: Other: no acute distress. Able to speak in short sentences lying semi-Cisneros's Resp: Other: diminished throughout with expiratory crackles bilatera Cardio: Other: no S4; positive S1-S2; no S3 murmur some scalp GI: Other: soft nontender nondistended with normoactive bowel sounds Extrem: Other: no edema bilaterally Objective Data Active Medications Acetaminophen (Acetaminophen 325 Mg Tablet) 650 mg PO Q6H PRN PRN Reason: Pain, Mild (Pain Scale 1-3) Last Admin: 11/09/21 11:23 Dose: 650 mg Documented by: MANUEL Albuterol Sulfate (Albuterol Sulfate 90 Mcg 8 Gm Inhaler) 2 puff INHALE Q6H PRN PRN Reason: Shortness Of Breath Or Wheezing Albuterol/Ipratropium (Albuterol/Iprat 2.5/0.5mg 3 Ml Ampul.Neb) 3 ml INHALE RQ4H PRN PRN Reason: Shortness of Breath/Wheezing Last Admin: 11/09/21 05:57 Dose: 3 ml Documented by: LOUIS Albuterol/Ipratropium (Albuterol/Iprat 2.5/0.5mg 3 Ml Ampul.Neb) 3 ml INHALE RQ4H [facility]CLUDES [facility] Last Admin: 11/10/21 11:42 Dose: 3 ml Documented by: DELMI Aspirin (Aspirin Enteric Coated 81 Mg Tablet.) 81 mg PO DAILY [facility] Last Admin: 11/10/21 10:29 Dose: 81 mg Documented by: MAILE Benzonatate (Benzonatate 100 Mg Capsule) 100 mg PO TID PRN PRN Reason: Cough Last Admin: 11/09/21 20:21 Dose: 100 mg Documented by: JOSE ALFREDO Enoxaparin Sodium (Enoxaparin Sodium 40 Mg/0.4 Ml Syringe) 40 mg SUBCUT Q24H [facility] Last Admin: 11/09/21 18:06 Dose: 40 mg Documented by: MONIK Escitalopram Oxalate (Escitalopram Oxalate 5 Mg Tablet) 5 mg PO BEDTIME [facility] Last Admin: 11/09/21 20:20 Dose: 5 mg Documented by: JOSE ALFREDO Famotidine (Famotidine 20 Mg Tablet) 40 mg PO BEDTIME [facility] Last Admin: 11/09/21 20:20 Dose: 40 mg Documented by: JOSE ALFREDO Fluticasone/Vilanterol (Fluticasone/Vilanterol 200/25 Blst.W.Dev) 1 puff INHALE RDAILY [facility] Last Admin: 11/10/21 07:47 Dose: 1 puff Documented by: DELMI Guaifenesin/Codeine Phosphate (Guaifen/Codeine Sf 200/20/10ml 10 Ml Liquid) 5 ml PO Q6H PRN PRN Reason: Cough Last Admin: 11/10/21 10:28 Dose: 5 ml Documented by: MAILE Remdesivir 100 mg/ Sodium (Chloride) 230 mls @ 115 mls/hr IV Q24H [facility] Stop: 11/11/21 19:59 Last Infusion: 11/09/21 21:30 Dose: 0 mls/hr Documented by: JOSE ALFREDO Vancomycin HCl 1,500 mg/ (Sodium Chloride) 500 mls @ 333.333 mls/hr IV Q12H [facility] Last Infusion: 11/10/21 12:13 Dose: 0 mls/hr Documented by: MAILE Methylprednisolone Sodium Succinate (Methylprednisolone Sod Succ 125 Mg/2 Ml Vial) 80 mg IVPUSH Q6H [facility] Last Admin: 11/10/21 10:28 Dose: 80 mg Documented by: MAILE Patient Own Med ( Estazolam 2 Mg Tablet) 1 each PO BEDTIME [facility] Last Admin: 11/09/21 20:27 Dose: 1 each Documented by: JOSE ALFREDO Omeprazole (Omeprazole 40 Mg Capsule.Dr) 40 mg PO DAILY [facility] Last Admin: 11/10/21 10:29 Dose: 40 mg Documented by: MAILE Pharmacy Consult (Consult Rx Perform Med Rec) 1 each MISCELLANE ONCE PRN PRN Reason: Consult order Pharmacy Consult (Consult Rx Vancomycin Dosing) 1 each MISCELLANE DAILY PRN PRN Reason: Consult order Ropinirole HCl (Ropinirole Hcl 0.25 Mg Tablet) 0.25 mg PO BEDTIME [facility] Last Admin: 11/09/21 20:20 Dose: 0.25 mg Documented by: JOSE ALFREDO Sodium Chloride (0.9 % Sodium Chloride Flush 3 Ml Syringe) 3 ml IVFLUSH QSHIFT COUNT [facility]CLUD[facility] Last Admin: 11/10/21 10:29 Dose: 3 ml Documented by: MAILE Tiotropium [place] (Tiotropium [place] 18 Mcg Cap.W.Dev) 1 puff INHALE RDAILY [facility] Last Admin: 11/10/21 07:47 Dose: 1 puff Documented by: DELMI Valacyclovir HCl (Valacycyclovir Hcl 500 Mg Tablet) 500 mg PO BEDTIME [facility] Last Admin: 11/09/21 20:20 Dose: 500 mg Documented by: JOSE ALFREDO Labs CBC & Chem 7: 11/10/21 06:35 11/10/21 06:35 Labs: Laboratory Results - last 24 hr 11/09/21 11/10/21 11/10/21 21:01 06:35 06:35 MCV 96.0 MCH 32.2 MCHC 33.5 RDW 13.0 Plt Count 214 MPV 9.8 Immature Gran % (Auto) 0.6 H Neut % (Auto) 82.6 H Lymph % (Auto) 11.5 L [place] % (Auto) 5.1 Eos % (Auto) 0.1 Baso % (Auto) 0.1 Lymph # (Auto) 0.9 L [place] # (Auto) 0.4 Eos # (Auto) 0.0 Baso # (Auto) 0.0 Abs Immat Gran (auto) 0.05 H Absolute Neuts (auto) 6.4 Absolute Nucleated RBC 0.000 Nucleated RBC % (auto) 0.0 Anion Gap 10 L Estim Creat Clear Calc 115.3 Estimated GFR > 60 Fasting Glucose 99 Calcium 8.4 Total Bilirubin 0.3 AST 49 H ALT 411 H Alkaline Phosphatase 115 D Total Protein 5.4 L Albumin 3.0 L Vancomycin Trough 6.6 L Microbiology Microbiology Results: Microbiology 11/07/21 18:34 Blood Culture - Preliminary Blood - Venous No growth after 48 hours. 11/07/21 14:57 Blood Culture - Preliminary Blood - Venous No growth after 48 hours. Assessment and Plan (1) COVID-19: Status: Acute (2) Pneumonia due to COVID-19 virus: Status: Acute (3) Asthma: Status: Acute Assessment and Plan: 41-year-old female with severe persitent asthma here with hypoxia d/t covid causing exacerbation 1.?Covid-19/Acute hypoxic respriatory failure in the backdrop of severe persistent asthma Continue nebs / supplemental O2/ Redesmivir/ Decadron D/C in favor of Solu- Medrol 2.Pneumonia Continue Vancomycin as per pulmonary ?Lexapro ?DVT prophylaxis with Lovenox Quality Stroke Does the patient have a stroke diagnosis?: No VTE Prior VTE?: No VTE Risk Level:: Medical - moderate - high VTE Device Contraindication: Treatment Not Indicated VTE Drug Contraindication: N/A - Med Ordered
[2021-11-10] MEDS: Enoxaparin Sodium 40 MG/0.4 ML SYRINGE SUBCUT (17:44)
[2021-11-10] MEDS: Remdesivir 100 MG in 0.9 % Sodium Chloride 230 ML 115 MG IV (17:45)
[2021-11-10] MEDS: cefTRIAXone sodium 1 GM in 0.9 % Sodium Chloride 50 ML IV (20:42)
[2021-11-10] MEDS: rOPINIRole HCL 0.25 MG TABLET PO (20:42)
[2021-11-10] MEDS: Famotidine 20 MG TABLET 40 MG PO (20:42)
[2021-11-10] MEDS: Escitalopram Oxalate 5 MG TABLET PO (20:42)
[2021-11-11] VITALS (10 sets, daily range): BP systolic 115–137; BP diastolic 65–76; PULSE 72–102; RESP 16–22; TEMP 36.2–37.2; O2SAT 90–95
[2021-11-11] MEDS: Albuterol/Iprat 2.5/0.5MG 3 ML AMPUL.NEB INHALE ×5 (01:28→20:03)
[2021-11-11] MEDS: methylPREDNISolone Sod Succ 125 MG/2 ML VIAL 80 MG IVPUSH ×4 (03:13→21:52)
[2021-11-11] MEDS: Fluticasone/Vilanterol 200/25 BLST.W.DEV 1 PUFF INHALE (09:07)
[2021-11-11] MEDS: Omeprazole 40 MG CAPSULE.DR PO (09:14)
[2021-11-11] MEDS: Aspirin Enteric Coated 81 MG TABLET.DR PO (09:14)
[2021-11-11] MEDS: 0.9 % Sodium Chloride Flush 3 ML SYRINGE IVFLUSH ×3 (09:28→20:58)
[2021-11-11 10:15] LABS: MANUAL DIFF FLAG NO
[2021-11-11 10:17] LABS: Basophils Percent Auto 0.1 % (0-2); Hematocrit 38.8 % (37.0-47.0); Hemoglobin 13.1 g/dl (12.0-16.0); Imm Gran Abs Auto 0.16 X10*3/uL (0.00-0.03); Imm Gran Pct Auto 2.3 % (0.0-0.4); Lymphocytes Absolute Auto 0.7 X10*3/uL (1.2-4.9); Mean Corpuscular HGB Conc 33.8 g/dl (31.0-35.0); Mean Corpuscular Hemoglobin 32.1 pg (27.0-33.0); Mean Corpuscular Volume 95.1 fL (80.0-98.0); Monocytes Absolute Auto 0.1 X10*3/uL (0.1-1.2); Neutrophils Absolute Auto 5.9 x10*3/uL (2.0-8.3); Neutrophils Percent Auto 85.6 % (45-73); Platelet Count 251 X10*3/uL (160-400); Red Blood Count 4.08 X10*6/uL (4.20-5.50); Red Cell Distribution Width 12.7 % (11.0-16.0); White Blood Count 6.9 X10*3/uL (4.8-10.8)
[2021-11-11 10:38] LABS: Alanine Aminotransferase 342 U/L (0-31); Albumin Level 3.3 g/dL (3.5-5.0); Alkaline Phosphatase 117 U/L (39-117); Anion Gap 15 (12-20); Aspartate Amino Transferase 62 U/L (5-31); Bilirubin Total 0.4 mg/dL (0.0-1.0); Blood Urea Nitrogen 19 mg/dL (9-16); Calcium 8.7 mg/dL (8.4-10.2); Carbon Dioxide 20 mmol/L (22-29); Chloride 109 mmol/L (96-108); Creatinine Clr Calc Pharmacy 94.5; Estimated Glomerular Filt Rate > 60; Glucose Fasting 206 mg/dL (60-99); Potassium 3.8 mmol/L (3.3-5.1); Sodium 140 mmol/L (135-145); Total Protein 5.8 g/dL (6.5-8.0)
[2021-11-11 10:43] LABS: Vancomycin Trough 11.3 mcg/mL (10.0-20.0)
[2021-11-11] MEDS: vancomycin HCL 1,000 MG in 0.9 % Sodium Chloride 250 ML 270 MG IV ×2 (11:27→21:51)
--- NOTE | 2021-11-11 13:10 | MHC.CM.PN ---
Per ROUNDS discussion, Patient is not yet medically cleared for dc (IV Ceftriaxone, IV Martha Medrol, IV Vanco, 2L O2); home is the goal and CM will follow for possible need to adjust the dc plan.
--- NOTE | 2021-11-11 13:30 | PM.PNPUL ---
Subjective Subjective Date of Service: 11/11/21 Interval history: The patient was seen on exam. She continues to require oxygen. Her cough is a little better. She feels a little better. Her lungs are still diminished. Objective Data Labs CBC & Chem 7: 11/11/21 09:48 11/11/21 09:48 Labs: Laboratory Results - last 24 hr 11/11/21 11/11/21 11/11/21 09:48 09:48 09:48 WBC 6.9 RBC 4.08 L Hgb 13.1 Hct 38.8 MCV 95.1 MCH 32.1 MCHC 33.8 RDW 12.7 Plt Count 251 MPV 10.0 Immature Gran % (Auto) 2.3 H Neut % (Auto) 85.6 H Lymph % (Auto) 10.0 L [place] % (Auto) 2.0 Eos % (Auto) 0.0 Baso % (Auto) 0.1 Lymph # (Auto) 0.7 L [place] # (Auto) 0.1 Eos # (Auto) 0.0 Baso # (Auto) 0.0 Abs Immat Gran (auto) 0.16 H Absolute Neuts (auto) 5.9 Absolute Nucleated RBC 0.000 Nucleated RBC % (auto) 0.0 Sodium 140 Potassium 3.8 Chloride 109 H Carbon Dioxide 20 L Anion Gap 15 BUN 19 H Creatinine 0.83 Estim Creat Clear Calc 94.5 Estimated GFR > 60 Fasting Glucose 206 H Calcium 8.7 Total Bilirubin 0.4 AST 62 H ALT 342 H Alkaline Phosphatase 117 Total Protein 5.8 L Albumin 3.3 L Vancomycin Trough 11.3 Microbiology Microbiology Results: Microbiology 11/10/21 18:02 Sputum - Expectorated Gram Stain - Final 11/10/21 18:02 Sputum - Expectorated Sputum Culture - Final 11/07/21 18:34 Blood - Venous Blood Culture - Preliminary No growth after 48 hours. 11/07/21 14:57 Blood - Venous Blood Culture - Preliminary No growth after 48 hours. Review of Systems Review of Systems Constitutional: Noted fevers and chills Eyes: denies blurry vision ENT: denies sore throat CVS: denies chest pain Respiratory: dyspnea GI: no abdominal pain : denies dysuria MSK: denies neck pain Skin: denies rash Neuro: denies specific motor weakness Psych: denies suicidal ideation Endocrine: denies heat/cold intolerance Hematologic: denies easy bleeding Allergy: denies hives Respiratory: Reports chest congestion and Reports cough Physical Exam Vital Signs: Vital Signs: Last Vital Signs Temp 98.4 F 11/11/21 12:00 Pulse 72 11/11/21 12:28 Resp 18 11/11/21 12:28 BP 122/76 11/11/21 12:00 Pulse Ox 95 11/11/21 12:00 BMI result Body Mass Index 29.0 Const: General: alert Neck: Neck: Yes normal visual inspection, Yes full ROM and Yes no lymphadenopathy Chest: Chest palpation & inspection: normal inspection of the chest Resp: Auscultation: diminished lung sounds Cardio: Rate: regular rate Rhythm: regular rhythm Heart sounds: S1 normal heart sound present and S2 normal heart sound present GI: Palpation (GI): Soft to palpation and nontender Auscultation: normal bowel sounds Skin: General skin exam: rashes and/or lesions noted Procedures Date of Service Date of Service: 11/11/21 Assessment and Plan Assessment and plan (1) Acute respiratory failure: Status: Acute (2) Pneumonia: Status: Acute (3) COVID-19: Status: Acute (4) Pleural effusion: Status: Acute (5) Asthma: Status: Acute Assessment and Plan: Continue with broad-spectrum antibiotics Repeat chest x-ray today Consider repeating CT scan of the chest if no improvement Continue CPT with incentive spirometer and flutter valve Awake pronating COVID-19 therapy Continue Solu-Medrol Time Spent With Patient Time: Total time spent is greater than 50% in coordination of care (as documented) at patient's floor/unit and/or counseling patient: Time with patient: 15 - 24 minutes Progress Note: Quality Stroke Does the patient have a stroke diagnosis?: No
--- NOTE | 2021-11-11 13:33 | HO.PM.IMPN ---
Subjective Subjective Date of Service: 11/11/21 Interval History: remain short of breath with minimal exertion. Attempting prone position Review of Systems denies chest pain admits to shortness of breath with minimal exertion Denies nausea vomiting diarrhea Physical Exam Vital Signs: Vital Signs: Last Vital Signs Temp 98.4 F 11/11/21 12:00 Pulse 72 11/11/21 12:28 Resp 18 11/11/21 12:28 BP 122/76 11/11/21 12:00 Pulse Ox 95 11/11/21 12:00 BMI result Body Mass Index 29.0 Const: Other: no acute distress. Able to speak in short sentences lying semi-Cisneros's Resp: Other: diminished throughout with expiratory crackles bilatera Cardio: Other: no S4; positive S1-S2; no S3 murmur some scalp GI: Other: soft nontender nondistended with normoactive bowel sounds Extrem: Other: no edema bilaterally Objective Data Active Medications Acetaminophen (Acetaminophen 325 Mg Tablet) 650 mg PO Q6H PRN PRN Reason: Pain, Mild (Pain Scale 1-3) Last Admin: 11/09/21 11:23 Dose: 650 mg Documented by: MANUEL Albuterol Sulfate (Albuterol Sulfate 90 Mcg 8 Gm Inhaler) 2 puff INHALE Q6H PRN PRN Reason: Shortness Of Breath Or Wheezing Albuterol/Ipratropium (Albuterol/Iprat 2.5/0.5mg 3 Ml Ampul.Neb) 3 ml INHALE RQ4H PRN PRN Reason: Shortness of Breath/Wheezing Last Admin: 11/09/21 05:57 Dose: 3 ml Documented by: LOUIS Albuterol/Ipratropium (Albuterol/Iprat 2.5/0.5mg 3 Ml Ampul.Neb) 3 ml INHALE RQ4H [facility] Last Admin: 11/11/21 12:28 Dose: 3 ml Documented by: ISAEL Aspirin (Aspirin Enteric Coated 81 Mg Tablet.) 81 mg PO DAILY [facility] Last Admin: 11/11/21 09:14 Dose: 81 mg Documented by: ACOSTA Benzonatate (Benzonatate 100 Mg Capsule) 100 mg PO TID PRN PRN Reason: Cough Last Admin: 11/09/21 20:21 Dose: 100 mg Documented by: JOSE ALFREDO Enoxaparin Sodium (Enoxaparin Sodium 40 Mg/0.4 Ml Syringe) 40 mg SUBCUT Q24H [facility] Last Admin: 11/10/21 17:44 Dose: 40 mg Documented by: MAILE Escitalopram Oxalate (Escitalopram Oxalate 5 Mg Tablet) 5 mg PO BEDTIME [facility] Last Admin: 11/10/21 20:42 Dose: 5 mg Documented by: JOSE ALFREDO Famotidine (Famotidine 20 Mg Tablet) 40 mg PO BEDTIME [facility] Last Admin: 11/10/21 20:42 Dose: 40 mg Documented by: JOSE ALFREDO Fluticasone/Vilanterol (Fluticasone/Vilanterol 200/25 Blst.W.Dev) 1 puff INHALE RDAILY [facility] Last Admin: 11/11/21 09:07 Dose: 1 puff Documented by: ISAEL Guaifenesin/Codeine Phosphate (Guaifen/Codeine Sf 200/20/10ml 10 Ml Liquid) 5 ml PO Q6H PRN PRN Reason: Cough Last Admin: 11/10/21 10:28 Dose: 5 ml Documented by: MAILE Remdesivir 100 mg/ Sodium (Chloride) 230 mls @ 115 mls/hr IV Q24H [facility] Stop: 11/11/21 19:59 Last Infusion: 11/10/21 20:55 Dose: 0 mls/hr Documented by: JOSE ALFREDO Ceftriaxone Sodium 1 gm/ (Sodium Chloride) 50 mls @ 100 mls/hr IV Q24H [facility] Last Infusion: 11/10/21 22:31 Dose: 0 mls/hr Documented by: JOSE ALFREDO Vancomycin HCl 1,000 mg/ (Sodium Chloride) 270 mls @ 270 mls/hr IV Q8H [facility] Last Infusion: 11/11/21 12:51 Dose: 0 mls/hr Documented by: ACOSTA Methylprednisolone Sodium Succinate (Methylprednisolone Sod Succ 125 Mg/2 Ml Vial) 80 mg IVPUSH Q6H [facility] Last Admin: 11/11/21 09:14 Dose: 80 mg Documented by: ACOSTA Patient Own Med ( Estazolam 2 Mg Tablet) 1 each PO BEDTIME [facility] Last Admin: 11/10/21 20:43 Dose: 1 each Documented by: JOSE ALFREDO Omeprazole (Omeprazole 40 Mg Capsule.Dr) 40 mg PO DAILY [facility] Last Admin: 11/11/21 09:14 Dose: 40 mg Documented by: ACOSTA Pharmacy Consult (Consult Rx Perform Med Rec) 1 each MISCELLANE ONCE PRN PRN Reason: Consult order Pharmacy Consult (Consult Rx Vancomycin Dosing) 1 each MISCELLANE DAILY PRN PRN Reason: Consult order Ropinirole HCl (Ropinirole Hcl 0.25 Mg Tablet) 0.25 mg PO BEDTIME [facility] Last Admin: 11/10/21 20:42 Dose: 0.25 mg Documented by: JOSE ALFREDO Sodium Chloride (0.9 % Sodium Chloride Flush 3 Ml Syringe) 3 ml IVFLUSH QSHIFT [facility] Last Admin: 11/11/21 09:28 Dose: 3 ml Documented by: ACOSTA Tiotropium [place] (Tiotropium [place] 18 Mcg Cap.W.Dev) 1 puff INHALE RDAILY [facility] Last Admin: 11/11/21 09:07 Dose: 1 puff Documented by: ISAEL Valacyclovir HCl (Valacycyclovir Hcl 500 Mg Tablet) 500 mg PO BEDTIME [facility] Last Admin: 11/10/21 20:42 Dose: 500 mg Documented by: JOSE ALFREDO Labs CBC & Chem 7: 11/11/21 09:48 11/11/21 09:48 Labs: Laboratory Results - last 24 hr 11/11/21 11/11/21 11/11/21 09:48 09:48 09:48 MCV 95.1 MCH 32.1 MCHC 33.8 RDW 12.7 Plt Count 251 MPV 10.0 Immature Gran % (Auto) 2.3 H Neut % (Auto) 85.6 H Lymph % (Auto) 10.0 L [place] % (Auto) 2.0 Eos % (Auto) 0.0 Baso % (Auto) 0.1 Lymph # (Auto) 0.7 L [place] # (Auto) 0.1 Eos # (Auto) 0.0 Baso # (Auto) 0.0 Abs Immat Gran (auto) 0.16 H Absolute Neuts (auto) 5.9 Absolute Nucleated RBC 0.000 Nucleated RBC % (auto) 0.0 Anion Gap 15 Estim Creat Clear Calc 94.5 Estimated GFR > 60 Fasting Glucose 206 H Calcium 8.7 Total Bilirubin 0.4 AST 62 H ALT 342 H Alkaline Phosphatase 117 Total Protein 5.8 L Albumin 3.3 L Vancomycin Trough 11.3 Microbiology Microbiology Results: Microbiology 11/10/21 18:02 Gram Stain - Final Sputum - Expectorated Sputum Culture - Final Assessment and Plan (1) Pneumonia due to COVID-19 virus: Status: Acute (2) Asthma: Status: Acute Assessment and Plan: 41-year-old female with severe persitent asthma here with hypoxia d/t covid causing exacerbation. minimal improvement overall 1.?Covid-19/Acute hypoxic respriatory failure in the backdrop of severe persistent asthma Continue nebs / supplemental O2/ Redesmivir/ Decadron D/C in favor of Solu-Medrol 2.Pneumonia Continue Vancomycin as per pulmonary ?Lexapro ?DVT prophylaxis with Lovenox Quality Stroke Does the patient have a stroke diagnosis?: No VTE Prior VTE?: No VTE Risk Level:: Medical - moderate - high VTE Device Contraindication: Treatment Not Indicated VTE Drug Contraindication: N/A - Med Ordered
[2021-11-11] MEDS: Enoxaparin Sodium 40 MG/0.4 ML SYRINGE SUBCUT (17:27)
[2021-11-11] MEDS: Remdesivir 100 MG in 0.9 % Sodium Chloride 230 ML 115 MG IV (17:28)
[2021-11-11] MEDS: cefTRIAXone sodium 1 GM in 0.9 % Sodium Chloride 50 ML IV (20:44)
[2021-11-11] MEDS: rOPINIRole HCL 0.25 MG TABLET PO (20:52)
[2021-11-11] MEDS: Famotidine 20 MG TABLET 40 MG PO (20:52)
[2021-11-11] MEDS: Escitalopram Oxalate 5 MG TABLET PO (20:52)
[2021-11-12] VITALS (11 sets, daily range): BP systolic 106–132; BP diastolic 58–74; PULSE 70–114; RESP 16–20; TEMP 36.3–36.9; O2SAT 18–94
[2021-11-12] MEDS: Albuterol/Iprat 2.5/0.5MG 3 ML AMPUL.NEB INHALE ×6 (00:25→21:16)
[2021-11-12] MEDS: vancomycin HCL 1,000 MG in 0.9 % Sodium Chloride 250 ML 270 MG IV (03:47)
[2021-11-12] MEDS: methylPREDNISolone Sod Succ 125 MG/2 ML VIAL 80 MG IVPUSH ×2 (03:48→09:11)
[2021-11-12] MEDS: Omeprazole 40 MG CAPSULE.DR PO (09:11)
[2021-11-12] MEDS: Aspirin Enteric Coated 81 MG TABLET.DR PO (09:11)
[2021-11-12] MEDS: 0.9 % Sodium Chloride Flush 3 ML SYRINGE IVFLUSH ×2 (09:12→15:46)
[2021-11-12 09:28] LABS: MANUAL DIFF FLAG NO
[2021-11-12 09:31] LABS: Basophils Percent Auto 0.1 % (0-2); Hematocrit 38.7 % (37.0-47.0); Hemoglobin 13.3 g/dl (12.0-16.0); Imm Gran Abs Auto 0.48 X10*3/uL (0.00-0.03); Imm Gran Pct Auto 4.7 % (0.0-0.4); Lymphocytes Absolute Auto 0.9 X10*3/uL (1.2-4.9); Lymphocytes Percent Auto 8.6 % (20-40); Mean Corpuscular HGB Conc 34.4 g/dl (31.0-35.0); Mean Corpuscular Hemoglobin 32.6 pg (27.0-33.0); Mean Corpuscular Volume 94.9 fL (80.0-98.0); Mean Platelet Volume 9.7 fL (9.4-12.3); Monocytes Absolute Auto 0.3 X10*3/uL (0.1-1.2); Monocytes Percent Auto 2.6 % (2-11); Neutrophils Absolute Auto 8.7 x10*3/uL (2.0-8.3); Platelet Count 273 X10*3/uL (160-400); Red Blood Count 4.08 X10*6/uL (4.20-5.50); Red Cell Distribution Width 12.7 % (11.0-16.0); White Blood Count 10.3 X10*3/uL (4.8-10.8)
[2021-11-12 09:55] LABS: Vancomycin Trough 18.6 mcg/mL (10.0-20.0)
[2021-11-12 10:01] LABS: Alanine Aminotransferase 295 U/L (0-31); Albumin Level 3.1 g/dL (3.5-5.0); Alkaline Phosphatase 109 U/L (39-117); Anion Gap 16 (12-20); Aspartate Amino Transferase 60 U/L (5-31); Bilirubin Total 0.4 mg/dL (0.0-1.0); Blood Urea Nitrogen 21 mg/dL (9-16); Calcium 8.4 mg/dL (8.4-10.2); Carbon Dioxide 20 mmol/L (22-29); Chloride 109 mmol/L (96-108); Creatinine Clr Calc Pharmacy 99.3; Estimated Glomerular Filt Rate > 60; Glucose Fasting 181 mg/dL (60-99); Potassium 3.9 mmol/L (3.3-5.1); Sodium 141 mmol/L (135-145); Total Protein 5.7 g/dL (6.5-8.0)
[2021-11-12] MEDS: vancomycin HCL 1,500 MG in 0.9 % Sodium Chloride 500 ML 333.33 MG IV (11:55)
--- NOTE | 2021-11-12 13:14 | HO.PM.IMPN ---
Subjective Subjective Date of Service: 11/12/21 Interval History: slowly improving. Still markedly short of breath with minimal movement Review of Systems denies chest pain Admits to exertional shortness of breath is improving Denies nausea vomiting diarrhea Physical Exam Vital Signs: Vital Signs: Last Vital Signs Temp 98.0 F 11/12/21 11:08 Pulse 90 11/12/21 11:08 Resp 18 11/12/21 12:29 BP 106/59 L 11/12/21 11:08 Pulse Ox 93 11/12/21 11:08 BMI result Body Mass Index 29.0 Const: Other: no acute distress. Able to speak in short sentences lying semi-Cisneros's Resp: Other: diminished throughout with expiratory crackles bilatera Cardio: Other: no S4; positive S1-S2; no S3 murmur some scalp GI: Other: soft nontender nondistended with normoactive bowel sounds Extrem: Other: no edema bilaterally Objective Data Active Medications Acetaminophen (Acetaminophen 325 Mg Tablet) 650 mg PO Q6H PRN PRN Reason: Pain, Mild (Pain Scale 1-3) Last Admin: 11/09/21 11:23 Dose: 650 mg Documented by: MANUEL Albuterol Sulfate (Albuterol Sulfate 90 Mcg 8 Gm Inhaler) 2 puff INHALE Q6H PRN PRN Reason: Shortness Of Breath Or Wheezing Albuterol/Ipratropium (Albuterol/Iprat 2.5/0.5mg 3 Ml Ampul.Neb) 3 ml INHALE RQ4H PRN PRN Reason: Shortness of Breath/Wheezing Last Admin: 11/11/21 17:51 Dose: 3 ml Documented by: ISAEL Albuterol/Ipratropium (Albuterol/Iprat 2.5/0.5mg 3 Ml Ampul.Neb) 3 ml INHALE RQ4H [facility] Last Admin: 11/12/21 12:28 Dose: 3 ml Documented by: WINIFRED Aspirin (Aspirin Enteric Coated 81 Mg Tablet.Dr) 81 mg PO DAILY [facility] Last Admin: 11/12/21 09:11 Dose: 81 mg Documented by: FRACISCO Benzonatate (Benzonatate 100 Mg Capsule) 100 mg PO TID PRN PRN Reason: Cough Last Admin: 11/09/21 20:21 Dose: 100 mg Documented by: JOSE ALFREDO Enoxaparin Sodium (Enoxaparin Sodium 40 Mg/0.4 Ml Syringe) 40 mg SUBCUT Q24H [facility] Last Admin: 11/11/21 17:27 Dose: 40 mg Documented by: ACOSTA Escitalopram Oxalate (Escitalopram Oxalate 5 Mg Tablet) 5 mg PO BEDTIME [facility] Last Admin: 11/11/21 20:52 Dose: 5 mg Documented by: ANA Famotidine (Famotidine 20 Mg Tablet) 40 mg PO BEDTIME [facility] Last Admin: 11/11/21 20:52 Dose: 40 mg Documented by: ANA Fluticasone/Vilanterol (Fluticasone/Vilanterol 200/25 Blst.W.Dev) 1 puff INHALE RDAILY [facility] Last Admin: 11/12/21 12:05 Dose: Not Given Documented by: WINIFRED Non-Admin Reason: Medication Discontinued Guaifenesin/Codeine Phosphate (Guaifen/Codeine Sf 200/20/10ml 10 Ml Liquid) 5 ml PO Q6H PRN PRN Reason: Cough Last Admin: 11/10/21 10:28 Dose: 5 ml Documented by: MAILE Ceftriaxone Sodium 1 gm/ (Sodium Chloride) 50 mls @ 100 mls/hr IV Q24H [facility] Last Infusion: 11/11/21 21:55 Dose: 0 mls/hr Documented by: ANA Vancomycin HCl 1,500 mg/ (Sodium Chloride) 500 mls @ 333.333 mls/hr IV Q12H [facility] Last Admin: 11/12/21 11:55 Dose: 333.33 mls/hr Documented by: FRACISCO Methylprednisolone Sodium Succinate (Methylprednisolone Sod Succ 125 Mg/2 Ml Vial) 80 mg IVPUSH Q6H [facility] Last Admin: 11/12/21 09:11 Dose: 80 mg Documented by: FRACISCO Patient Own Med ( Estazolam 2 Mg Tablet) 1 each PO BEDTIME [facility] Last Admin: 11/11/21 20:57 Dose: 1 each Documented by: ANA Omeprazole (Omeprazole 40 Mg Capsule.) 40 mg PO DAILY [facility] Last Admin: 11/12/21 09:11 Dose: 40 mg Documented by: FRACISCO Pharmacy Consult (Consult Rx Perform Med Rec) 1 each MISCELLANE ONCE PRN PRN Reason: Consult order Pharmacy Consult (Consult Rx Vancomycin Dosing) 1 each MISCELLANE DAILY PRN PRN Reason: Consult order Ropinirole HCl (Ropinirole Hcl 0.25 Mg Tablet) 0.25 mg PO BEDTIME [facility] Last Admin: 11/11/21 20:52 Dose: 0.25 mg Documented by: ANA Sodium Chloride (0.9 % Sodium Chloride Flush 3 Ml Syringe) 3 ml IVFLUSH QSHIFT [facility] Last Admin: 11/12/21 09:12 Dose: 3 ml Documented by: FRACISCO Tiotropium [place] (Tiotropium [place] 18 Mcg Cap.W.Dev) 1 puff INHALE RDAILY [facility] Last Admin: 11/12/21 12:06 Dose: Not Given Documented by: WINIFRED Non-Admin Reason: Medication Discontinued Valacyclovir HCl (Valacycyclovir Hcl 500 Mg Tablet) 500 mg PO BEDTIME [facility] Last Admin: 11/11/21 20:51 Dose: 500 mg Documented by: ANA Labs CBC & Chem 7: 11/12/21 09:14 11/12/21 09:14 Labs: Laboratory Results - last 24 hr 11/12/21 11/12/21 11/12/21 09:14 09:14 09:14 MCV 94.9 MCH 32.6 MCHC 34.4 RDW 12.7 Plt Count 273 MPV 9.7 Immature Gran % (Auto) 4.7 H Neut % (Auto) 84.0 H Lymph % (Auto) 8.6 L [place] % (Auto) 2.6 Eos % (Auto) 0.0 Baso % (Auto) 0.1 Lymph # (Auto) 0.9 L [place] # (Auto) 0.3 Eos # (Auto) 0.0 Baso # (Auto) 0.0 Abs Immat Gran (auto) 0.48 H Absolute Neuts (auto) 8.7 H Absolute Nucleated RBC 0.000 Nucleated RBC % (auto) 0.0 Anion Gap 16 Estim Creat Clear Calc 99.3 Estimated GFR > 60 Fasting Glucose 181 H Calcium 8.4 Total Bilirubin 0.4 AST 60 H ALT 295 H Alkaline Phosphatase 109 Total Protein 5.7 L Albumin 3.1 L Vancomycin Trough 18.6 Microbiology Microbiology Results: Microbiology 11/10/21 18:02 Gram Stain - Final Sputum - Expectorated Sputum Culture - Final Assessment and Plan (1) COVID-19: Status: Acute (2) Pneumonia due to COVID-19 virus: Status: Acute Assessment and Plan: 41-year-old female with severe persitent asthma here with hypoxia d/t covid causing exacerbation; slowly improving 1.?Covid-19/Acute hypoxic respriatory failure in the backdrop of severe persistent asthma Continue nebs / supplemental O2/ Redesmivir/ Decadron D/C in favor of Solu-Medrol 2.Pneumonia Continue Vancomycin as per pulmonary ?Lexapro ?DVT prophylaxis with Lovenox Quality Stroke Does the patient have a stroke diagnosis?: No VTE Prior VTE?: No VTE Risk Level:: Medical - moderate - high VTE Device Contraindication: Treatment Not Indicated VTE Drug Contraindication: N/A - Med Ordered
--- NOTE | 2021-11-12 15:19 | PM.PNPUL ---
Subjective Subjective Date of Service: 11/12/21 Interval history: The patient was seen on exam. Patient is noticing that she is desaturating more. She is also noticing elevated heart rate. Her chest x-ray has not improved with significant decreasing her lung volumes and bibasilar opacities hard to assess consolidations versus pleural effusions. I will repeat her CT scan at this time. If the patient has any evidence of mucus plugging dense consolidations then we will discuss the need for bronchoscopy. In the meantime the patient has been using the [employer] flutter valve and also the incentive spirometer. She has attempted to perform awake groaning but is very difficult for her. It is hard for her to walk even to the bathroom because she gets dizzy and breathless. The patient has been on aggressive medical regimen. Still, no significant improvement if anything may be some worsening. Objective Data Labs CBC & Chem 7: 11/12/21 09:14 11/12/21 09:14 Labs: Laboratory Results - last 24 hr 11/12/21 11/12/21 11/12/21 09:14 09:14 09:14 WBC 10.3 RBC 4.08 L Hgb 13.3 Hct 38.7 MCV 94.9 MCH 32.6 MCHC 34.4 RDW 12.7 Plt Count 273 MPV 9.7 Immature Gran % (Auto) 4.7 H Neut % (Auto) 84.0 H Lymph % (Auto) 8.6 L Gilmer % (Auto) 2.6 Eos % (Auto) 0.0 Baso % (Auto) 0.1 Lymph # (Auto) 0.9 L [place] # (Auto) 0.3 Eos # (Auto) 0.0 Baso # (Auto) 0.0 Abs Immat Gran (auto) 0.48 H Absolute Neuts (auto) 8.7 H Absolute Nucleated RBC 0.000 Nucleated RBC % (auto) 0.0 Sodium 141 Potassium 3.9 Chloride 109 H Carbon Dioxide 20 L Anion Gap 16 BUN 21 H Creatinine 0.79 Estim Creat Clear Calc 99.3 Estimated GFR > 60 Fasting Glucose 181 H Calcium 8.4 Total Bilirubin 0.4 AST 60 H ALT 295 H Alkaline Phosphatase 109 Total Protein 5.7 L Albumin 3.1 L Vancomycin Trough 18.6 Microbiology Microbiology Results: Microbiology 11/10/21 18:02 Sputum - Expectorated Gram Stain - Final 11/10/21 18:02 Sputum - Expectorated Sputum Culture - Final 11/07/21 18:34 Blood - Venous Blood Culture - Preliminary No growth after 48 hours. 11/07/21 14:57 Blood - Venous Blood Culture - Preliminary No growth after 48 hours. Review of Systems Review of Systems Constitutional: Noted fevers and chills Eyes: denies blurry vision ENT: denies sore throat CVS: denies chest pain Respiratory: dyspnea GI: no abdominal pain : denies dysuria MSK: denies neck pain Skin: denies rash Neuro: denies specific motor weakness Psych: denies suicidal ideation Endocrine: denies heat/cold intolerance Hematologic: denies easy bleeding Allergy: denies hives Cardiovascular: Reports dyspnea and Reports dyspnea on exertion Respiratory: Reports chest congestion, Reports cough, Reports dyspnea and Reports dyspnea on exertion Physical Exam Vital Signs: Vital Signs: Last Vital Signs Temp 98.0 F 11/12/21 11:08 Pulse 90 11/12/21 11:08 Resp 18 11/12/21 12:29 BP 106/59 L 11/12/21 11:08 Pulse Ox 93 11/12/21 11:08 BMI result Body Mass Index 29.0 Procedures Date of Service Date of Service: 11/12/21 Assessment and Plan Assessment and plan (1) Acute respiratory failure: Status: Acute (2) Pneumonia: Status: Acute (3) COVID-19: Status: Acute (4) Pleural effusion: Status: Acute (5) Pneumonia due to COVID-19 virus: Status: Acute (6) Asthma: Status: Acute Assessment and Plan: CT scan of the chest will perform with contrast to better assess the pleural lining and also to again rule out the possibility of thromboembolic disease in view of her significant tachycardia and hypoxia Continue CPT with flutter valve and incentive spirometer Start decreasing Solu-Medrol to 60 mg q.8 Continue ceftriaxone and vancomycin to complete a 90 day course Continue remdesivir Consider bronchoscopy if significant mucus plugging Time Spent With Patient Time: Total time spent is greater than 50% in coordination of care (as documented) at patient's floor/unit and/or counseling patient: Time with patient: 15 - 24 minutes Progress Note: Quality Stroke Does the patient have a stroke diagnosis?: No
[2021-11-12] MEDS: iohexoL 350 MG/ML 100 ML INFUS..BTL 65 ML IV (19:06)
[2021-11-12] MEDS: Enoxaparin Sodium 40 MG/0.4 ML SYRINGE SUBCUT (19:07)
[2021-11-12] MEDS: methylPREDNISolone Sod Succ 125 MG/2 ML VIAL 60 MG IVPUSH (19:07)
[2021-11-12] MEDS: cefTRIAXone sodium 1 GM in 0.9 % Sodium Chloride 50 ML IV (19:08)
[2021-11-12] MEDS: rOPINIRole HCL 0.25 MG TABLET PO (20:09)
[2021-11-12] MEDS: Famotidine 20 MG TABLET 40 MG PO (20:09)
[2021-11-12] MEDS: Escitalopram Oxalate 5 MG TABLET PO (20:09)
[2021-11-13] VITALS (14 sets, daily range): BP systolic 100–125; BP diastolic 60–74; PULSE 61–98; RESP 16–20; TEMP 36.3–36.8; O2SAT 89–98
[2021-11-13] MEDS: vancomycin HCL 1,500 MG in 0.9 % Sodium Chloride 500 ML 333.33 MG IV ×3 (00:14→22:37)
[2021-11-13] MEDS: 0.9 % Sodium Chloride Flush 3 ML SYRINGE IVFLUSH ×4 (00:23→19:50)
[2021-11-13] MEDS: Albuterol/Iprat 2.5/0.5MG 3 ML AMPUL.NEB INHALE ×6 (00:44→20:27)
[2021-11-13] MEDS: methylPREDNISolone Sod Succ 125 MG/2 ML VIAL 60 MG IVPUSH ×3 (01:50→18:24)
[2021-11-13] MEDS: Omeprazole 40 MG CAPSULE.DR PO (07:15)
[2021-11-13] MEDS: Aspirin Enteric Coated 81 MG TABLET.DR PO (07:17)
[2021-11-13 09:16] LABS: Creatinine Clr Calc Pharmacy 103.2; Estimated Glomerular Filt Rate > 60
[2021-11-13 09:24] LABS: Vancomycin Trough 16.7 mcg/mL (10.0-20.0)
--- NOTE | 2021-11-13 13:35 | HO.PM.IMPN ---
Subjective Subjective Date of Service: 11/13/21 Interval History: Essentially no improvement in breathing. Continues to attempt prone Review of Systems Denies chest pain Denies N/V/D Admits to ongoing SOB worse with exertion Physical Exam Vital Signs: Vital Signs: Last Vital Signs Temp 97.4 F 11/13/21 11:11 Pulse 65 11/13/21 11:11 Resp 18 11/13/21 11:11 BP 118/72 11/13/21 11:11 Pulse Ox 98 11/13/21 11:11 BMI result Body Mass Index 29.0 Const: Other: no acute distress. Able to speak in short sentences lying semi-Cisneros's Resp: Other: diminished in bases inspiratory crackles/expiratory wheezes throughout Cardio: Other: no S4; positive S1-S2; no S3 murmur some scalp GI: Other: soft nontender nondistended with normoactive bowel sounds Extrem: Other: no edema bilaterally Objective Data Active Medications Acetaminophen (Acetaminophen 325 Mg Tablet) 650 mg PO Q6H PRN PRN Reason: Pain, Mild (Pain Scale 1-3) Last Admin: 11/09/21 11:23 Dose: 650 mg Documented by: MANUEL Albuterol Sulfate (Albuterol Sulfate 90 Mcg 8 Gm Inhaler) 2 puff INHALE Q6H PRN PRN Reason: Shortness Of Breath Or Wheezing Albuterol/Ipratropium (Albuterol/Iprat 2.5/0.5mg 3 Ml Ampul.Neb) 3 ml INHALE RQ4H PRN PRN Reason: Shortness of Breath/Wheezing Last Admin: 11/11/21 17:51 Dose: 3 ml Documented by: ISAEL Albuterol/Ipratropium (Albuterol/Iprat 2.5/0.5mg 3 Ml Ampul.Neb) 3 ml INHALE RQ4H [facility] Last Admin: 11/13/21 12:59 Dose: Not Given Documented by: DANIELA Non-Admin Reason: resp not avai Aspirin (Aspirin Enteric Coated 81 Mg Tablet.) 81 mg PO DAILY [facility] Last Admin: 11/13/21 07:17 Dose: 81 mg Documented by: FRACISCO Benzonatate (Benzonatate 100 Mg Capsule) 100 mg PO TID PRN PRN Reason: Cough Last Admin: 11/09/21 20:21 Dose: 100 mg Documented by: JOSE ALFREDO Enoxaparin Sodium (Enoxaparin Sodium 40 Mg/0.4 Ml Syringe) 40 mg SUBCUT Q24H [facility] Last Admin: 11/12/21 19:07 Dose: 40 mg Documented by: TRACY Escitalopram Oxalate (Escitalopram Oxalate 5 Mg Tablet) 5 mg PO BEDTIME [facility] Last Admin: 11/12/21 20:09 Dose: 5 mg Documented by: TRACY Famotidine (Famotidine 20 Mg Tablet) 40 mg PO BEDTIME [facility] Last Admin: 11/12/21 20:09 Dose: 40 mg Documented by: TRACY Fluticasone/Vilanterol (Fluticasone/Vilanterol 200/25 Blst.W.Dev) 1 puff INHALE RDAILY [facility] Last Admin: 11/13/21 08:15 Dose: Not Given Documented by: DANIELA Non-Admin Reason: Patient Refused Ceftriaxone Sodium 1 gm/ (Sodium Chloride) 50 mls @ 100 mls/hr IV Q24H [facility] Last Infusion: 11/12/21 20:12 Dose: 0 mls/hr Documented by: TRACY Vancomycin HCl 1,500 mg/ (Sodium Chloride) 500 mls @ 333.333 mls/hr IV Q12H [facility] Last Infusion: 11/13/21 13:26 Dose: 333.33 mls/hr Documented by: FRACISCO Patient Own Med ( Estazolam 2 Mg Tablet) 1 each PO BEDTIME [facility] Last Admin: 11/12/21 22:18 Dose: 1 each Documented by: TRACY Omeprazole (Omeprazole 40 Mg Capsule.Dr) 40 mg PO DAILY [facility] Last Admin: 11/13/21 07:15 Dose: 40 mg Documented by: FRACISCO Pharmacy Consult (Consult Rx Perform Med Rec) 1 each MISCELLANE ONCE PRN PRN Reason: Consult order Pharmacy Consult (Consult Rx Vancomycin Dosing) 1 each MISCELLANE DAILY PRN PRN Reason: Consult order Ropinirole HCl (Ropinirole Hcl 0.25 Mg Tablet) 0.25 mg PO BEDTIME [facility] Last Admin: 11/12/21 20:09 Dose: 0.25 mg Documented by: TRACY Sodium Chloride (0.9 % Sodium Chloride Flush 3 Ml Syringe) 3 ml IVFLUSH QSHIFT [facility] Last Admin: 11/13/21 07:15 Dose: 3 ml Documented by: FRACISCO Tiotropium [place] (Tiotropium [place] 18 Mcg Cap.W.Dev) 1 puff INHALE RDAILY [facility] Last Admin: 11/13/21 08:16 Dose: Not Given Documented by: ULRICC Non-Admin Reason: Patient Asleep Valacyclovir HCl (Valacycyclovir Hcl 500 Mg Tablet) 500 mg PO BEDTIME [facility] Last Admin: 11/12/21 20:08 Dose: 500 mg Documented by: HCRISSYOSOB Labs CBC & Chem 7: 11/12/21 09:14 11/13/21 08:57 Labs: Laboratory Results - last 24 hr 11/13/21 11/13/21 08:57 08:57 Estim Creat Clear Calc 103.2 Estimated GFR > 60 Vancomycin Trough 16.7 Microbiology Microbiology Results: Microbiology 11/07/21 18:34 Blood Culture - Final Blood - Venous No growth after 5 days. 11/07/21 14:57 Blood Culture - Final Blood - Venous No growth after 5 days. Assessment and Plan (1) COVID-19: Status: Acute (2) Pneumonia: Status: Acute Assessment and Plan: 41-year-old female with severe persitent asthma here with hypoxia d/t covid causing exacerbation; slowly improving 1.?Covid-19/Acute hypoxic respriatory failure in the backdrop of severe persistent asthma -Continue nebs / supplemental O2/ Redesmivir/ ...taper steroids -CT reviewed with Pulm....consideration for bronch 2.Pneumonia Continue Vancomycin as per pulmonary ?Lexapro ?DVT prophylaxis with Lovenox Quality Stroke Does the patient have a stroke diagnosis?: No VTE Prior VTE?: No VTE Risk Level:: Medical - moderate - high VTE Device Contraindication: Treatment Not Indicated VTE Drug Contraindication: N/A - Med Ordered
[2021-11-13] MEDS: Enoxaparin Sodium 40 MG/0.4 ML SYRINGE SUBCUT (18:24)
[2021-11-13] MEDS: Famotidine 20 MG TABLET 40 MG PO (19:50)
[2021-11-13] MEDS: cefTRIAXone sodium 1 GM in 0.9 % Sodium Chloride 50 ML IV (19:50)
[2021-11-13] MEDS: Escitalopram Oxalate 5 MG TABLET PO (19:50)
[2021-11-13] MEDS: rOPINIRole HCL 0.25 MG TABLET PO (19:50)
--- NOTE | 2021-11-13 19:56 | PM.PNPUL ---
Subjective Subjective Date of Service: 11/13/21 Interval history: The patient was seen on exam. Continues to have significant dyspnea and hypoxia with minimal activity. She has been actively using the incentive spirometer and the flutter valve. However, she gets dizzy quickly when attempting the chest physical therapy. We did review her recent CTA demonstrating some slight interval worsening of the multiple over consolidations. Decreased lung volumes. Patient continues on 5 L. she had been on broad-spectrum antibiotics including ceftriaxone and vancomycin for several days now without any significant change. Her sputum culture was not able to be process. Her white count stable. At this point will deescalate antibiotics. She continues on Solu-Medrol. Also treated with remdesivir. At this point the options are to continue to monitor and provide supportive care. If her respiratory status worsens or any other concerning findings bronchoscopy could be done for both therapeutic and diagnostic purposes. Objective Data Labs CBC & Chem 7: 11/12/21 09:14 11/13/21 08:57 Labs: Laboratory Results - last 24 hr 11/13/21 11/13/21 08:57 08:57 Creatinine 0.76 Estim Creat Clear Calc 103.2 Estimated GFR > 60 Vancomycin Trough 16.7 Microbiology Microbiology Results: Microbiology 11/07/21 18:34 Blood - Venous Blood Culture - Final No growth after 5 days. 11/07/21 14:57 Blood - Venous Blood Culture - Final No growth after 5 days. 11/10/21 18:02 Sputum - Expectorated Gram Stain - Final 11/10/21 18:02 Sputum - Expectorated Sputum Culture - Final Review of Systems Constitutional: Denies night sweats Denies change in voice, Denies lip swelling, Denies mouth pain, Reports nasal congestion, Reports nasal discharge and Denies tongue swelling Cardiovascular: Denies chest pain and Reports dyspnea Respiratory: Reports chest congestion, Reports cough, Denies hemoptysis, Denies excessive phlegm production, Denies pain with cough and Reports dyspnea Gastrointestinal: Denies abdominal pain Musculoskeletal: Denies no additional musculoskeletal complaints Denies Neuro-related abnormal movements Psychiatric: Denies no additional psychiatric complaints Hematologic/Lymphatic: Denies easy bleeding and Denies lymphadenopathy Allergic/Immunologic: Denies lip swelling and Denies tongue swelling Physical Exam Vital Signs: Vital Signs: Last Vital Signs Temp 98.1 F 11/13/21 19:44 Pulse 68 11/13/21 19:44 Resp 18 11/13/21 19:44 BP 113/74 11/13/21 19:44 Pulse Ox 93 11/13/21 19:44 BMI result Body Mass Index 29.0 Const: General: alert Neck: Neck: Yes normal visual inspection, Yes full ROM and Yes no lymphadenopathy Chest: Chest palpation & inspection: normal inspection of the chest Resp: Auscultation: rales, breath sounds absent bilateral (bases) and diminished lung sounds Cardio: Rate: regular rate Rhythm: regular rhythm Heart sounds: S1 normal heart sound present and S2 normal heart sound present GI: Palpation (GI): Soft to palpation and nontender Auscultation: normal bowel sounds Skin: General skin exam: rashes and/or lesions noted Procedures Date of Service Date of Service: 11/13/21 Assessment and Plan Assessment and plan (1) Acute respiratory failure: Status: Acute (2) Pneumonia: Status: Acute (3) COVID-19: Status: Acute (4) Pneumonia due to COVID-19 virus: Status: Acute Assessment and Plan: deescalate antibiotics to doxycycline continue remdesivir continue Solu-Medrol CPT with flutter valve and incentive spirometer recommending awake proning as tolerated continue oxygen supplementation to maintain a pulse ox above 90% continue respiratory therapy consider bronchoscopy for both diagnostic and therapeutic purposes if her condition worsens or fails to improve Time Spent With Patient Time: Total time spent is greater than 50% in coordination of care (as documented) at patient's floor/unit and/or counseling patient: Time with patient: 15 - 24 minutes Progress Note: Quality Stroke Does the patient have a stroke diagnosis?: No
[2021-11-14] VITALS (10 sets, daily range): BP systolic 103–117; BP diastolic 59–72; PULSE 60–83; RESP 18; TEMP 36.2–36.9; O2SAT 92–98
[2021-11-14] MEDS: methylPREDNISolone Sod Succ 125 MG/2 ML VIAL 60 MG IVPUSH ×3 (03:08→17:30)
[2021-11-14] MEDS: Albuterol/Iprat 2.5/0.5MG 3 ML AMPUL.NEB INHALE ×4 (07:39→19:49)
[2021-11-14] MEDS: Aspirin Enteric Coated 81 MG TABLET.DR PO (08:49)
[2021-11-14] MEDS: 0.9 % Sodium Chloride Flush 3 ML SYRINGE IVFLUSH ×3 (08:50→20:01)
[2021-11-14] MEDS: Omeprazole 40 MG CAPSULE.DR PO (08:50)
[2021-11-14 09:03] LABS: Potassium 4.1 mmol/L (3.3-5.1); Sodium 140 mmol/L (135-145)
[2021-11-14 09:04] LABS: Anion Gap 12 (12-20); Blood Urea Nitrogen 17 mg/dL (9-16); Calcium 8.7 mg/dL (8.4-10.2); Carbon Dioxide 25 mmol/L (22-29); Chloride 107 mmol/L (96-108); Creatinine Clr Calc Pharmacy 108.9; Estimated Glomerular Filt Rate > 60; Glucose Random 103 mg/dL (60-115)
[2021-11-14] MEDS: vancomycin HCL 1,500 MG in 0.9 % Sodium Chloride 500 ML 333.33 MG IV (11:19)
--- NOTE | 2021-11-14 13:16 | P.PNIM_ITS ---
Subjective Subjective Date of Service: 11/14/21 Interval History: slowly improving; shortness of breath with minimal exertion Review of Systems denies chest pain Denies nausea vomiting diarrhea Admits shortness of breath with minimal exertion Physical Exam Vital Signs: Vital Signs: Last Vital Signs Temp 97.1 F 11/14/21 11:15 Pulse 65 11/14/21 12:05 Resp 18 11/14/21 12:05 BP 111/70 11/14/21 11:15 Pulse Ox 95 11/14/21 11:15 BMI result Body Mass Index 29.0 Const: Other: no acute distress. Able to speak in short sentences lying semi-Cisneros's Resp: Other: diminished in bases inspiratory crackles/expiratory wheezes throughout Cardio: Other: no S4; positive S1-S2; no S3 murmur some scalp GI: Other: soft nontender nondistended with normoactive bowel sounds Extrem: Other: no edema bilaterally Objective Data Active Medications Acetaminophen (Acetaminophen 325 Mg Tablet) 650 mg PO Q6H PRN PRN Reason: Pain, Mild (Pain Scale 1-3) Last Admin: 11/09/21 11:23 Dose: 650 mg Documented by: MANUEL Albuterol Sulfate (Albuterol Sulfate 90 Mcg 8 Gm Inhaler) 2 puff INHALE Q6H PRN PRN Reason: Shortness Of Breath Or Wheezing Albuterol/Ipratropium (Albuterol/Iprat 2.5/0.5mg 3 Ml Ampul.Neb) 3 ml INHALE RQ4H PRN PRN Reason: Shortness of Breath/Wheezing Last Admin: 11/13/21 15:00 Dose: 3 ml Documented by: TITUS Albuterol/Ipratropium (Albuterol/Iprat 2.5/0.5mg 3 Ml Ampul.Neb) 3 ml INHALE RQ4H [facility] Last Admin: 11/14/21 11:57 Dose: 3 ml Documented by: KEITH Aspirin (Aspirin Enteric Coated 81 Mg Tablet.) 81 mg PO DAILY [facility] Last Admin: 11/14/21 08:49 Dose: 81 mg Documented by: ACOSTA Benzonatate (Benzonatate 100 Mg Capsule) 100 mg PO TID PRN PRN Reason: Cough Last Admin: 11/09/21 20:21 Dose: 100 mg Documented by: JOSE ALFREDO Enoxaparin Sodium (Enoxaparin Sodium 40 Mg/0.4 Ml Syringe) 40 mg SUBCUT Q24H [facility] Last Admin: 11/13/21 18:24 Dose: 40 mg Documented by: TITUS Escitalopram Oxalate (Escitalopram Oxalate 5 Mg Tablet) 5 mg PO BEDTIME [facility] Last Admin: 11/13/21 19:50 Dose: 5 mg Documented by: IMANI Famotidine (Famotidine 20 Mg Tablet) 40 mg PO BEDTIME [facility] Last Admin: 11/13/21 19:50 Dose: 40 mg Documented by: IMANI Fluticasone/Vilanterol (Fluticasone/Vilanterol 200/25 Blst.W.Dev) 1 puff INHALE RDAILY [facility] Last Admin: 11/14/21 07:45 Dose: Not Given Documented by: GOLDIE Non-Admin Reason: Medication Discontinued Ceftriaxone Sodium 1 gm/ (Sodium Chloride) 50 mls @ 100 mls/hr IV Q24H [facility] Last Infusion: 11/13/21 20:33 Dose: 0 mls/hr Documented by: IMANI Vancomycin HCl 1,500 mg/ (Sodium Chloride) 500 mls @ 333.333 mls/hr IV Q12H [facility] Last Admin: 11/14/21 11:19 Dose: 333.33 mls/hr Documented by: ACOSTA Methylprednisolone Sodium Succinate (Methylprednisolone Sod Succ 125 Mg/2 Ml Vial) 60 mg IVPUSH Q8H [facility] Last Admin: 11/14/21 08:49 Dose: 60 mg Documented by: ACOSTA Patient Own Med ( Estazolam 2 Mg Tablet) 1 each PO BEDTIME [facility] Last Admin: 11/13/21 22:38 Dose: 1 each Documented by: IMANI Omeprazole (Omeprazole 40 Mg Capsule.) 40 mg PO DAILY [facility] Last Admin: 11/14/21 08:50 Dose: 40 mg Documented by: ACOSTA Pharmacy Consult (Consult Rx Perform Med Rec) 1 each MISCELLANE ONCE PRN PRN Reason: Consult order Pharmacy Consult (Consult Rx Vancomycin Dosing) 1 each MISCELLANE DAILY PRN PRN Reason: Consult order Ropinirole HCl (Ropinirole Hcl 0.25 Mg Tablet) 0.25 mg PO BEDTIME [facility] Last Admin: 11/13/21 19:50 Dose: 0.25 mg Documented by: IMANI Sodium Chloride (0.9 % Sodium Chloride Flush 3 Ml Syringe) 3 ml IVFLUSH QSHIFT [facility] Last Admin: 11/14/21 08:50 Dose: 3 ml Documented by: ACOSTA Tiotropium [place] (Tiotropium [place] 18 Mcg Cap.W.Dev) 1 puff INHALE RDAILY [facility] Last Admin: 11/14/21 07:46 Dose: Not Given Documented by: GOLDIE Non-Admin Reason: Medication Discontinued Valacyclovir HCl (Valacycyclovir Hcl 500 Mg Tablet) 500 mg PO BEDTIME [facility] Last Admin: 11/13/21 19:50 Dose: 500 mg Documented by: IMANI Labs CBC & Chem 7: 11/12/21 09:14 11/14/21 08:13 Labs: Laboratory Results - last 24 hr 11/14/21 08:13 Anion Gap 12 Estim Creat Clear Calc 108.9 Estimated GFR > 60 Random Glucose 103 Calcium 8.7 Assessment and Plan (1) Pneumonia: Status: Acute (2) COVID-19: Status: Acute (3) Asthma: Status: Acute Assessment and Plan: 41-year-old female with severe persitent asthma here with hypoxia d/t covid causing exacerbation; slowly improving 1.?Covid-19/Acute hypoxic respriatory failure in the backdrop of severe persistent asthma -Continue nebs / supplemental O2/ Redesmivir/ ...taper steroids - continue to monitor as per Pulmonary; consider bronch if worsening symptoms 2.Pneumonia - will DC antibiotics as per Pulmonary - Follow clinically ?Lexapro ?DVT prophylaxis with Lovenox Quality Stroke Does the patient have a stroke diagnosis?: No VTE Prior VTE?: No VTE Risk Level:: Medical - moderate - high VTE Device Contraindication: Treatment Not Indicated VTE Drug Contraindication: N/A - Med Ordered
[2021-11-14] MEDS: Enoxaparin Sodium 40 MG/0.4 ML SYRINGE SUBCUT (17:29)
[2021-11-14] MEDS: Escitalopram Oxalate 5 MG TABLET PO (20:01)
[2021-11-14] MEDS: cefTRIAXone sodium 1 GM in 0.9 % Sodium Chloride 50 ML IV (20:01)
[2021-11-14] MEDS: Famotidine 20 MG TABLET 40 MG PO (20:02)
[2021-11-14] MEDS: rOPINIRole HCL 0.25 MG TABLET PO (20:02)
[2021-11-15] MEDS: methylPREDNISolone Sod Succ 125 MG/2 ML VIAL 60 MG IVPUSH ×2 (02:01→11:17)
[2021-11-15 03:37] VITALS: BP 105/62; PULSE 56; RESP 18; TEMP 36.2; O2SAT 94
[2021-11-15 06:49] LABS: Anion Gap 12 (12-20); Blood Urea Nitrogen 16 mg/dL (9-16); Calcium 8.5 mg/dL (8.4-10.2); Carbon Dioxide 26 mmol/L (22-29); Chloride 106 mmol/L (96-108); Creatinine Clr Calc Pharmacy 113.6; Estimated Glomerular Filt Rate > 60; Glucose Random 114 mg/dL (60-115); Potassium 4.5 mmol/L (3.3-5.1); Sodium 139 mmol/L (135-145)
[2021-11-15 07:28] VITALS: BP 105/62; PULSE 56; RESP 16; TEMP 36.4; O2SAT 96
[2021-11-15] MEDS: Albuterol/Iprat 2.5/0.5MG 3 ML AMPUL.NEB INHALE ×2 (07:48→12:25)
[2021-11-15 07:50] VITALS: PULSE 55; RESP 18; O2SAT 96
[2021-11-15] MEDS: Omeprazole 40 MG CAPSULE.DR PO (08:53)
[2021-11-15] MEDS: 0.9 % Sodium Chloride Flush 3 ML SYRINGE IVFLUSH (08:53)
[2021-11-15] MEDS: Aspirin Enteric Coated 81 MG TABLET.DR PO (08:53)
[2021-11-15 11:13] VITALS: BP 118/63; PULSE 75; RESP 16; TEMP 36.6; O2SAT 93
--- NOTE | 2021-11-15 12:12 | P.DS_ITS ---
DS: Providers Provider Date of Service: 11/15/21 Date of admission: 11/07/21 17:09 Primary care physician: GEREMIAS Bhatti Consults: 11/08/21 09:51 Consult to Pulmonology Routine Consulting Provider: Jack Ruffin Reason for consultation: asthma exacerbation due to covid Has provider been notified: Yes DS: Diagnosis Discharge Diagnosis (1) Pneumonia: Status: Acute (2) COVID-19: Status: Acute (3) Asthma: Status: Acute DS: Summary Hospital Course Hospital Course: Patient was admitted for acute hypoxic respiratory failure secondary to COVID pneumonia complicated by acute exacerbation of severe persistent asthma. She was treated with steroids, bronchodilators, remdesivir. Symptoms slowly impr ashli. Patient was weaned off of oxygen at rest, but is requiring 4L on exertion. She will be discharged home with home o2 and on a prednisone taper. Time Spent with Patient Time attestation: Total time spent providing and/or coordinating discharge services: Discharge coordination time: Greater than 30 minutes Quality: Stroke Does the patient have a stroke diagnosis?: No Physical Exam Vital Signs: Vital Signs: Last Vital Signs Temp 97.9 F 11/15/21 11:13 Pulse 75 11/15/21 11:13 Resp 16 11/15/21 11:13 BP 118/63 11/15/21 11:13 Pulse Ox 93 11/15/21 11:13 BMI result Body Mass Index 29.0 General: AO X 3, no acute distress Resp: CTA bilateral, no accessory muscles used CVS: S1,S2,RRR GI: soft, non tender, non distended Neuro: motor grossly intact, alert Psych: appropriate affect, appropriate insight DS: Data Data Completed and Pending Labs on day of discharge: Laboratory Results - last 24 hr 11/15/21 05:47 Sodium 139 Potassium 4.5 Chloride 106 Carbon Dioxide 26 Anion Gap 12 BUN 16 Creatinine 0.69 Estim Creat Clear Calc 113.6 Estimated GFR > 60 Random Glucose 114 Calcium 8.5 Discharge Plan Discharge Patient Disposition: Home, Self-Care Discharge Diagnosis: covid Referrals: Neal Cassidy FNP-BC [Primary Care Provider] - 1 Week Discharge Medications: New prednisone 10 mg tablet 10 mg PO DAILY Qty: 21 RF: 0 Continued valacyclovir 500 mg tablet 500 mg PO DAILY 90 Days Qty: 90 RF: 3 ropinirole 0.25 mg tablet 0.25 mg PO BEDTIME Qty: 90 RF: 3 famotidine 40 mg tablet 40 mg PO BEDTIME Qty: 90 RF: 3 budesonide-formoterol [Symbicort] 160-4.5 mcg/actuation HFA aerosol inhaler 2 puff inhalation BID 90 Days Qty: 3 RF: 0 omeprazole 40 mg capsule,delayed release(DR/EC) 40 mg PO DAILY Qty: 90 RF: 0 estazolam 2 mg tablet 2 mg PO BEDTIME 30 Days Qty: 30 RF: 0 escitalopram oxalate 5 mg tablet 1 tab PO DAILY RF: 0 Xolair 150 mg/mL syringe 150 mg subcut Q2W RF: 0 aspirin 81 mg Tablet,Delayed Release (Dr/Ec) 81 mg PO DAILY RF: 0 budesonide 0.5 mg/2 mL suspension for nebulization 0.5 mg inhalation Q4H PRN (Reason: Shortness Of Breath Or Wheezing) RF: 0 Spiriva Respimat 1.25 mcg/actuation mist 2 puff inhalation BEDTIME RF: 0 epinephrine [EpiPen 2-Rojelio] 0.3 mg/0.3 mL auto-injector 0.3 mg IM Q10M PRN (Reason: anaphylaxis) 30 Days Qty: 2 RF: 6 albuterol sulfate [ProAir HFA] 90 mcg/actuation HFA aerosol inhaler 2 puff inhalation Q6H PRN (Reason: Shortness Of Breath Or Wheezing) RF: 0 Discontinued prednisone 10 mg tablet See Rx Instructions PO DAILY 18 Days Qty: 63 RF: 0 doxycycline hyclate 100 mg capsule 100 mg PO BID 10 Days Qty: 20 RF: 0 dexamethasone [Decadron] 6 mg tablet 6 mg PO DAILY 10 Days Qty: 10 RF: 0 azithromycin 250 mg tablet 1 tab PO DAILY RF: 0 Discharge Orders: Discharge Order (Routine); Ordered 11/15/21 Ordered By: Rene Coyne Diet: advance to usual diet Activity on Discharge: As tolerated Stand Alone Forms: Patient Portal Discharge page Care Plan Goals: recovery Health Concerns: covid Plan of Treatment: prednisone taper, follow up with pulmonary, 4L o2 on exertion Assessment: see above
[2021-11-15 12:25] VITALS: PULSE 77; RESP 20; O2SAT 92
[2021-11-15 12:54] VITALS: PULSE 77; O2SAT 93
--- NOTE | 2021-11-15 13:14 | MHC.CM.PN ---
pt dcd home no servceis ordered by
== END 2021-11-15 15:29 | disposition home or self-care (01) | DRG 177 ==
LOC: HO.ED 17:14 → HO.EDOVER 17:23 → HO.IMC 11-08 08:43
PROVIDERS: Hospitalist; Physician Assistant Medical; Admitting Provider Internal Medicine; Emergency Provider Emergency Medicine; PCP Nurse Practitioner Family; Visit Provider Internal Medicine
DX: U07.1 COVID-19 (principal); J12.82 Pneumonia due to coronavirus disease 2019; J96.01 Acute respiratory failure with hypoxia; J45.51 Severe persistent asthma with (acute) exacerbation; J91.8 Pleural effusion in other conditions classified elsewhere; F39 Unspecified mood [affective] disorder; K21.9 Gastro-esophageal reflux disease without esophagitis; G25.81 Restless legs syndrome; Z79.82 Long term (current) use of aspirin; Z79.899 Other long term (current) drug therapy
CPT/HCPCS: 36415; 71045; 71275; 80048; 80053; 80202; 82310; 82565; 82728; 83605; 83615; 83735; 83880; 84145; 84484; 85025; 85027; 85379; 85610; 86140; 87040; 87070; 87205; 87640; 87641; 93005; 94640; 94644; 99285; J0248; J0696; J1100; J1650; J2930; J3370; J3475; J3490; Q9967

== ENCOUNTER → 2021-11-21 14:21 | Outpatient (BNVA) | payer OTHER, SELFPAY | PROVIDERS: PCP Nurse Practitioner Family; Visit Provider Hospitalist ==

== ENCOUNTER 2021-12-26 08:26 | Outpatient (REF) | payer OTHER, SELFPAY ==
--- NOTE | ~2021-12-26 | XR_ITS ---
EXAMINATION: XR CHEST CLINICAL INFORMATION: Pneumonia COMPARISON: X-ray 11/11/2021 TECHNIQUE: 2 views of the chest were obtained. FINDINGS: The lungs are well-expanded. There is no focal consolidation, edema or effusion. No pneumothorax. The cardiomediastinal silhouette is within normal limits. No acute osseous abnormality. XR/XR chest 2V IMPRESSION: No focal consolidation seen.
[2021-12-26 11:22] LABS: MANUAL DIFF FLAG NO
[2021-12-26 11:35] LABS: Basophils Percent Auto 0.3 % (0-2); Eosinophils Absolute Auto 0.2 X10*3/uL (0.0-0.4); Eosinophils Percent Auto 2.4 % (0-4); Hematocrit 41.9 % (37.0-47.0); Hemoglobin 14.1 g/dl (12.0-16.0); Imm Gran Abs Auto 0.03 X10*3/uL (0.00-0.03); Imm Gran Pct Auto 0.4 % (0.0-0.4); Lymphocytes Absolute Auto 1.8 X10*3/uL (1.2-4.9); Lymphocytes Percent Auto 26.4 % (20-40); Mean Corpuscular HGB Conc 33.7 g/dl (31.0-35.0); Mean Corpuscular Hemoglobin 32.3 pg (27.0-33.0); Mean Corpuscular Volume 95.9 fL (80.0-98.0); Mean Platelet Volume 11.4 fL (9.4-12.3); Monocytes Absolute Auto 0.6 X10*3/uL (0.1-1.2); Monocytes Percent Auto 8.8 % (2-11); Neutrophils Absolute Auto 4.3 x10*3/uL (2.0-8.3); Neutrophils Percent Auto 61.7 % (45-73); Platelet Count 234 X10*3/uL (160-400); Red Blood Count 4.37 X10*6/uL (4.20-5.50)
[2021-12-26 12:16] LABS: TSH reflex Free T4 1.04 uIU/mL (0.32-4.0)
[2021-12-26 12:21] LABS: Alanine Aminotransferase 22 U/L (0-31); Albumin Level 4.1 g/dL (3.5-5.0); Alkaline Phosphatase 69 U/L (39-117); Anion Gap 11 (12-20); Aspartate Amino Transferase 19 U/L (5-31); Bilirubin Total 0.9 mg/dL (0.0-1.0); Blood Urea Nitrogen 11 mg/dL (9-16); Carbon Dioxide 24 mmol/L (22-29); Chloride 110 mmol/L (96-108); Cholesterol 221 mg/dL; Estimated Glomerular Filt Rate > 60; Glucose Fasting 92 mg/dL (60-99); HDL Cholesterol 41 mg/dL; LDL Cholesterol Calculated 144 mg/dl; Sodium 141 mmol/L (135-145); Total Protein 6.2 g/dL (6.5-8.0); Triglycerides 183 mg/dL
[2021-12-26 14:04] LABS: Appearance Urine CLEAR; Color Urine YELLOW; Glucose Urine UA NEG (NEG); Leukocyte Esterase Urine TRACE (NEG); Nitrite Urine NEG (NEG); Specific Gravity - Urine 1.015 (1.005-1.025); UACC Culture Trigger YES; Urine Blood NEG (NEG); Urine Ketones NEG (NEG); Urine Protein NEG (NEG-TRACE)
[2021-12-26 14:17] LABS: Bacteria Urine 2+ /LPF; RBC Urine 0-2 /HPF (0); Squamous Epithelial Cell Urine 4+ /LPF
== END 2021-12-26 08:27 | disposition home or self-care (01) ==
LOC: HO.LAB 08:26
PROVIDERS: Absent Provider Hospitalist; PCP Nurse Practitioner Family; Visit Provider Nurse Practitioner Family
DX: J96.00 Acute respiratory failure, unspecified whether with hypoxia or hypercapnia (principal); J18.9 Pneumonia, unspecified organism; U07.1 COVID-19; J90 Pleural effusion, not elsewhere classified; J12.82 Pneumonia due to coronavirus disease 2019
CPT/HCPCS: 36415; 71046; 80053; 80061; 81001; 81003; 84443; 85025; 87086

== ENCOUNTER → 2021-12-30 10:31 | Outpatient (BNVA) | payer OTHER, SELFPAY | PROVIDERS: PCP Nurse Practitioner Family; Visit Provider Hospitalist ==

== ENCOUNTER 2022-02-20 07:29 | Outpatient (REF) | payer OTHER, SELFPAY ==
[2022-02-20 12:10] LABS: Cholesterol 250 mg/dL; HDL Cholesterol 48 mg/dL; LDL Cholesterol Calculated 176 mg/dl; Triglycerides 132 mg/dL
[2022-02-20 14:46] LABS: Appearance Urine HAZY; Color Urine YELLOW; Glucose Urine UA NEG (NEG); Leukocyte Esterase Urine NEG (NEG); Nitrite Urine NEG (NEG); PH 6.5 (5.0-8.0); Specific Gravity - Urine <= 1.005 (1.005-1.025); Urine Blood NEG (NEG); Urine Ketones NEG (NEG); Urine Protein NEG (NEG-TRACE)
== END 2022-02-20 07:30 | disposition home or self-care (01) ==
LOC: HO.HMGCLDS 07:29
PROVIDERS: Visit Provider Nurse Practitioner Family
DX: U07.1 COVID-19 (principal); J12.82 Pneumonia due to coronavirus disease 2019; J90 Pleural effusion, not elsewhere classified; J96.00 Acute respiratory failure, unspecified whether with hypoxia or hypercapnia; E78.5 Hyperlipidemia, unspecified
CPT/HCPCS: 36415; 80061; 81003

== ENCOUNTER 2022-03-17 17:57 | Outpatient (REF) | payer OTHER, SELFPAY ==
--- NOTE | ~2022-03-17 | MR_ITS ---
EXAMINATION: MRI OF THE RIGHT ANKLE WITHOUT CONTRAST CLINICAL INFORMATION: Pain right ankle. COMPARISON: X-ray of the right ankle April 2011. TECHNIQUE: MRI of the right ankle is performed without contrast on a high field MRI scanner. FINDINGS: SUBCUTANEOUS SOFT TISSUES: Mild generalized edema circumferentially about the ankle. MUSCLES AND TENDONS: Normal. PLANTAR FASCIA: Normal. NEUROVASCULAR STRUCTURES/TARSAL TUNNEL: Normal LIGAMENTS: There is some mild heterogeneity of the anterior talofibular ligament and anterior inferior tibiofibular ligament indicative of partial tearing likely old. BONE/CARTILAGE: There is a mild effusion and synovitis of the talocrural joint. The bones and joints are otherwise unremarkable. MR/MR ankle RT wo con IMPRESSION: Mild effusion and synovitis of the talocrural joint. Mild abnormality of the anterior talofibular ligament and anterior inferior tibiofibular ligament compatible with old partial tears. Mild generalized edema in the subcutaneous soft tissues.
== END 2022-03-17 17:58 | disposition home or self-care (01) ==
LOC: HO.MRI 17:57
PROVIDERS: Visit Provider Nurse Practitioner Family
DX: M25.571 Pain in right ankle and joints of right foot (principal); M25.471 Effusion, right ankle
CPT/HCPCS: 73721

== ENCOUNTER 2022-06-26 09:26 | Outpatient (REF) | payer OTHER, SELFPAY ==
--- NOTE | ~2022-06-26 | XR_ITS ---
EXAMINATION: XR ANKLE, LEFT CLINICAL INFORMATION: Sprain. COMPARISON: Radiograph of the left ankle dated from 08/26/2020. TECHNIQUE: AP, lateral, and mortise views of the left ankle. FINDINGS: Diffuse soft tissue swelling. No radiopaque foreign bodies. No acute osseous fractures or malalignment. The ankle mortise is maintained. XR/XR ankle LT min 3V IMPRESSION: Diffuse soft tissue thickening with no osseous fractures or subluxation. If a ligamentous/tendinous injury is a clinical concern, correlation with an MR is recommended.
== END 2022-06-26 09:27 | disposition home or self-care (01) ==
LOC: HO.HMGCX 09:26
PROVIDERS: PCP Nurse Practitioner Family; Visit Provider Internal Medicine
DX: S93.402A Sprain of unspecified ligament of left ankle, initial encounter (principal)
CPT/HCPCS: 73610

== ENCOUNTER 2022-07-25 11:21 | Outpatient (REF) | payer OTHER, SELFPAY ==
--- NOTE | ~2022-07-25 | MM_ITS ---
EXAMINATION: MM SCREENING DIGITAL BREAST TOMOSYNTHESIS, BILATERAL CLINICAL INFORMATION: Screening. Asymptomatic. Age 42. No prior breast imaging. No known family history breast cancer. The lifetime risk of breast cancer based on the Tyrer-Cuzick Model is 9%. COMPARISON: None (current study represents initial baseline exam). TECHNIQUE: Digital breast tomosynthesis is performed in both the craniocaudal and mediolateral oblique views along with computer-aided detection (CAD). Synthesized 2D images are generated from the tomosynthesis. FINDINGS: There are scattered areas of fibroglandular density (ACR BI-RADS breast composition Category b). There are no significant masses, abnormal calcifications, or other abnormalities. The axilla and skin contours are unremarkable. MM/MM tomosynthesis screening BI IMPRESSION: No mammographic evidence of malignancy. ASSESSMENT: BI-RADS 1: Negative RECOMMENDATION: Routine annual mammography screening. This patient's information was entered into a reminder system with a target due date for their next mammogram.
== END 2022-07-25 11:22 | disposition home or self-care (01) ==
LOC: HO.MAMMO 11:21
PROVIDERS: PCP Nurse Practitioner Family; Visit Provider Nurse Practitioner Family
DX: Z12.31 Encounter for screening mammogram for malignant neoplasm of breast (principal)
CPT/HCPCS: 77063; 77067

== ENCOUNTER → 2022-09-12 09:46 | Outpatient (BNVA) | payer OTHER, SELFPAY | PROVIDERS: PCP Nurse Practitioner Family; Visit Provider Hospitalist | DX: J96.00 Acute respiratory failure, unspecified whether with hypoxia or hypercapnia (principal); J45.51 Severe persistent asthma with (acute) exacerbation; J30.9 Allergic rhinitis, unspecified; J18.9 Pneumonia, unspecified organism; U09.9 Post COVID-19 condition, unspecified | CPT/HCPCS: 96372; J2930 ==

== ENCOUNTER 2022-10-13 08:59 | Outpatient (REF) | payer OTHER, SELFPAY ==
[2022-10-13 11:30] LABS: MANUAL DIFF FLAG NO
[2022-10-13 11:48] LABS: Basophils Percent Auto 0.5 % (0-2); Eosinophils Absolute Auto 0.2 X10*3/uL (0.0-0.4); Eosinophils Percent Auto 2.8 % (0-4); Hemoglobin 14.6 g/dl (12.0-16.0); Imm Gran Abs Auto 0.02 X10*3/uL (0.00-0.03); Imm Gran Pct Auto 0.3 % (0.0-0.4); Lymphocytes Absolute Auto 1.8 X10*3/uL (1.2-4.9); Lymphocytes Percent Auto 30.3 % (20-40); Mean Corpuscular Hemoglobin 31.6 pg (27.0-33.0); Mean Corpuscular Volume 93.1 fL (80.0-98.0); Mean Platelet Volume 10.6 fL (9.4-12.3); Monocytes Absolute Auto 0.5 X10*3/uL (0.1-1.2); Monocytes Percent Auto 8.6 % (2-11); Neutrophils Absolute Auto 3.5 x10*3/uL (2.0-8.3); Neutrophils Percent Auto 57.5 % (45-73); Platelet Count 283 X10*3/uL (160-400); Red Blood Count 4.62 X10*6/uL (4.20-5.50); Red Cell Distribution Width 12.8 % (11.0-16.0)
[2022-10-13 14:13] LABS: Appearance Urine Turbid; Color Urine RED; Glucose Urine UA Negative (Negative); Leukocyte Esterase Urine Small (1+) (Negative); Nitrite Urine Positive (Negative); UMIC TRIGGER UACC YES; Urine Blood Large (3+) (Negative); Urine Ketones Trace mg/dL (Negative); Urine Protein 100 (2+) mg/dL (Neg-Trace)
[2022-10-13 14:26] LABS: Bacteria Urine 1+ (None Seen); Hyaline Casts Urine 0-2 /LPF (0-2); RBC Urine >20 /HPF (0-2); UACC Culture Trigger YES; WBC Urine 21-50 /HPF (0-5)
[2022-10-13 14:32] LABS: Alanine Aminotransferase 37 U/L (0-31); Albumin Level 4.3 g/dL (3.5-5.0); Alkaline Phosphatase 100 U/L (39-117); Anion Gap 13 (12-20); Aspartate Amino Transferase 28 U/L (5-31); Bilirubin Total 0.7 mg/dL (0.0-1.0); Blood Urea Nitrogen 10 mg/dL (9-16); Calcium 9.3 mg/dL (8.4-10.2); Carbon Dioxide 24 mmol/L (22-29); Chloride 109 mmol/L (96-108); Cholesterol 186 mg/dL; Estimated Glomerular Filt Rate > 60; Glucose Fasting 87 mg/dL (60-99); HDL Cholesterol 45 mg/dL; LDL Cholesterol Calculated 119 mg/dl; Potassium 4.5 mmol/L (3.3-5.1); Sodium 141 mmol/L (135-145); TSH reflex Free T4 1.28 uIU/mL (0.32-4.0); Total Protein 6.7 g/dL (6.5-8.0); Triglycerides 111 mg/dL
== END 2022-10-13 09:00 | disposition home or self-care (01) ==
LOC: HO.HMGCLDS 08:59
PROVIDERS: PCP Nurse Practitioner Family; Visit Provider Nurse Practitioner Family
DX: Z00.00 Encounter for general adult medical examination without abnormal findings (principal)
CPT/HCPCS: 36415; 80053; 80061; 81001; 84443; 85025; 87086

== ENCOUNTER 2022-10-17 10:00 | Outpatient (REF) | payer OTHER, SELFPAY ==
[2022-10-17 11:42] LABS: Prothrombin Time 11.4 SEC (10.0-13.1)
[2022-10-17 11:45] LABS: Partial Thromboplastin Time 33.2 SEC (26.0-36.4)
== END 2022-10-17 10:01 | disposition home or self-care (01) ==
LOC: HO.HMGCLDS 10:00
PROVIDERS: PCP Nurse Practitioner Family; Visit Provider Nurse Practitioner Family
DX: Z01.818 Encounter for other preprocedural examination (principal)
CPT/HCPCS: 36415; 85610; 85730

== ENCOUNTER → 2022-11-14 10:18 | Outpatient (BNVA) | payer OTHER, SELFPAY | PROVIDERS: PCP Nurse Practitioner Family; Visit Provider Hospitalist | DX: J44.9 Chronic obstructive pulmonary disease, unspecified (principal); J45.909 Unspecified asthma, uncomplicated ==

== ENCOUNTER → 2023-01-09 10:09 | Outpatient (BNVA) | payer OTHER, SELFPAY | PROVIDERS: PCP Nurse Practitioner Family; Visit Provider Hospitalist | DX: J44.9 Chronic obstructive pulmonary disease, unspecified (principal) ==

== ENCOUNTER 2023-05-11 10:24 | Outpatient (AMB) | payer OTHER, SELFPAY ==
--- NOTE | 2023-05-11 10:36 | MHC.OFFVIS ---
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 She is current not receiving any allergy therapy. She has been on Symbicort 80 mcg/4.5 which she uses twice a day. Since September she started developing significant chest pain across her breast area. Pleuritic in nature moderate to severe. She was initially evaluated at an urgent care where she had a D-dimer that was negative she had an x-ray and she was placed on prednisone for asthma. Subsequently symptoms continue worsening and she went to see her safety and security officer. He did order a CT scan of the chest noncontrast demonstrating the beginnings of a right lower lobe pneumonia. She was placed on levofloxacin in addition to additional steroids. The patient did not feel any significantly better. Her chest pain however did get better. Still having shortness of breath needing her nebulizer very often sometimes every of 4 hours. Due to the fact that she wasn't getting better she went to the [facility] ED which he was admitted to the hospital. She did have a CTA done that ruled out pulmonary emboli but did demonstrate interval worsening of the right lower lobe pneumonia with what areas of atelectasis suggesting either mucous plugging or and unclear etiology. She was treated with antibiotics while in the hospital she had a respiratory panel was negative. The patient continues to have shortness of breath. Denies any fevers or chills and her chest pain is not resolved. She is wondering if she has a candidate for biologic therapy for significant asthma. At this point will work on maximizing her respiratory therapy. We did again review her CT scan of the chest demonstrating the right lower lobe airspace disease. At this point the patient completed a course of antibiotics. The patient also be started on budesonide. If she is no better and or for x-ray continues to be persistently abnormal in that right base then will consider bronchoscopy. She has been following the reflux diet. She is also sleeping elevated. The patient has also been doing peak flows. Her ideal peak flow is 483, but she is only able to get to the high 300s mid 400s depending on before after therapy. She did start the Xolair which is too early to tell is going to be effective for her. But she did not have any reactions to it. She did have a sleep study demonstrating no evidence of any sleep apnea she is happy about that. She still having issues with reflux disease. Moderate severity esophagitis. She does take the Prilosec. We talked about promotility agents consider in the future. In the meantime she can consider started Pepcid. She also uses significant amount of medications specially for sleep and also for restless leg. At some point will check her iron levels and see if we can get her off some of these medications is a provide her medical regimen. 09/21/2020 the patient is here for pulmonary follow-up visit. Overall she is doing about the same. She continues to have frequent exacerbations with bronchospasms. She does use her rescue inhaler more than twice a week. She has been responding well to the Xolair. However, during the fall season her symptoms to worsen. Right now she is doing with the sickness of her daughter was in the ICU with COVID-19 infection on a ventilator. This has caused significant distress and concern. She was tested for COVID-19 and was negative. Also to note the patient has had significant weight loss. This is been intentional. 01/11/2021 the patient is here for pulmonary follow-up visit. Overall the patient has been doing very well. Apparently her father list COVID. She continues her respiratory medications. The Xolair has been very effective for her. Breztri was not cover so therefore she is back on Symbicort Spiriva and has been doing good. She is concerned about the springtime with her allergies. I did recommend that she can continue with current respiratory regimen and Xolair, but, if her symptoms worsen she can always consider adding allergy shots to the Xolair which is very effective or switching over to Dupixent which also be very effective 2. I am hopeful however that she does need any. In the meantime she is done with significant back pain and SI joint discomfort. She will be going to [place] for additional interventions. She had ablation in her nurse in the back sometime ago which was effective for about 10 months and then her symptoms returned. She is pretty uncomfortable at this time and will be following up in [place] soon. The patient has not required any prednisone and overall has been very stable with her ongoing therapy. She continues with the reflux diet. Otherwise she is without any other complaints. 06/14/2021 the patient is here for a pulmonary follow-up visit. Since we last spoke the patient recent had injections to her back in is having hard time walking. She is using Crutches. In addition to the home to the he in humidity have caused her to have to use her rescue inhaler. But overall she continues to be much improved. She has responded well to the Xolair in addition to her current respiratory inhalers. She does uses his them with good adherence. Now her insurance is not covering the Xolair in the surgical suite. 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 Patient rather providing self injections. She already has an EpiPen available. At this point it is safe to have the patient have Xolair tends and therefore be able to self administer the medication herself. 11/01/2021 the patient is here for sick visit. She has had been having worsening respiratory symptoms now for about a week. The patient was evaluated and had a negative COVID test. She was given prednisone 40 mg for 4-5 days and also given a short course of antibiotics. However, the patient has not felt any better. She still having significant chest tightness. She has been using her budesonide although is been . The patient has also been using her respiratory therapy. Yesterday I had Center additional prednisone she took 60 mg. She also started a course of doxycycline. However, it is too early to see the benefits. The patient did have very diminished breath sounds today with a prolonged expiratory phase. Therefore I did provide her with 2 treatments of DuoNeb which she tolerated finished see to help initially. therefore, will have her start DuoNebs throughout the day and she will continue with current respiratory regimen. 11/21/2021 the patient has a telephone visit. She was recently discharged from the hospital after having severe COVID. She did require oxygen supplementation. She was also discharged home on oxygen. She has not had to use in a few days which is reassuring. In the meantime she has been still tapering the prednisone. She completed multiple courses of antibiotics for what appeared to be post COVID bacterial pneumonia. She had multi lobar consolidations. she still have some dyspnea on exertion [id number] severity. She understands that this will be the case for the next several weeks. In the meantime she continues on the Xolair. She will make sure to get in the next week or 2. she continues on her respiratory therapy. We will repeat a chest x-ray when she comes back in a couple months. 12/30/2021 the patient is here for a pulmonary follow-up visit. Since we last spoke she had been admitted to the hospital with severe COVID and COVID pneumonia requiring high levels of oxygen supplementation. She also required aggressive medical therapy while she was there. She is now recovering. She still short of breath and also fatigue. She understands this will take some time to recover from. In the meantime she is trying to get effective sleep. She had been off the Xolair for her asthma. Now that she is better she is back taking her Xolair. She also better booster shot. The patient is back to work full-time. We did review her imaging studies in addition to her CT scan demonstrating extensive airspace disease and significant basilar consolidations. Therefore will repeat her chest x-ray in a couple months to assess her baseline. 05/09/2022 the patient is here for a pulmonary follow-up visit. Overall she is doing a little better. She did have severe COVID back in the winter. She did have a prolonged hospitalization requiring high-flow. Her CT scan at that time demonstrated significant ground-glas opacities in addition to consolidations. She did have a repeat chest x-ray demonstrating some reticular changes at the right base. This is not surprising with the degree of disease as she had. She feels like she cannot expand her lungs fully. Feels like sometimes wrap around her chest. Which is typical of post COVID syndrome. She has also noticed increased heart rates which is also typical of post COVID syndrome. The patient responded initially well to the steroids. She continues on Xolair. This is helping her allergy is tremendously. We did talk about other biologic therapy but at this point I would not change it. the patient has had multiple courses of steroids throughout the year. Patient at this point will benefit from Daliresp. This will help her with her chronic bronchitis and chest congestion. Hopefully also decreasing need for prednisone and decrease exacerbations. The patient understands that it does have significant GI symptoms. Therefore, will start a low dose and try to workup the dose as tolerated. 09/12/2022 the patient is here for sick visit. The patient does scan back from the [facility]. She did have a very good time and she was not sick during that trip. She did take a cruise. When she got back she started having worsening respiratory symptoms. She started having significant wheezing. She has been using her nebulizer every 4 hours. She has a worsening cough congested in nature. Moderate to severe. In the office she did receive 2 DuoNeb treatments with only partial improvement of her symptoms. Therefore she was given Solu-Medrol. The patient has significant rhonchi on examination bilaterally. The patient did have a bad case of COVID in beginning of the year with bilateral severe pneumonia. The patient which is recovering from that. 11/14/2022 the patient is here for a pulmonary follow-up visit. The patient states that she has been under the weather now for about 4 weeks. She started developing worsening productive cough with yellow green sputum sometime in late September. Her symptoms improved somewhat. She continue to use respiratory therapy in her nebulizer. She did not use any antibiotics. She ultimately underwent surgery for her ankle. The patient is recovering well and she will have to have no weight-bearing for some time. Her cough still congested. She continues on the Xolair continues use her respiratory therapy. Will go ahead and start a course of Augmentin at this time. Will hold off on any prednisone in view of her wound healing and recent surgery. If her symptoms worsen she is to call the office. If she does not clear the congestion with the Augmentin she is to provide us with sputum culture and also get a chest x-ray. If the patient is not able to bring up phlegm at least going to for culture will go ahead and perform a bronchoscopy for deep cultures and therapeutic cleaning of the airways. At this point she will stand biologic therapy with Xolair. If the patient continues to be symptomatic in if this is a noninfectious process that we can consider a different biologic. 01/09/2023 the patient is here for a telehealth visit. She is still having difficulties with breathing. Complains of chest tightness and coughing. Moderate severity. She had been on the Xolair but was not noticing any significant improvement on the Xolair for the last few months. Then she had an issue with her insurance which she had not used it for about 4 weeks and she is still not any better. We did talk about other alternative biologic such as Tezspire or Dupixent. I do believe that the patient is no longer responding well to the Xolair therefore will see if we can switch over to a different alternatives. She is already maximized with respiratory therapy and she is very adherent to her therapy. We will trying to minimizing the use of prednisone. The last time she used it was back in September. She recently had surgery for her orthopedic injury and therefore trying to minimize any prednisone to to allow proper healing. 05/11/2023 the patient is here for a pulmonary follow-up visit. The patient is still struggling with her asthma. Having significant chest tightness and wheezing. She also recently had surgery. Avoiding prednisone due to her orthopedic injuries in the healing process and she just had surgery. Apparently she had surgery and then had to have a revision recently so she is still healing from that. She stop the Xolair once it was no longer effective although was effective for period of time. She definitely has allergic asthma. We did check her eosinophils in that were not elevated. I do believe that in order to control her asthma we should consider othern biologics such as Tezspire. 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 Mother Mental health disorder Maternal Grandfather No problems noted. Maternal Grandmother Mental health disorder Paternal Grandfather No problems noted. Paternal Grandmother No problems noted. Maternal Uncle Bladder cancer Paternal Grandmother Colon cancer Stroke Sister Mental health disorder Social History Household Members: Significant Other Housing: House Do you presently have visiting nurse or other home services: No Patient Tobacco Use Status: Never used Tobacco e-Cigarette/Vaping Use: Never Used Second Hand Smoke Exposure: No service: No Current occupational status: employed Cognitive needs: No Hearing needs: No Vision needs: No Review of Systems Const Reports no additional complaints and Denies night sweats ENT Denies change in voice, Denies lip swelling, Denies mouth pain, Reports nasal congestion, Reports nasal discharge and Denies tongue swelling Card Denies chest pain and Reports dyspnea on exertion Resp Reports cough, Denies hemoptysis, Reports dyspnea on exertion and Reports wheezing GI Denies abdominal pain Musc Reports as per HPI, Reports abnormal gait, Reports arthralgias, Reports joint swelling and Reports limited range of motion Neuro Denies Neuro-related abnormal movements and Reports abnormal gait Psych Denies no additional complaints Abebe/Lymph Denies easy bleeding and Denies lymphadenopathy Aller/Immun Denies lip swelling, Denies tongue swelling and Reports wheezing Physical Exam Vital Signs: Last Vital Signs Pulse 72 05/11/23 10:37 BP 118/70 05/11/23 10:37 Pulse Ox 98 05/11/23 10:37 Oxygen Delivery Method Room Air 05/11/23 10:37 BMI result Body Mass Index 29.9 Const General: alert Neck Neck: Yes normal visual inspection, Yes full ROM and Yes no lymphadenopathy Chest Chest palpation & inspection: normal inspection of the chest Resp Auscultation: no crackles, no rales, no rhonchi, no wheezes and diminished lung sounds Cardio Rate: regular rate Rhythm: regular rhythm Heart sounds: S1 normal heart sound present and S2 normal heart sound present GI Palpation (GI): Soft to palpation and nontender Auscultation: normal bowel sounds Skin General skin exam: rashes and/or lesions noted Assessment & Plan Assessment & Plan (1) Asthma: Code(s): J45.909 - Unspecified asthma, uncomplicated Qualifiers: Asthma complication type: uncomplicated Asthma persistence: persistent Asthma severity: severe Qualified Code(s): J45.50 - Severe persistent asthma, uncomplicated (2) GERD (gastroesophageal reflux disease): Code(s): K21.9 - Gastro-esophageal reflux disease without esophagitis Qualifiers: Esophagitis presence: without esophagitis Qualified Code(s): K21.9 - Gastro-esophageal reflux disease without esophagitis (3) Bronchitis: Code(s): J40 - Bronchitis, not specified as acute or chronic Plan continue Symbicort continue Spiriva stop Xolair, start Tezspire short-acting beta agonist as needed Daliresp bloodwork for call if no better follow-up in 2-3 months Orders: Orders Complete Blood Count Auto Diff 05/11/23 J44.9 - Chronic obstructive pulmonary disease, unspecified Erythrocyte Sedimentation Rate 05/11/23 J44.9 - Chronic obstructive pulmonary disease, unspecified Immunoglobulin E 05/11/23 J44.9 - Chronic obstructive pulmonary disease, unspecified Coding Level of Care Code Est Pt Level 4 (55699) Diagnoses Asthma J45.50 Asthma complication type: uncomplicated Asthma persistence: persistent Asthma severity: severe GERD (gastroesophageal reflux disease) K21.9 Esophagitis presence: without esophagitis Bronchitis J40 Time Spent (min) 18
[2023-05-11 10:37] VITALS: BP 118/70; PULSE 72; O2SAT 98; BMI 29.9
== END 2023-05-11 10:58 | disposition home or self-care (01) ==
PROVIDERS: PCP Nurse Practitioner Family; Visit Provider Hospitalist
DX: J45.50 Severe persistent asthma, uncomplicated (principal); K21.9 Gastro-esophageal reflux disease without esophagitis
CPT/HCPCS: 99214

== ENCOUNTER → 2023-05-11 10:24 | Outpatient (BNVA) | payer OTHER, SELFPAY | PROVIDERS: Visit Provider Hospitalist ==

== ENCOUNTER 2023-07-16 09:41 | Outpatient (AMB) | payer OTHER, SELFPAY ==
--- NOTE | 2023-07-16 10:34 | A.OFFPC_ITS ---
Vital Signs 07/16/23 10:35 Height 5 ft 5 in Weight 192 lb 8 oz BMI 32.0 BP 110/70 Blood Pressure Location Rt brachial Position Sitting Pulse 93 Pulse Source Pulse Oximeter Pulse Oximetry (%) 96 Oxygen Delivery Method Room Air Intake Visit Reasons: PE Allergies bupropion [From Wellbutrin] Allergy (Intermediate, Verified 07/16/23 12:15) Swelling paroxetine [From Paxil] Allergy (Intermediate, Verified 07/16/23 12:15) Swelling codeine Allergy (Mild, Verified 07/16/23 12:15) Itching bee venom protein (honey bee) Allergy (Verified 07/16/23 12:15) Anaphylaxis Environmental Allergy (Intermediate, Uncoded 07/16/23 12:15) Hives and Rash Medication List - Last Reconciled 07/16/23 by Neal Cassidy, EMERGENCY MEDICINE PHYSICIAN ASSISTANT- albuterol sulfate 90 mcg/actuation 2 puffs inhalation Q4H PRN budesonide 0.5 mg inhalation Q4H PRN epinephrine (EpiPen 2-Rojelio) 0.3 mg (0.3 mL) IM Q10M PRN 30 days estazolam 2 mg PO BEDTIME mirtazapine 7.5 mg PO DAILY PRN nebulizers As directed omeprazole 40 mg PO DAILY prednisone 50 mg PO DAILY 7 days roflumilast 250 mcg PO DAILY ropinirole 0.5 mg PO BEDTIME rosuvastatin (Crestor) 5 mg PO DAILY Symbicort 160-4.5 mcg/actuation (budesonide-formoterol) 2 puffs PO BID NS tezepelumab-ekko 210 mg (1.91 mL) subcut Q4W tiotropium bromide 1.25 mcg/actuation (Spiriva Respimat) 2 puffs inhalation BEDTIME 90 days valacyclovir 500 mg PO DAILY 90 days venlafaxine ER 75 mg PO DAILY Tobacco use date assessed: 07/16/23 Dental Screening Dental Screen Date: 07/16/23 Did you have a dental visit in the last 12 months?: Yes Did you have a dental problem in the last 6 months where you did not have access to dental care?: No Was dental information given to patient?: Patient has dentist HPI PE HPI Details Pt is here for a PE. Will order labs. Mammo is scheduled. Pt reports shortness of breath, congestion, cough, and sore throat since last Sunday. She took a home COVID test that was negative. Will order chest xr. Will also send prednisone amd zpak. 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 Mother Mental health disorder Maternal Grandfather No problems noted. Maternal Grandmother Mental health disorder Paternal Grandfather No problems noted. Paternal Grandmother No problems noted. Maternal Uncle Bladder cancer Paternal Grandmother Colon cancer Stroke Sister Mental health disorder Social History Household Members: Significant Other Housing: House Do you presently have visiting nurse or other home services: No Patient Tobacco Use Status: Never used Tobacco e-Cigarette/Vaping Use: Never Used Second Hand Smoke Exposure: No service: No Current occupational status: employed Cognitive needs: No Hearing needs: No Vision needs: No Questionnaire Thrive Questionnaire Date Thrive assessed: 07/11/22 SONU-7 AMB Questionnaire SONU-7 Date SONU - 7 assessed: 07/11/22 Source: Developed by Drs. Sean Anthony, Mahogany Gupta, Monster Win and colleagues, with an educational galileo from [employer]. Review of Systems Const Denies chills and Denies fever(s) Eyes Denies blurry vision ENT Denies vertigo, Denies dizziness, Reports nasal congestion and Reports sore throat Card Denies chest pain at rest, Denies chest pain with activity, Denies diaphoresis, Reports dyspnea and Reports dyspnea on exertion Resp Reports cough, Reports dyspnea, Reports dyspnea on exertion and Denies wheezing GI Denies abdominal pain, Denies melena, Denies hematochezia, Denies constipation, Denies diarrhea and Denies loose stools Denies hematuria Musc Denies numbness and Denies tingling Skin/Breast Denies lesions Neuro Denies vertigo, Denies dizziness, Denies numbness and Denies tingling Psych Denies anxiety, Denies depression, Denies homicidal ideation, Denies suicidal ideation and Denies other (substance abuse) Aller/Immun Denies wheezing Physical exam (Primary Care) Vital Signs: Last Vital Signs Pulse 93 07/16/23 10:35 BP 110/70 07/16/23 10:35 Pulse Ox 96 07/16/23 10:35 Oxygen Delivery Method Room Air 07/16/23 10:35 BMI result Body Mass Index 32.0 Tobacco/Smoking Status: Tobacco use Status Tobacco use date assessed 07/16/23 07/16/23 10:40 Patient Tobacco Use Status Never used Tobacco 07/16/23 10:40 e-Cigarette/Vaping Use Never Used 07/16/23 10:40 Thrive Assessment: Date of Thrive Assessment Date Thrive assessed 07/11/22 07/16/23 10:40 Const General: cooperative Nutritional Appearance: obese Orientation/consciousness: patient oriented x3 HENMT Head: Yes normal to inspection, Yes normocephalic and Yes atraumatic Ears: TM's normal bilaterally Eyes General: appearance normal, both eyes and all related structures Alignment and Position: alignment normal and position normal Neck Neck: Yes normal visual inspection and Yes no lymphadenopathy Thyroid: Thyroid normal Resp Other: faint upper wheezing, otherwise clear Effort & Inspection: normal respiratory effort Cardio Rate: regular rate Rhythm: regular rhythm Heart sounds: S1 normal heart sound present, S2 normal heart sound present and no murmurs GI Palpation (GI): Soft to palpation and nontender Auscultation: normal bowel sounds Skin Rashes: no rashes Neuro General: patient oriented x3, moves all extremities, no focal motor deficits and deep tendon reflexes 2+ bilaterally Romberg Test: Negative Psych Appearance: grossly normal Mental Status: mental status grossly normal Speech and movement: Normal speech and movement present Affect: normal affect Attitude: cooperative Thought process: Normal thought process present Thought content: Normal thought content present Insight: Good insight present (Psych) Judgement: Good judgement present (Psych) Assessment and Plan Assessment & Plan (1) Bronchitis: Code(s): J40 - Bronchitis, not specified as acute or chronic (2) Physical exam: Code(s): Z00.00 - Encounter for general adult medical examination without abnormal findings Plan The patient agreed to the use of a medical apparatus model maker for this encounter. Scribed fo DEREJE Monge- by Ethel Orantes medical apparatus model maker, on 07/16/2023 at 10:55 EST. Orders: Orders XR chest 2V Today J40 - Bronchitis, not specified as acute or chronic TSH reflex Free T4 Today Z00.00 - Encounter for general adult medical examination without abnormal findings Lipid Panel Today Z00.00 - Encounter for general adult medical examination without abnormal findings Complete Blood Count Auto Diff Today Z00.00 - Encounter for general adult medical examination without abnormal findings Comprehensive [place]. Panel Fast Today Z00.00 - Encounter for general adult medical examination without abnormal findings UA CC w/rflx Micro + Cult Today Z00.00 - Encounter for general adult medical examination without abnormal findings Medications: New azithromycin For 250 mg dose pack: take 500 mg today (day 1), then 250 mg for 4 days (days 2-5) PO 6 tabs 0RF 5 days prednisone 50 mg PO DAILY 7 tabs 0RF 7 days Coding Level of Care Code Est Pt Prev Care 40-64y(82540) Diagnoses Bronchitis J40 Physical exam Z00.00
[2023-07-16 10:35] VITALS: BP 110/70; PULSE 93; O2SAT 96; BMI 32.0
== END 2023-07-16 11:06 | disposition home or self-care (01) ==
PROVIDERS: Visit Provider Nurse Practitioner Family
DX: J40 Bronchitis, not specified as acute or chronic (principal); Z00.00 Encounter for general adult medical examination without abnormal findings
CPT/HCPCS: 99396

== ENCOUNTER 2023-07-16 11:08 | Outpatient (REF) | payer OTHER, SELFPAY ==
--- NOTE | ~2023-07-16 | XR_ITS ---
EXAMINATION: XR CHEST 2 VIEW CLINICAL INFORMATION: Bronchitis COMPARISON: 12/26/2021 TECHNIQUE: PA and lateral views of the chest obtained. FINDINGS: The lungs are clear. There are no pleural effusions. The cardiomediastinal silhouette is normal. XR/XR chest 2V IMPRESSION: No acute cardiopulmonary disease.
[2023-07-16 13:20] LABS: MANUAL DIFF FLAG NO
[2023-07-16 13:52] LABS: Basophils Percent Auto 0.4 % (0-2); Eosinophils Absolute Auto 0.1 X10*3/uL (0.0-0.4); Eosinophils Percent Auto 1.5 % (0-4); Hematocrit 44.1 % (37.0-47.0); Hemoglobin 14.8 g/dl (12.0-16.0); Imm Gran Abs Auto 0.01 X10*3/uL (0.00-0.03); Imm Gran Pct Auto 0.1 % (0.0-0.4); Lymphocytes Absolute Auto 2.2 X10*3/uL (1.2-4.9); Lymphocytes Percent Auto 26.1 % (20-40); Mean Corpuscular HGB Conc 33.6 g/dl (31.0-35.0); Mean Corpuscular Volume 92.5 fL (80.0-98.0); Mean Platelet Volume 11.1 fL (9.4-12.3); Monocytes Absolute Auto 0.6 X10*3/uL (0.1-1.2); Monocytes Percent Auto 6.5 % (2-11); Neutrophils Absolute Auto 5.6 x10*3/uL (2.0-8.3); Neutrophils Percent Auto 65.4 % (45-73); Platelet Count 245 X10*3/uL (160-400); Red Blood Count 4.77 X10*6/uL (4.20-5.50); Red Cell Distribution Width 12.8 % (11.0-16.0); White Blood Count 8.5 X10*3/uL (4.8-10.8)
[2023-07-16 14:52] LABS: Alanine Aminotransferase 30 U/L (0-31); Albumin Level 4.4 g/dL (3.5-5.0); Alkaline Phosphatase 101 U/L (39-117); Anion Gap 12 (12-20); Aspartate Amino Transferase 23 U/L (5-31); Bilirubin Total 0.5 mg/dL (0.0-1.0); Blood Urea Nitrogen 9 mg/dL (9-16); Calcium 9.6 mg/dL (8.4-10.2); Carbon Dioxide 24 mmol/L (22-29); Chloride 108 mmol/L (96-108); Cholesterol 173 mg/dL (<200); Estimated Glomerular Filt Rate > 60; Glucose Fasting 87 mg/dL (60-99); HDL Cholesterol 53 mg/dL (>40); LDL Cholesterol Calculated 99 mg/dL (<100); Sodium 140 mmol/L (135-145); Total Protein 7.3 g/dL (6.5-8.0); Triglycerides 106 mg/dL (<150)
[2023-07-16 14:53] LABS: TSH reflex Free T4 1.03 uIU/mL (0.32-4.0)
[2023-07-16 15:09] LABS: Erythrocyte Sedimentation Rate 3 MM/HR (0-20)
[2023-07-18 04:38] LABS: Immunoglobulin E 115 kU/L (<OR=114)
== END 2023-07-16 11:09 | disposition home or self-care (01) ==
LOC: HO.HMGCX 11:08
PROVIDERS: Absent Provider Hospitalist; PCP Nurse Practitioner Family; Visit Provider Nurse Practitioner Family
DX: Z00.00 Encounter for general adult medical examination without abnormal findings (principal); J44.9 Chronic obstructive pulmonary disease, unspecified; J40 Bronchitis, not specified as acute or chronic; E78.5 Hyperlipidemia, unspecified; Z13.29 Encounter for screening for other suspected endocrine disorder
CPT/HCPCS: 36415; 71046; 80053; 80061; 82785; 84443; 85025; 85652

== ENCOUNTER 2023-07-16 13:12 | Outpatient (REF) | payer OTHER, SELFPAY ==
[2023-07-16 17:25] LABS: Appearance Urine Clear; Color Urine Yellow; Glucose Urine UA Negative (Negative); Leukocyte Esterase Urine Negative (Negative); Nitrite Urine Negative (Negative); Specific Gravity - Urine <= 1.005 (1.005-1.025); UMIC TRIGGER UACC YES; Urine Blood Large (3+) (Negative); Urine Ketones Negative (Negative); Urine Protein Negative (Neg-Trace)
[2023-07-16 17:49] LABS: Bacteria Urine None Seen (None Seen); Hyaline Casts Urine 0-2 /LPF (0-2); WBC Urine 0-5 /HPF (0-5)
== END 2023-07-16 13:13 | disposition home or self-care (01) ==
LOC: HO.HMGCLNP 13:12
PROVIDERS: PCP Nurse Practitioner Family; Visit Provider Nurse Practitioner Family
DX: Z00.00 Encounter for general adult medical examination without abnormal findings (principal); J44.9 Chronic obstructive pulmonary disease, unspecified
CPT/HCPCS: 81001; 81003

== ENCOUNTER 2023-07-31 11:13 | Outpatient (REF) | payer OTHER, SELFPAY | END 2023-07-31 11:14 | disposition home or self-care (01) | LOC: HO.MAMMO 11:13 | PROVIDERS: PCP Nurse Practitioner Family; Visit Provider Nurse Practitioner Family | DX: Z12.31 Encounter for screening mammogram for malignant neoplasm of breast (principal) | CPT/HCPCS: 77063; 77067 ==

== ENCOUNTER → 2023-07-31 11:30 | Outpatient (BNV) | payer OTHER, SELFPAY | PROVIDERS: PCP Nurse Practitioner Family; Visit Provider Radiology Diagnostic Radiology | DX: Z12.31 Encounter for screening mammogram for malignant neoplasm of breast (principal) | CPT/HCPCS: 77063; 77067 ==

== ENCOUNTER 2023-09-18 10:00 | Outpatient (AMB) | payer OTHER, SELFPAY ==
--- NOTE | 2023-09-18 10:08 | MHC.OFFVIS ---
Intake Vital Signs 09/18/23 10:14 Height 5 ft 5 in Weight 195 lb BMI 32.4 BP 128/76 Blood Pressure Location Rt brachial Position Sitting Pulse 89 Pulse Source Pulse Oximeter Pulse Oximetry (%) 98 Oxygen Delivery Method Room Air Intake Visit Reasons: Post Covid Syndrome Follow Up Home Health Occupational Therapist Required: No Allergies bupropion [From Wellbutrin] Allergy (Intermediate, Verified 09/18/23 10:16) Swelling paroxetine [From Paxil] Allergy (Intermediate, Verified 09/18/23 10:16) Swelling codeine Allergy (Mild, Verified 09/18/23 10:16) Itching bee venom protein (honey bee) Allergy (Verified 09/18/23 10:16) Anaphylaxis Environmental Allergy (Intermediate, Uncoded 09/18/23 10:16) Hives and Rash HPI HPI Comments History of Present Illness Details The patient is a 43-year-old woman with a known history of severe persistent asthma in his addition to significant allergies. She is current not receiving any allergy therapy. She has been on Symbicort 80 mcg/4.5 which she uses twice a day. Since September she started developing significant chest pain across her breast area. Pleuritic in nature moderate to severe. She was initially evaluated at an urgent care where she had a D-dimer that was negative she had an x-ray and she was placed on prednisone for asthma. Subsequently symptoms continue worsening and she went to see her software integration developer. He did order a CT scan of the chest noncontrast demonstrating the beginnings of a right lower lobe pneumonia. She was placed on levofloxacin in addition to additional steroids. The patient did not feel any significantly better. Her chest pain however did get better. Still having shortness of breath needing her nebulizer very often sometimes every of 4 hours. Due to the fact that she wasn't getting better she went to the [facility] ED which he was admitted to the hospital. She did have a CTA done that ruled out pulmonary emboli but did demonstrate interval worsening of the right lower lobe pneumonia with what areas of atelectasis suggesting either mucous plugging or and unclear etiology. She was treated with antibiotics while in the hospital she had a respiratory panel was negative. The patient continues to have shortness of breath. Denies any fevers or chills and her chest pain is not resolved. She is wondering if she has a candidate for biologic therapy for significant asthma. At this point will work on maximizing her respiratory therapy. We did again review her CT scan of the chest demonstrating the right lower lobe airspace disease. At this point the patient completed a course of antibiotics. The patient also be started on budesonide. If she is no better and or for x-ray continues to be persistently abnormal in that right base then will consider bronchoscopy. She has been following the reflux diet. She is also sleeping elevated. The patient has also been doing peak flows. Her ideal peak flow is 483, but she is only able to get to the high 300s mid 400s depending on before after therapy. She did start the Xolair which is too early to tell is going to be effective for her. But she did not have any reactions to it. She did have a sleep study demonstrating no evidence of any sleep apnea she is happy about that. She still having issues with reflux disease. Moderate severity esophagitis. She does take the Prilosec. We talked about promotility agents consider in the future. In the meantime she can consider started Pepcid. She also uses significant amount of medications specially for sleep and also for restless leg. At some point will check her iron levels and see if we can get her off some of these medications is a provide her medical regimen. 12/30/2021 the patient is here for a pulmonary follow-up visit. Since we last spoke she had been admitted to the hospital with severe COVID and COVID pneumonia requiring high levels of oxygen supplementation. She also required aggressive medical therapy while she was there. She is now recovering. She still short of breath and also fatigue. She understands this will take some time to recover from. In the meantime she is trying to get effective sleep. She had been off the Xolair for her asthma. Now that she is better she is back taking her Xolair. She also better booster shot. The patient is back to work full-time. We did review her imaging studies in addition to her CT scan demonstrating extensive airspace disease and significant basilar consolidations. Therefore will repeat her chest x-ray in a couple months to assess her baseline. 05/09/2022 the patient is here for a pulmonary follow-up visit. Overall she is doing a little better. She did have severe COVID back in the winter. She did have a prolonged hospitalization requiring high-flow. Her CT scan at that time demonstrated significant ground-glas opacities in addition to consolidations. She did have a repeat chest x-ray demonstrating some reticular changes at the right base. This is not surprising with the degree of disease as she had. She feels like she cannot expand her lungs fully. Feels like sometimes wrap around her chest. Which is typical of post COVID syndrome. She has also noticed increased heart rates which is also typical of post COVID syndrome. The patient responded initially well to the steroids. She continues on Xolair. This is helping her allergy is tremendously. We did talk about other biologic therapy but at this point I would not change it. the patient has had multiple courses of steroids throughout the year. Patient at this point will benefit from Daliresp. This will help her with her chronic bronchitis and chest congestion. Hopefully also decreasing need for prednisone and decrease exacerbations. The patient understands that it does have significant GI symptoms. Therefore, will start a low dose and try to workup the dose as tolerated. 09/12/2022 the patient is here for sick visit. The patient does scan back from the [facility] She did have a very good time and she was not sick during that trip. She did take a cruise. When she got back she started having worsening respiratory symptoms. She started having significant wheezing. She has been using her nebulizer every 4 hours. She has a worsening cough congested in nature. Moderate to severe. In the office she did receive 2 DuoNeb treatments with only partial improvement of her symptoms. Therefore she was given Solu-Medrol. The patient has significant rhonchi on examination bilaterally. The patient did have a bad case of COVID in beginning of the year with bilateral severe pneumonia. The patient which is recovering from that. 11/14/2022 the patient is here for a pulmonary follow-up visit. The patient states that she has been under the weather now for about 4 weeks. She started developing worsening productive cough with yellow green sputum sometime in late September. Her symptoms improved somewhat. She continue to use respiratory therapy in her nebulizer. She did not use any antibiotics. She ultimately underwent surgery for her ankle. The patient is recovering well and she will have to have no weight-bearing for some time. Her cough still congested. She continues on the Xolair continues use her respiratory therapy. Will go ahead and start a course of Augmentin at this time. Will hold off on any prednisone in view of her wound healing and recent surgery. If her symptoms worsen she is to call the office. If she does not clear the congestion with the Augmentin she is to provide us with sputum culture and also get a chest x-ray. If the patient is not able to bring up phlegm at least going to for culture will go ahead and perform a bronchoscopy for deep cultures and therapeutic cleaning of the airways. At this point she will stand biologic therapy with Xolair. If the patient continues to be symptomatic in if this is a noninfectious process that we can consider a different biologic. 01/09/2023 the patient is here for a telehealth visit. She is still having difficulties with breathing. Complains of chest tightness and coughing. Moderate severity. She had been on the Xolair but was not noticing any significant improvement on the Xolair for the last few months. Then she had an issue with her insurance which she had not used it for about 4 weeks and she is still not any better. We did talk about other alternative biologic such as Tezspire or Dupixent. I do believe that the patient is no longer responding well to the Xolair therefore will see if we can switch over to a different alternatives. She is already maximized with respiratory therapy and she is very adherent to her therapy. We will trying to minimizing the use of prednisone. The last time she used it was back in September. She recently had surgery for her orthopedic injury and therefore trying to minimize any prednisone to to allow proper healing. 05/11/2023 the patient is here for a pulmonary follow-up visit. The patient is still struggling with her asthma. Having significant chest tightness and wheezing. She also recently had surgery. Avoiding prednisone due to her orthopedic injuries in the healing process and she just had surgery. Apparently she had surgery and then had to have a revision recently so she is still healing from that. She stop the Xolair once it was no longer effective although was effective for period of time. She definitely has allergic asthma. We did check her eosinophils in that were not elevated. I do believe that in order to control her asthma we should consider othern biologics such as Tezspire. 09/18/2023 the patient is here for sick visit. She is having hard time with her breathing for the last couple days. Started developing a croupy cough. Moderate severity. Also some chest tightness and wheezing. She has been using all inhalers. In the meantime she did start the new biologic regimen, Tezspire. She seems to be tolerating it. Although she still not sure how effective it is for her. Explained to her that infectious processes will still trigger asthma and this is likely the issue. Will go ahead and treated for a lower respiratory infections since she probably has tracheitis with screw. We did swab her for flu RSV and COVID and were all negative. The patient will continue with current respiratory regimen. Will plan to follow-up in 3-4 months and see her response to therapy. If the patient is no better she will call for an earlier assessment. [facility] Medical History [id number] syndrome Pneumonia Acute respiratory failure Pneumonia Chronic allergic rhinitis Family hx-breast malignancy Ureterolithiasis RLS (restless legs syndrome) Hiatal hernia Vitamin D deficiency Dyslipidemia Lumbar disc herniation Asthma GERD (gastroesophageal reflux disease) Surgical History H/O prior ablation treatment History of release of tendon Hx of cholecystectomy History of colposcopy Family History Father No problems noted. Mother Mental health disorder Maternal Grandfather No problems noted. Maternal Grandmother Mental health disorder Paternal Grandfather No problems noted. Paternal Grandmother No problems noted. Maternal Uncle Bladder cancer Paternal Grandmother Colon cancer Stroke Sister Mental health disorder Household Members: Significant Other Housing: House Do you presently have visiting nurse or other home services: No Patient Tobacco Use Status: Never used Tobacco e-Cigarette/Vaping Use: Never Used Second Hand Smoke Exposure: No service: No Current occupational status: employed Cognitive needs: No Hearing needs: No Vision needs: No Review of Systems Const Reports body aches, Reports chills, Reports fatigue and Denies fever(s) Eyes Denies blurry vision ENT Denies vertigo, Denies dizziness, Reports nasal congestion and Reports sore throat Card Denies chest pain at rest, Denies chest pain with activity, Denies diaphoresis, Reports dyspnea and Reports dyspnea on exertion Resp Reports chest congestion, Reports cough, Reports dyspnea, Reports dyspnea on exertion and Reports wheezing GI Denies abdominal pain, Denies melena, Denies hematochezia, Denies constipation, Denies diarrhea and Denies loose stools Denies hematuria Musc Denies numbness and Denies tingling Skin/Breast Denies lesions Neuro Denies vertigo, Denies dizziness, Denies numbness and Denies tingling Psych Denies anxiety, Denies depression, Denies homicidal ideation, Denies suicidal ideation and Denies other (substance abuse) Endo Reports fatigue Aller/Immun Reports wheezing Physical Exam Vital Signs: Last Vital Signs Pulse 89 09/18/23 10:14 BP 128/76 09/18/23 10:14 Pulse Ox 98 09/18/23 10:14 Oxygen Delivery Method Room Air 09/18/23 10:14 BMI result Body Mass Index 32.4 Resp Effort & Inspection: Actively coughing Quality: actively coughing Auscultation: wheezes and diminished lung sounds Assessment & Plan Assessment & Plan (1) Asthma: Code(s): J45.909 - Unspecified asthma, uncomplicated Qualifiers: Asthma complication type: with acute exacerbation Asthma persistence: persistent Asthma severity: severe Qualified Code(s): J45.51 - Severe persistent asthma with (acute) exacerbation (2) GERD (gastroesophageal reflux disease): Code(s): K21.9 - Gastro-esophageal reflux disease without esophagitis Qualifiers: Esophagitis presence: without esophagitis Qualified Code(s): K21.9 - Gastro-esophageal reflux disease without esophagitis (3) Bronchitis: Code(s): J40 - Bronchitis, not specified as acute or chronic Plan Start Doxycycline start prednisone Mucinex DM tessalon as needed continue Symbicort continue Spiriva continue Tezspire short-acting beta agonist as needed Daliresp bloodwork for call if no better follow-up in 2-3 months Orders: Orders SARS-CoV2/FLU/RSV Today J40 - Bronchitis, not specified as acute or chronic Medications: New prednisone PO daily; Take 2 tabs daily x 5 days, then 1 tablet daily x 5 days 10 days 15 tabs 0RF doxycycline hyclate 100 mg PO BID 10 days 20 caps 0RF benzonatate 200 mg PO BID 30 days PRN 60 caps 0RF cough Coding Level of Care Code Est Pt Level 4 (82427) Diagnoses Severe persistent asthma with acute exacerbation J45.51 Asthma complication type: with acute exacerbation Asthma persistence: persistent Asthma severity: severe Gastroesophageal reflux disease without esophagitis K21.9 Esophagitis presence: without esophagitis Bronchitis J40 Time Spent (min) 17
[2023-09-18 10:14] VITALS: BP 128/76; PULSE 89; O2SAT 98; BMI 32.4
== END 2023-09-18 10:59 | disposition home or self-care (01) ==
PROVIDERS: PCP Nurse Practitioner Family; Visit Provider Hospitalist
DX: J45.51 Severe persistent asthma with (acute) exacerbation (principal); K21.9 Gastro-esophageal reflux disease without esophagitis; J40 Bronchitis, not specified as acute or chronic
CPT/HCPCS: 99214

== ENCOUNTER → 2023-09-18 10:00 | Outpatient (BNVA) | payer OTHER, SELFPAY | PROVIDERS: PCP Nurse Practitioner Family; Visit Provider Hospitalist | DX: J44.9 Chronic obstructive pulmonary disease, unspecified (principal) ==

== ENCOUNTER 2023-09-18 10:42 | Outpatient (REF) | payer OTHER, SELFPAY ==
[2023-09-18 11:35] LABS: Influenza A PCR NEGATIVE (Negative); Influenza B PCR NEGATIVE (Negative); Resp Syncy Virus RNA Qual PCR NEGATIVE (Negative); SARS COV2 PCR INHOUSE NEGATIVE (Negative)
== END 2023-09-18 10:43 | disposition home or self-care (01) ==
LOC: HO.LNP 10:42
PROVIDERS: Visit Provider Hospitalist
DX: Z11.52 Encounter for screening for COVID-19 (principal); J45.51 Severe persistent asthma with (acute) exacerbation; J40 Bronchitis, not specified as acute or chronic; K21.9 Gastro-esophageal reflux disease without esophagitis
CPT/HCPCS: 0241U

== ENCOUNTER 2023-11-12 09:50 | Outpatient (AMB) | payer OTHER, SELFPAY ==
--- NOTE | 2023-11-12 09:52 | A.OFFPC_ITS ---
Vital Signs 11/12/23 09:55 Height 5 ft 5 in Weight 198 lb BMI 32.9 BP 114/78 Blood Pressure Location Lt brachial Position Sitting Pulse 66 Pulse Source Pulse Oximeter Pulse Oximetry (%) 99 Oxygen Delivery Method Room Air Intake Visit Reasons: Cholesterol 4m Follow up Allergies bee venom protein (honey bee) Allergy (Severe, Verified 11/12/23 09:56) Anaphylaxis bupropion [From Wellbutrin] Allergy (Intermediate, Verified 11/12/23 09:56) Swelling environmental allergies Allergy (Intermediate, Verified 11/12/23 09:56) Hives and Rash paroxetine [From Paxil] Allergy (Intermediate, Verified 11/12/23 09:56) Swelling codeine Allergy (Mild, Verified 11/12/23 09:56) Itching Tobacco use date assessed: 11/12/23 Dental Screening Dental Screen Date: 11/12/23 Did you have a dental visit in the last 12 months?: Yes Did you have a dental problem in the last 6 months where you did not have access to dental care?: No Was dental information given to patient?: Patient has dentist HPI Cholesterol 4m Follow up HPI Details asthma-COPD overlap: Pt reports that her breathing has been fair. She is following up with pulmonology. Denies chest pain, shortness of breath, and dizziness. Reports doing well overall. 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 Mother Mental health disorder Maternal Grandfather No problems noted. Maternal Grandmother Mental health disorder Paternal Grandfather No problems noted. Paternal Grandmother No problems noted. Maternal Uncle Bladder cancer Paternal Grandmother Colon cancer Stroke Sister Mental health disorder Social History Household Members: Significant Other Housing: House Do you presently have visiting nurse or other home services: No Patient Tobacco Use Status: Never used Tobacco e-Cigarette/Vaping Use: Never Used Second Hand Smoke Exposure: No service: No Current occupational status: employed Cognitive needs: No Hearing needs: No Vision needs: No Questionnaire Thrive Questionnaire Date Thrive assessed: 07/11/22 I am a: Patient What is your living situation today?: I have a steady place to live Within the past 12 months, did the food you bought not last and you didn't have the money to get more?: Never true Within the past 12 months, did you worry whether your food would run out before you got money to buy more?: Never true AUDIT C Alcohol Use Questionnaire (AUDIT-C) 1. How often do you have a drink containing alcohol?: 2-4 times a month 2. How many drinks containing alcohol do you have on a typical day when you are drinking?: 3 or 4 3. How often do you have six or more drinks on one occasion?: Less than monthly Total Score: 4 Score Reviewed/Action Taken: No SONU-7 AMB Questionnaire SONU-7 Date SONU - 7 assessed: 07/11/22 Feeling nervous, anxious, or on edge: 0 = Not at all Not being able to stop or control worryin = Not at all Worrying too much about different things: 0 = Not at all Trouble relaxin = Several days Being so restless that it is hard to sit still: 0 = Not at all Becoming easily annoyed or irritable: 0 = Not at all Feeling afraid as if something awful might happen: 0 = Not at all Total SONU-7 score (0-4 normal; 5-9 mild; 10-14 moderate; 15-21 severe): 1 Source: Developed by Drs. Sean Anthony, Mahogany Gupta, Monster Win and colleagues, with an educational galileo from [employer]. Review of Systems Const Reports as per HPI Physical exam (Primary Care) Vital Signs: Last Vital Signs Pulse 66 11/12/23 09:55 BP 114/78 11/12/23 09:55 Pulse Ox 99 11/12/23 09:55 Oxygen Delivery Method Room Air 11/12/23 09:55 BMI result Body Mass Index 32.9 Tobacco/Smoking Status: Tobacco use Status Tobacco use date assessed 11/12/23 11/12/23 10:01 Patient Tobacco Use Status Never used Tobacco 11/12/23 09:53 e-Cigarette/Vaping Use Never Used 11/12/23 09:53 Thrive Assessment: Date of Thrive Assessment Date Thrive assessed 07/11/22 11/12/23 09:53 Const General: cooperative Nutritional Appearance: obese Orientation/consciousness: patient oriented x3 Resp Effort & Inspection: normal respiratory effort Auscultation: clear to auscultation bilaterally Cardio Rate: regular rate Rhythm: regular rhythm Heart sounds: S1 normal heart sound present and S2 normal heart sound present Neuro General: patient oriented x3 Psych Appearance: grossly normal Mental Status: mental status grossly normal Speech and movement: Normal speech and movement present Affect: normal affect Attitude: cooperative Thought process: Normal thought process present Thought content: Normal thought content present Insight: Good insight present (Psych) Judgement: Good judgement present (Psych) Assessment and Plan Assessment & Plan (1) Asthma-COPD overlap syndrome: Code(s): J44.9 - Chronic obstructive pulmonary disease, unspecified Plan The patient agreed to the use of a medical director occupational health for this encounter. Scribed for GEREMIAS Gold by Ethel Orantes medical director occupational health, on 11/12/2023 at 10:10 EST. Coding Level of Care Code Est Pt Level 3 (05856) Diagnoses Asthma-COPD overlap syndrome J44.9
[2023-11-12 09:55] VITALS: BP 114/78; PULSE 66; O2SAT 99; BMI 32.9
== END 2023-11-12 10:16 | disposition home or self-care (01) ==
PROVIDERS: PCP Nurse Practitioner Family; Visit Provider Nurse Practitioner Family
DX: J44.9 Chronic obstructive pulmonary disease, unspecified (principal)
CPT/HCPCS: 99213

== ENCOUNTER 2024-02-19 08:45 | Outpatient (AMB) | payer OTHER, SELFPAY ==
--- NOTE | 2024-02-19 08:48 | MHC.PC.OV ---
Vital Signs 02/19/24 08:49 Height 5 ft 5 in Weight 198 lb BMI 32.9 BP 118/70 Blood Pressure Location Rt brachial Position Sitting Pulse 86 Pulse Source Pulse Oximeter Pulse Oximetry (%) 98 Oxygen Delivery Method Room Air Intake Visit Reasons: 4mo follow up Intake Note: pt is here for 4 month follow up, but patient has concerns of fam hx of strokes and mother in Oct 2023 due to stroke Fish Header Required: No Accompanied by: Self / Same As Patient Allergies bee venom protein (honey bee) Allergy (Severe, Verified 02/19/24 08:50) Anaphylaxis bupropion [From Wellbutrin] Allergy (Intermediate, Verified 02/19/24 08:50) Swelling environmental allergies Allergy (Intermediate, Verified 02/19/24 08:50) Hives and Rash paroxetine [From Paxil] Allergy (Intermediate, Verified 02/19/24 08:50) Swelling codeine Allergy (Mild, Verified 02/19/24 08:50) Itching Medication List - Last Reconciled 02/19/24 by DEREJE Hollingsworth- albuterol sulfate 90 mcg/actuation 2 puffs inhalation Q4H PRN budesonide 0.5 mg inhalation Q4H PRN epinephrine (EpiPen 2-Rojelio) 0.3 mg (0.3 mL) IM Q10M PRN 30 days mirtazapine 7.5 mg PO DAILY PRN nebulizers As directed omeprazole 40 mg PO DAILY roflumilast 250 mcg PO DAILY ropinirole 0.5 mg PO BEDTIME rosuvastatin (Crestor) 5 mg PO DAILY Symbicort 160-4.5 mcg/actuation (budesonide-formoterol) 2 puffs PO BID NS tezepelumab-ekko 210 mg (1.91 mL) subcut Q4W tiotropium bromide 1.25 mcg/actuation (Spiriva Respimat) 2 puffs PO BEDTIME valacyclovir 500 mg PO DAILY 90 days venlafaxine ER 75 mg PO DAILY Tobacco use date assessed: 11/12/23 Dental Screening Dental Screen Date: 11/12/23 HPI 4mo follow up HPI Details Dyslipidemia: On rosuvastatin 5mg. Will order labs. Denies chest pain, shortness of breath, and dizziness. Pt reports a strong family hx of stroke. Educated pt on the importance of weight loss and maintaining blood pressure and cholesterol. Pt has an upcoming flight that she is anxious for. Will send short duration of lorazepam. Educated pt on risk of addiction, this is not a long-term med. Pt understands that they can not drive while taking this med, share this med, and to only take as prescribed. [facility] Medical History [id number] syndrome Pneumonia Acute respiratory failure Pneumonia Chronic allergic rhinitis Family hx-breast malignancy Ureterolithiasis RLS (restless legs syndrome) Hiatal hernia Vitamin D deficiency Dyslipidemia Lumbar disc herniation Asthma GERD (gastroesophageal reflux disease) Surgical History H/O prior ablation treatment History of release of tendon Hx of cholecystectomy History of colposcopy Family History Father No problems noted. Mother Mental health disorder Maternal Grandfather No problems noted. Maternal Grandmother Mental health disorder Paternal Grandfather No problems noted. Paternal Grandmother No problems noted. Maternal Uncle Bladder cancer Paternal Grandmother Colon cancer Stroke Sister Mental health disorder Social History Household Members: Significant Other Housing: House Do you presently have visiting nurse or other home services: No Patient Tobacco Use Status: Never used Tobacco e-Cigarette/Vaping Use: Never Used Second Hand Smoke Exposure: No service: No Current occupational status: employed Cognitive needs: No Hearing needs: No Vision needs: No Questionnaire PHQ-9 Over the last 2 weeks, how often have you been bothered by any of the following problems? 1. Little interest or pleasure in doing things: not at all 2. Feeling down, depressed, or hopeless: several days 3. Trouble falling or staying asleep, or sleeping too much: several days 4. Feeling tired or having little energy: several days 5. Poor appetite or overeating: not at all 6. Feeling bad about yourself - or that you are a failure or have let yourself or your family down: not at all 7. Trouble concentrating on things, such as reading the newspaper or watching television: several days 8. Moving or speaking so slowly that other people could have noticed. Or the opposite - being so fidgety or restless that you have been moving around a lot more than usual: not at all 9. Thoughts that you would be better off or of hurting yourself in some way: not at all Total score: 4 Depression Screening Interpretation: Negative Depression Screening Done: Yes 04028 - PHQ-9 Billing: Yes Source: Developed by Drs. Sean Anthony, Mahogany Gupta, [employer] and colleagues, with an educational galileo from [employer]. Thrive Questionnaire Date Thrive assessed: 02/19/24 I am a: Patient What is your living situation today?: I have a steady place to live Within the past 12 months, did the food you bought not last and you didn't have the money to get more?: Never true Within the past 12 months, did you worry whether your food would run out before you got money to buy more?: Never true Do you have trouble paying for medicines?: No Do you have trouble getting transportation to medical appointments?: No Do you have trouble paying your heating and electricity bill?: No Do you have trouble taking care of your child, family member or friend?: No Do you have trouble with day-to-day activities such as bathing, preparing meals, shopping, managing finances, etc.?: No Are you currently unemployed and looking for a job?: No Are you interested in more education?: No Please select the resources that you would like help with: None Currently or been in a relationship where the following occur: no concerns reported THRIVE Score: 0 AUDIT C Alcohol Use Questionnaire (AUDIT-C) 1. How often do you have a drink containing alcohol?: 2-4 times a month 2. How many drinks containing alcohol do you have on a typical day when you are drinking?: 3 or 4 3. How often do you have six or more drinks on one occasion?: Less than monthly Total Score: 4 Score Reviewed/Action Taken: Yes SONU-7 AMB Questionnaire SONU-7 Date SONU - 7 assessed: 02/19/24 Feeling nervous, anxious, or on edge: 0 = Not at all Not being able to stop or control worryin = Not at all Worrying too much about different things: 0 = Not at all Trouble relaxin = Several days Being so restless that it is hard to sit still: 0 = Not at all Becoming easily annoyed or irritable: 0 = Not at all Feeling afraid as if something awful might happen: 0 = Not at all Total SONU-7 score (0-4 normal; 5-9 mild; 10-14 moderate; 15-21 severe): 1 Source: Developed by Drs. Sean Anthony, Mahogany Gupta, [employer] and colleagues, with an educational galileo from [employer]. SONU-7 Assessment Billing SONU-7 Assessment Tool: SONU-7 Assessment 57003 Review of Systems Const Reports as per HPI Physical exam (Primary Care) Vital Signs: Last Vital Signs Pulse 86 02/19/24 08:49 BP 118/70 02/19/24 08:49 Pulse Ox 98 02/19/24 08:49 Oxygen Delivery Method Room Air 02/19/24 08:49 BMI result Body Mass Index 32.9 Tobacco/Smoking Status: Tobacco use Status Tobacco use date assessed 11/12/23 02/19/24 08:48 Patient Tobacco Use Status Never used Tobacco 02/19/24 08:48 e-Cigarette/Vaping Use Never Used 02/19/24 08:48 PHQ-9: PHQ-9 Score PHQ-9: Total score 4 02/19/24 09:00 Depression Screening Interpretation: Negative Thrive Assessment: Date of Thrive Assessment Date Thrive assessed 02/19/24 02/19/24 08:55 Currently or been in a relationship where the following occur: no concerns reported Const General: cooperative Nutritional Appearance: obese Orientation/consciousness: patient oriented x3 Resp Effort & Inspection: normal respiratory effort Auscultation: clear to auscultation bilaterally Cardio Rate: regular rate Rhythm: regular rhythm Heart sounds: S1 normal heart sound present and S2 normal heart sound present Neuro General: patient oriented x3 Psych Appearance: grossly normal Mental Status: mental status grossly normal Speech and movement: Normal speech and movement present Affect: normal affect Attitude: cooperative Thought process: Normal thought process present Thought content: Normal thought content present Insight: Good insight present (Psych) Judgement: Good judgement present (Psych) Assessment and Plan Assessment & Plan (1) Family hx-stroke: Code(s): Z82.3 - Family history of stroke Plan: Labs ordered (2) Dyslipidemia: Code(s): E78.5 - Hyperlipidemia, unspecified Plan: Labs ordered (3) Anxiety with flying: Code(s): F40.243 - Fear of flying Plan: ativan sent, explained use of benzos and risks Plan The patient agreed to the use of a medical reimbursement manager for this encounter. Scribed for DEREJE Gold-BC by Ethel Orantes medical reimbursement manager, on 02/19/2024 at 09:00 EST. Orders: Orders UA CC w/rflx Micro + Cult Today E78.5 - Hyperlipidemia, unspecified, Z82.3 - Family history of stroke Lipid Panel Today E78.5 - Hyperlipidemia, unspecified, Z82.3 - Family history of stroke Complete Blood Count Auto Diff Today E78.5 - Hyperlipidemia, unspecified, Z82.3 - Family history of stroke Comprehensive [place]. Panel Fast Today E78.5 - Hyperlipidemia, unspecified, Z82.3 - Family history of stroke TSH reflex Free T4 Today E78.5 - Hyperlipidemia, unspecified, Z82.3 - Family history of stroke Medications: New lorazepam 0.5 mg PO BID 4 days PRN 8 tabs 0RF anxiety with flying Coding Level of Care Code Est Pt Level 3 (27716) Diagnoses Family hx-stroke Z82.3 Dyslipidemia E78.5 Anxiety with flying F40.243 Additional Codes SONU-7 Assessment Billing - SONU-7 Assessment Tool: SONU-7 Assessment 59325 ([id number])
[2024-02-19 08:49] VITALS: BP 118/70; PULSE 86; O2SAT 98; BMI 32.9
== END 2024-02-19 09:09 | disposition home or self-care (01) ==
PROVIDERS: PCP Nurse Practitioner Family; Visit Provider Nurse Practitioner Family
DX: E78.5 Hyperlipidemia, unspecified (principal); Z82.3 Family history of stroke; F40.243 Fear of flying
CPT/HCPCS: 99213

== ENCOUNTER 2024-03-17 08:49 | Outpatient (REF) | payer OTHER, SELFPAY ==
[2024-03-17 10:25] LABS: MANUAL DIFF FLAG NO
[2024-03-17 10:36] LABS: Appearance Urine Cloudy; Color Urine Yellow; Glucose Urine UA Negative (Negative); Leukocyte Esterase Urine Negative (Negative); Nitrite Urine Negative (Negative); Specific Gravity - Urine >= 1.030 (1.005-1.025); Urine Blood Negative (Negative); Urine Ketones Negative (Negative); Urine Protein Negative (Neg-Trace)
[2024-03-17 10:37] LABS: Basophils Percent Auto 0.5 % (0-2); Eosinophils Absolute Auto 0.2 X10*3/uL (0.0-0.4); Eosinophils Percent Auto 2.7 % (0-4); Hematocrit 39.9 % (37.0-47.0); Hemoglobin 13.3 g/dl (12.0-16.0); Imm Gran Abs Auto 0.02 X10*3/uL (0.00-0.03); Imm Gran Pct Auto 0.2 % (0.0-0.4); Lymphocytes Absolute Auto 2.2 X10*3/uL (1.2-4.9); Lymphocytes Percent Auto 26.9 % (20-40); Mean Corpuscular HGB Conc 33.3 g/dl (31.0-35.0); Mean Corpuscular Hemoglobin 30.8 pg (27.0-33.0); Mean Corpuscular Volume 92.4 fL (80.0-98.0); Mean Platelet Volume 10.8 fL (9.4-12.3); Monocytes Absolute Auto 0.7 X10*3/uL (0.1-1.2); Monocytes Percent Auto 8.1 % (2-11); Neutrophils Percent Auto 61.6 % (45-73); Platelet Count 276 X10*3/uL (160-400); Red Blood Count 4.32 X10*6/uL (4.20-5.50); Red Cell Distribution Width 13.3 % (11.0-16.0); White Blood Count 8.1 X10*3/uL (4.8-10.8)
[2024-03-17 10:52] LABS: Alanine Aminotransferase 29 U/L (0-31); Alkaline Phosphatase 89 U/L (39-117); Anion Gap 15 (12-20); Aspartate Amino Transferase 20 U/L (5-31); Bilirubin Total 0.2 mg/dL (0.0-1.0); Blood Urea Nitrogen 10 mg/dL (9-16); Calcium 8.9 mg/dL (8.4-10.2); Carbon Dioxide 23 mmol/L (22-29); Chloride 108 mmol/L (96-108); Cholesterol 157 mg/dL (<200); Estimated Glomerular Filt Rate > 60; Glucose Fasting 97 mg/dL (60-99); HDL Cholesterol 49 mg/dL (>40); LDL Cholesterol Calculated 95 mg/dL (<100); Potassium 3.8 mmol/L (3.3-5.1); Sodium 142 mmol/L (135-145); Total Protein 6.7 g/dL (6.5-8.0); Triglycerides 69 mg/dL (<150)
[2024-03-17 11:14] LABS: TSH reflex Free T4 1.22 uIU/mL (0.32-4.0)
== END 2024-03-17 08:50 | disposition home or self-care (01) ==
LOC: HO.HMGCLDS 08:49
PROVIDERS: PCP Nurse Practitioner Family; Visit Provider Nurse Practitioner Family
DX: E78.5 Hyperlipidemia, unspecified (principal); Z82.3 Family history of stroke
CPT/HCPCS: 36415; 80053; 80061; 81003; 84443; 85025

== ENCOUNTER 2024-07-28 10:46 | Outpatient (AMB) | payer OTHER, SELFPAY ==
[2024-07-28 10:53] VITALS: BP 112/78; PULSE 78; O2SAT 97; BMI 33.2
--- NOTE | 2024-07-28 10:53 | MHC.PC.OV ---
Vital Signs 07/28/24 10:53 Height 5 ft 5 in Weight 199 lb 6 oz BMI 33.2 BP 112/78 Blood Pressure Location Rt brachial Position Sitting Pulse 78 Pulse Source Pulse Oximeter Pulse Oximetry (%) 97 Oxygen Delivery Method Room Air Intake Visit Reasons: PE Intake Note: Pt is here today for her Annual Physical Allergies bee venom protein (honey bee) Allergy (Severe, Verified 07/28/24 10:54) Anaphylaxis bupropion [From Wellbutrin] Allergy (Intermediate, Verified 07/28/24 10:54) Swelling environmental allergies Allergy (Intermediate, Verified 07/28/24 10:54) Hives and Rash paroxetine [From Paxil] Allergy (Intermediate, Verified 07/28/24 10:54) Swelling codeine Allergy (Mild, Verified 07/28/24 10:54) Itching Medication List - Last Reconciled 07/28/24 by Neal Cassidy, TRUCK SAF[employer]Y INSPECTOR- albuterol sulfate 90 mcg/actuation 2 puffs inhalation Q4H PRN budesonide 0.5 mg inhalation Q4H PRN epinephrine (EpiPen 2-Rojelio) 0.3 mg (0.3 mL) IM Q10M PRN 30 days lorazepam 0.5 mg PO BID PRN 4 days nebulizers As directed omeprazole 40 mg PO DAILY roflumilast 250 mcg PO DAILY ropinirole 1 mg PO BEDTIME rosuvastatin 5 mg PO DAILY Symbicort 160-4.5 mcg/actuation (budesonide-formoterol) 2 puffs PO BID NS tezepelumab-ekko 210 mg (1.91 mL) subcut Q4W tiotropium bromide 1.25 mcg/actuation (Spiriva Respimat) 2 puffs PO BEDTIME valacyclovir 500 mg PO DAILY 90 days venlafaxine ER 75 mg PO DAILY Tobacco use date assessed: 07/28/24 Dental Screening Dental Screen Date: 07/28/24 Did you have a dental visit in the last 12 months?: Yes Did you have a dental problem in the last 6 months where you did not have access to dental care?: No Was dental information given to patient?: Patient has dentist HPI PE HPI Details Pt is here for a PE. Will order labs. Mammo is scheduled. 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 Pt c/o migraines. She reports that these occur in the front of her head. DOesnt have a Hx of these. Will order MRI and refer to neurology. She is also reporting restless legs. Will refer to neuro for this as well and I will check a ferritin. ? migraines related to lack of good sleep. 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 Mother Mental health disorder Maternal Grandfather No problems noted. Maternal Grandmother Mental health disorder Paternal Grandfather No problems noted. Paternal Grandmother No problems noted. Maternal Uncle Bladder cancer Paternal Grandmother Colon cancer Stroke Sister Mental health disorder Social History Household Members: Significant Other Housing: House Do you presently have visiting nurse or other home services: No Patient Tobacco Use Status: Never used Tobacco e-Cigarette/Vaping Use: Never Used Second Hand Smoke Exposure: No service: No Current occupational status: employed Cognitive needs: No Hearing needs: No Vision needs: No Questionnaire PHQ-9 Over the last 2 weeks, how often have you been bothered by any of the following problems? 1. Little interest or pleasure in doing things: not at all 2. Feeling down, depressed, or hopeless: not at all 3. Trouble falling or staying asleep, or sleeping too much: several days 4. Feeling tired or having little energy: several days 5. Poor appetite or overeating: not at all 6. Feeling bad about yourself - or that you are a failure or have let yourself or your family down: not at all 7. Trouble concentrating on things, such as reading the newspaper or watching television: several days 8. Moving or speaking so slowly that other people could have noticed. Or the opposite - being so fidgety or restless that you have been moving around a lot more than usual: not at all 9. Thoughts that you would be better off or of hurting yourself in some way: not at all Total score: 3 Depression Screening Interpretation: Negative Depression Screening Done: Yes 28616 - PHQ-9 Billing: Yes Source: Developed by Drs. Sean Anthony, Mahogany Gupta, Monster Win and colleagues, with an educational galileo from [employer]. Thrive Questionnaire Date Thrive assessed: 07/28/24 I am a: Patient What is your living situation today?: I have a steady place to live Within the past 12 months, did the food you bought not last and you didn't have the money to get more?: Never true Within the past 12 months, did you worry whether your food would run out before you got money to buy more?: Never true Do you have trouble paying for medicines?: No Do you have trouble getting transportation to medical appointments?: No Do you have trouble paying your heating and electricity bill?: No Do you have trouble taking care of your child, family member or friend?: No Do you have trouble with day-to-day activities such as bathing, preparing meals, shopping, managing finances, etc.?: No Are you currently unemployed and looking for a job?: No Are you interested in more education?: No Please select the resources that you would like help with: None Currently or been in a relationship where the following occur: No concerns reported THRIVE Score: 0 AUDIT C Alcohol Use Questionnaire (AUDIT-C) 1. How often do you have a drink containing alcohol?: Monthly or less 2. How many drinks containing alcohol do you have on a typical day when you are drinking?: 1 or 2 3. How often do you have six or more drinks on one occasion?: Less than monthly Total Score: 2 Score Reviewed/Action Taken: Yes SONU-7 AMB Questionnaire SONU-7 Date SONU - 7 assessed: 07/28/24 Feeling nervous, anxious, or on edge: 0 = Not at all Not being able to stop or control worryin = Not at all Worrying too much about different things: 0 = Not at all Trouble relaxin = Not at all Being so restless that it is hard to sit still: 0 = Not at all Becoming easily annoyed or irritable: 0 = Not at all Feeling afraid as if something awful might happen: 0 = Not at all Total SONU-7 score (0-4 normal; 5-9 mild; 10-14 moderate; 15-21 severe): 0 Source: Developed by Drs. Sean Anthony, Mahogany Gupta, Monster Win and colleagues, with an educational galileo from [employer]. SONU-7 Assessment Billing SONU-7 Assessment Tool: SONU-7 Assessment 29635 Review of Systems Const Denies chills and Denies fever(s) Eyes Denies blurry vision ENT Denies vertigo, Denies dizziness and Denies sore throat Card Denies chest pain at rest, Denies chest pain with activity, Denies diaphoresis, Denies dyspnea and Denies dyspnea on exertion Resp Denies cough, Denies dyspnea, Denies dyspnea on exertion and Denies wheezing GI Denies abdominal pain, Denies melena, Denies hematochezia, Denies constipation, Denies diarrhea and Denies loose stools Denies hematuria Musc Denies numbness and Denies tingling Skin/Breast Denies lesions Neuro Denies vertigo, Denies dizziness, Denies numbness and Denies tingling Psych Denies anxiety, Denies depression, Denies homicidal ideation, Denies suicidal ideation and Denies other (substance abuse) Aller/Immun Denies wheezing Physical exam (Primary Care) Vital Signs: Last Vital Signs Pulse 78 07/28/24 10:53 BP 112/78 07/28/24 10:53 Pulse Ox 97 07/28/24 10:53 Oxygen Delivery Method Room Air 07/28/24 10:53 BMI result Body Mass Index 33.2 Tobacco/Smoking Status: Tobacco use Status Tobacco use date assessed 07/28/24 07/28/24 10:55 Patient Tobacco Use Status Never used Tobacco 07/28/24 10:55 e-Cigarette/Vaping Use Never Used 07/28/24 10:55 PHQ-9: PHQ-9 Score PHQ-9: Total score 3 07/28/24 11:11 Depression Screening Interpretation: Negative Thrive Assessment: Date of Thrive Assessment Date Thrive assessed 07/28/24 07/28/24 10:55 Currently or been in a relationship where the following occur: No concerns reported Const General: cooperative Nutritional Appearance: obese Orientation/consciousness: patient oriented x3 HENMT Head: Yes normal to inspection, Yes normocephalic and Yes atraumatic Ears: TM's normal bilaterally Eyes General: appearance normal, both eyes and all related structures Alignment and Position: alignment normal and position normal Neck Neck: Yes normal visual inspection, Yes no lymphadenopathy and Yes supple Resp Effort & Inspection: normal respiratory effort Auscultation: clear to auscultation bilaterally Cardio Rate: regular rate Rhythm: regular rhythm Heart sounds: S1 normal heart sound present, S2 normal heart sound present and no murmurs GI Palpation (GI): Soft to palpation and nontender Auscultation: normal bowel sounds Skin Rashes: no rashes Neuro General: patient oriented x3, moves all extremities, no focal motor deficits, CN's II-XI intact bilaterally and deep tendon reflexes 2+ bilaterally Romberg Test: Negative Psych Appearance: grossly normal Mental Status: mental status grossly normal Speech and movement: Normal speech and movement present Affect: normal affect Attitude: cooperative Thought process: Normal thought process present Thought content: Normal thought content present Insight: Good insight present (Psych) Judgement: Good judgement present (Psych) Assessment and Plan Assessment & Plan (1) Physical exam: Code(s): Z.00 - Encounter for general adult medical examination without abnormal findings Plan: Labs ordered (2) New onset headache: Code(s): R51.9 - Headache, unspecified Plan: MRI ordered, referred to neuro (3) RLS (restless legs syndrome): Code(s): G25.81 - Restless legs syndrome Plan: Referred to neuro, checking ferritin Plan The patient agreed to the use of a medical office coordinator for this encounter. Scribed for GEREMIAS Gold by Ethel Orantes medical office coordinator, on 07/28/2024 at 11:10 EST. Orders: Orders TSH reflex Free T4 Today Z00.00 - Encounter for general adult medical examination without abnormal findings UA CC w/rflx Micro + Cult Today Z00.00 - Encounter for general adult medical examination without abnormal findings Complete Blood Count Auto Diff Today Z00.00 - Encounter for general adult medical examination without abnormal findings Comprehensive [place]. Panel Fast Today Z00.00 - Encounter for general adult medical examination without abnormal findings Lipid Panel Today Z00.00 - Encounter for general adult medical examination without abnormal findings MR head/brain wo con Today R51.9 - Headache, unspecified Ferritin Today G25.81 - Restless legs syndrome IRON PROFILE Today G25.81 - Restless legs syndrome Referrals Neurology Referral R51.9 - Headache, unspecified Coding Level of Care Code Est Pt Prev Care 40-64y([id number]) Diagnoses Physical exam Z00.00 New onset headache R51.9 RLS (restless legs syndrome) G25.81 Additional Codes SONU-7 Assessment Billing - SONU-7 Assessment Tool: SONU-7 Assessment 21793 ([id number])
== END 2024-07-28 11:55 | disposition home or self-care (01) ==
PROVIDERS: PCP Nurse Practitioner Family; Visit Provider Nurse Practitioner Family
DX: Z00.00 Encounter for general adult medical examination without abnormal findings (principal); R51.9 Headache, unspecified; G25.81 Restless legs syndrome

== ENCOUNTER → 2024-07-28 10:46 | Outpatient (BNVA) | payer OTHER, SELFPAY | PROVIDERS: PCP Nurse Practitioner Family; Visit Provider Nurse Practitioner Family | DX: Z00.01 Encounter for general adult medical examination with abnormal findings (principal); R51.9 Headache, unspecified; G25.81 Restless legs syndrome | CPT/HCPCS: 96127 ==

== ENCOUNTER 2024-08-04 09:43 | Outpatient (REF) | payer OTHER, SELFPAY ==
--- NOTE | ~2024-08-04 | MM_ITS ---
EXAMINATION: MM SCREENING DIGITAL BREAST TOMOSYNTHESIS, BILATERAL CLINICAL INFORMATION: Screening. Asymptomatic. COMPARISON: Mammography: Comparison is made with available priors TECHNIQUE: Digital breast mammography with tomosynthesis is performed in both the craniocaudal and mediolateral oblique views along with computer-aided detection (CAD). FINDINGS: There are scattered areas of fibroglandular density (ACR BI-RADS breast composition Category b). There are no significant masses, abnormal calcifications, or other abnormalities. MM/MM tomosynthesis screening BI IMPRESSION: No mammographic evidence of malignancy. ASSESSMENT: BI-RADS BI-RADS 1 - Negative RECOMMENDATION: Routine annual mammography screening. 1 year F/U This examination should not preclude the clinical evaluation of a suspicious palpable abnormality. This patient's information was entered into a reminder system with a target due date for their next mammogram. Electronically signed by: Misty Luis DO 08/15/2024 09:51 AM EDT
== END 2024-08-04 09:44 | disposition home or self-care (01) ==
LOC: HO.MAMMO 09:43
PROVIDERS: PCP Nurse Practitioner Family; Visit Provider Nurse Practitioner Family
DX: Z12.31 Encounter for screening mammogram for malignant neoplasm of breast (principal)
CPT/HCPCS: 77063; 77067

== ENCOUNTER → 2024-08-04 10:15 | Outpatient (BNV) | payer OTHER, SELFPAY | PROVIDERS: PCP Nurse Practitioner Family; Visit Provider Internal Medicine | DX: Z12.31 Encounter for screening mammogram for malignant neoplasm of breast (principal) | CPT/HCPCS: 77063; 77067 ==

== ENCOUNTER 2024-09-12 09:11 | Outpatient (AMB) | payer OTHER, SELFPAY ==
--- NOTE | 2024-09-12 09:13 | A.OFFVIS_ITS ---
Vital Signs 09/12/24 09:15 Height 5 ft 5 in Weight 196 lb 3.382 oz BMI 32.6 BP 126/80 Blood Pressure Location Rt brachial Position Sitting Pulse 102 H Pulse Source Pulse Oximeter Pulse Oximetry (%) 98 Oxygen Delivery Method Room Air Intake Visit Reasons: Follow up Lending Activities Supervisor Required: No Hand Glove Cleaner: Hand Glove Cleaner offered & declined Accompanied by: Self / Same As Patient Allergies bee venom protein (honey bee) Allergy (Severe, Verified 09/12/24 09:18) Anaphylaxis bupropion [From Wellbutrin] Allergy (Intermediate, Verified 09/12/24 09:18) Swelling environmental allergies Allergy (Intermediate, Verified 09/12/24 09:18) Hives and Rash paroxetine [From Paxil] Allergy (Intermediate, Verified 09/12/24 09:18) Swelling codeine Allergy (Mild, Verified 09/12/24 09:18) Itching Medication List - Last Reconciled 09/12/24 by Edilia Lombardi LPN albuterol sulfate 90 mcg/actuation 2 puffs inhalation Q4H PRN budesonide 0.5 mg inhalation Q4H PRN epinephrine (EpiPen 2-Rojelio) 0.3 mg (0.3 mL) IM Q10M PRN 30 days lorazepam 0.5 mg PO BID PRN 4 days lorazepam 1 mg PO DAILY 1 day nebulizers As directed omeprazole 40 mg PO DAILY roflumilast 250 mcg PO DAILY ropinirole 1 mg PO BEDTIME rosuvastatin 5 mg PO DAILY Symbicort 160-4.5 mcg/actuation (budesonide-formoterol) 2 puffs PO BID NS tezepelumab-ekko 210 mg (1.91 mL) subcut Q4W tiotropium bromide 1.25 mcg/actuation (Spiriva Respimat) 2 puffs PO BEDTIME valacyclovir 500 mg PO DAILY 90 days venlafaxine ER 75 mg PO DAILY HPI Comments Details: The patient is a 44-year-old woman with a known history of severe persistent asthma in his addition to significant allergies. She is current not receiving any allergy therapy. She has been on Symbicort 80 mcg/4.5 which she uses twice a day. Since September she started developing significant chest pain across her breast area. Pleuritic in nature moderate to severe. She was initially evaluated at an urgent care where she had a D-dimer that was negative she had an x-ray and she was placed on prednisone for asthma. 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 He did order a CT scan of the chest noncontrast demonstrating the beginnings of a right lower lobe pneumonia. She was placed on levofloxacin in addition to additional steroids. The patient did not feel any significantly better. Her chest pain however did get better. Still having shortness of breath needing her nebulizer very often sometimes every of 4 hours. Due to the fact that she wasn't getting better she went to the [facility] ED which he was admitted to the hospital. She did have a CTA done that ruled out pulmonary emboli but did demonstrate interval worsening of the right lower lobe pneumonia with what areas of atelectasis suggesting either mucous plugging or and unclear etiology. She was treated with antibiotics while in the hospital she had a respiratory panel was negative. The patient continues to have shortness of breath. Denies any fevers or chills and her chest pain is not resolved. She is wondering if she has a candidate for biologic therapy for significant asthma. At this point will work on maximizing her respiratory therapy. We did again review her CT scan of the chest demonstrating the right lower lobe airspace disease. At this point the patient completed a course of antibiotics. The patient also be started on budesonide. If she is no better and or for x-ray continues to be persistently abnormal in that right base then will consider bronchoscopy. She has been following the reflux diet. She is also sleeping elevated. The patient has also been doing peak flows. Her ideal peak flow is 483, but she is only able to get to the high 300s mid 400s depending on before after therapy. She did start the Xolair which is too early to tell is going to be effective for her. But she did not have any reactions to it. She did have a sleep study demonstrating no evidence of any sleep apnea she is happy about that. She still having issues with reflux disease. Moderate severity esophagitis. She does take the Prilosec. We talked about promotility agents consider in the future. In the meantime she can consider started Pepcid. She also uses significant amount of medications specially for sleep and also for restless leg. At some point will check her iron levels and see if we can get her off some of these medications is a provide her medical regimen. 12/30/2021 the patient is here for a pulmonary follow-up visit. Since we last spoke she had been admitted to the hospital with severe COVID and COVID pneumonia requiring high levels of oxygen supplementation. She also required aggressive medical therapy while she was there. She is now recovering. She still short of breath and also fatigue. She understands this will take some time to recover from. In the meantime she is trying to get effective sleep. She had been off the Xolair for her asthma. Now that she is better she is back taking her Xolair. She also better booster shot. The patient is back to work full-time. We did review her imaging studies in addition to her CT scan demonstrating extensive airspace disease and significant basilar consolidations. Therefore will repeat her chest x-ray in a couple months to assess her baseline. 05/09/2022 the patient is here for a pulmonary follow-up visit. Overall she is doing a little better. She did have severe COVID back in the winter. She did have a prolonged hospitalization requiring high-flow. Her CT scan at that time demonstrated significant ground-glas opacities in addition to consolidations. She did have a repeat chest x-ray demonstrating some reticular changes at the right base. This is not surprising with the degree of disease as she had. She feels like she cannot expand her lungs fully. Feels like sometimes wrap around her chest. Which is typical of post COVID syndrome. She has also noticed increased heart rates which is also typical of post COVID syndrome. The patient responded initially well to the steroids. She continues on Xolair. This is helping her allergy is tremendously. We did talk about other biologic therapy but at this point I would not change it. the patient has had multiple courses of steroids throughout the year. Patient at this point will benefit from Daliresp. This will help her with her chronic bronchitis and chest congestion. Hopefully also decreasing need for prednisone and decrease exacerbations. The patient understands that it does have significant GI symptoms. Therefore, will start a low dose and try to workup the dose as tolerated. 09/12/2022 the patient is here for sick visit. The patient does scan back from the [facility] She did have a very good time and she was not sick during that trip. She did take a cruise. When she got back she started having worsening respiratory symptoms. She started having significant wheezing. She has been using her nebulizer every 4 hours. She has a worsening cough congested in nature. Moderate to severe. In the office she did receive 2 DuoNeb treat ments with only partial improvement of her symptoms. Therefore she was given Solu-Medrol. The patient has significant rhonchi on examination bilaterally. The patient did have a bad case of COVID in beginning of the year with bilateral severe pneumonia. The patient which is recovering from that. 11/14/2022 the patient is here for a pulmonary follow-up visit. The patient states that she has been under the weather now for about 4 weeks. She started developing worsening productive cough with yellow green sputum sometime in late September. Her symptoms improved somewhat. She continue to use respiratory therapy in her nebulizer. She did not use any antibiotics. She ultimately underwent surgery for her ankle. The patient is recovering well and she will have to have no weight-bearing for some time. Her cough still congested. She continues on the Xolair continues use her respiratory therapy. Will go ahead and start a course of Augmentin at this time. Will hold off on any prednisone in view of her wound healing and recent surgery. If her symptoms worsen she is to call the office. If she does not clear the congestion with the Augmentin she is to provide us with sputum culture and also get a chest x-ray. If the patient is not able to bring up phlegm at least going to for culture will go ahead and perform a bronchoscopy for deep cultures and therapeutic cleaning of the airways. At this point she will stand biologic therapy with Xolair. If the patient continues to be symptomatic in if this is a noninfectious process that we can consider a different biologic. 01/09/2023 the patient is here for a telehealth visit. She is still having difficulties with breathing. Complains of chest tightness and coughing. Moderate severity. She had been on the Xolair but was not noticing any significant improvement on the Xolair for the last few months. Then she had an issue with her insurance which she had not used it for about 4 weeks and she is still not any better. We did talk about other alternative biologic such as Tezspire or Dupixent. I do believe that the patient is no longer responding well to the Xolair therefore will see if we can switch over to a different alternatives. She is already maximized with respiratory therapy and she is very adherent to her therapy. We will trying to minimizing the use of prednisone. The last time she used it was back in September. She recently had surgery for her orthopedic injury and therefore trying to minimize any prednisone to to allow proper healing. 05/11/2023 the patient is here for a pulmonary follow-up visit. The patient is still struggling with her asthma. Having significant chest tightness and wheezing. She also recently had surgery. Avoiding prednisone due to her orthopedic injuries in the healing process and she just had surgery. Apparently she had surgery and then had to have a revision recently so she is still healing from that. She stop the Xolair once it was no longer effective although was effective for period of time. She definitely has allergic asthma. We did check her eosinophils in that were not elevated. I do believe that in order to control her asthma we should consider othern biologics such as Tezspire. 09/18/2023 the patient is here for sick visit. She is having hard time with her breathing for the last couple days. Started developing a croupy cough. Moderate severity. Also some chest tightness and wheezing. She has been using all inhalers. In the meantime she did start the new biologic regimen, Tezspire. She seems to be tolerating it. Although she still not sure how effective it is for her. Explained to her that infectious processes will still trigger asthma and this is likely the issue. Will go ahead and treated for a lower respiratory infections since she probably has tracheitis with screw. We did swab her for flu RSV and COVID and were all negative. The patient will continue with current respiratory regimen. Will plan to follow-up in 3-4 months and see her response to therapy. If the patient is no better she will call for an earlier assessment. 09/12/2024 the patient is here for sick visit. Apparently almost a week ago she started developing worsening respiratory symptoms with cough chest tightness. She had just gotten the flu shot. She was not sure if it was related. She did go to an urgent care. There she did have an x-ray. I do not have the images but she was told she had patchy opacities. She was treated for pneumonia with doxycycline and Vantin. She was also given 40 mg of prednisone. Did not feel any significant improvement. She is finishing up now the antibiotics and the prednisone. She does have significant croupy cough. She states that she was vaccinated for pertussis. She did have a congested cough before but seems to be clearing all those her cough is still pretty significant. She does have significant frequent coughing during the exam difficult to assess but appears to have some degree of bronchospastic cough. Diminished breath sounds bilaterally. No crackles that I can appreciate. Will go ahead and give her additional prednisone but also will treat her with azithromycin to treat for pertussis. Also provide with cough medication to aid with her cough. If the patient is no better after the weekend treatment she can come and get an x-ray. She will get Solu-Medrol 125 mg IM x1 prior to leaving. She will start the prednisone tomorrow. 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 Mother Mental health disorder Maternal Grandfather No problems noted. Maternal Grandmother Mental health disorder Paternal Grandfather No problems noted. Paternal Grandmother No problems noted. Maternal Uncle Bladder cancer Paternal Grandmother Colon cancer Stroke Sister Mental health disorder Social History (Updated 09/12/24 @ 09:18 by Edilia Lombardi LPN) Household Members: Significant Other Housing: House Do you presently have visiting nurse or other home services: No Patient Tobacco Use Status: Never used Tobacco e-Cigarette/Vaping Use: Never Used Second Hand Smoke Exposure: No service: No Current occupational status: employed Cognitive needs: No Hearing needs: No Vision needs: No Review of Systems Const Reports body aches, Reports chills, Reports fatigue and Denies fever(s) Eyes Denies blurry vision ENT Denies vertigo, Denies dizziness, Reports nasal congestion and Reports sore throat Card Denies chest pain at rest, Denies chest pain with activity, Denies diaphoresis, Reports dyspnea and Reports dyspnea on exertion Resp Reports chest congestion, Reports cough, Denies hemoptysis, Reports dyspnea, Reports dyspnea on exertion and Reports wheezing GI Denies abdominal pain, Denies melena, Denies hematochezia, Denies constipation, Denies diarrhea and Denies loose stools Denies hematuria Musc Denies numbness and Denies tingling Skin/Breast Denies lesions Neuro Denies vertigo, Denies dizziness, Denies numbness and Denies tingling Psych Denies anxiety, Denies depression, Denies homicidal ideation, Denies suicidal ideation and Denies other (substance abuse) Endo Reports fatigue Aller/Immun Reports wheezing Physical Exam Vital Signs: Last Vital Signs Pulse 102 H 09/12/24 09:15 BP 126/80 09/12/24 09:15 Pulse Ox 98 09/12/24 09:15 Oxygen Delivery Method Room Air 09/12/24 09:15 BMI result Body Mass Index 32.6 Const General: alert Neck Neck: Yes normal visual inspection, Yes full ROM and Yes no lymphadenopathy Chest Chest palpation & inspection: normal inspection of the chest Resp Effort & Inspection: Actively coughing Auscultation: no crackles, no rales, rhonchi, wheezes and diminished lung sounds Cardio Rate: regular rate Rhythm: regular rhythm Heart sounds: S1 normal heart sound present and S2 normal heart sound present GI Palpation (GI): Soft to palpation and nontender Auscultation: normal bowel sounds Skin General skin exam: rashes and/or lesions noted Office Meds methylprednisolone sod suc(PF) 125 mg/2 mL solution for injection Performing Provider: Jack Ruffin MD Performing Location: [facility] Administered by: Edilia Lombardi LPN on 09/12/24 09:36 Dose Route Admin Location Dispensed Lot Number Expiration Date [facility] Body Liner 125 mg IM rt buttock 2 ea [id number] 06/28/26 2527-0108-96 [employer] Comments: 2ml /125 mg given. Assessment & Plan Assessment & Plan (1) Asthma: Code(s): J45.909 - Unspecified asthma, uncomplicated Category: Medical Qualifiers: Asthma complication type: with acute exacerbation Asthma persistence: persistent Asthma severity: severe Qualified Code(s): J45.51 - Severe persistent asthma with (acute) exacerbation (2) Bronchitis: Code(s): J40 - Bronchitis, not specified as acute or chronic Category: Medical (3) GERD (gastroesophageal reflux disease): Code(s): K21.9 - Gastro-esophageal reflux disease without esophagitis Category: Medical Qualifiers: Esophagitis presence: without esophagitis Qualified Code(s): K21.9 - Gastro-esophageal reflux disease without esophagitis Plan solumedrol 125mg IM x 1 Prednisone taper Azithromycin x 5 days cough nedicine tessalon as needed continue Symbicort continue Spiriva continue Tezspire, ok to hold until better short-acting beta agonist as needed Daliresp CXR call if no better follow-up in 2-3 months Orders: Orders XR chest 2V 09/12/24 J40 - Bronchitis, not specified as acute or chronic AMB Methylprednisolone Sod Succ Injection 09/12/24 J40 - Bronchitis, not specified as acute or chronic Medications: New azithromycin 500 mg PO DAILY 5 tabs 0RF 5 days codeine-guaifenesin 10-100 mg/5 mL 10 mL PO Q6H PRN 300 mL 0RF cough 10 days prednisone PO daily; Take 6 tabs daily x 3 days, then 5 tabs x 3 days, then 4 tabs x 3 days, then 3 tabs x 3 days, then 2 tabs daily x 3 days, then 1 tab x 3 days to complete. 63 tabs 0RF 18 days benzonatate 200 mg PO BID PRN 60 caps 5RF cough 30 days Coding Level of Care Code Est Pt Level 4 (32074) Diagnoses Severe persistent asthma with acute exacerbation J45.51 Asthma complication type: with acute exacerbation Asthma persistence: persistent Asthma severity: severe Bronchitis J40 Gastroesophageal reflux disease without esophagitis K21.9 Esophagitis presence: without esophagitis Time Spent (min) 17
[2024-09-12 09:15] VITALS: BP 126/80; PULSE 102; O2SAT 98; BMI 32.6
== END 2024-09-12 09:35 | disposition home or self-care (01) ==
PROVIDERS: PCP Nurse Practitioner Family; Visit Provider Hospitalist
DX: J45.51 Severe persistent asthma with (acute) exacerbation (principal); K21.9 Gastro-esophageal reflux disease without esophagitis
CPT/HCPCS: 99214

== ENCOUNTER → 2024-09-12 09:11 | Outpatient (BNVA) | payer OTHER, SELFPAY | PROVIDERS: PCP Nurse Practitioner Family; Visit Provider Hospitalist | DX: J45.51 Severe persistent asthma with (acute) exacerbation (principal); J40 Bronchitis, not specified as acute or chronic; K21.9 Gastro-esophageal reflux disease without esophagitis | CPT/HCPCS: 96372; J2919 ==

== ENCOUNTER 2024-11-26 08:07 | Outpatient (REF) | payer OTHER, SELFPAY ==
[2024-11-26 10:29] LABS: MANUAL DIFF FLAG NO
[2024-11-26 10:49] LABS: Basophils Percent Auto 0.5 % (0-2); Eosinophils Absolute Auto 0.1 X10*3/uL (0.0-0.4); Eosinophils Percent Auto 2.3 % (0-4); Hematocrit 39.2 % (37.0-47.0); Hemoglobin 12.9 g/dl (12.0-16.0); Imm Gran Abs Auto 0.01 X10*3/uL (0.00-0.03); Imm Gran Pct Auto 0.2 % (0.0-0.4); Lymphocytes Absolute Auto 1.9 X10*3/uL (1.2-4.9); Mean Corpuscular HGB Conc 32.9 g/dl (31.0-35.0); Mean Corpuscular Hemoglobin 29.5 pg (27.0-33.0); Mean Corpuscular Volume 89.7 fL (80.0-98.0); Mean Platelet Volume 10.6 fL (9.4-12.3); Monocytes Absolute Auto 0.5 X10*3/uL (0.1-1.2); Monocytes Percent Auto 7.8 % (2-11); Neutrophils Absolute Auto 3.5 x10*3/uL (2.0-8.3); Neutrophils Percent Auto 58.2 % (45-73); Platelet Count 291 X10*3/uL (160-400); Red Blood Count 4.37 X10*6/uL (4.20-5.50); Red Cell Distribution Width 13.4 % (11.0-16.0)
[2024-11-26 11:22] LABS: Alanine Aminotransferase 32 U/L (0-31); Alkaline Phosphatase 84 U/L (39-117); Anion Gap 9 (12-20); Aspartate Amino Transferase 24 U/L (5-31); Bilirubin Total 0.4 mg/dL (0.0-1.0); Blood Urea Nitrogen 11 mg/dL (9-16); Carbon Dioxide 24 mmol/L (22-29); Chloride 109 mmol/L (96-108); Cholesterol 166 mg/dL (<200); Estimated Glomerular Filt Rate > 60; Glucose Fasting 88 mg/dL (60-99); HDL Cholesterol 45 mg/dL (>40); Iron 51 mcg/dL (30-160); LDL Cholesterol Calculated 99 mg/dL (<100); Percent Iron Saturation 17 % (15-50); Sodium 138 mmol/L (135-145); Total Iron Binding Capacity 295 mcg/dL (228-428); Total Protein 6.8 g/dL (6.5-8.0); Triglycerides 110 mg/dL (<150); Unsaturated Iron Binding 244 ug/dL
[2024-11-26 11:39] LABS: Ferritin 11 ng/mL (10-250); TSH reflex Free T4 1.55 uIU/mL (0.32-4.0)
[2024-11-26 17:27] LABS: Appearance Urine Cloudy; Color Urine Yellow; Glucose Urine UA Negative (Negative); Leukocyte Esterase Urine Trace (Negative); Nitrite Urine Negative (Negative); PH 5.5 (5.0-9.0); Specific Gravity - Urine 1.015 (1.005-1.025); UMIC TRIGGER UACC YES; Urine Blood Moderate (2+) (Negative); Urine Ketones Negative (Negative); Urine Protein Negative (Neg-Trace)
[2024-11-26 17:58] LABS: Bacteria Urine 2+ (None Seen); Hyaline Casts Urine 0-2 /LPF (0-2); RBC Urine 0-2 /HPF (0-2); Squamous Epithelial Cell Urine >20 /HPF (0-2); WBC Urine 0-5 /HPF (0-5)
== END 2024-11-26 08:08 | disposition home or self-care (01) ==
LOC: HO.HMGCLDS 08:07
PROVIDERS: PCP Nurse Practitioner Family; Visit Provider Nurse Practitioner Family
DX: Z00.00 Encounter for general adult medical examination without abnormal findings (principal); G25.81 Restless legs syndrome
CPT/HCPCS: 36415; 80053; 80061; 81001; 81003; 82728; 83540; 84443; 85025

== ENCOUNTER 2024-11-26 14:20 | Outpatient (REF) | payer OTHER, SELFPAY | END 2024-11-26 14:21 | disposition home or self-care (01) | LOC: HO.HMGCLNP 14:20 | PROVIDERS: PCP Nurse Practitioner Family; Visit Provider Nurse Practitioner Family | DX: Z13.89 Encounter for screening for other disorder (principal) ==

== ENCOUNTER 2025-01-26 08:05 | Outpatient (AMB) | payer OTHER, SELFPAY ==
--- NOTE | 2025-01-26 08:11 | A.OFFPC_ITS ---
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: No Accompanied by: Self / Same As Patient Allergies bee venom protein (honey bee) Allergy (Severe, Verified 01/26/25 08:42) Anaphylaxis bupropion [From Wellbutrin] Allergy (Intermediate, Verified 01/26/25 08:42) Swelling environmental allergies Allergy (Intermediate, Verified 01/26/25 08:42) Hives and Rash paroxetine [From Paxil] Allergy (Intermediate, Verified 01/26/25 08:42) Swelling codeine Allergy (Mild, Verified 01/26/25 08:42) Itching Medication List - Last Reconciled 01/26/25 by Neal Cassidy, [employer]- albuterol sulfate 90 mcg/actuation 2 puffs inhalation Q4H PRN budesonide 0.5 mg inhalation Q4H PRN epinephrine (EpiPen 2-Rojelio) 0.3 mg (0.3 mL) IM Q10M PRN 30 days ferrous sulfate 325 mg PO 3XW nebulizers As directed omeprazole 40 mg PO DAILY roflumilast 250 mcg PO DAILY ropinirole 2 mg PO BEDTIME rosuvastatin 5 mg PO DAILY sumatriptan succinate 50 mg PO Symbicort 160-4.5 mcg/actuation (budesonide-formoterol) 2 puffs PO BID NS tezepelumab-ekko 210 mg (1.91 mL) subcut Q4W tiotropium bromide 1.25 mcg/actuation (Spiriva Respimat) 2 inhalations PO BEDTIME valacyclovir 500 mg PO DAILY 90 days venlafaxine ER 37.5 mg PO DAILY Tobacco use date assessed: 01/26/25 Dental Screening Dental Screen Date: 01/26/25 Did you have a dental visit in the last 12 months?: Yes Did you have a dental problem in the last 6 months where you did not have access to dental care?: No Was dental information given to patient?: Patient has dentist HPI 6 month follow up HPI Details Chief Complaint The patient is experiencing ongoing restless legs. History of Present Illness The patient is a 44-year-old female presenting with ongoing Restless Legs Syndrome, characterized by persistent symptoms affecting her quality of life. A Neurology consultation is scheduled for three months from now. Recent laboratory findings indicate iron deficiency, evidenced by a low ferritin level of 11 ng/mL. Previously, she was on a regimen of iron supplementation three times a week, which has been insufficient to reach the recommended ferritin levels of 50 to 75 ng/mL. In light of this, her iron supplementation frequency has been escalated to daily. In anticipation of constipation as a side effect, the use of senna at night is recommended. The patient comprehends the correlation between her ferritin levels and restless leg symptoms and acknowledges the need for optimization of her iron status. An increase in ropinirole dosage is also implemented as part of her treatment strategy. Overall, she reports a good general condition and understanding of her therapeutic regimen. Social History Health Maintenance Review of Systems - denies any sob, cp, n/v, dizziness Physical Exam General: Cooperative, healthy appearing, comfortable, no acute distress and well developed Orientation: Patient oriented x3 Limitations: No limitations Head: Normal to inspection Ears: Hearing grossly normal bilaterally Nose: Normal external nose present Face and sinus: Normal facial exam Eyes: Appearance normal, both eyes and all related structures Neck: Normal visual inspection and Yes full ROM Respiratory: Normal respiratory effort and able to speak in complete sentences. Clear to auscultation bilaterally Cardiovascular: Regular rate and rhythm. Normal S1 and S2 GI: Normal to inspection. Soft to palpation and nontender Skin: No rashes or lesions noted Neuro: Patient oriented x3 Extremities: Normal to inspection Results - Labs: Ferritin level low at 11 ng/mL. Plan The management of the patient's Restless Legs Syndrome involves increasing the frequency of iron supplementation to daily intake to correct her iron deficiency anemia, with a noted ferritin level of 11 ng/mL. The target ferritin level is between 50 and 75 ng/mL for symptom relief. A nightly dose of senna will be recommended if constipation occurs due to increased iron intake. Ropinirole dosage will also be increased to better manage her symptoms. We will monitor her ferritin and iron levels in one month to evaluate progress. The patient is informed about the importance of improving ferritin levels to manage restless legs effectively and has agreed to the plan. Discussion Notes I discussed with the patient the relationship between low ferritin levels and Restless Legs Syndrome, highlighting the necessity to increase ferritin to alleviate her symptoms. An increase in iron supplementation frequency to daily was recommended, and the use of senna nightly was suggested to manage potential side effects like constipation. The dosage of ropinirole will be increased to better control her restless legs. We will recheck her ferritin and iron levels in a month to assess progress. The patient understands and agrees with this plan, recognizing the importance of improvement in her iron status for the management of her symptoms. Patient Instructions - Take iron supplements daily. - Monitor for constipation and take bambi a at night if needed. - Follow the adjusted dosage of ropiniro le as discussed. - Observe for any changes in restless le gs symptoms. - Return in one month for reassessment o f ferritin and iron levels. 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 Mother Mental health disorder Maternal Grandfather No problems noted. Maternal Grandmother Mental health disorder Paternal Grandfather No problems noted. Paternal Grandmother No problems noted. Maternal Uncle Bladder cancer Paternal Grandmother Colon cancer Stroke Sister Mental health disorder Social History Household Members: Significant Other Housing: House Do you presently have visiting nurse or other home services: No Patient Tobacco Use Status: Never used Tobacco e-Cigarette/Vaping Use: Never Used Second Hand Smoke Exposure: No service: No Current occupational status: employed Cognitive needs: No Hearing needs: No Vision needs: No Questionnaire PHQ-9 Over the last 2 weeks, how often have you been bothered by any of the following problems? 1. Little interest or pleasure in doing things: not at all 2. Feeling down, depressed, or hopeless: not at all 3. Trouble falling or staying asleep, or sleeping too much: several days 4. Feeling tired or having little energy: several days 5. Poor appetite or overeating: not at all 6. Feeling bad about yourself - or that you are a failure or have let yourself or your family down: not at all 7. Trouble concentrating on things, such as reading the newspaper or watching television: not at all 8. Moving or speaking so slowly that other people could have noticed. Or the opposite - being so fidgety or restless that you have been moving around a lot more than usual: not at all 9. Thoughts that you would be better off or of hurting yourself in some way: not at all Total score: 2 Depression Screening Interpretation: Negative Depression Screening Done: Yes 85077 - PHQ-9 Billing: Yes Source: Developed by Drs. Sean Anthony, Mahogany Gupta, Monster Win and colleagues, with an educational galileo from [email or web address] Thrive Questionnaire Date Thrive assessed: 01/26/25 I am a: Patient What is your living situation today?: I have a steady place to live Within the past 12 months, did the food you bought not last and you didn't have the money to get more?: Never true Within the past 12 months, did you worry whether your food would run out before you got money to buy more?: Never true Do you have trouble paying for medicines?: No Do you have trouble getting transportation to medical appointments?: No Do you have trouble paying your heating and electricity bill?: No Do you have trouble taking care of your child, family member or friend?: No Do you have trouble with day-to-day activities such as bathing, preparing meals, shopping, managing finances, etc.?: No Are you currently unemployed and looking for a job?: No Are you interested in more education?: No Please select the resources that you would like help with: None Currently or been in a relationship where the following occur: No concerns reported THRIVE Score: 0 AUDIT C Alcohol Use Questionnaire (AUDIT-C) 1. How often do you have a drink containing alcohol?: 2-4 times a month 2. How many drinks containing alcohol do you have on a typical day when you are drinking?: 3 or 4 3. How often do you have six or more drinks on one occasion?: Less than monthly Total Score: 4 Score Reviewed/Action Taken: Yes SONU-7 AMB Questionnaire SONU-7 Date SONU - 7 assessed: 01/26/25 Feeling nervous, anxious, or on edge: 0 = Not at all Not being able to stop or control worryin = Not at all Worrying too much about different things: 0 = Not at all Trouble relaxin = Several days Being so restless that it is hard to sit still: 1 = Several days Becoming easily annoyed or irritable: 0 = Not at all Feeling afraid as if something awful might happen: 0 = Not at all Total SONU-7 score (0-4 normal; 5-9 mild; 10-14 moderate; 15-21 severe): 2 Source: Developed by Drs. Sean Anthony, Mahogany Gupta, Monster Win and colleagues, with an educational galileo from [email or web address] SONU-7 Assessment Billing SONU-7 Assessment Tool: SONU-7 Assessment 22826 Physical exam (Primary Care) Vital Signs: Last Vital Signs Pulse 80 01/26/25 08:12 BP 118/74 01/26/25 08:12 Pulse Ox 98 01/26/25 08:12 Oxygen Delivery Method Room Air 01/26/25 08:12 BMI result Body Mass Index 32.6 Tobacco/Smoking Status: Tobacco use Status Tobacco use date assessed 01/26/25 01/26/25 08:14 Patient Tobacco Use Status Never used Tobacco 01/26/25 08:14 e-Cigarette/Vaping Use Never Used 01/26/25 08:14 PHQ-9: PHQ-9 Score PHQ-9: Total score 2 01/26/25 08:14 Depression Screening Interpretation: Negative Thrive Assessment: Date of Thrive Assessment Date Thrive assessed 01/26/25 01/26/25 08:14 Currently or been in a relationship where the following occur: No concerns reported Coding Level of Care Code Est Pt Level 3 (84301) Diagnoses RLS (restless legs syndrome) G25.81 Additional Codes SONU-7 Assessment Billing - SONU-7 Assessment Tool: SONU-7 Assessment 92399 ([id number]) PHQ-9 - 19440 - PHQ-9 Billing: Yes ([id number]) Assessment & Plan Assessment & Plan (1) RLS (restless legs syndrome): Code(s): - Restless legs syndrome Category: Medical Plan . Orders: Orders Complete Blood Count Auto Diff Today - Restless legs syndrome IRON PROFILE Today - Restless legs syndrome Comprehensive Met. Panel Today - Restless legs syndrome Ferritin Today - Restless legs syndrome Medications: Changed From ropinirole 1 mg PO BEDTIME 90 tabs 3RF To ropinirole 2 mg PO BEDTIME 30 tabs 3RF
[2025-01-26 08:12] VITALS: BP 118/74; PULSE 80; O2SAT 98; BMI 32.6
== END 2025-01-26 09:48 | disposition home or self-care (01) ==
LOC: HO.HMCC 08:06
PROVIDERS: PCP Nurse Practitioner Family; Visit Provider Nurse Practitioner Family
DX: G25.81 Restless legs syndrome (principal)

== ENCOUNTER → 2025-01-26 08:05 | Outpatient (BNVA) | payer OTHER, SELFPAY | PROVIDERS: PCP Nurse Practitioner Family; Visit Provider Nurse Practitioner Family | DX: G25.81 Restless legs syndrome (principal); D50.9 Iron deficiency anemia, unspecified | CPT/HCPCS: 96127 ==

== ENCOUNTER 2025-02-23 09:19 | Outpatient (AMB) | payer OTHER, SELFPAY ==
[2025-02-23 09:23] VITALS: BP 110/60; PULSE 76; O2SAT 100; BMI 32.3
--- NOTE | 2025-02-23 09:23 | MHC.OFFVIS ---
Vital Signs 02/23/25 09:23 Height 5 ft 5 in Weight 194 lb 0.108 oz BMI 32.3 BP 110/60 Blood Pressure Location Rt brachial Position Sitting Pulse 76 Pulse Source Pulse Oximeter Pulse Oximetry (%) 100 Oxygen Delivery Method Room Air Intake Visit Reasons: asthma Allergies bee venom protein (honey bee) Allergy (Severe, Verified 02/23/25 09:27) Anaphylaxis bupropion [From Wellbutrin] Allergy (Intermediate, Verified 02/23/25 09:27) Swelling environmental allergies Allergy (Intermediate, Verified 02/23/25 09:27) Hives and Rash paroxetine [From Paxil] Allergy (Intermediate, Verified 02/23/25 09:27) Swelling codeine Allergy (Mild, Verified 02/23/25 09:27) Itching HPI Comments Details: The patient is a 45-year-old woman with a known history of severe persistent asthma in his addition to significant allergies. She is current not receiving any allergy therapy. She has been on Symbicort 80 mcg/4.5 which she uses twice a day. Since September she started developing significant chest pain across her breast area. Pleuritic in nature moderate to severe. She was initially evaluated at an urgent care where she had a D-dimer that was negative she had an x-ray and she was placed on prednisone for asthma. Subsequently symptoms continue worsening and she went to see her supervisor force adjustment. He did order a CT scan of the chest noncontrast demonstrating the beginnings of a right lower lobe pneumonia. She was placed on levofloxacin in addition to additional steroids. The patient did not feel any significantly better. Her chest pain however did get better. Still having shortness of breath needing her nebulizer very often sometimes every of 4 hours. Due to the fact that she wasn't getting better she went to the [facility] ED which he was admitted to the hospital. She did have a CTA done that ruled out pulmonary emboli but did demonstrate interval worsening of the right lower lobe pneumonia with what areas of atelectasis suggesting either mucous plugging or and unclear etiology. She was treated with antibiotics while in the hospital she had a respiratory panel was negative. The patient continues to have shortness of breath. Denies any fevers or chills and her chest pain is not resolved. She is wondering if she has a candidate for biologic therapy for significant asthma. At this point will work on maximizing her respiratory therapy. We did again review her CT scan of the chest demonstrating the right lower lobe airspace disease. At this point the patient completed a course of antibiotics. The patient also be started on budesonide. If she is no better and or for x-ray continues to be persistently abnormal in that right base then will consider bronchoscopy. She has been following the reflux diet. She is also sleeping elevated. The patient has also been doing peak flows. Her ideal peak flow is 483, but she is only able to get to the high 300s mid 400s depending on before after therapy. She did start the Xolair which is too early to tell is going to be effective for her. But she did not have any reactions to it. She did have a sleep study demonstrating no evidence of any sleep apnea she is happy about that. She still having issues with reflux disease. Moderate severity esophagitis. She does take the Prilosec. We talked about promotility agents consider in the future. In the meantime she can consider started Pepcid. She also uses significant amount of medications specially for sleep and also for restless leg. At some point will check her iron levels and see if we can get her off some of these medications is a provide her medical regimen. 12/30/2021 the patient is here for a pulmonary follow-up visit. Since we last spoke she had been admitted to the hospital with severe COVID and COVID pneumonia requiring high levels of oxygen supplementation. She also required aggressive medical therapy while she was there. She is now recovering. She still short of breath and also fatigue. She understands this will take some time to recover from. In the meantime she is trying to get effective sleep. She had been off the Xolair for her asthma. Now that she is better she is back taking her Xolair. She also better booster shot. The patient is back to work full-time. We did review her imaging studies in addition to her CT scan demonstrating extensive airspace disease and significant basilar consolidations. Therefore will repeat her chest x-ray in a couple months to assess her baseline. 05/09/2022 the patient is here for a pulmonary follow-up visit. Overall she is doing a little better. She did have severe COVID back in the winter. She did have a prolonged hospitalization requiring high-flow. Her CT scan at that time demonstrated significant ground-glas opacities in addition to consolidations. She did have a repeat chest x-ray demonstrating some reticular changes at the right base. This is not surprising with the degree of disease as she had. She feels like she cannot expand her lungs fully. Feels like sometimes wrap around her chest. Which is typical of post COVID syndrome. She has also noticed increased heart rates which is also typical of post COVID syndrome. The patient responded initially well to the steroids. She continues on Xolair. This is helping her allergy is tremendously. We did talk about other biologic therapy but at this point I would not change it. the patient has had multiple courses of steroids throughout the year. Patient at this point will benefit from Daliresp. This will help her with her chronic bronchitis and chest congestion. Hopefully also decreasing need for prednisone and decrease exacerbations. The patient understands that it does have significant GI symptoms. Therefore, will start a low dose and try to workup the dose as tolerated. 09/12/2022 the patient is here for sick visit. The patient does scan back from the [facility]. She did have a very good time and she was not sick during that trip. She did take a cruise. When she got back she started having worsening respiratory symptoms. She started having significant wheezing. She has been using her nebulizer every 4 hours. She has a worsening cough congested in nature. Moderate to severe. In the office she did receive 2 DuoNeb treatments with only partial improvement of her symptoms. Therefore she was given Solu-Medrol. The patient has significant rhonchi on examination bilaterally. The patient did have a bad case of COVID in beginning of the year with bilateral severe pneumonia. The patient which is recovering from that. 11/14/2022 the patient is here for a pulmonary follow-up visit. The patient states that she has been under the weather now for about 4 weeks. She started developing worsening productive cough with yellow green sputum sometime in late September. Her symptoms improved somewhat. She continue to use respiratory therapy in her nebulizer. She did not use any antibiotics. She ultimately underwent surgery for her ankle. The patient is recovering well and she will have to have no weight-bearing for some time. Her cough still congested. She continues on the Xolair continues use her respiratory therapy. Will go ahead and start a course of Augmentin at this time. Will hold off on any prednisone in view of her wound healing and recent surgery. If her symptoms worsen she is to call the office. If she does not clear the congestion with the Augmentin she is to provide us with sputum culture and also get a chest x-ray. If the patient is not able to bring up phlegm at least going to for culture will go ahead and perform a bronchoscopy for deep cultures and therapeutic cleaning of the airways. At this point she will stand biologic therapy with Xolair. If the patient continues to be symptomatic in if this is a noninfectious process that we can consider a different biologic. 01/09/2023 the patient is here for a telehealth visit. She is still having difficulties with breathing. Complains of chest tightness and coughing. Moderate severity. She had been on the Xolair but was not noticing any significant improvement on the Xolair for the last few months. Then she had an issue with her insurance which she had not used it for about 4 weeks and she is still not any better. We did talk about other alternative biologic such as Tezspire or Dupixent. I do believe that the patient is no longer responding well to the Xolair therefore will see if we can switch over to a different alternatives. She is already maximized with respiratory therapy and she is very adherent to her therapy. We will trying to minimizing the use of prednisone. The last time she used it was back in September. She recently had surgery for her orthopedic injury and therefore trying to minimize any prednisone to to allow proper healing. 05/11/2023 the patient is here for a pulmonary follow-up visit. The patient is still struggling with her asthma. Having significant chest tightness and wheezing. She also recently had surgery. Avoiding prednisone due to her orthopedic injuries in the healing process and she just had surgery. Apparently she had surgery and then had to have a revision recently so she is still healing from that. She stop the Xolair once it was no longer effective although was effective for period of time. She definitely has allergic asthma. We did check her eosinophils in that were not elevated. I do believe that in order to control her asthma we should consider othern biologics such as Tezspire. 09/18/2023 the patient is here for sick visit. She is having hard time with her breathing for the last couple days. Started developing a croupy cough. Moderate severity. Also some chest tightness and wheezing. She has been using all inhalers. In the meantime she did start the new biologic regimen, Tezspire. She seems to be tolerating it. Although she still not sure how effective it is for her. Explained to her that infectious processes will still trigger asthma and this is likely the issue. Will go ahead and treated for a lower respiratory infections since she probably has tracheitis with screw. We did swab her for flu RSV and COVID and were all negative. The patient will continue with current respiratory regimen. Will plan to follow-up in 3-4 months and see her response to therapy. If the patient is no better she will call for an earlier assessment. 09/12/2024 the patient is here for sick visit. Apparently almost a week ago she started developing worsening respiratory symptoms with cough chest tightness. She had just gotten the flu shot. She was not sure if it was related. She did go to an urgent care. There she did have an x-ray. I do not have the images but she was told she had patchy opacities. She was treated for pneumonia with doxycycline and Vantin. She was also given 40 mg of prednisone. Did not feel any significant improvement. She is finishing up now the antibiotics and the prednisone. She does have significant croupy cough. She states that she was vaccinated for pertussis. She did have a congested cough before but seems to be clearing all those her cough is still pretty significant. She does have significant frequent coughing during the exam difficult to assess but appears to have some degree of bronchospastic cough. Diminished breath sounds bilaterally. No crackles that I can appreciate. Will go ahead and give her additional prednisone but also will treat her with azithromycin to treat for pertussis. Also provide with cough medication to aid with her cough. If the patient is no better after the weekend treatment she can come and get an x-ray. She will get Solu-Medrol 125 mg IM x1 prior to leaving. She will start the prednisone tomorrow. 02/23/2025 the patient is here for a pulmonary follow-up visit. Since we last spoke she stopped taking the test part. She did not feel like it was helping and she had issues with the delivery. Therefore she has been off all biologic. Seems to fairly okay. Although recently she started developing worsening cough sore throat and pinkeye. She feels as his allergies although likely that she has a viral syndrome. She does have erythema on the back of the throat. May have a component of strep. Therefore will start her on doxycycline to see if this provides some relief. In the meantime she continues with respiratory therapy. I will make sure for her to have enough cough medication available she deals with this acute cough. Appears to be slightly croupy likely viral. Will continue with current respiratory therapy will follow-up in 6-8 months if she develops any issues prior to that she will call for an earlier assessment. [facility] Medical History (Updated 02/23/25 @ 21:33 by Jack Ruffin MD) Cough [id number] syndrome Pneumonia Acute respiratory failure Pneumonia Chronic allergic rhinitis Family hx-breast malignancy Ureterolithiasis RLS (restless legs syndrome) Hiatal hernia Vitamin D deficiency Dyslipidemia Lumbar disc herniation Asthma GERD (gastroesophageal reflux disease) Surgical History H/O prior ablation treatment History of release of tendon Hx of cholecystectomy History of colposcopy Family History Father No problems noted. Mother Mental health disorder Maternal Grandfather No problems noted. Maternal Grandmother Mental health disorder Paternal Grandfather No problems noted. Paternal Grandmother No problems noted. Maternal Uncle Bladder cancer Paternal Grandmother Colon cancer Stroke Sister Mental health disorder Social History Household Members: Significant Other Housing: House Do you presently have visiting nurse or other home services: No Patient Tobacco Use Status: Never used Tobacco e-Cigarette/Vaping Use: Never Used Second Hand Smoke Exposure: No service: No Current occupational status: employed Cognitive needs: No Hearing needs: No Vision needs: No Review of Systems Const Denies fever(s) Eyes Denies blurry vision ENT Denies vertigo, Denies dizziness, Reports nasal congestion, Reports sinus pressure and Reports sore throat Card Denies chest pain at rest, Denies chest pain with activity, Denies diaphoresis and Reports dyspnea on exertion Resp Reports cough, Denies hemoptysis and Reports dyspnea on exertion GI Denies abdominal pain, Denies melena, Denies hematochezia, Denies constipation, Denies diarrhea and Denies loose stools Denies hematuria Musc Denies numbness and Denies tingling Skin/Breast Denies lesions Neuro Denies vertigo, Denies dizziness, Denies numbness and Denies tingling Psych Denies anxiety, Denies depression, Denies homicidal ideation, Denies suicidal ideation and Denies other (substance abuse) Physical Exam Vital Signs: Last Vital Signs Pulse 76 02/23/25 09:23 BP 110/60 02/23/25 09:23 Pulse Ox 100 02/23/25 09:23 Oxygen Delivery Method Room Air 02/23/25 09:23 BMI result Body Mass Index 32.3 Const General: alert HEENT Ears: Abnormal EAC present General nose exam: Nasal discharge present Throat: Yes posterior oropharynx abnormal Neck Neck: Yes normal visual inspection, Yes full ROM and Yes no lymphadenopathy Chest Chest palpation & inspection: normal inspection of the chest Resp Effort & Inspection: Actively coughing Auscultation: clear to auscultation bilaterally, no crackles and no rales Cardio Rate: regular rate Rhythm: regular rhythm Heart sounds: S1 normal heart sound present and S2 normal heart sound present GI Palpation (GI): Soft to palpation and nontender Auscultation: normal bowel sounds Skin General skin exam: rashes and/or lesions noted Assessment & Plan Assessment & Plan (1) Asthma: Code(s): J45.909 - Unspecified asthma, uncomplicated Category: Medical Qualifiers: Asthma complication type: with acute exacerbation Asthma persistence: persistent Asthma severity: severe Qualified Code(s): J45.51 - Severe persistent asthma with (acute) exacerbation (2) GERD (gastroesophageal reflux disease): Code(s): K21.9 - Gastro-esophageal reflux disease without esophagitis Category: Medical Qualifiers: Esophagitis presence: without esophagitis Qualified Code(s): K21.9 - Gastro-esophageal reflux disease without esophagitis (3) Cough: Code(s): R05.9 - Cough, unspecified Category: Medical Qualifiers: Cough type: acute Qualified Code(s): R05.1 - Acute cough (4) Sinusitis: Code(s): J32.9 - Chronic sinusitis, unspecified Category: Medical Qualifiers: Sinusitis location: frontal Chronicity: acute Recurrence: non-recurrent Qualified Code(s): J01.10 - Acute frontal sinusitis, unspecified (5) Pharyngitis: Code(s): J02.9 - Acute pharyngitis, unspecified Category: Medical Qualifiers: Pharyngitis/tonsillitis etiology: other specified organisms Qualified Code(s): J02.8 - Acute pharyngitis due to other specified organisms Plan cough nedicine start Doxycycline tessalon as needed continue Symbicort continue Spiriva off Tezspire short-acting beta agonist as needed Daliresp Allergy referral follow-up in 6-8 months Orders: Referrals Allergy & Immunology Referral J45.909 - Unspecified asthma, uncomplicated Medications: New doxycycline monohydrate 100 mg PO BID 28 tabs 0RF 14 days Changed From albuterol sulfate 90 mcg/actuation 2 puffs inhalation Q4H PRN 1 ea 0RF Shortness Of Breath Or Wheezing To albuterol sulfate 90 mcg/actuation 2 puffs inhalation Q4H PRN 1 ea 11RF Shortness Of Breath Or Wheezing 30 days Refilled epinephrine (EpiPen 2-Rojelio) for 2 doses 0.3 mg (0.3 mL) IM Q10M PRN 2 ea 6RF anaphylaxis 30 days J45.40 - Moderate persistent asthma, uncomplicated Coding Level of Care Code Est Pt Level 4 (25082) Diagnoses Severe persistent asthma with acute exacerbation J45.51 Asthma complication type: with acute exacerbation Asthma persistence: persistent Asthma severity: severe Gastroesophageal reflux disease without esophagitis K21.9 Esophagitis presence: without esophagitis Acute cough R05.1 Cough type: acute Acute non-recurrent frontal sinusitis J01.10 Sinusitis location: frontal Chronicity: acute Recurrence: non-recurrent Pharyngitis due to other organism J02.8 Pharyngitis/tonsillitis etiology: other specified organisms Time Spent (min) 16
== END 2025-02-23 09:52 | disposition home or self-care (01) ==
LOC: HO.HPS 09:20
PROVIDERS: PCP Nurse Practitioner Family; Visit Provider Hospitalist
DX: J45.51 Severe persistent asthma with (acute) exacerbation (principal); K21.9 Gastro-esophageal reflux disease without esophagitis; R05.1 Acute cough; J01.10 Acute frontal sinusitis, unspecified; J02.8 Acute pharyngitis due to other specified organisms
CPT/HCPCS: 99214

== ENCOUNTER → 2025-02-23 09:19 | Outpatient (BNVA) | payer OTHER, SELFPAY | PROVIDERS: PCP Nurse Practitioner Family; Visit Provider Hospitalist ==

== ENCOUNTER 2025-03-30 08:12 | Outpatient (AMB) | payer OTHER, SELFPAY ==
[2025-03-30 08:28] VITALS: BP 110/82; PULSE 85; O2SAT 97; BMI 32.6
--- NOTE | 2025-03-30 08:28 | A.OFFVIS_ITS ---
Vital Signs 03/30/25 08:28 Height 5 ft 5 in Weight 196 lb BMI 32.6 BP 110/82 Blood Pressure Location Lt brachial Position Sitting Pulse 85 Pulse Source Pulse Oximeter Pulse Oximetry (%) 97 Oxygen Delivery Method Room Air Intake Visit Reasons: INP- Headache Founder & Ceo Required: No Accompanied by: Self / Same As Patient Allergies bee venom protein (honey bee) Allergy (Severe, Verified 03/30/25 08:38) Anaphylaxis bupropion [From Wellbutrin] Allergy (Intermediate, Verified 03/30/25 08:38) Swelling environmental allergies Allergy (Intermediate, Verified 03/30/25 08:38) Hives and Rash paroxetine [From Paxil] Allergy (Intermediate, Verified 03/30/25 08:38) Swelling codeine Allergy (Mild, Verified 03/30/25 08:38) Itching Medication List - Last Reconciled 03/30/25 by DEREJE Mills albuterol sulfate 90 mcg/actuation 2 puffs inhalation Q4H PRN 30 days budesonide 0.5 mg inhalation Q4H PRN doxycycline monohydrate 100 mg PO BID 14 days epinephrine (EpiPen 2-Rojelio) 0.3 mg (0.3 mL) IM Q10M PRN 30 days ferrous sulfate 325 mg PO DAILY nebulizers As directed omeprazole 40 mg PO DAILY roflumilast 250 mcg PO DAILY ropinirole 2 mg PO BEDTIME rosuvastatin 5 mg PO DAILY sennosides (Natural Senna Laxative) 8.6 mg PO BEDTIME sumatriptan succinate 50 mg PO Symbicort 160-4.5 mcg/actuation (budesonide-formoterol) 2 puffs PO BID NS tiotropium bromide 1.25 mcg/actuation (Spiriva Respimat) 2 inhalations PO BEDTIME valacyclovir 500 mg PO DAILY 90 days venlafaxine ER 37.5 mg PO DAILY HPI Comments Details: Right-handed 45-yr-old female presents for new pt evaluation of headache disorder, and pt would like to also discuss bothersome restless leg symptoms. Pt reports she has had headaches since childhood intermittently, which she could just lay down and they would go away. However, in the last year, the headcahes are more frequent and more severe. She denies preceding infection, injury, travel. She expresses concern regarding the worsening headaches, as she has a strong family h/o cance, strokes, intracranial aneurysm/hemorrhage. She lost her mother d/t intracranial hemorrhage, and her 48 yo old sister who in her sleep- advanced cardiovascular disease- HF EF 5%. PMH and ROS are notable for:? General: fatigue, insomnia, borderline anemia Musculoskeletal disorders or injury: muscle cramps at rest. chronic back pain- s/p a PRP tx in bilateral SI joints 7 yrs ago- which did eventually help- by [facility] pain management. History of concussion/head injury: denies Mood d/o: Depression- controlled. Denies compulsive behaviors. Respiratory d/o: Asthma, h/o Covid-19 severe w/ acute resp failure in Oct 2021. CV disease: HLD Clotting or hematology d/o: denies Endocrine or metabolic d/o: denies History of seizure: denies. History of syncope: denies History of drop attacks: denies : kidney stones GI d/o: GERD. Denies IBS or constipation- on senna d/t ferrous sulfate use. [employer]ICE: Menses is irregular- prone to heavy cycles. Family history of migraine or other headache disorder: Sister- migraine, Mother- TBI, migraines, RLS, suffered a fatal hemorrhagic stroke at age 69. Lifestyle considerations: * Sleep routine: Usual bedtime: goal is 8:30pm, usually 10pm and wake-up time: varies based on her or her husbands work schedule- her may wake up at 2-3am to go to work, and her dogs wake her up by 6am. * Sleep difficulties: Endorses: Ruminating thoughts, sleep initiation and maintanence difficulties. Snoring, Excessive daytime sleepiness, Fatigue, Leg Cramps, Bruxism during the day- does not use a mouth guard. * Restless leg- legs just go, go, go, go, go , almost a discomfort, needs to move, cramps at rest. Denies cramps w/ walking. She has been on Ropinirole x's 10 yrs- helps sometimes, but sometimes nothing helps. Has tried Gabapentin post-ankle sx- tolertaed well, but never tried for RLS s/s. Previously, on ambien to help w/ ruminating thoughts- however states it was stopped d/t increased risks in females. On ferrous sulfate 325mg daily- can cause constipation. Oct 2024 ferritin- 11. * 01/22/2020: HST AHI < 1, O2 lashanda 90%. * Caffeine use: 1 cup of coffee per day in the am- tries to avoid after 12pm. * Substance use: marijuana edibles for sleep. * Exercise:?not much, better during the warmer months * Employment:?works 3 12 hour shifts 8-8 on weekdays, and 6-6 on weekends. 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 * Family planning: possibly in the near future. Headache questionnaire:? Age/time of onset: childhood Preceding causes: no known causes Previous work-up: Brain MRI w/o, 09/21, normal Types of headache disorders: 1 w/ varying intensities Typical headache characteristics: Prodrome symptoms: denies Aura: at x's- sees a kaledioscope during the headache- lasts about 45-60 minutes. Pain intensity: mild-severe Location, quality, characteristics: Pressure behind her eye Associated symptoms: photophobia, phonophobia, nausea, at times vomiting, internal/external spinning dizziness, at x's lightheadedness, fatigue, cognitive difficulties, activity intolerance. Postdrome: lingering nagging migraine hangover Aggravating factors: general activity Triggers: Denies triggers, other than prior to menstrual cycle at times. Time of day: No specific time of day Duration and Frequency: Typically 2 x's per week, lasting a couple of hours to 1-2 days. Headache impact on pt's QOL: sometimes has to miss work Current acute medication use/interventions: Excedrin migraine, Sumatriptan 50mg- sometimes works- takes as the headache is getting bad. Current preventative medication use: None Current non-pharmacological interventions: rest [facility] Medical History (Updated 03/30/25 @ 19:44 by DEREJE Mills) Cough [id number] syndrome Pneumonia Acute respiratory failure Pneumonia Chronic allergic rhinitis Family hx-breast malignancy Ureterolithiasis RLS (restless legs syndrome) Hiatal hernia Vitamin D deficiency Dyslipidemia Lumbar disc herniation Asthma GERD (gastroesophageal reflux disease) Surgical History H/O prior ablation treatment History of release of tendon Hx of cholecystectomy History of colposcopy Family History Father No problems noted. Mother Mental health disorder Maternal Grandfather No problems noted. Maternal Grandmother Mental health disorder Paternal Grandfather No problems noted. Paternal Grandmother No problems noted. Maternal Uncle Bladder cancer Paternal Grandmother Colon cancer Stroke Sister Mental health disorder Social History Household Members: Significant Other Housing: House Do you presently have visiting nurse or other home services: No Patient Tobacco Use Status: Never used Tobacco e-Cigarette/Vaping Use: Never Used Second Hand Smoke Exposure: No service: No Current occupational status: employed Cognitive needs: No Hearing needs: No Vision needs: No Physical Exam Vital Signs: Last Vital Signs Pulse 85 03/30/25 08:28 BP 110/82 03/30/25 08:28 Pulse Ox 97 03/30/25 08:28 Oxygen Delivery Method Room Air 03/30/25 08:28 BMI result Body Mass Index 32.6 Const Orientation/consciousness: patient oriented x3 Resp Effort & Inspection: normal respiratory effort and able to speak in complete sentences Neuro Other: Retrognathia Mallampati stge 4 Bilateral TMJ crepitus, w/ right TMJ discomfort w/ consecutive opening/closing of the jaw. Mild signs of lower teeth wearing. No palpable scalp tenderness. Mild foreward head posture and posterior cervical tightness. Bilateral negative Spurling. General: patient oriented x3 Cranial nerves: Yes CN's II-XII intact bilaterally Cognition (Neuro): normal cognition Gait exam (Neuro): Normal gait present Motor exam (neuro): 5/5 motor strength present throughout Deep tendon reflexes (DTR's): Right triceps reflex intensity grade: 2+, Left triceps reflex intensity grade: 2+, Rt Biceps (C5, C6): 2+, Left biceps reflex intensity grade: 2+, Right brachioradialis reflex intensity grade: 2+, Left brachioradialis reflex intensity grade: 2+, Right patellar reflex intensity grade: 2+ and Left patellar reflex intensity grade: 2+ Coordination: [id number] test normal, tandem gait normal and Romberg test negative Pupils: Normal pupillary reactivity/response: bilateral Psych Appearance: grossly normal Mental Status: mental status grossly normal Speech and movement: Normal speech and movement present Affect: normal affect Attitude: cooperative Thought process: Normal thought process present Assessment & Plan Assessment & Plan (1) Worsening headaches: Code(s): R51.9 - Headache, unspecified Category: Medical (2) RLS (restless legs syndrome): Code(s): G25.81 - Restless legs syndrome Category: Medical (3) Low serum ferritin level: Code(s): R79.0 - Abnormal level of blood mineral Category: Medical (4) Migraine with aura: Code(s): G43.109 - Migraine with aura, not intractable, without status migrainosus Category: Medical (5) Family history of intracranial hemorrhage: Code(s): Z82.3 - Family history of stroke Category: Medical Plan For restless leg syndrome: * Will request hematology consult for evaluation for possible IV iron infusion, as Oct 2024 ferritin 11. * In the meantime, continue ferrous sulfate 325mg po daily w/ vitamin C- would not increase d/t risk for worsening constipation * Continue Ropinirole 2mg daily at bedtime. * Navigating Life with Restless Leg Syndrome by Dr Mejía is a good resource to earn more about both pharmacological and non-pharmacological treatsments for RLS. For worsening headache, in setting of strong family h/o intracranial aneurysm (Intracranial aneurysm- mother, maternal brother, maternal 1st cousin), CV disease, stroke, and especially fatal intracranial hemorrhage in pt's mother, patient is advised to undergo: MRI brain w/wo MRA brain w/o MRV brain w/wo Pt requests pre-medication prior to above studies d/t claustrophobia. Future considerations: in-lab PSG For overall headache management: * Optimize good self-care, including but not limited to maintaining a healthy diet, adequate fluid intake, adequate sleep, and engaging in regular physical activity. * Track headaches, especially after any treatment regimen changes. Migraine BudAlerts is one of many headache tracking apps. * Information shared on non-pharmacological interventions which may help to alleviate headache attack burden. For light sensitivity: Patient may benefit from trying blue light filtering glasses, green glasses, green light therapy. For sound sensitivity: Patent may benefit from trying noise cancellation ear plugs. Neuromodulation devices, which can be used alone or with pharmacological treatment, such as Nerivio- which has safety data supporting its use in . * Trial an OTC Mouth guard For acute headache treatment: Discussed importance of taking acute medications at the first sign of headache, however avoid acute medication overuse (especially with combined headache medications). Increase Sumatriptan from 50mg tab to 100mg tab, 1/2 - 1 tab (50-100mg) at onset of headache, may repeat in 2 hours. Max of 2 tabs (200mg) per 24 hours. May take sumatriptan with OTC Tylenol 650-1,000mg every 4-6 hours, Ibuprofen (liquid gels) 600mg every 6 hours, or Naproxen (liquid gels) 440mg q 12 hrs prn. Potential adverse effects of triptans, include but are not limited to nausea, fatigue, chest tightness/tingling (usually passes within a few minutes), medication overuse headaches. Previous acute migraine medication trials: Sumatriptan 50mg- not alway effective. Acute migraine medication contraindications: None at this time For headache prevention medication: Preventative medications should be taken routinely as prescribed for best effect, it may take several weeks for full effect to take effect. Start Riboflavin 400mg daily in the morning Start Magnesium 400mg daily at bedtime- may help RLS and leg cramps as well. Start Amitriptyline 10mg daily at bedtime. Potential side effects include but are not limited to fatigue, cardiac arrhythmias, mood changes. Previous migraine prevention medication trials: none other Migraine prevention medication contraindications: Topiramate, depakote, CGRP MaBs d/t current desire for . All beta-blockers d/t symptomatic asthma. Will follow-up upon review of above and patient to follow-up in clinic in 3 months or sooner prn. Orders: Orders MR venography head wo/w con Today R51.9 - Headache, unspecified, Z82.3 - Family history of stroke MR angio head wo con Today R51.9 - Headache, unspecified, Z82.3 - Family history of stroke MR head/brain wo/w con Today R51.9 - Headache, unspecified, Z82.3 - Family history of stroke Referrals Hematology & Oncology Referral G25.81 - Restless legs syndrome, R79.0 - Abnormal level of blood mineral Medications: New sumatriptan succinate (0.5 - 1 x 100 mg) 50 - 100 mg orally at onset of headache, may repeat in 2 hrs PRN; max 2 tabs per day or 4 tabs/week (may take with Ibuprofen) 30 days 12 tabs 6RF migraine headache magnesium oxide may hold for loose stools 400 mg PO BEDTIME 30 days 30 tabs 6RF amitriptyline 10 mg PO BEDTIME 30 days 30 tabs 3RF alprazolam 1 tab 30 minutes prior to MRIs, MR x's 1 (max 2 tabs per day) orally .; PRN; 2 days 4 tabs 0RF claustrophobia riboflavin (vitamin B2) 400 mg PO DAILY 30 days 30 tabs 6RF Coding Level of Care Code New Pt Level 4 (07709) Diagnoses Worsening headaches R51.9 RLS (restless legs syndrome) G25.81 Low serum ferritin level R79.0 Migraine with aura G43.109 Family history of intracranial hemorrhage Z82.3
== END 2025-03-30 10:06 | disposition home or self-care (01) ==
LOC: HO.HSMS 08:13
PROVIDERS: PCP Nurse Practitioner Family; Visit Provider Nurse Practitioner Family
DX: R51.9 Headache, unspecified (principal); G25.81 Restless legs syndrome; R79.0 Abnormal level of blood mineral; G43.109 Migraine with aura, not intractable, without status migrainosus; Z82.3 Family history of stroke
CPT/HCPCS: 99204

== ENCOUNTER 2025-06-30 07:43 | Outpatient (AMB) | payer OTHER, SELFPAY ==
--- NOTE | 2025-06-30 07:25 | MHC.OFFVIS ---
Intake Visit Reasons: 3m OK per [facility] Intake Note: Follow up care Metal Model Builder Required: No Accompanied by: Self / Same As Patient Allergies bee venom protein (honey bee) Allergy (Severe, Verified 06/30/25 07:40) Anaphylaxis bupropion (From Wellbutrin) Allergy (Intermediate, Verified 06/30/25 07:40) Swelling environmental allergies Allergy (Intermediate, Verified 06/30/25 07:40) Hives and Rash paroxetine (From Paxil) Allergy (Intermediate, Verified 06/30/25 07:40) Swelling codeine Allergy (Mild, Verified 06/30/25 07:40) Itching HPI Comments Details: Right-handed 45-yr-old female presents for f/u of headache and RLS. Pt underwent left ear skin cancer excision on 05/26/2025- has appt today to discuss fulll results. She reports overall her headaches are not occurring as frequently, now 1-2 days per week. She has tolerated the increase in the sumatriptan to the 100 mg tab. She notes that earlier treatment is more effective, however it can be difficult to know when a headache is coming on and if she does not catch the headache, it can be severe associated with nausea. She tried Amitriptyline, but it caused difficulty sleeping, so she stopped it. She did see hematology who felt that pt's ferritin was sufficient- at 32, and advised her to stop the B2, Mag, and oral iron supplement. She states her RLS is stable. 03/30/2025, Initial HPI: Right-handed 45-yr-old female presents for new pt evaluation of headache disorder, and pt would like to also discuss bothersome restless leg symptoms. Pt reports she has had headaches since childhood intermittently, which she could just lay down and they would go away. However, in the last year, the headcahes are more frequent and more severe. She denies preceding infection, injury, travel. She expresses concern regarding the worsening headaches, as she has a strong family h/o cancer, strokes, intracranial aneurysm/hemorrhage. She lost her mother d/t intracranial hemorrhage, and her 48 yo old sister who in her sleep- advanced cardiovascular disease- HF EF 5%. PMH and ROS are notable for:? General: fatigue, insomnia, borderline anemia Musculoskeletal disorders or injury: muscle cramps at rest. chronic back pain- s/p a PRP tx in bilateral SI joints 7 yrs ago- which did eventually help- by [facility] pain management. History of concussion/head injury: denies Mood d/o: Depression- controlled. Denies compulsive behaviors. Respiratory d/o: Asthma, h/o Covid-19 severe w/ acute resp failure in Oct 2021. CV disease: HLD Clotting or hematology d/o: denies Endocrine or metabolic d/o: denies History of seizure: denies. History of syncope: denies History of drop attacks: denies : kidney stones GI d/o: GERD. Denies IBS or constipation- on senna d/t ferrous sulfate use. [employer]F [employer]: Menses is irregular- prone to heavy cycles. Family history of migraine or other headache disorder: Sister- migraine, Mother- TBI, migraines, RLS, suffered a fatal hemorrhagic stroke at age 69. Lifestyle considerations: Sleep routine: Usual bedtime: goal is 8:30pm, usually 10pm and wake-up time: varies based on her or her husbands work schedule- her may wake up at 2-3am to go to work, and her dogs wake her up by 6am. Sleep difficulties: Endorses: Ruminating thoughts, sleep initiation and maintanence difficulties. Snoring, Excessive daytime sleepiness, Fatigue, Leg Cramps, Bruxism during the day- does not use a mouth guard. Restless leg- legs just go, go, go, go, go , almost a discomfort, needs to move, cramps at rest. Denies cramps w/ walking. She has been on Ropinirole x's 10 yrs- helps sometimes, but sometimes nothing helps. Has tried Gabapentin post-ankle sx- tolertaed well, but never tried for RLS s/s. Previously, on ambien to help w/ ruminating thoughts- however states it was stopped d/t increased risks in females. On ferrous sulfate 325mg daily- can cause constipation. Oct 2024 ferritin- 11. 01/22/2020: HST AHI < 1, O2 lashanda 90%. Caffeine use: 1 cup of coffee per day in the am- tries to avoid after 12pm. Substance use: marijuana edibles for sleep. Exercise:?not much, better during the warmer months Employment:?works 3 12 hour shifts 8-8 on weekdays, and 6-6 on weekends. 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 Family planning: possibly in the near future. Headache questionnaire:? Age/time of onset: childhood Preceding causes: no known causes Previous work-up: Brain MRI w/o, 09/21, normal Types of headache disorders: 1 w/ varying intensities Typical headache characteristics: Prodrome symptoms: denies Aura: at x's- sees a kaledioscope during the headache- lasts about 45-60 minutes. Pain intensity: mild-severe Location, quality, characteristics: Pressure behind her eye Associated symptoms: photophobia, phonophobia, nausea, at times vomiting, internal/external spinning dizziness, at x's lightheadedness, fatigue, cognitive difficulties, activity intolerance. Postdrome: lingering nagging migraine hangover Aggravating factors: general activity Triggers: Denies triggers, other than prior to menstrual cycle at times. Time of day: No specific time of day Duration and Frequency: Typically 2 x's per week, lasting a couple of hours to 1-2 days. Headache impact on pt's QOL: sometimes has to miss work Current acute medication use/interventions: Excedrin migraine, Sumatriptan 50mg- sometimes works- takes as the headache is getting bad. Current preventative medication use: None Current non-pharmacological interventions: rest [facility] Medical History (Updated 06/30/25 @ 08:16 by DEREJE Mills) Cough [id number] syndrome Pneumonia Acute respiratory failure Pneumonia Chronic allergic rhinitis Family hx-breast malignancy Ureterolithiasis RLS (restless legs syndrome) Hiatal hernia Vitamin D deficiency Dyslipidemia Lumbar disc herniation Asthma GERD (gastroesophageal reflux disease) Surgical History H/O prior ablation treatment History of release of tendon Hx of cholecystectomy History of colposcopy Family History Father No problems noted. Mother Mental health disorder Maternal Grandfather No problems noted. Maternal Grandmother Mental health disorder Paternal Grandfather No problems noted. Paternal Grandmother No problems noted. Maternal Uncle Bladder cancer Esophageal adenocarcinoma Paternal Grandmother Colon cancer Stroke Sister Mental health disorder Social History Household Members: Spouse Housing: House Are you a primary pet caretaker to a significant other at home: Yes Do you presently have visiting nurse or other home services: No Patient Tobacco Use Status: Never used Tobacco e-Cigarette/Vaping Use: Never Used Second Hand Smoke Exposure: No service: No Current occupational status: employed Cognitive needs: No Hearing needs: No Vision needs: No Physical Exam Const Orientation/consciousness: patient oriented x3 Resp Effort & Inspection: normal respiratory effort and able to speak in complete sentences Neuro General: patient oriented x3 Cognition (Neuro): normal cognition Psych Appearance: grossly normal Mental Status: mental status grossly normal Speech and movement: Normal speech and movement present Affect: normal affect Attitude: cooperative Telehealth Telehealth Telehealth Platform: DraftDay Location of provider rendering services: practice address Location of patient: address on file Patient Identification confirmed using: Name, : Yes Telehealth method: video Patient verbally consented to treatment: Yes Patient verbally consented to billing insurance company: Yes Patient informed of any privacy concerns related to visit: Yes Minutes spent on Phone/Video with Pt.: 18 Assessment & Plan Assessment & Plan (1) RLS (restless legs syndrome): Code(s): G25.81 - Restless legs syndrome Category: Medical (2) Low serum ferritin level: Code(s): R79.0 - Abnormal level of blood mineral Category: Medical (3) Migraine with aura: Code(s): G43.109 - Migraine with aura, not intractable, without status migrainosus Category: Medical Qualifiers: Intractability: not intractable Status migrainosus presence: without status migrainosus Qualified Code(s): G43.109 - Migraine with aura, not intractable, without status migrainosus (4) Family history of intracranial hemorrhage: Code(s): Z82.3 - Family history of stroke Category: Medical Plan For restless leg syndrome: Hematology consult completed-they did not feel that patient required an IV iron infusion Advised to resume ferrous sulfate 325mg po daily w/ vitamin C- would not increase d/t risk for worsening constipation Ferritin goal in RLS is at least 75-100. Continue Ropinirole 2mg daily at bedtime. Navigating Life with Restless Leg Syndrome by Dr Mejía is a good resource to earn more about both pharmacological and non-pharmacological treatsments for RLS. Future considerations: in-lab PSG Reviewed: 04/21/2025 (at [facility]), brain MRI, MRA, MRV with and without contrast: Unremarkable, only minimal nonspecific FLAIR hyperintensities in the white matter. 04/21/2025 (at [facility]) C-spine MRI without contrast: Unremarkable For overall headache management: Optimize good self-care, including but not limited to maintaining a healthy diet, adequate fluid intake, adequate sleep, and engaging in regular physical activity. Track headaches, especially after any treatment regimen changes. [employer] is one of many headache tracking apps. Information previously shared on non-pharmacological interventions which may help to alleviate headache attack burden. For light sensitivity: Patient may benefit from trying blue light filtering glasses, green glasses, green light therapy. For sound sensitivity: Patent may benefit from trying noise cancellation ear plugs. Neuromodulation devices, which can be used alone or with pharmacological treatment, such as Nerivio- which has safety data supporting its use in . Trial an OTC Mouth guard For acute headache treatment: It is important to take acute medications at the first sign of headache, however avoid acute medication overuse (especially with combined headache medications). Continue Sumatriptan 00mg tab, 1/2 - 1 tab (50-100mg) at onset of headache, may repeat in 2 hours. Max of 2 tabs (200mg) per 24 hours. May take sumatriptan with OTC Tylenol 650-1,000mg every 4-6 hours, Ibuprofen (liquid gels) 600mg every 6 hours, or Naproxen (liquid gels) 440mg q 12 hrs prn. Trial Sumatriptan 6 mg subcutaneous injection: Inject 1 injection at onset of severe migraine attack with nausea, you may repeat in 1 hour. Max of 2 injections per per 24 hours. May take sumatriptan with OTC Tylenol 650-1,000mg every 4-6 hours, Ibuprofen (liquid gels) 600mg every 6 hours, or Naproxen (liquid gels) 440mg q 12 hrs prn. Potential adverse effects of injectable triptans, include but are not limited to injection site irritation, nausea, fatigue, chest tightness/tingling (usually passes within a few minutes), medication overuse headaches. Previous acute migraine medication trials: Sumatriptan 50mg- not alway effective. Acute migraine medication contraindications: None at this time For headache prevention medication: Preventative medications should be taken routinely as prescribed for best effect, it may take several weeks for full effect to take effect. Resume Riboflavin 400mg daily in the morning Resume Magnesium 400mg daily at bedtime- may help RLS and leg cramps as well. Discontinue Amitriptyline 10mg daily at bedtime order-not tolerated Previous migraine treatment trials: Amitriptyline worsened sleep. Migraine prevention medication contraindications: Topiramate, depakote, CGRP MaBs d/t current desire for . All beta-blockers d/t symptomatic asthma. Will follow-up upon review of above and patient to follow-up in clinic in 3 months or sooner prn. Medications: New sumatriptan succinate 6 mg subcutaneously At onset of severe migraine attack with nausea, may repeat in 1 hour, max of 2 injection per day; PRN; 6 mL 6RF migraine headache 30 days MDD 12 mg Coding Level of Care Code Tele Est Pt Level 4 (58685) Diagnoses RLS (restless legs syndrome) G25.81 Low serum ferritin level R79.0 Migraine with aura and without status migrainosus, not intractable G43.109 Intractability: not intractable Status migrainosus presence: without status migrainosus Family history of intracranial hemorrhage Z82.3
--- OUTSIDE RECORDS SUMMARY | 2025-06-30 07:45 | XMS_ITS | Clinical Summary ---
Author Organization [facility] Address [address] [place] [address] Care Team Providers Care Embalmer Apprentice Name Role Phone Neal Cassidy NP Primary Care Provider Unavail able Allergies Active Allergy Reactions Severity Noted Date Comments Tape 09/27/2015 Bee 06/23/2020 Codeine Hives/Urticaria 12/18/2022 Seasonal Allergies 09/27/2015 Medications Medication Sig Dispensed Refills Start Date End Date Status ALBUTEROL IN Inhale into the lungs. prn 0 Active ROPINIRole HCl (REQUIP OR) Take by mouth. 0 Active omeprazole (PRILOSEC) 40 MG capsule Take 40 mg by mouth daily. 0 Active budesonide-formoterol (SYMBICORT) 160-4.5 MCG/ACT inhaler Inhale 2 Puffs into the lungs 2 times daily. 0 Active VALACYCLOVIR HCL OR Take by mouth. 0 A ctive estazolam (PROSOM) 2 MG tablet Take 2 mg by mouth at bedtime. 0 Active Tiotropium Ovando Monohydrate 2.5 MCG/ACT Aero Soln Inhale into the lungs. 0 Active venlafaxine (EFFEXOR-XR) 37.5 MG 24 hr capsule TAKE 1 CAPSULE BY MOUTH ONCE DAILY 0 01/04/2022 Active MIRTAZAPINE OR Take 0.25 mg by mouth daily. 0 Active oxycodone (ROXICODONE) 5 MG immediate release tablet Take one tablet every 6 hours as needed for pain 20 Tablet 0 05/03/2023 Active ibuprofen (ADVIL,MOTRIN) 800 MG tablet Take 1 Tablet by mouth every 8 hours for 30 days. 60 Tablet 0 05/03/2023 Active acetaminophen (Tylenol) 325 MG tablet Take 2 Tablets by mouth every 6 hours as needed for Pain (mild to moderate pain) for up to 10 days. 80 Tablet 0 05/03/2023 Active Active Problems Problem Noted Date ASCUS with positive high risk HPV cervic al 02/23/2023 Overview: 01/2023: colpo benign repeat pap in one year Mild dysplasia of cervix 02/07/2018 Overview: History: PAP 09/27/2015: Cytology negative; High Risk HPV DNA positive; not Types 16/18/45. PAP 11/29/2015: ASCUS; High Risk HPV DNA positive. Colposcopy 11/06/2016: Ectocervix showed Mild Dysplasia; Endocervix showed Mild Dysplasia PAP 02/07/2018: Cytology negative; High Risk HPV DNA negative. Intractable migraine without aura and wi thout status migrainosus 09/28/2016 Overweight (BMI 25.0-29.9) 09/27/2015 Family History Medical History Relation Name Comments CA Breast Mother's side cousin Leukemia Paternal Grandfather CA Colon Paternal Grandmother Relation Name Status Comments Father Alive Maternal Grandfather Maternal Grandmother Mother Alive Mother's side Paternal Grandfather Paternal Grandmother Sister Alive Social History Tobacco Use Types Packs/Day Years Used Date Smoking Tobacco: Never Smokeless Tobacco: Never Tobacco Cessation:Counseling Given: Not Answered Alcohol Use Standard Drinks/Week Comments Yes 0 (1 standard drink = 0.6 oz pur e alcohol) occas Physical Activity Answer Date Recorded On average, how many days pe r week do you engage in moderate to strenuous exercise (like walking fast, running, jogging, dancing, swimming, biking, or other activities that cause a light or heavy sweat)? 0 days 09/03/2020 On average, how many minutes do you engage in exercise at this level? 0 min 09/03/2020 Stress Answer Date Recorded Do you feel stress - tense, restless, nervous, or anxious, or unable to sleep at night because your mind is troubled all the time - these days? Not at all 09/03/2020 Intimate Partner Violence Answer Date R ecorded Within the last year, have y ou been afraid of your partner or ex-partner? No 09/03/2020 Within the last year, have y ou been humiliated or emotionally abused in other ways by your partner or ex-partner? No Within the last year, have y ou been kicked, hit, slapped, or otherwise physically hurt by your partner or ex-partner? No 09/03/2020 Within the last year, have y ou been raped or forced to have any kind of sexual activity by your partner or ex-partner? No 09/03/2020 Sex Assigned at Date Recorded Female 11/22/2022 11:12 AM EST Last Filed Vital Signs Vital Sign Reading Time Taken Comments Blood Pressure 113/80 02/20/2023 9:45 AM EDT Pulse 87 02/20/2023 9:45 AM EDT Temperature 36.6 C (97.9 F) 10/03/2016 10:09 AM EST Respiratory Rate 14 09/03/2020 11:12 AM EST Oxygen Saturation - - Inhaled Oxygen Concentration - - Weight 90.7 kg (200 lb) 05/30/2023 8:52 AM EDT Height 170.2 cm (5' 7 ) 05/30/2023 8:52 AM EDT Body Mass Index 31.32 05/30/2023 8:52 AM EDT Plan of Treatment Health Maintenance Due Date Last Done Comments Covid-19 Vaccine (#1) 1982 CHOLESTEROL SCREENING 2002 BASELINE HEALTH EXAM 40-64 2022 MAMMOGRAM 2022 BMI CHECK/ADVISE 10/29/2024 12/18/2022, , 09/03/2020, Additional history exists INFLUENZA (#1) 2025 DTAP/TDAP/TD (4 - Td or Tdap) 05/05/2031, 10/23/2018, 03/07/2016 PNEUMOCOCCAL VACCINE FOR HIG H RISK PATIENTS (#1) 2047 09/21/2020 Care Teams Embalmer Apprentice Relationship Specialty Start Date End Date Neal Cassidy NP PCP - General Family Practice 03/22/22
--- OUTSIDE RECORDS SUMMARY | 2025-06-30 07:45 | XMS_ITS | Encounter Summary ---
Author Organization [facility] Address [address] [place] [address] Care Team Providers Care Sephora Operations Consultant Name Role Phone Neal Cassidy NP Primary Care Provider Unavail able Encounter Details Date Type Department Care Team Description 12/27/2022 Telephone [facility] [address] [facility] [address] [place] [phone] Rafael Campbell DPM Social History Tobacco Use Types Packs/Day Years Used Date Smoking Tobacco: Never Smokeless Tobacco: Never Alcohol Use Standard Drinks/Week Comments Yes 0 [...] Date Recorded Female 11/22/2022 11:12 AM EST COVID-19 Exposure Response Date Recorded In the last 10 days, have yo u been in contact with someone who was confirmed or suspected to have Coronavirus/COVID-19? No / Unsure 12/25/2022 10:39 AM EST documented as of this encounter Plan of Treatment Not on file documented as of this encounter Visit Diagnoses Not on filedocumented in this encounter Care Teams Sephora Operations Consultant Relationship Specialty Start Date End Date Neal Cassidy NP PCP - General Family Practice 03/22/22 documented as of this encounter
--- OUTSIDE RECORDS SUMMARY | 2025-06-30 07:45 | XMS_ITS | Encounter Summary ---
Author Organization [facility] Address [address] [place] [address] Care Team Providers Care Carpenter Assistant Installer Name Role Phone Neal Cassidy NP Primary Care Provider Unavail able Encounter Details Date Type Department Care Team Description 09/08/2022 Telephone [facility] [address] [facility] [address] [place] [phone] Rafael Campbell DPM Social History Tobacco [...] Date Recorded Female 11/22/2022 11:12 AM EST documented as of this encounter Plan of Treatment Not on file documented as of this encounter Visit Diagnoses Not on filedocumented in this encounter Care Teams Carpenter Assistant Installer Relationship Specialty Start Date End Date Neal Cassidy NP PCP - General Family Practice 03/22/22 documented as of this encounter
--- OUTSIDE RECORDS SUMMARY | 2025-06-30 07:45 | XMS_ITS | Encounter Summary ---
Author Organization [facility] Address [address] [place] [address] Care Team Providers Care Fuel Cell Builder Name Role Phone Clif Avila Primary Care Provider Neal Li NP Primary Care Provider Unavail able Encounter Details Date Type Department Care Team Description 02/28/2022 Commercial Internship Report Medical Records [address] [place] [id number] Social History Tobacco Use Types Packs/Day Years [...] on filedocumented in this encounter Care Teams Fuel Cell Builder Relationship Specialty Start Date End Date Clif Avila PCP - General Internal Medicine 08/31/15 03/21/22 Neal Cassidy NP PCP - General Family Practice 03/22/22 documented as of this encounter
--- OUTSIDE RECORDS SUMMARY | 2025-06-30 07:45 | XMS_ITS | Encounter Summary ---
Author Organization [facility] Address [address] [place] [address] Care Team Providers Care Toy Designer Name Role Phone Clif Avila Primary Care Provider Neal Li NP Primary Care Provider Unavail able Encounter Details Date Type Department Care Team Description 06/23/2019 Release of Information Medical Records [address] [place] [id number] Abstract, Provider Social History Tobacco Use Types Packs/Day Years [...] on filedocumented in this encounter Care Teams Toy Designer Relationship Specialty Start Date End Date Clif Avila PCP - General Internal Medicine 08/31/15 03/21/22 Neal Cassidy NP PCP - General Family Practice 03/22/22 documented as of this encounter
--- OUTSIDE RECORDS SUMMARY | 2025-06-30 07:45 | XMS_ITS | Encounter Summary ---
Author Organization [facility] Address [address] [place] [address] Care Team Providers Care Photoengraving Printer Name Role Phone Neal Cassidy NP Primary Care Provider Unavail able Encounter Details Date Type Department Care Team Description 04/25/2023 Pt. Non Urgent Medic al Question [facility] [address] [facility] [address] [place] [phone] Rafael Campbell DPM Social History Tobacco Use [...] suspected to have Coronavirus/COVID-19? No / Unsure 04/04/2023 7:58 AM EDT documented as of this encounter Plan of Treatment Not on file documented as of this encounter Visit Diagnoses Not on filedocumented in this encounter Care Teams Photoengraving Printer Relationship Specialty Start Date End Date Neal Cassidy NP PCP - General Family Practice 03/22/22 documented as of this encounter
--- OUTSIDE RECORDS SUMMARY | 2025-06-30 07:45 | XMS_ITS | Encounter Summary ---
Author Organization [facility] Address [address] [place] [address] Care Team Providers Care Pruner Name Role Phone Clif Avila Primary Care Provider Neal Li NP Primary Care Provider Unavail able Reason for Visit * Reason Onset Date Comments refill request 08/10/2016 sb Encounter Details Date Type Department Care Team Description 08/10/2016 Refill OBGYN - [facility] [address] [place] [address] Zohra Saini CNM refill request (sb) Social History Tobacco Use Types Packs/Day Years [...] AM EST documented as of this encounter Miscellaneous Notes * Telephone Encounter - Shameka Juarez L.P.N. - 08/10/2016 11:38 AM EDT Pt has Annual appt scheduled 09/28/16 * Telephone Encounter - Shameka Todd - 08/10/2016 11:24 AM EDT WHEN WAS THE PATIENTS LAST ANNUAL FISH AGENT EXAM? 09/27/15 Does patient have an upcoming appointment? Yes 09/28/16 (THE MEDICATION IS NOT ON THE MED LIST AND IS IDENTIFIED BELOW): Med name: [email or web address] Dosage: # of tablets: 28 Local pharmacy with request for 30 -day supply Instructions: 1qd Did you check the pharmacy information above?: YES Indicate how soon the patient needs the script: BY THE END OF THE DAY Patient would like script to be: E-PRESCRIBED/FAXED TO PHARMACY Is the doctor here today?: YES Can the message wait until the doctor returns?: NO Has the pateint been told the prescription will not be filled until the end of the day? YES Payor: [employer]ED / Plan: HMO $20 [place] 1500 / Product Type: HMO [id number] documented in this encounter Plan of Treatment Not on file documented as of this encounter Visit Diagnoses Not on filedocumented in this encounter Care Teams Pruner Relationship Specialty Start Date End Date Clif Avila PCP - General Internal Medicine 08/31/15 03/21/22 Neal Cassidy NP PCP - General Family Practice 03/22/22 documented as of this encounter
--- OUTSIDE RECORDS SUMMARY | 2025-06-30 07:45 | XMS_ITS | Encounter Summary ---
Author Organization [facility] Address [address] [place] [address] Care Team Providers Care Tripe Finisher Name Role Phone Clif Avila Primary Care Provider Neal Li NP Primary Care Provider Unavail able Encounter Details Date Type Department Care Team Description 10/31/2019 Hospital Medical Records [address] [place] [address] Enrique Méndez MD [address] [place] [id number] Social History Tobacco Use Types Packs/Day Years [...] on filedocumented in this encounter Care Teams Tripe Finisher Relationship Specialty Start Date End Date Clif Avila PCP - General Internal Medicine 08/31/15 03/21/22 Neal Cassidy NP PCP - General Family Practice 03/22/22 documented as of this encounter
== END 2025-06-30 08:39 | disposition home or self-care (01) ==
PROVIDERS: PCP Nurse Practitioner Family; Visit Provider Nurse Practitioner Family
DX: G25.81 Restless legs syndrome (principal); R79.0 Abnormal level of blood mineral; G43.109 Migraine with aura, not intractable, without status migrainosus; Z82.3 Family history of stroke
CPT/HCPCS: 99214

== ENCOUNTER 2025-08-17 07:58 | Outpatient (AMB) | payer OTHER, SELFPAY ==
--- NOTE | 2025-08-17 08:01 | A.OFFPC_ITS ---
Vital Signs 08/17/25 08:02 08/17/25 08:29 Height 5 ft 6 in Weight 202 lb BMI 32.6 BP 130/92 H 104/74 Blood Pressure Location Lt brachial Lt brachial Position Sitting Sitting Respiration 16 Pulse 97 Pulse Source Pulse Oximeter Pulse Oximetry (%) 99 Oxygen Delivery Method Room Air Intake Visit Reasons: PE Vp Of Marketing Required: No Accompanied by: Self / Same As Patient Allergies bee venom protein (honey bee) Allergy (Severe, Verified 08/17/25 08:07) Anaphylaxis bupropion (From Wellbutrin) Allergy (Intermediate, Verified 08/17/25 08:07) Swelling environmental allergies Allergy (Intermediate, Verified 08/17/25 08:07) Hives and Rash paroxetine (From Paxil) Allergy (Intermediate, Verified 08/17/25 08:07) Swelling codeine Allergy (Mild, Verified 08/17/25 08:07) Itching Tobacco use date assessed: 08/17/25 Dental Screening Dental Screen Date: 08/17/25 Did you have a dental visit in the last 12 months?: Yes Did you have a dental problem in the last 6 months where you did not have access to dental care?: No Was dental information given to patient?: Patient has dentist HPI PE HPI Details History of Present Illness The patient is a 45-year-old female presenting for a physical examination and preventative care. She reports a viral upper respiratory infection that has persisted for about a month, characterized by a croup-type cough that developed approximately a week ago. She denies any fever or chills associated with this illness. Additionally, she experiences intermittent dyspnea but is currently breathing normally without any wheezing observed. She denies any abdominal pain, blood in stool, constipation, or diarrhea. She knows to contact me/ER with worsening symptoms. 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 Denies wheezing, fever, or chills. - Gastrointestinal: Denies abdominal ricki n, blood in stool, constipation, or diarrhea. -denies any si or hi Physical Exam General: Cooperative, healthy appearing, comfortable, no acute distress and well developed. Obese., faint croupy type cough Orientation: Patient oriented x3 Limitations: No limitations Head: Normal to inspection Ears: Hearing grossly normal bilaterally Nose: Normal external nose present Face and sinus: Normal facial exam Eyes: Appearance normal, both eyes and all related structures Neck: Normal visual inspection and Yes full ROM, no lymphadenopathy Respiratory: Normal respiratory effort and able to speak in complete sentences. Clear to auscultation bilaterally. no wheezing currently noted. Cardiovascular: Regular rate and rhythm. Normal S1 and S2 GI: Normal to inspection. Soft to palpation and nontender Skin: No rashes or lesions noted Neuro: Patient oriented x3 Extremities: Normal to inspection Results Plan 1. Viral Upper Respiratory Infection The patient is advised to monitor symptoms and seek medical attention if they worsen or persist beyond typical viral illness duration. 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 Mother Mental health disorder Maternal Grandfather No problems noted. Maternal Grandmother Mental health disorder Paternal Grandfather No problems noted. Paternal Grandmother No problems noted. Maternal Uncle Bladder cancer Esophageal adenocarcinoma Paternal Grandmother Colon cancer Stroke Sister Mental health disorder Social History Household Members: Spouse Housing: House Are you a primary intensive care medicine specialist to a significant other at home: Yes Do you presently have visiting nurse or other home services: No Patient Tobacco Use Status: Never used Tobacco e-Cigarette/Vaping Use: Never Used Second Hand Smoke Exposure: No service: No Current occupational status: employed Cognitive needs: No Hearing needs: No Vision needs: No Questionnaire PHQ-9 Over the last 2 weeks, how often have you been bothered by any of the following problems? 1. Little interest or pleasure in doing things: not at all 2. Feeling down, depressed, or hopeless: not at all 3. Trouble falling or staying asleep, or sleeping too much: several days 4. Feeling tired or having little energy: several days 5. Poor appetite or overeating: not at all 6. Feeling bad about yourself - or that you are a failure or have let yourself or your family down: not at all 7. Trouble concentrating on things, such as reading the newspaper or watching television: not at all 8. Moving or speaking so slowly that other people could have noticed. Or the opposite - being so fidgety or restless that you have been moving around a lot more than usual: not at all 9. Thoughts that you would be better off or of hurting yourself in some way: not at all Total score: 2 Depression Screening Interpretation: Negative Depression Screening Done: Yes 48794 - PHQ-9 Billing: Yes Source: Developed by Drs. Sean Anthony, Mahogany Gupta, Monster Win and colleagues, with an educational galileo from [employer]. Thrive Questionnaire Date Thrive assessed: 01/19/25 I am a: Patient What is your living situation today?: I have a steady place to live Within the past 12 months, did the food you bought not last and you didn't have the money to get more?: Never true Within the past 12 months, did you worry whether your food would run out before you got money to buy more?: Never true Do you have trouble paying for medicines?: No Do you have trouble getting transportation to medical appointments?: No Do you have trouble paying your heating and electricity bill?: No Do you have trouble taking care of your child, family member or friend?: No Do you have trouble with day-to-day activities such as bathing, preparing meals, shopping, managing finances, etc.?: No Are you currently unemployed and looking for a job?: No Are you interested in more education?: No Please select the resources that you would like help with: None Currently or been in a relationship where the following occur: No concerns reported THRIVE Score: 0 SONU-7 AMB Questionnaire SONU-7 Date SONU - 7 assessed: 08/17/25 Feeling nervous, anxious, or on edge: 0 = Not at all Not being able to stop or control worryin = Not at all Worrying too much about different things: 0 = Not at all Trouble relaxin = Several days Being so restless that it is hard to sit still: 1 = Several days Becoming easily annoyed or irritable: 0 = Not at all Feeling afraid as if something awful might happen: 0 = Not at all Total SONU-7 score (0-4 normal; 5-9 mild; 10-14 moderate; 15-21 severe): 2 Source: Developed by Drs. Sean Anthony, Mahogany Gupta, Monster Win and colleagues, with an educational galileo from [employer]. SONU-7 Assessment Billing SONU-7 Assessment Tool: SONU-7 Assessment 33847 Physical exam (Primary Care) Vital Signs: Last Vital Signs Pulse 97 08/17/25 08:02 Resp 16 08/17/25 08:02 BP 130/92 H 08/17/25 08:02 Pulse Ox 99 08/17/25 08:02 Oxygen Delivery Method Room Air 08/17/25 08:02 BMI result Body Mass Index 32.6 Tobacco/Smoking Status: Tobacco use Status Tobacco use date assessed 08/17/25 08/17/25 08:09 Patient Tobacco Use Status Never used Tobacco 08/17/25 08:09 e-Cigarette/Vaping Use Never Used 08/17/25 08:09 PHQ-9: PHQ-9 Score PHQ-9: Total score 2 08/17/25 08:21 Depression Screening Interpretation: Negative Thrive Assessment: Date of Thrive Assessment Date Thrive assessed 01/19/25 08/17/25 08:09 Currently or been in a relationship where the following occur: No concerns reported Coding Level of Care Code Est Pt Prev Care 40-64y(87709) Diagnoses Physical exam Z00.00 Acute cough R05.1 Cough type: acute Additional Codes SONU-7 Assessment Billing - SONU-7 Assessment Tool: SONU-7 Assessment 08958 ([id number]) PHQ-9 - 26508 - PHQ-9 Billing: Yes ([id number]) Assessment & Plan Assessment & Plan (1) Physical exam: Code(s): Z00.00 - Encounter for general adult medical examination without abnormal find ings Category: Medical (2) Cough: Code(s): R05.9 - Cough, unspecified Category: Medical Qualifiers: Cough type: acute Qualified Code(s): R05.1 - Acute cough Plan . Orders: Orders TSH reflex Free T4 Today Z00.00 - Encounter for general adult medical examination without abnormal findings Complete Blood Count Auto Diff Today Z00.00 - Encounter for general adult medical examination without abnormal findings Comprehensive [place]. Panel Fast Today Z00.00 - Encounter for general adult medical examination without abnormal findings UA CC w/rflx Micro + Cult Today Z00.00 - Encounter for general adult medical examination without abnormal findings Lipid Panel Today Z00.00 - Encounter for general adult medical examination without abnormal findings XR chest 2V Today R05.1 - Acute cough
[2025-08-17 08:02] VITALS: BP 130/92; PULSE 97; RESP 16; O2SAT 99; BMI 32.6
[2025-08-17 08:29] VITALS: BP 104/74
== END 2025-08-17 08:38 | disposition home or self-care (01) ==
LOC: HO.HMCC 07:59
PROVIDERS: PCP Nurse Practitioner Family; Visit Provider Nurse Practitioner Family
DX: Z00.00 Encounter for general adult medical examination without abnormal findings (principal); R05.1 Acute cough

== ENCOUNTER 2025-08-17 08:38 | Outpatient (REF) | payer OTHER, SELFPAY ==
--- NOTE | ~2025-08-17 | MM_ITS ---
EXAMINATION: MM SCREENING DIGITAL BREAST TOMOSYNTHESIS, BILATERAL CLINICAL INFORMATION: Screening. Asymptomatic. COMPARISON: Mammography: Comparison is made with available priors TECHNIQUE: Digital breast mammography with tomosynthesis is performed in both the craniocaudal and mediolateral oblique views along with computer-aided detection (CAD). FINDINGS: There are scattered areas of fibroglandular density. There are no significant masses, abnormal calcifications, or other abnormalities. MM/MM tomosynthesis screening BI IMPRESSION: No mammographic evidence of malignancy. ASSESSMENT: BI-RADS Category 1: Negative RECOMMENDATION: Routine annual mammography screening. 1 year F/U This examination should not preclude the clinical evaluation of a suspicious palpable abnormality. This patient's information was entered into a reminder system with a target due date for their next mammogram. Electronically signed by: Misty Luis DO 08/18/2025 06:01 PM [facility]
--- NOTE | ~2025-08-17 | XR_ITS ---
EXAMINATION: XR CHEST 2 VIEWS HISTORY: R05.1 - Acute cough COMPARISON: Comparison is made with the prior examination dated 07/16/2023. FINDINGS: PA and lateral views of the chest are submitted. There is scarring at both lung bases. The lungs are otherwise clear. There is no pleural effusion, pneumothorax, or pulmonary vascular congestion. The heart is normal in size. The bones are intact. XR/XR chest 2V IMPRESSION: Bibasilar scarring. No acute cardiopulmonary abnormality. Electronically signed by: Sean Woodward MD 08/17/2025 09:14 AM EDT
[2025-08-17 10:27] LABS: MANUAL DIFF FLAG NO
[2025-08-17 10:39] LABS: Hematocrit 43.8 % (37.0-47.0); Hemoglobin 14.7 g/dl (12.0-16.0); Imm Gran Abs Auto 0.01 X10*3/uL (0.00-0.03); Imm Gran Pct Auto 0.1 % (0.0-0.4); Lymphocytes Absolute Auto 2.1 X10*3/uL (1.2-4.9); Mean Corpuscular HGB Conc 33.6 g/dl (31.0-35.0); Mean Corpuscular Hemoglobin 31.6 pg (27.0-33.0); Mean Corpuscular Volume 94.2 fL (80.0-98.0); NRBC Abs Auto 0.000 X10*3/uL (0.0-0.012); NRBC Pct Auto 0.0 /100WBC (0.0-0.2); Platelet Count 252 X10*3/uL (160-400); Red Blood Count 4.65 X10*6/uL (4.20-5.50); White Blood Count 6.8 X10*3/uL (4.8-10.8)
[2025-08-17 10:54] LABS: Alanine Aminotransferase 40 U/L (0-31); Albumin Level 4.3 g/dL (3.5-5.0); Alkaline Phosphatase 84 U/L (39-117); Anion Gap 13 (12-20); Aspartate Amino Transferase 31 U/L (5-31); Blood Urea Nitrogen 14 mg/dL (9-16); Calcium 8.9 mg/dL (8.4-10.2); Carbon Dioxide 25 mmol/L (22-29); Chloride 109 mmol/L (96-108); Cholesterol 224 mg/dL (<200); Estimated Glomerular Filt Rate > 60; HDL Cholesterol 43 mg/dL (>40); Potassium 4.4 mmol/L (3.3-5.1); Sodium 143 mmol/L (135-145); Total Protein 6.7 g/dL (6.5-8.0); Triglycerides 140 mg/dL (<150)
== END 2025-08-17 08:39 | disposition home or self-care (01) ==
LOC: HO.MAMMO 08:38
PROVIDERS: PCP Nurse Practitioner Family; Visit Provider Nurse Practitioner Family
DX: Z00.00 Encounter for general adult medical examination without abnormal findings (principal); R05.1 Acute cough; E55.9 Vitamin D deficiency, unspecified; R06.09 Other forms of dyspnea; Z12.31 Encounter for screening mammogram for malignant neoplasm of breast
CPT/HCPCS: 36415; 71046; 77063; 77067; 80053; 80061; 82306; 84443; 85025; 96127

== ENCOUNTER → 2025-08-17 08:53 | Outpatient (BNV) | payer OTHER, SELFPAY | PROVIDERS: PCP Nurse Practitioner Family; Visit Provider Radiology Diagnostic Radiology | DX: Z12.31 Encounter for screening mammogram for malignant neoplasm of breast (principal) | CPT/HCPCS: 77063; 77067 ==

== ENCOUNTER 2025-10-06 08:51 | Outpatient (AMB) | payer OTHER, SELFPAY ==
[2025-10-06 09:14] VITALS: BP 118/78; PULSE 79; O2SAT 97; BMI 33.6
--- NOTE | 2025-10-06 09:14 | A.OFFVIS_ITS ---
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 She is current not receiving any allergy therapy. She has been on Symbicort 80 mcg/4.5 which she uses twice a day. Since September she started developing significant chest pain across her breast area. Pleuritic in nature moderate to severe. She was initially evaluated at an urgent care where she had a D-dimer that was negative she had an x-ray and she was placed on prednisone for asthma. 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 He did order a CT scan of the chest noncontrast demonstrating the beginnings of a right lower lobe pneumonia. She was placed on levofloxacin in addition to additional steroids. The patient did not feel any significantly better. Her chest pain however did get better. Still having shortness of breath needing her nebulizer very often sometimes every of 4 hours. Due to the fact that she wasn't getting better she went to the [facility] ED which he was admitted to the hospital. She did have a CTA done that ruled out pulmonary emboli but did demonstrate interval worsening of the right lower lobe pneumonia with what areas of atelectasis suggesting either mucous plugging or and unclear etiology. She was treated with antibiotics while in the hospital she had a respiratory panel was negative. The patient continues to have shortness of breath. Denies any fevers or chills and her chest pain is not resolved. She is wondering if she has a candidate for biologic therapy for significant asthma. At this point will work on maximizing her respiratory therapy. We did again review her CT scan of the chest demonstrating the right lower lobe airspace disease. At this point the patient completed a course of antibiotics. The patient also be started on budesonide. If she is no better and or for x-ray continues to be persistently abnormal in that right base then will consider bronchoscopy. She has been following the reflux diet. She is also sleeping elevated. The patient has also been doing peak flows. Her ideal peak flow is 483, but she is only able to get to the high 300s mid 400s depending on before after therapy. She did start the Xolair which is too early to tell is going to be effective for her. But she did not have any reactions to it. She did have a sleep study demonstrating no evidence of any sleep apnea she is happy about that. She still having issues with reflux disease. Moderate severity esophagitis. She does take the Prilosec. We talked about promotility agents consider in the future. In the meantime she can consider started Pepcid. She also uses significant amount of medications specially for sleep and also for restless leg. At some point will check her iron levels and see if we can get her off some of these medications is a provide her medical regimen. 12/30/2021 the patient is here for a pulmonary follow-up visit. Since we last spoke she had been admitted to the hospital with severe COVID and COVID pneumonia requiring high levels of oxygen supplementation. She also required a ggressive medical therapy while she was there. She is now recovering. She still short of breath and also fatigue. She understands this will take some time to recover from. In the meantime she is trying to get effective sleep. She had been off the Xolair for her asthma. Now that she is better she is back taking her Xolair. She also better booster shot. The patient is back to work full-time. We did review her imaging studies in addition to her CT scan demonstrating extensive airspace disease and significant basilar consolidations. Therefore will repeat her chest x-ray in a couple months to assess her baseline. 05/09/2022 the patient is here for a pulmonary follow-up visit. Overall she is doing a little better. She did have severe COVID back in the winter. She did have a prolonged hospitalization requiring high-flow. Her CT scan at that time demonstrated significant ground-glas opacities in addition to consolidations. She did have a repeat chest x-ray demonstrating some reticular changes at the right base. This is not surprising with the degree of disease as she had. She feels like she cannot expand her lungs fully. Feels like sometimes wrap around her chest. Which is typical of post COVID syndrome. She has also noticed increased heart rates which is also typical of post COVID syndrome. The patient responded initially well to the steroids. She continues on Xolair. This is helping her allergy is tremendously. We did talk about other biologic therapy but at this point I would not change it. the patient has had multiple courses of steroids throughout the year. Patient at this point will benefit from Daliresp. This will help her with her chronic bronchitis and chest congestion. Hopefully also decreasing need for prednisone and decrease exacerbations. The patient understands that it does have significant GI symptoms. Therefore, will start a low dose and try to workup the dose as tolerated. 09/12/2022 the patient is here for sick visit. The patient does scan back from the [facility]. She did have a very good time and she was not sick during that trip. She did take a cruise. When she got back she started having worsening respiratory symptoms. She started having significant wheezing. She has been using her nebulizer every 4 hours. She has a worsening cough congested in nature. Moderate to severe. In the office she did receive 2 DuoNeb treatments with only partial improvement of her symptoms. Therefore she was given Solu-Medrol. The patient has significant rhonchi on examination bilaterally. The patient did have a bad case of COVID in beginning of the year with bilateral severe pneumonia. The patient which is recovering from that. 11/14/2022 the patient is here for a pulmonary follow-up visit. The patient states that she has been under the weather now for about 4 weeks. She started developing worsening productive cough with yellow green sputum sometime in late September. Her symptoms improved somewhat. She continue to use respiratory therapy in her nebulizer. She did not use any antibiotics. She ultimately underwent surgery for her ankle. The patient is recovering well and she will have to have no weight-bearing for some time. Her cough still congested. She continues on the Xolair continues use her respiratory therapy. Will go ahead and start a course of Augmentin at this time. Will hold off on any prednisone in view of her wound healing and recent surgery. If her symptoms worsen she is to call the office. If she does not clear the congestion with the Augmentin she is to provide us with sputum culture and also get a chest x-ray. If the patient is not able to bring up phlegm at least going to for culture will go ahead and perform a bronchoscopy for deep cultures and therapeutic cleaning of the airways. At this point she will stand biologic therapy with Xolair. If the patient continues to be symptomatic in if this is a noninfectious process that we can consider a different biologic. 01/09/2023 the patient is here for a telehealth visit. She is still having difficulties with breathing. Complains of chest tightness and coughing. Moderate severity. She had been on the Xolair but was not noticing any significant improvement on the Xolair for the last few months. Then she had an issue with her insurance which she had not used it for about 4 weeks and she is still not any better. We did talk about other alternative biologic such as Tezspire or Dupixent. I do believe that the patient is no longer responding well to the Xolair therefore will see if we can switch over to a different alternatives. She is already maximized with respiratory therapy and she is very adherent to her therapy. We will trying to minimizing the use of prednisone. The last time she used it was back in September. She recently had surgery for her orthopedic injury and therefore trying to minimize any prednisone to to allow proper healing. 05/11/2023 the patient is here for a pulmonary follow-up visit. The patient is still struggling with her asthma. Having significant chest tightness and wheezing. She also recently had surgery. Avoiding prednisone due to her orthopedic injuries in the healing process and she just had surgery. Apparently she had surgery and then had to have a revision recently so she is still healing from that. She stop the Xolair once it was no longer effective although was effective for period of time. She definitely has allergic asthma. We did check her eosinophils in that were not elevated. I do believe that in order to control her asthma we should consider othern biologics such as Tezspire. 09/18/2023 the patient is here for sick visit. She is having hard time with her breathing for the last couple days. Started developing a croupy cough. Moderate severity. Also some chest tightness and wheezing. She has been using all inhalers. In the meantime she did start the new biologic regimen, Tezspire. She seems to be tolerating it. Although she still not sure how effective it is for her. Explained to her that infectious processes will still trigger asthma and this is likely the issue. Will go ahead and treated for a lower respiratory infections since she probably has tracheitis with screw. We did swab her for flu RSV and COVID and were all negative. The patient will continue with current respiratory regimen. Will plan to follow-up in 3-4 months and see her response to therapy. If the patient is no better she will call for an earlier assessment. 09/12/2024 the patient is here for sick visit. Apparently almost a week ago she started developing worsening respiratory symptoms with cough chest tightness. She had just gotten the flu shot. She was not sure if it was related. She did go to an urgent care. There she did have an x-ray. I do not have the images but she was told she had patchy opacities. She was treated for pneumonia with doxycycline and Vantin. She was also given 40 mg of prednisone. Did not feel any significant improvement. She is finishing up now the antibiotics and the prednisone. She does have significant croupy cough. She states that she was vaccinated for pertussis. She did have a congested cough before but seems to be clearing all those her cough is still pretty significant. She does have significant frequent coughing during the exam difficult to assess but appears to have some degree of bronchospastic cough. Diminished breath sounds bilaterally. No crackles that I can appreciate. Will go ahead and give her additional prednisone but also will treat her with azithromycin to treat for pertussis. Also provide with cough medication to aid with her cough. If the patient is no better after the weekend treatment she can come and get an x-ray. She will get Solu-Medrol 125 mg IM x1 prior to leaving. She will start the prednisone tomorrow. 02/23/2025 the patient is here for a pulmonary follow-up visit. Since we last spoke she stopped taking the test part. She did not feel like it was helping and she had issues with the delivery. Therefore she has been off all biologic. Seems to fairly okay. Although recently she started developing worsening cough sore throat and pinkeye. She feels as his allergies although likely that she has a viral syndrome. She does have erythema on the back of the throat. May have a component of strep. Therefore will start her on doxycycline to see if this provides some relief. In the meantime she continues with respiratory therapy. I will make sure for her to have enough cough medication available she deals with this acute cough. Appears to be slightly croupy likely viral. Will continue with current respiratory therapy will follow-up in 6-8 months if she develops any issues prior to that she will call for an earlier assessment. 10/06/2025 the patient is here for sick visit. She has been sick now for a couple months. She has started back in July felt like she was having allergies. Her cough is usually nonproductive in nature. Coughing moderate amount. She has been using her inhalers with minimal response. She did see her primary care doctor prescribed Augmentin. She was no better. Chest done that I personally reviewed did have a little bit of atelectasis but otherwise no acute disease. The patient call the office. We did provide her with additional nebulizer therapy. The patient was started on doxycycline. Seems to be doing a little bit better but she still coughing good amount. Does have some prolonged expiratory breath sounds and also has a post exhalation cough likely from small airways disease. The patient will start a Medrol Rojelio. She will continue the doxy and will brain picker some Mucinex DM. If the patient is no better she will get another x-ray. She will continue with the current respiratory therapy. She will follow up in 3 4 months. [facility] Medical History Anemia Cough [id number] syndrome Pneumonia Acute respiratory failure Pneumonia Chronic allergic rhinitis Family hx-breast malignancy Ureterolithiasis RLS (restless legs syndrome) Hiatal hernia Vitamin D deficiency Dyslipidemia Lumbar disc herniation Asthma GERD (gastroesophageal reflux disease) Surgical History H/O prior ablation treatment History of release of tendon Hx of cholecystectomy History of colposcopy Family History Father No problems noted. Mother Mental health disorder Maternal Grandfather No problems noted. Maternal Grandmother Mental health disorder Paternal Grandfather No problems noted. Paternal Grandmother No problems noted. Maternal Uncle Bladder cancer Esophageal adenocarcinoma Paternal Grandmother Colon cancer Stroke Sister Mental health disorder Social History Household Members: Spouse Housing: House Are you a primary animal caretaker to a significant other at home: Yes Do you presently have visiting nurse or other home services: No Patient Tobacco Use Status: Never used Tobacco e-Cigarette/Vaping Use: Never Used Second Hand Smoke Exposure: No service: No Current occupational status: employed Cognitive needs: No Hearing needs: No Vision needs: No Review of Systems Const Denies fever(s) Eyes Denies blurry vision ENT Denies vertigo, Denies dizziness, Reports nasal congestion, Reports sinus pressure and Reports sore throat Card Denies chest pain at rest, Denies chest pain with activity, Denies diaphoresis and Reports dyspnea on exertion Resp Reports cough, Denies hemoptysis, Reports dyspnea on exertion and Reports wheezing GI Denies abdominal pain, Denies melena, Denies hematochezia, Denies constipation, Denies diarrhea and Denies loose stools Denies hematuria Musc Denies numbness and Denies tingling Skin/Breast Denies lesions Neuro Denies vertigo, Denies dizziness, Denies numbness and Denies tingling Psych Denies anxiety, Denies depression, Denies homicidal ideation, Denies suicidal ideation and Denies other (substance abuse) Aller/Immun Reports wheezing Physical Exam Vital Signs: Last Vital Signs Pulse 79 10/06/25 09:14 BP 118/78 10/06/25 09:14 Pulse Ox 97 10/06/25 09:14 Oxygen Delivery Method Room Air 10/06/25 09:14 BMI result Body Mass Index 33.6 Const General: alert HEENT Ears: Abnormal EAC present General nose exam: Nasal discharge present Throat: Yes posterior oropharynx abnormal Neck Neck: Yes normal visual inspection, Yes full ROM and Yes no lymphadenopathy Chest Chest palpation & inspection: normal inspection of the chest Resp Effort & Inspection: Actively coughing and prolonged expiratory phase Auscultation: no crackles, no rales and diminished lung sounds Cardio Rate: regular rate Rhythm: regular rhythm Heart sounds: S1 normal heart sound present and S2 normal heart sound present GI Palpation (GI): Soft to palpation and nontender Auscultation: normal bowel sounds Skin General skin exam: rashes and/or lesions noted Assessment & Plan Assessment & Plan (1) Asthma: Code(s): J45.909 - Unspecified asthma, uncomplicated Category: Medical Qualifiers: Asthma complication type: with acute exacerbation Asthma persistence: persistent Asthma severity: severe Qualified Code(s): J45.51 - Severe persistent asthma with (acute) exacerbation (2) GERD (gastroesophageal reflux disease): Code(s): K21.9 - Gastro-esophageal reflux disease without esophagitis Category: Medical Qualifiers: Esophagitis presence: without esophagitis Qualified Code(s): K21.9 - Gastro-esophageal reflux disease without esophagitis (3) Cough: Code(s): R05.9 - Cough, unspecified Category: Medical Qualifiers: Cough type: acute Qualified Code(s): R05.1 - Acute cough (4) Sinusitis: Code(s): J32.9 - Chronic sinusitis, unspecified Category: Medical Qualifiers: Chronicity: acute Recurrence: non-recurrent Sinusitis location: frontal Qualified Code(s): J01.10 - Acute frontal sinusitis, unspecified Plan continue Doxycycline medrol pk Mucinex DM CXR if no better tessalon as needed continue Symbicort with spacer continue Spiriva off Tezspire short-acting beta agonist as needed Daliresp follow-up in 4 months Orders: Orders XR chest 2V Today R05.1 - Acute cough Medications: New doxycycline hyclate 100 mg PO BID 20 caps 0RF 10 days methylprednisolone (Medrol (Rojelio)) PO PER PKG DIR 21 ea 0RF 6 days Coding Level of Care Code Est Pt Level 4 (05127) Diagnoses Severe persistent asthma with acute exacerbation J45.51 Asthma complication type: with acute exacerbation Asthma persistence: persistent Asthma severity: severe Gastroesophageal reflux disease without esophagitis K21.9 Esophagitis presence: without esophagitis Acute cough R05.1 Cough type: acute Acute non-recurrent frontal sinusitis J01.10 Chronicity: acute Recurrence: non-recurrent Sinusitis location: frontal Time Spent (min) 16
== END 2025-10-06 09:51 | disposition home or self-care (01) ==
PROVIDERS: PCP Nurse Practitioner Family; Visit Provider Hospitalist
DX: J45.51 Severe persistent asthma with (acute) exacerbation (principal); K21.9 Gastro-esophageal reflux disease without esophagitis; R05.1 Acute cough; J01.10 Acute frontal sinusitis, unspecified
CPT/HCPCS: 99214

== ENCOUNTER 2025-10-06 16:09 | Outpatient (AMB) | payer OTHER, SELFPAY ==
--- NOTE | 2025-10-06 16:05 | A.OFFVIS_ITS ---
Intake Visit Reasons: 3 months F/U Intake Note: Follow up care Administrative Program Specialist Required: No Accompanied by: Self / Same As Patient Allergies bee venom protein (honey bee) Allergy (Severe, Verified 10/06/25 09:18) Anaphylaxis bupropion (From Wellbutrin) Allergy (Intermediate, Verified 10/06/25 09:18) Swelling environmental allergies Allergy (Intermediate, Verified 10/06/25 09:18) Hives and Rash paroxetine (From Paxil) Allergy (Intermediate, Verified 10/06/25 09:18) Swelling codeine Allergy (Mild, Verified 10/06/25 09:18) Itching Medication List - Last Reconciled 10/06/25 by DEREJE Mills albuterol sulfate 90 mcg/actuation 2 puffs inhalation Q4H PRN 30 days albuterol sulfate 2.5 mg (3 mL) inhalation Q4H PRN 30 days alprazolam 1 tab 30 minutes prior to MRIs, MR x's 1 (max 2 tabs per day) orally .; PRN; 2 days Breyna 160-4.5 mcg/actuation (budesonide-formoterol) 2 puffs PO BID NS doxycycline hyclate 100 mg PO BID 10 days doxycycline hyclate 100 mg PO BID 10 days epinephrine (EpiPen 2-Rojelio) 0.3 mg (0.3 mL) IM Q10M PRN 30 days ferrous sulfate 325 mg PO DAILY gabapentin 100 - 300 mg (1 - 3 x 100 mg) PO BEDTIME 30 days magnesium oxide 400 mg PO BEDTIME 30 days methylprednisolone (Medrol (Rojelio)) PO PER PKG DIR 6 days nebulizers As directed omeprazole 40 mg PO DAILY roflumilast 250 mcg PO DAILY ropinirole 2 mg PO BEDTIME rosuvastatin 5 mg PO DAILY sennosides (Natural Senna Laxative) 8.6 mg PO BEDTIME sumatriptan succinate 50 - 100 mg orally at onset of headache, may repeat in 2 hrs PRN; max 2 tabs per day or 4 tabs/week (may take with Ibuprofen) 30 days sumatriptan succinate 6 mg subcutaneously At onset of severe migraine attack with nausea, may repeat in 1 hour, max of 2 injection per day; PRN; 30 days MDD 12 mg tiotropium bromide 1.25 mcg/actuation (Spiriva Respimat) 2 puffs PO BEDTIME valacyclovir 500 mg PO DAILY venlafaxine ER 37.5 mg PO DAILY HPI Comments Details: Right-handed 45-yr-old female presents for f/u of headache and RLS. She reports that she has been suffering from URI symptoms for at least 2 months. She is being followed closely by pulmonology, and is being managed with doxycycline, and is starting on a Medrol pack. During this time, she has noticed an increase in her headache symptoms. She has resumed the riboflavin and magnesium. She has had to use the the sumatriptan, with good effect, just a few times since her last visit. She has not yet needed to try the sumatriptan injectable. She and her partner are still discussing plans for possible . During this time, she has had some breakthrough restless leg symptoms, where she had to take gabapentin up to 300 mg and get out of bed to walk around. She did resume the ferrous sulfate with vitamin-C. 06/30/2025, HPI: Pt underwent left ear skin cancer excision on 05/26/2025- has appt today to discuss fulll results. She reports overall her headaches are not occurring as frequently, now 1-2 days per week. She has tolerated the increase in the sumatriptan to the 100 mg tab. She notes that earlier treatment is more effective, however it can be difficult to know when a headache is coming on and if she does not catch the headache, it can be severe associated with nausea. She tried Amitriptyline, but it caused difficulty sleeping, so she stopped it. She did see hematology who felt that pt's ferritin was sufficient- at 32, and advised her to stop the B2, Mag, and oral iron supplement. She states her RLS is stable. 03/30/2025, Initial HPI: Right-handed 45-yr-old female presents for new pt evaluation of headache disorder, and pt would like to also discuss bothersome restless leg symptoms. Pt reports she has had headaches since childhood intermittently, which she could just lay down and they would go away. However, in the last year, the headcahes are more frequent and more severe. She denies preceding infection, injury, travel. She expresses concern regarding the worsening headaches, as she has a strong family h/o cancer, strokes, intracranial aneurysm/hemorrhage. She lost her mother d/t intracranial hemorrhage, and her 48 yo old sister who in her sleep- advanced cardiovascular disease- HF EF 5%. PMH and ROS are notable for:? General: fatigue, insomnia, borderline anemia Musculoskeletal disorders or injury: muscle cramps at rest. chronic back pain- s/p a PRP tx in bilateral SI joints 7 yrs ago- which did eventually help- by [facility] pain management. History of concussion/head injury: denies Mood d/o: Depression- controlled. Denies compulsive behaviors. Respiratory d/o: Asthma, h/o Covid-19 severe w/ acute resp failure in Oct 2021. CV disease: HLD Clotting or hematology d/o: denies Endocrine or metabolic d/o: denies History of seizure: denies. History of syncope: denies History of drop attacks: denies : kidney stones GI d/o: GERD. Denies IBS or constipation- on senna d/t ferrous sulfate use. 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 Family history of migraine or other headache disorder: Sister- migraine, Mother- TBI, migraines, RLS, suffered a fatal hemorrhagic stroke at age 69. Lifestyle considerations: * Sleep routine: Usual bedtime: goal is 8:30pm, usually 10pm and wake-up time: varies based on her or her husbands work schedule- her may wake up at 2-3am to go to work, and her dogs wake her up by 6am. * Sleep difficulties: Endorses: Ruminating thoughts, sleep initiation and maintanence difficulties. Snoring, Excessive daytime sleepiness, Fatigue, Leg Cramps, Bruxism during the day- does not use a mouth guard. * Restless leg- legs just go, go, go, go, go , almost a discomfort, needs to move, cramps at rest. Denies cramps w/ walking. She has been on Ropinirole x's 10 yrs- helps sometimes, but sometimes nothing helps. Has tried Gabapentin post-ankle sx- tolertaed well, but never tried for RLS s/s. Previously, on ambien to help w/ ruminating thoughts- however states it was stopped d/t increased risks in females. On ferrous sulfate 325mg daily- can cause constipation. Oct 2024 ferritin- 11. * 01/22/2020: HST AHI < 1, O2 lashanda 90%. * Caffeine use: 1 cup of coffee per day in the am- tries to avoid after 12pm. * Substance use: marijuana edibles for sleep. * Exercise:?not much, better during the warmer months * Employment:?works 3 12 hour shifts 8-8 on weekdays, and 6-6 on weekends. 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 * Family planning: possibly in the near future. Headache questionnaire:? Age/time of onset: childhood Preceding causes: no known causes Previous work-up: Brain MRI w/o, 09/21, normal Types of headache disorders: 1 w/ varying intensities Typical headache characteristics: Prodrome symptoms: denies Aura: at x's- sees a kaledioscope during the headache- lasts about 45-60 m inutes. Pain intensity: mild-severe Location, quality, characteristics: Pressure behind her eye Associated symptoms: photophobia, phonophobia, nausea, at times vomiting, internal/external spinning dizziness, at x's lightheadedness, fatigue, cognitive difficulties, activity intolerance. Postdrome: lingering nagging migraine hangover Aggravating factors: general activity Triggers: Denies triggers, other than prior to menstrual cycle at times. Time of day: No specific time of day Duration and Frequency: Typically 2 x's per week, lasting a couple of hours to 1-2 days. Headache impact on pt's QOL: sometimes has to miss work Current acute medication use/interventions: Excedrin migraine, Sumatriptan 50mg- sometimes works- takes as the headache is getting bad. 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 Mother Mental health disorder Maternal Grandfather No problems noted. Maternal Grandmother Mental health disorder Paternal Grandfather No problems noted. Paternal Grandmother No problems noted. Maternal Uncle Bladder cancer Esophageal adenocarcinoma Paternal Grandmother Colon cancer Stroke Sister Mental health disorder Social History Household Members: Spouse Housing: House Are you a primary career consultant to a significant other at home: Yes Do you presently have visiting nurse or other home services: No Patient Tobacco Use Status: Never used Tobacco e-Cigarette/Vaping Use: Never Used Second Hand Smoke Exposure: No service: No Current occupational status: employed Cognitive needs: No Hearing needs: No Vision needs: No Physical Exam Const Orientation/consciousness: patient oriented x3 Resp Effort & Inspection: normal respiratory effort and able to speak in complete sentences Neuro General: patient oriented x3 Cognition (Neuro): normal cognition Psych Appearance: grossly normal Mental Status: mental status grossly normal Speech and movement: Normal speech and movement present Affect: normal affect Attitude: cooperative Telehealth Telehealth Telehealth Platform: [facility] Location of provider rendering services: practice address Location of patient: address on file Patient Identification confirmed using: Name, : Yes Telehealth method: video Patient verbally consented to treatment: Yes Patient verbally consented to billing insurance company: Yes Patient informed of any privacy concerns related to visit: Yes Minutes spent on Phone/Video with Pt.: 13 Assessment & Plan Assessment & Plan (1) RLS (restless legs syndrome): Code(s): G25.81 - Restless legs syndrome Category: Medical (2) Low serum ferritin level: Code(s): R79.0 - Abnormal level of blood mineral Category: Medical (3) Migraine with aura: Code(s): G43.109 - Migraine with aura, not intractable, without status migrainosus Category: Medical Qualifiers: Status migrainosus presence: without status migrainosus Intractability: not intractable Qualified Code(s): G43.109 - Migraine with aura, not intractab le, without status migrainosus (4) Family history of intracranial hemorrhage: Code(s): Z82.3 - Family history of stroke Category: Medical Plan Previous work-up: 04/21/2025 (at [facility]), brain MRI, MRA, MRV with and without contrast: Unremarkable, only minimal nonspecific FLAIR hyperintensities in the white matter. 04/21/2025 (at [facility]) C-spine MRI without contrast: Unremarkable For restless leg syndrome: * 05/15/2025 Hematology consult- they did not feel that patient required an IV iron infusion * Continue ferrous sulfate 325mg po daily w/ vitamin C- would not increase d/t risk for worsening constipation * Ferritin goal in RLS is at least 75-100. * Continue Ropinirole 2mg daily at bedtime. * Continue gabapentin 100 mg capsule, 1-3 caps daily at bedtime. * Alternatively- may take 1 cap 2 hours before bed and 2 caps at bedtime * Check CBC/CMP/ferritin/iron studies- once her current URI s/s have resolved * Navigating Life with Restless Leg Syndrome by Dr Mejía is a good resource to earn more about both pharmacological and non-pharmacological treatments for RLS. * Future considerations: in-lab PSG, Nidra neurostimulation device For overall headache management: * Optimize good self-care, including but not limited to maintaining a healthy diet, adequate fluid intake, adequate sleep, and engaging in regular physical activity. * Track headaches, especially after any treatment regimen changes. Migraine [employer] is one of many headache tracking apps. * Information previously shared on non-pharmacological interventions which may help to alleviate headache attack burden. * For light sensitivity: Patient may benefit from trying blue light filtering glasses, green glasses, green light therapy. * For sound sensitivity: Patent may benefit from trying noise cancellation ear plugs. * Neuromodulation devices, which can be used alone or with pharmacological treatment, such as Nerivio- which has safety data supporting its use in . * Trial an OTC Mouth guard For acute headache treatment: It is important to take acute medications at the first sign of headache, however avoid acute medication overuse (especially with combined headache medications). * Continue Sumatriptan 00mg tab, 1/2 - 1 tab (50-100mg) at onset of headache, may repeat in 2 hours. Max of 2 tabs (200mg) per 24 hours. * May take sumatriptan with OTC Tylenol 650-1,000mg every 4-6 hours, Ibuprofen (liquid gels) 600mg every 6 hours, or Naproxen (liquid gels) 440mg every 12 hrs prn. * When needed trial, Sumatriptan 6 mg subcutaneous injection: * Inject 1 injection at onset of severe migraine attack with nausea, you may repeat in 1 hour. Max of 2 injections (or 2 sumatriptan doses) per per 24 hours. * May take sumatriptan with OTC Tylenol 650-1,000mg every 4-6 hours, Ibuprofen (liquid gels) 600mg every 6 hours, or Naproxen (liquid gels) 440m g every 12 hrs prn. * Potential adverse effects of injectable triptans, include but are not limited to injection site irritation, nausea, fatigue, chest tightness/tingling (usually passes within a few minutes), medication overuse headaches. * Previous acute migraine medication trials: Sumatriptan 50mg- not always effective. * Acute migraine medication contraindications: None at this time For headache prevention medication: * Preventative medications should be taken routinely as prescribed for best effect, it may take several weeks for full effect to take effect. * Continue Riboflavin 400mg daily in the morning * Continue Magnesium 400mg daily at bedtime- may help RLS and leg cramps as well. * Discontinue Amitriptyline 10mg daily at bedtime order-not tolerated Previous migraine treatment trials: Amitriptyline worsened sleep. Migraine prevention medication contraindications: Topiramate, depakote, CGRP MaBs d/t current desire for . All beta-blockers d/t symptomatic asthma. Future considerations: Qulipta Will follow-up upon review of above and patient to follow-up in clinic in 6 months or sooner prn. Coding Level of Care Code Tele Est Pt Level 4 (87579) Diagnoses RLS (restless legs syndrome) G25.81 Low serum ferritin level R79.0 Migraine with aura and without status migrainosus, not intractable G43.109 Status migrainosus presence: without status migrainosus Intractability: not intractable Family history of intracranial hemorrhage Z82.3
--- OUTSIDE RECORDS SUMMARY | 2025-10-06 22:49 | XMS_ITS | Data Portability ---
Author Organization [facility], [id number] Address [address] [place] [address] Assessment No assessment recorded. Plan of Treatment Reminders Order Date Submit Date Provider Last Modified By Organization Details Last Modified Time Details Appointments None recorded. Lab None recorded. Referral None recorded. Procedures None recorded. Surgeries None recorded. Imaging None recorded. Medication Orders Aplisol 5 tub. unit/0.1 mL intradermal injection solution 2022 023 [email or web address] Not available 3 08:17:18 Patient TargetsNo targets recorded. Patient InstructionsNo instructions recorded. Reason for Referral None Reported. Procedures Surgical History Date Name Laterality Status Provider Name and Address Organization Details Recorded Time 3 OC-UDS Send Out Template NON DOT completed [facility] 02/15/2023 08:58:11 Imaging Results None recorded. Procedure Notes None recorded. Medical Equipment None Reported. Medications Name Sig Start Date Stop Date Status Note LastModified by Organization Details LastModified Time p-4 k-10 pain formulation salt stable Apply 1-3 grams to the affected area 3-4 times daily (RIGHT ANKLE) active Not Available Not Available No t Available estazolam 2 mg tablet TAKE 1 TABLET BY MOUTH AT BEDTIME FOR 30 DAYS active Not Available Not Available No t Available acetaminophe n 325 mg tablet TAKE 2 TABLETS BY MOUTH EVERY 6 HOURS NEEDED FOR PAIN (MILD TO MODERATE PAIN) FOR UP TO 10 DAYS. active Not Available Not Available No t Available prednisone 10 mg tablet PLEASE SEE ATTACHED FOR DETAILED DIRECTIONS active Not Available Not Available N ot Available venlafaxine ER 75 mg capsule,exte nded release 24 hr TAKE 1 CAPSULE BY MOUTH ONCE DAILY active Not Available Not Available No t Available ibuprofen 800 mg tablet TAKE 1 TABLET BY MOUTH EVERY 8 HOURS active Not Available Not Available No t Available meloxicam 15 mg tablet TAKE 1 TABLET BY MOUTH EVERY DAY active Not Available Not Available No t Available famotidine 40 mg tablet TAKE 1 TABLET BY MOUTH AT BEDTIME active Not Available Not Available No t Available Aplisol 5 tub. unit/0.1 mL intradermal injection solution Inject 0.1 mL by intradermal route. 2022 active Not Available Not Available Not Avai lable valacyclovir 500 mg tablet TAKE 1 TABLET BY MOUTH EVERY DAY active Not Available Not Available No t Available omeprazole 40 mg capsule,travis yed release TAKE 1 CAPSULE BY MOUTH EVERY DAY active Not Available Not Available No t Available erythromycin 5 mg/gram (0.5 %) eye ointment INSTILL 1 CM RIBBON INTO LEFT EYE 3-4 TIMES DAILY FOR 7 DAYS active Not Available Not Available N ot Available mirtazapine 15 mg tablet TAKE 1/2 TABLET BY MOUTH AT BEDTIME NEEDED FOR SLEEP active Not Available Not Available No t Available gabapentin 100 mg capsule TAKE 1 CAPSULE BY MOUTH 3 TIMES A DAY active Not Available Not Available Not Available levofloxacin 500 mg tablet TAKE 1 TABLET BY MOUTH EVERY DAY FOR 14 DAYS active Not Available Not Available No t Available amoxicillin 875 mg-potassium clavulanate 125 mg tablet TAKE 1 TABLET BY MOUTH TWICE A DAY FOR 10 DAYS active Not Available Not Available No t Available oxycodone 5 mg tablet TAKE 1 TABLET BY MOUTH EVERY 6 HOURS NEEDED FOR PAIN active Not Available Not Available No t Available rosuvastatin 5 mg tablet TAKE 1 TABLET BY MOUTH EVERY DAY active Not Available Not Available No t Available roflumilast 250 mcg tablet TAKE 1 TABLET BY MOUTH EVERY DAY active Not Available Not Available No t Available diclofenac potassium 25 mg tablet take 1-2 tablets by MOUTH 2-3 times APPLY DAY NEEDED pain active Not Available Not Available Not Available Vitals None Recorded Social History None recorded. Functional Status None recorded. Mental Status None recorded. Family History Nothing Reported. Medical History No medical history recorded. Gynecological HistoryNo gynecological history recorded. Obstetrics History GPAL:G 0 P 0 0 0 0 Past Encounters Encounter ID Performer Location Encounter Start Date Encounter Closed Date Diagnosis/Indication Diagnosis SNOMED-CT Code Diagnosis ICD10 Code Diagnosis IMO Codes Diagnosis Note [id number] [address] [place] [address] 08/29/2017 18:14:15 08/29/2017 19:00:45 [id number] [address] [place] [address] 03/21/2018 19:45:17 03/21/2018 20:08:03 [id number] [address] [place] [address] 11/17/2017 11:44:04 11/17/2017 12:25:13 [id number] [address] [place] [address] 07/08/2021 19:07:51 07/08/2021 19:51:57 [id number] Casper Moncada [place] [address] [place] [address] 02/15/2023 08:15:27 02/15/2023 09:00:28 History and physical examination, occupation [id number] Z02.1 [id number] [place] Moncada [place] [address] [place] [address] 02/15/2023 08:16:43 02/15/2023 09:03:21 Tuberculosis screening [id number] Z11.1 Health Concerns Section Related Observation LastModified by Organization Detai ls LastModified Time None Recorded Concern Status LastModified by Organization Details LastModified Time None Recorded Advance Directives Directive None Recorded Payers Insurance Date Sequence Insurance Name Policy Number Policy Stone Covered Member ID Stone Member ID Guarantor Name 02/15/2023 OC-TPA AUTHORIZATION T [facility] Glory Cooley 02/15/2023 OC-ESCREEN Glory Cooley [id number] Glory Cooley 02/15/2023 DO NOT USE Glory Cooley OC-PAY AT TIME OF SERVICE OC-PAY AT TIME OF SERVICE Glory Cooley 02/15/2023 1 [id number] Glory Cooley [id number] Glory Cooley 02/15/2023 2 [place] [id number] Glory Cooley [id number] Glory Cooley 03/20/2023 OC-ESCREEN Glory Cooley [id number] Glory Cooley OBGyn Episode No OBEpisode recorded.
== END 2025-10-07 11:09 | disposition home or self-care (01) ==
LOC: HO.HSMS 16:09
PROVIDERS: PCP Nurse Practitioner Family; Visit Provider Nurse Practitioner Family
DX: G25.81 Restless legs syndrome (principal); R79.0 Abnormal level of blood mineral; G43.109 Migraine with aura, not intractable, without status migrainosus; Z82.3 Family history of stroke
CPT/HCPCS: 99214